=== PATIENT | female | born 1955 | race African-American/Black ===

== ENCOUNTER 2016-03-05 18:13 | Inpatient (IN) | payer MEDICARE, MEDICAID ==
[2016-03-05 19:08] LABS: ABSOLUTE BASOPHILS # (AUTO) 0.1 10^3/uL (0.0-0.2); ABSOLUTE EOSINOPHILS # (AUTO) 0.2 10^3/uL (0.0-0.6); ABSOLUTE LYMPHOCYTES (AUTO) 2.1 10^3/uL (0.5-4.7); ABSOLUTE MONOCYTES (AUTO) 0.9 10^3/uL (0.1-1.4); ABSOLUTE NEUT (AUTO) 5.1 10^3/uL (1.7-8.2); BASOPHILS % (AUTO) 0.7 % (0-2); EOSINOPHILS % (AUTO) 2.4 % (0-6); HEMATOCRIT 40.9 % (36.0-47.0); HEMOGLOBIN 13.2 g/dL (12.0-15.5); HGB HCT DIFFERENCE -1.3; LYMPHOCYTES % (AUTO) 25.1 % (13-45); MEAN CORPUSCULAR HEMOGLOBIN 29.7 pg (27.0-33.4); MEAN CORPUSCULAR HGB CONC 32.3 g/dL (32.0-36.0); MEAN CORPUSCULAR VOLUME 92 fl (80-97); MONOCYTES % (AUTO) 10.3 % (3-13); RED BLOOD COUNT 4.45 10^6/uL (3.72-5.28); RED CELL DISTRIBUTION WIDTH 15.7 % (11.5-14.0); SEGMENTED NEUTROPHILS % (AUTO) 61.5 % (42-78); WHITE BLOOD COUNT 8.4 10^3/uL (4.0-10.5)
[2016-03-05 19:29] LABS: ALANINE AMINOTRANSFERASE 19 U/L (9-52); ALBUMIN 4.3 g/dL (3.5-5.0); ALKALINE PHOSPHATASE 84 U/L (38-126); ANION GAP 12 (5-19); ASPARTATE AMINO TRANSFERASE 24 U/L (14-36); BILIRUBIN,TOTAL 0.6 mg/dL (0.2-1.3); BLOOD UREA NITROGEN 16 mg/dL (7-20); CALCIUM 9.2 mg/dL (8.4-10.2); CARBON DIOXIDE 25 mmol/L (22-30); CHLORIDE 106 mmol/L (98-107); CREATINE KINASE 86 U/L (30-135); CREATININE RESULT 1.37 mg/dL (0.52-1.25); GLUCOSE 107 mg/dL (75-110); POTASSIUM 4.1 mmol/L (3.6-5.0); SODIUM 143.3 mmol/L (137-145); TOTAL PROTEIN 8.2 g/dL (6.3-8.2)
[2016-03-05 19:41] LABS: CREATINE KINASE MB 0.87 ng/mL (<4.55)
[2016-03-05 19:45] LABS: TROPONIN I 0.078 ng/mL
[2016-03-05 20:44] LABS: PROTHROMBIN TIME 13.5 SEC (11.4-15.4)
[2016-03-05 20:45] LABS: PARTIAL THROMBOPLASTIN TIME 32.3 SEC (23.5-35.8)
--- NOTE | 2016-03-05 21:14 | ER Document Report ---
ED General - General Chief Complaint: Chest Pain Stated Complaint: CHEST PAIN TRAVEL OUTSIDE OF THE [place] IN LAST 30 DAYS: No - HPI Patient complains to provider of: left-sided chest pain Notes: Patient with a history of coronary artery disease stents placed in recent stress test that was not according to the patient normal coming in today left side chest pain ongoing for proximal a 5-10 minutes a few hours prior to arrival. Patient states she was short of breath and a time. Patient states she has been compliant with her medications including of blood thinning medications as well and eliquis. Patient denies any recent travel denies any recent antibiotics denies any medication changes. Patient states pain is left- sided no radiation sharp. Upon my arrival patient states pain is not resolved ever down and she will have a sharp twinge lasting for a second. Patient states PCP is Dr. Vogt intellectual property paralegal is Dr. Kirby - Related Data Allergies/Adverse Reactions: No Known Allergies Allergy (Verified 10/03/15 22:34) Home Medications: Current Home Medications Alirocumab [Praluent Pen] 1 each INJ [id number] 03/05/16 [History] Apixaban [Eliquis] 1 tab PO Q12 03/05/16 [History] Hydrochlorothiazide [Hydrochlorothiazide] 1 tab PO DAILY 03/05/16 [History] Losartan Potassium 1 tab PO DAILY 03/05/16 [History] Past Medical History - Social History Smoking Status: Unknown if Ever Smoked Family History: Malignancy - Past Medical History Cardiac Medical History: Reports: Hx Coronary Artery Disease, Hx Heart Attack, Hx Hypercholesterolemia, Hx Hypertension, Hx Peripheral Vascular Disease Denies: Hx Atrial Fibrillation, Hx Congestive Heart Failure, Hx Heart Murmur Pulmonary Medical History: Reports: Hx Asthma, Hx Bronchitis, Hx COPD Denies: Hx Pneumonia, Hx Tuberculosis Neurological Medical History: Denies: Hx Cerebrovascular Accident, Hx Seizures Malignancy Medical History: Reports: Hx Breast Cancer GI Medical History: Reports: Hx Gastroesophageal Reflux Disease Musculoskeltal Medical History: Denies Hx Arthritis, Reports Hx Fibromyalgia Psychiatric Medical History: Reports: Hx Depression Past Surgical History: Reports: Hx Cardiac Catheterization - 2002 Stent, 2004 Stent, Hx Coronary Stent - 2002([place]), 2004([place]), Hx Mastectomy - LEFT, Hx Orthopedic Surgery - left BKA due to peripheral vascular disease/ischemia. Denies: Hx Pacemaker - Immunizations Hx Diphtheria, Pertussis, Tetanus Vaccination: Yes Review of Systems - Review of Systems Constitutional: No symptoms reported EENT: No symptoms reported Cardiovascular: Chest pain Respiratory: No symptoms reported Gastrointestinal: No symptoms reported Genitourinary: No symptoms reported Female Genitourinary: No symptoms reported Musculoskeletal: No symptoms reported Skin: No symptoms reported Hematologic/Lymphatic: No symptoms reported Neurological/Psychological: No symptoms reported -: Yes All other systems reviewed and negative Physical Exam - Vital signs Vitals: Temp Pulse Resp BP Pulse Ox 98.2 F 74 19 139/83 H 100 03/05/16 18:18 03/05/16 18:18 03/05/16 18:18 03/05/16 18:18 03/05/16 18:18 Interpretation: Normal - General General appearance: Appears well, Alert - HEENT Head: Normocephalic, Atraumatic Eyes: Normal Pupils: PERRL - Respiratory Respiratory status: No respiratory distress Chest status: Nontender Breath sounds: Normal Chest palpation: Normal - Cardiovascular Rhythm: Regular Heart sounds: Normal auscultation Murmur: No - Abdominal Inspection: Normal Distension: No distension Bowel sounds: Normal Tenderness: Nontender Organomegaly: No organomegaly - Back Back: Normal, Nontender - Extremities General upper extremity: Normal inspection, Nontender, Normal color, Normal ROM , Normal temperature General lower extremity: Normal inspection, Nontender, Normal color, Normal ROM , Normal temperature, Normal weight bearing, Other - Left BKA. No: Princess's sign - Neurological Neuro grossly intact: Yes Cognition: Normal Orientation: AAOx4 [place] Coma Scale Eye Opening: Spontaneous [place] Coma Scale Verbal: Oriented [place] Coma Scale Motor: Obeys Commands [place] Coma Scale Total: 15 Speech: Normal Motor strength normal: LUE, RUE, LLE, RLE Sensory: Normal - Psychological Associated symptoms: Normal affect, Normal mood - Skin Skin Temperature: Warm Skin Moisture: Dry Skin Color: Normal Course - Re-evaluation Re-evalutation: 03/05/16 23:32 EKG showed no changes chest x-ray lab work negative troponin. Discussed with PCP will admit patient for chest pain rule out. Did not perform any studies to rule out PE as that the patient is on eliquis during patient ER stay no further episodes of chest pain - Vital Signs Vital signs: Temp Pulse Resp BP Pulse Ox 98.2 F 74 19 135/75 H 96 03/05/16 18:18 03/05/16 18:18 03/05/16 19:03 03/05/16 19:03 03/05/16 19:03 - Laboratory Result Diagrams: 03/05/16 18:59 03/05/16 18:59 Laboratory results interpreted by me: 03/05/16 03/05/16 18:59 18:59 RDW 15.7 H Creatinine 1.37 H Est GFR ( Amer) 48 L Est GFR (Non-Af Amer) 39 L Discharge - Discharge Clinical Impression: Chest pain Qualifiers: Chest pain type: unspecified Qualified Code(s): R07.9 - Chest pain, unspecified Disposition: ADMITTED OBSERVATION Admitting Provider: [facility] Unit Admitted: Telemetry
--- NOTE | 2016-03-05 21:38 | EKG REPORT ---
SEVERITY:- ABNORMAL ECG - SINUS RHYTHM RIGHT BUNDLE BRANCH BLOCK NONSPECIFIC ANTEROLATERAL ST-T CHANGES : Confirmed by: Som Jc MD 05-Mar-2016 21:38:24
[2016-03-05] MEDS ORDERED: ATORVASTATIN CALCIUM 80 MG TABLET PO ONE (22:30)
[2016-03-05] MEDS ORDERED: ALBUTEROL SULFATE HFA (90 MCG/PUFF) 8 GM MDI (1 MDI/ER DISP) IH ONE (22:30)
[2016-03-05] MEDS ORDERED: NITROGLYCERIN 0.4 MG/TAB 25 TAB/BOTTLE SL PRN (22:30)
[2016-03-05] MEDS ORDERED: METOPROLOL SUCCINATE 50 MG TAB.SR.24H PO ONE (22:45)
[2016-03-05] MEDS ORDERED: ASPIRIN 81 MG TABLET, CHEWABLE PO ONE (22:45)
[2016-03-05] MEDS ORDERED: APIXABAN 2.5 MG TABLET PO ONE (22:45)
[2016-03-06 01:30] LABS: CREATINE KINASE MB 1.07 ng/mL (<4.55); TROPONIN I 0.105 ng/mL
[2016-03-06] MEDS ORDERED: ALBUTEROL SULFATE HFA (90 MCG/PUFF) 8 GM MDI (1 MDI/ER DISP) IH SCH (02:00)
[2016-03-06] MEDS ORDERED: ALBUTEROL SULFATE HFA (90 MCG/PUFF) 8 GM MDI (1 MDI/ER DISP) IH PRN (03:44)
[2016-03-06] MEDS ORDERED: LANSOPRAZOLE 15 MG TAB.RAP.DR PO SCH (06:00)
[2016-03-06 08:22] LABS: ABSOLUTE BASOPHILS # (AUTO) 0.1 10^3/uL (0.0-0.2); ABSOLUTE EOSINOPHILS # (AUTO) 0.2 10^3/uL (0.0-0.6); ABSOLUTE LYMPHOCYTES (AUTO) 3.1 10^3/uL (0.5-4.7); ABSOLUTE MONOCYTES (AUTO) 1.1 10^3/uL (0.1-1.4); BASOPHILS % (AUTO) 0.5 % (0-2); EOSINOPHILS % (AUTO) 2.3 % (0-6); HEMATOCRIT 38.9 % (36.0-47.0); HEMOGLOBIN 12.6 g/dL (12.0-15.5); HGB HCT DIFFERENCE -1.1; LYMPHOCYTES % (AUTO) 29.3 % (13-45); MEAN CORPUSCULAR HEMOGLOBIN 29.6 pg (27.0-33.4); MEAN CORPUSCULAR HGB CONC 32.3 g/dL (32.0-36.0); MEAN CORPUSCULAR VOLUME 92 fl (80-97); MONOCYTES % (AUTO) 10.1 % (3-13); RED BLOOD COUNT 4.24 10^6/uL (3.72-5.28); RED CELL DISTRIBUTION WIDTH 15.6 % (11.5-14.0); SEGMENTED NEUTROPHILS % (AUTO) 57.8 % (42-78); WHITE BLOOD COUNT 10.5 10^3/uL (4.0-10.5)
[2016-03-06 08:43] LABS: ANION GAP 10 (5-19); BLOOD UREA NITROGEN 14 mg/dL (7-20); CALCIUM 9.2 mg/dL (8.4-10.2); CARBON DIOXIDE 24 mmol/L (22-30); CHLORIDE 107 mmol/L (98-107); CHOLESTEROL 179.38 mg/dL (0-200); CREATININE RESULT 1.25 mg/dL (0.52-1.25); Direct HDL 48 mg/dL (>40); GLUCOSE 91 mg/dL (75-110); TRIGLYCERIDES 183 mg/dL (<150)
[2016-03-06 08:52] LABS: CREATINE KINASE MB 1.22 ng/mL (<4.55); TROPONIN I 0.104 ng/mL
[2016-03-06 08:53] LABS: DIRECT LDL 91 mg/dL (<100)
[2016-03-06 08:59] LABS: VLDL CHOLESTEROL 36.6 mg/dL (10-31)
[2016-03-06] MEDS ORDERED: APIXABAN 2.5 MG TABLET PO SCH ×2 (10:00→22:00)
[2016-03-06] MEDS ORDERED: ASPIRIN 81 MG TABLET, CHEWABLE PO SCH ×2 (10:00→15:15)
[2016-03-06 14:00] LABS: CREATINE KINASE MB 1.16 ng/mL (<4.55); TROPONIN I 0.091 ng/mL
[2016-03-06] MEDS ORDERED: ALIROCUMAB 75 MG SQ SCH (15:15)
[2016-03-06 15:55] VITALS: BP 137/80
[2016-03-06] MEDS ORDERED: METOPROLOL SUCCINATE 50 MG TAB.SR.24H PO SCH (16:00)
[2016-03-06 16:28] LABS: APPEARANCE,URINE CLEAR; BILIRUBIN,URINE NEGATIVE (NEGATIVE); GLUCOSE, URINE 50 mg/dL (NEGATIVE); KETONES,URINE NEGATIVE (NEGATIVE); LEUKOCYTE ESTERASE,URINE NEGATIVE (NEGATIVE); NITRITE,URINE NEGATIVE (NEGATIVE); PROTEIN,URINE NEGATIVE (NEGATIVE); URINE SPECIFIC GRAVITY 1.011
[2016-03-06] MEDS ORDERED: ALIROCUMAB 150 MG SQ SCH (16:30)
[2016-03-06] MEDS ORDERED: ALBUTEROL SULFATE HFA (90 MCG/PUFF) 200 PUFF/8.5 GM MDI IH PRN (16:45)
--- NOTE | 2016-03-06 16:51 | PDOC H&P ---
History of Present Illness Admission Date/PCP: 03/05/16 22:17 TEODORO HOROWITZ, History of Present Illness: KEYONA TAYLOR is a 60 year old female, she has a history of ischemic cardiomyopathy, coronary artery disease with insertion of multiple drug eluting stents. She has a very complicated vascular history, she came to the emergency room with one day history of chest pain and shortness of breath, the chest pain is tightness of the chest.She was evaluated in the emergency room, because of history of coronary artery disease hospital admission was advised. She was admitted,The initial troponin was 0.0788 increased to 0.105 and a been trending down, it is now 0.091 she had a lexiscan Cardiolite stress test using single photon emisison computerized tomography on 02/03/2016. She was found to have scintigraphic evidence of lexiscan induced myocardial ischemia in the anterior wall. Also found was reversible ischemia and that was dilated left ventricle the ejection fraction was 25% at rest and 39 percent after stress. So she probably have a non-ST elevated myocardial infarction ,with a background of abnormal stress test about a month ago and with typical symptoms of angina and abnormal EKG Past Medical History Cardiac Medical History: Reports: Atrial Fibrillation - Paroxysmal atrial fibrillation, Coronary Artery Disease, Myocardial Infarction, Hyperlipidema, Hypertension, Peripheral Vascular Disease Pulmonary Medical History: Reports: Asthma, Bronchitis, Chronic Obstructive Pulmonary Disease (COPD) Neurological Medical History: Reports: Ischemic CVA Malignancy Medical History: Reports: Breast Cancer GI Medical History: Reports: Gastroesophageal Reflux Disease Musculoskeltal Medical History: Reports: Fibromyalgia Psychiatric Medical History: Reports: Depression Hematology: Denies: Anemia Past Surgical History Past Surgical History: Reports: Cardiac Catheterization - 2002 Stent, 2005 Stent , Coronary Stent - 2002([place]), 2004([place]), Mastectomy - LEFT, Orthopedic Surgery - left BKA due to peripheral vascular disease/ischemia Social History Information Source: Patient Smoking Status: Former Smoker Frequency of Alcohol Use: None Hx Recreational Drug Use: No Drugs: None Hx Prescription Drug Abuse: No - Advance Directive Resuscitation Status: Full Code Family History Family History: Malignancy Parental Family History Reviewed: Yes Children Family History Reviewed: Yes Sibling(s) Family History Reviewed.: Yes Medication/Allergy Home Medications: Albuterol Sulfate [Proair HFA] 2 puff IH Q4HP PRN 03/06/16 Alirocumab [Praluent Syringe] 150 mg SQ [id number] 03/06/16 Apixaban [Eliquis 2.5 mg Tablet] 2.5 mg PO Q12 03/06/16 Aspirin [Aspirin 81 mg Chewable Tablet] 81 mg PO DAILY 03/06/16 Atorvastatin Calcium [Lipitor 80 mg Tablet] 80 mg PO QHS 03/06/16 Clopidogrel Bisulfate [Plavix 75 mg Tablet] 75 mg PO DAILY 03/06/16 Hydrochlorothiazide [Hydrodiuril 25 mg Tablet] 25 mg PO DAILY 03/06/16 Losartan Potassium [Cozaar 25 mg Tablet] 25 mg PO DAILY 03/06/16 Metoprolol Succinate [Toprol Xl 25 mg Tab.sr] 75 mg PO DAILY 03/06/16 Allergies/Adverse Reactions: No Known Allergies Allergy (Verified 10/03/15 22:34) Review of Systems Constitutional: ABSENT: chills, fever(s), headache(s), weight gain, weight loss Eyes: ABSENT: visual disturbances Ears: ABSENT: hearing changes Cardiovascular: PRESENT: chest pain Respiratory: ABSENT: cough, hemoptysis Gastrointestinal: ABSENT: abdominal pain, constipation, diarrhea, hematemesis, hematochezia, nausea, vomiting Genitourinary: ABSENT: dysuria, hematuria Musculoskeletal: ABSENT: joint swelling Integumentary: ABSENT: rash, wounds Neurological: ABSENT: abnormal gait, abnormal speech, confusion, dizziness, focal weakness, syncope Psychiatric: ABSENT: anxiety, depression, homidical ideation, suicidal ideation Endocrine: ABSENT: cold intolerance, heat intolerance, menstrual abnormalities, polydipsia, polyuria Hematologic/Lymphatic: ABSENT: easy bleeding, easy bruising, lymphadenopathy Physical Exam Vital Signs: Temp Pulse Resp BP Pulse Ox 97.9 F 72 20 137/80 H 100 03/06/16 15:07 03/06/16 15:07 03/06/16 15:07 03/06/16 15:07 03/06/16 15:07 Intake & Output 03/05/16 03/06/16 03/07/16 06:59 06:59 06:59 Intake Total 55 300 Balance 55 300 Weight 106 kg General appearance: PRESENT: no acute distress, well-developed, well-nourished Head exam: PRESENT: atraumatic, normocephalic Eye exam: PRESENT: conjunctiva pink, EOMI, PERRLA Ear exam: PRESENT: normal external ear exam Mouth exam: PRESENT: moist, tongue midline Neck exam: PRESENT: full ROM Respiratory exam: PRESENT: clear to auscultation freida Cardiovascular exam: PRESENT: RRR, +S1, +S2 Pulses: PRESENT: normal dorsalis pedis pul, +2 pedal pulses bilateral Vascular exam: PRESENT: normal capillary refill GI/Abdominal exam: PRESENT: normal bowel sounds, soft Rectal exam: PRESENT: deferred Neurological exam: PRESENT: alert, awake, oriented to person, oriented to place , oriented to time, oriented to situation, CN II-XII grossly intact Psychiatric exam: PRESENT: appropriate affect, normal mood Skin exam: PRESENT: dry, intact, warm Results Laboratory Results: 03/06/16 07:52 03/06/16 07:52 03/06/16 03/06/16 03/06/16 07:52 07:52 16:05 WBC 10.5 RBC 4.24 Hgb 12.6 Hct 38.9 MCV 92 MCH 29.6 MCHC 32.3 RDW 15.6 H Plt Count 194 Seg Neutrophils % 57.8 Lymphocytes % 29.3 Monocytes % 10.1 Eosinophils % 2.3 Basophils % 0.5 Absolute Neutrophils 6.0 Absolute Lymphocytes 3.1 Absolute Monocytes 1.1 Absolute Eosinophils 0.2 Absolute Basophils 0.1 Sodium 141.0 Potassium 4.0 Chloride 107 Carbon Dioxide 24 Anion Gap 10 BUN 14 Creatinine 1.25 Est GFR ( Amer) 53 L Est GFR (Non-Af Amer) 44 L Glucose 91 Calcium 9.2 Triglycerides 183 H Cholesterol 179.38 LDL Cholesterol Direct 91 VLDL Cholesterol 36.6 H HDL Cholesterol 48 Urine Color YELLOW Urine Appearance CLEAR Urine pH 6.0 Ur Specific [place] 1.011 Urine Protein NEGATIVE Urine Glucose (UA) 50 H Urine Ketones NEGATIVE Urine Blood NEGATIVE Urine Nitrite NEGATIVE Ur Leukocyte Esterase NEGATIVE Urine WBC (Auto) 1 Urine RBC (Auto) 0 03/06/16 03/06/16 03/06/16 00:51 07:52 13:14 CK-MB (CK-2) 1.07 1.22 1.16 Troponin I 0.105 0.104 0.091 Impressions: Chest X-Ray 03/05/16 18:18 IMPRESSION: NO ACUTE RADIOGRAPHIC FINDING IN THE CHEST. Assessment & Plan - Diagnosis (1) Non-ST elevated myocardial infarction Is this a current diagnosis for this admission?: YesPlan: She most likely had a non-ST elevated myocardial infarction, she had chest pain suspicious for angina with shortness of breath and also elevated troponin in the setting of abnormal Cardiolite stress test about a month ago. She will continue her medication, including beta michelle, statin, aspirin, angiotensin converting enzyme inhibitor and Praulent , she may need cardiac catheterization , she saw Dr. Womack of [facility] cardiology in the past . I will consult with him tomorrow if she can be transfer to [facility] (2) Chronic obstructive pulmonary disease Qualifiers: COPD type: unspecified COPD Qualified Code(s): J44.9 - Chronic obstructive pulmonary disease, unspecified Is this a current diagnosis for this admission?: Yes (3) Coronary artery disease Qualifiers: Coronary Disease-Associated Artery/Lesion type: [place] artery [place] vs. transplanted heart: [place] heart Associated angina: with unstable angina Qualified Code(s): I25.110 - Atherosclerotic heart disease of [place] coronary artery with unstable angina pectoris Is this a current diagnosis for this admission?: Yes (4) HTN (hypertension) Qualifiers: Hypertension type: essential hypertension Qualified Code(s): I10 - Essential (primary) hypertension Is this a current diagnosis for this admission?: Yes (5) PAD (peripheral artery disease) Is this a current diagnosis for this admission?: Yes (6) Paroxysmal atrial fibrillation Is this a current diagnosis for this admission?: Yes
[2016-03-06] MEDS ORDERED: HYDROCHLOROTHIAZIDE 25 MG TABLET PO ONE (17:00)
[2016-03-06] MEDS ORDERED: LOSARTAN POTASSIUM 25 MG TABLET PO ONE (17:00)
[2016-03-06] MEDS ORDERED: CLOPIDOGREL BISULFATE 75 MG TABLET PO ONE (17:00)
[2016-03-06] MEDS ORDERED: METOPROLOL SUCCINATE 25 MG TAB.SR.24H PO ONE (17:00)
--- NOTE | 2016-03-06 17:24 | PDOC TRANSFER SUMMARY ---
General Admission Date/PCP: 03/05/16 22:17 TEODORO HOROWITZ, Resuscitation Status: Full Code - Transfer Diagnosis (1) Non-ST elevated myocardial infarction Current Visit: Yes (2) Chronic obstructive pulmonary disease Current Visit: Yes (3) Coronary artery disease Current Visit: Yes (4) HTN (hypertension) Current Visit: Yes (5) PAD (peripheral artery disease) Current Visit: Yes (6) Paroxysmal atrial fibrillation Current Visit: Yes - Transfer Medications Home Medications: Albuterol Sulfate [Proair HFA] 2 puff IH Q4HP PRN 03/06/16 Alirocumab [Praluent Syringe] 150 mg SQ [id number] 03/06/16 Apixaban [Eliquis 2.5 mg Tablet] 2.5 mg PO Q12 03/06/16 Aspirin [Aspirin 81 mg Chewable Tablet] 81 mg PO DAILY 03/06/16 Atorvastatin Calcium [Lipitor 80 mg Tablet] 80 mg PO QHS 03/06/16 Clopidogrel Bisulfate [Plavix 75 mg Tablet] 75 mg PO DAILY 03/06/16 Hydrochlorothiazide [Hydrodiuril 25 mg Tablet] 25 mg PO DAILY 03/06/16 Losartan Potassium [Cozaar 25 mg Tablet] 25 mg PO DAILY 03/06/16 Metoprolol Succinate [Toprol Xl 25 mg Tab.sr] 75 mg PO DAILY 03/06/16 Transfer Medications: Current Medications Albuterol (Ventolin Hfa 8 Gm Mdi (1 Mdi/Er Disp)) 2 puff IH Q4HP PRN PRN Reason: SHORTNESS OF BREATH Stop: 04/05/16 03:43 Albuterol (Proair Hfa Inhalation Aerosol 8.5 Gm Mdi) 2 puff IH Q4HP PRN PRN Reason: SHORTNESS OF BREATH Stop: 04/05/16 16:44 Apixaban (Eliquis 2.5 Mg Tablet) 2.5 mg PO Q12 MARY Stop: 04/05/16 09:59 Last Admin: 03/06/16 12:30 Dose: 2.5 mg Aspirin (Aspirin 81 Mg Chewable Tablet) 81 mg PO DAILY MARY Stop: 04/05/16 09:59 Last Admin: 03/06/16 12:31 Dose: 81 mg Atorvastatin Calcium (Lipitor 80 Mg Tablet) 80 mg PO QHS MARY Stop: 04/05/16 21:59 Clopidogrel Bisulfate (Plavix 75 Mg Tablet) 75 mg PO DAILY [facility] Stop: 04/06/16 09:59 Hydrochlorothiazide (Hydrodiuril 25 Mg Tablet) 25 mg PO DAILY MARY Stop: 04/06/16 09:59 Lansoprazole (Prevacid 15 Mg Odt Tablet) 15 mg PO Q6AM MARY Stop: 04/05/16 05:59 Last Admin: 03/06/16 05:46 Dose: 15 mg Losartan Potassium (Cozaar 25 Mg Tablet) 25 mg PO DAILY MARY Stop: 04/06/16 09:59 Metoprolol Succinate (Toprol Xl 25 Mg Tab.Sr) 75 mg PO DAILY [facility] Stop: 04/06/16 09:59 Nitroglycerin (Nitrostat 0.4 Mg (1/150 Gr) Tabs 25/Bottle) 1 tab SL Q5MP PRN PRN Reason: CHEST PAIN Stop: 04/04/16 22:29 Patient Own Medication (Alirocumab [Praluent Pen]) 75 mg SQ [id number] MARY Stop: 04/05/16 15:14 Patient Own Medication (Alirocumab [Praluent Syringe]) 150 mg SQ [id number] [facility] Stop: 04/05/16 16:29 Sodium Chloride (Saline Flush 2.5 Ml Monoject Prefil Syrin) 2.5 ml IV Q8 [facility] Stop: 04/05/16 05:59 Last Admin: 03/06/16 14:49 Dose: 2.5 ml - Allergies Allergies/Adverse Reactions: No Known Allergies Allergy (Verified 10/03/15 22:34) Hospital Course Hospital Course: Patient was admitted yesterday because of non-ST elevated myocardial infarction infarction. For details check history & physical. On admission on the troponin was 0.078. It peaked at 0.105, she had abnormal Lexiscan S stress test on 02/03/2016, cardiac catheterization was recommended and she was schedule to see the certified industrial hygienist in the next week, she now presents with typical angina with elevated troponin that suggest non-ST RI. I spoke to the certified industrial hygienist and the plan is to transfer for cardiac catheterization. Physical Exam Vital Signs: Temp Pulse Resp BP Pulse Ox 97.9 F 72 20 137/80 H 100 03/06/16 15:07 03/06/16 15:07 03/06/16 15:07 03/06/16 15:07 03/06/16 15:07 Intake & Output 03/05/16 03/06/16 03/07/16 06:59 06:59 06:59 Intake Total 55 300 Balance 55 300 Weight 106 kg General appearance: PRESENT: no acute distress, well-developed, well-nourished Head exam: PRESENT: atraumatic, normocephalic Eye exam: PRESENT: conjunctiva pink, EOMI, PERRLA Ear exam: PRESENT: normal external ear exam Mouth exam: PRESENT: moist, tongue midline Respiratory exam: PRESENT: clear to auscultation freida Cardiovascular exam: PRESENT: RRR, +S1, +S2 Pulses: PRESENT: normal dorsalis pedis pul Vascular exam: PRESENT: normal capillary refill GI/Abdominal exam: PRESENT: normal bowel sounds, soft Rectal exam: PRESENT: deferred Extremities exam: PRESENT: full ROM Neurological exam: PRESENT: alert, awake, oriented to person, oriented to place , oriented to time, oriented to situation, CN II-XII grossly intact Psychiatric exam: PRESENT: appropriate affect, normal mood Skin exam: PRESENT: dry, intact, warm Results Laboratory Results: 03/06/16 07:52 03/06/16 07:52 03/06/16 03/06/16 03/06/16 07:52 07:52 16:05 WBC 10.5 RBC 4.24 Hgb 12.6 Hct 38.9 MCV 92 MCH 29.6 MCHC 32.3 RDW 15.6 H Plt Count 194 Seg Neutrophils % 57.8 Lymphocytes % 29.3 Monocytes % 10.1 Eosinophils % 2.3 Basophils % 0.5 Absolute Neutrophils 6.0 Absolute Lymphocytes 3.1 Absolute Monocytes 1.1 Absolute Eosinophils 0.2 Absolute Basophils 0.1 Sodium 141.0 Potassium 4.0 Chloride 107 Carbon Dioxide 24 Anion Gap 10 BUN 14 Creatinine 1.25 Est GFR ( Amer) 53 L Est GFR (Non-Af Amer) 44 L Glucose 91 Calcium 9.2 Triglycerides 183 H Cholesterol 179.38 LDL Cholesterol Direct 91 VLDL Cholesterol 36.6 H HDL Cholesterol 48 Urine Color YELLOW Urine Appearance CLEAR Urine pH 6.0 Ur Specific [place] 1.011 Urine Protein NEGATIVE Urine Glucose (UA) 50 H Urine Ketones NEGATIVE Urine Blood NEGATIVE Urine Nitrite NEGATIVE Ur Leukocyte Esterase NEGATIVE Urine WBC (Auto) 1 Urine RBC (Auto) 0 03/06/16 03/06/16 03/06/16 00:51 07:52 13:14 CK-MB (CK-2) 1.07 1.22 1.16 Troponin I 0.105 0.104 0.091 Impressions: Chest X-Ray 03/05/16 18:18 IMPRESSION: NO ACUTE RADIOGRAPHIC FINDING IN THE CHEST.
[2016-03-06] MEDS ORDERED: ATORVASTATIN CALCIUM 80 MG TABLET PO SCH ×2 (22:00)
[2016-03-07] MEDS ORDERED: CLOPIDOGREL BISULFATE 75 MG TABLET PO SCH (10:00)
[2016-03-07] MEDS ORDERED: METOPROLOL SUCCINATE 25 MG TAB.SR.24H PO SCH (10:00)
[2016-03-07] MEDS ORDERED: HYDROCHLOROTHIAZIDE 25 MG TABLET PO SCH (10:00)
[2016-03-07] MEDS ORDERED: LOSARTAN POTASSIUM 25 MG TABLET PO SCH (10:00)
== END 2016-03-06 19:25 | disposition short-term general hospital (02) | DRG 282 ==
LOC: ER 18:13 → EH 22:17 → 3N 03-06 05:15 → OBSVTOIN 03-06 16:52
PROVIDERS: ADMIT Internal Medicine; ATTEND Internal Medicine
DX: I21.4 Non-ST elevation (NSTEMI) myocardial infarction (principal); J44.9 Chronic obstructive pulmonary disease, unspecified; I25.110 Atherosclerotic heart disease of native coronary artery with unstable angina pectoris; I10 Essential (primary) hypertension; I48.0 Paroxysmal atrial fibrillation; I73.9 Peripheral vascular disease, unspecified; I25.5 Ischemic cardiomyopathy; I25.2 Old myocardial infarction; E78.5 Hyperlipidemia, unspecified; J45.909 Unspecified asthma, uncomplicated; K21.9 Gastro-esophageal reflux disease without esophagitis; F32.9 Major depressive disorder, single episode, unspecified; M79.7 Fibromyalgia; E78.00 Pure hypercholesterolemia, unspecified; M19.90 Unspecified osteoarthritis, unspecified site; Z95.5 Presence of coronary angioplasty implant and graft; Z79.82 Long term (current) use of aspirin; Z79.899 Other long term (current) drug therapy; Z85.3 Personal history of malignant neoplasm of breast; Z90.12 Acquired absence of left breast and nipple; Z89.512 Acquired absence of left leg below knee; Z87.891 Personal history of nicotine dependence; Z80.9 Family history of malignant neoplasm, unspecified
CPT/HCPCS: 36415; 71010; 80048; 80053; 80061; 81001; 82550; 82553; 83690; 84484; 85025; 85610; 85730; 93005; 93010; 99285; G0378; J3490

== ENCOUNTER → 2016-04-12 | Outpatient (CLI) | payer MEDICARE, MEDICAID ==
[2016-04-12 14:47] LABS: ANION GAP 14 (5-19); BLOOD UREA NITROGEN 16 mg/dL (7-20); CALCIUM 9.9 mg/dL (8.4-10.2); CARBON DIOXIDE 23 mmol/L (22-30); CHLORIDE 103 mmol/L (98-107); CREATININE RESULT 1.37 mg/dL (0.52-1.25); GLUCOSE 98 mg/dL (75-110); POTASSIUM 4.2 mmol/L (3.6-5.0); SODIUM 139.6 mmol/L (137-145)
== END ==
LOC: OD 13:12
PROVIDERS: ATTEND Internal Medicine Cardiovascular Disease
DX: I21.4 Non-ST elevation (NSTEMI) myocardial infarction (principal); I50.42 Chronic combined systolic (congestive) and diastolic (congestive) heart failure; I73.9 Peripheral vascular disease, unspecified; I10 Essential (primary) hypertension; E78.5 Hyperlipidemia, unspecified; Z98.61 Coronary angioplasty status
CPT/HCPCS: 36415; 71020; 80048; 83880

== ENCOUNTER → 2016-06-09 | Outpatient (CLI) | payer MEDICARE, MEDICAID | LOC: WI 09:38 | PROVIDERS: ATTEND Internal Medicine Gastroenterology | DX: R14.0 Abdominal distension (gaseous) (principal); R10.13 Epigastric pain; R11.0 Nausea | CPT/HCPCS: 76705 ==

== ENCOUNTER 2016-06-22 12:51 | Observation (INO) | payer MEDICARE, MEDICAID ==
[2016-06-22] MEDS ORDERED: FUROSEMIDE 40 MG TABLET PO ONE (13:38)
[2016-06-22] MEDS ORDERED: ASPIRIN 81 MG TABLET, CHEWABLE PO ONE (13:38)
--- NOTE | 2016-06-22 13:40 | ER Document Report ---
ED Medical Screen (RME) - General Chief Complaint: Numbness of Arm Stated Complaint: NUMBNESS/TINGLING IN RIGHT HAND,ARM Time Seen by Provider: 06/22/16 13:36 Mode of Arrival: Ambulatory Information source: Patient Notes: 2 day history of shortness of breath and sternal chest heaviness cough productive of white sputum and occasional nausea worsening orthopnea and paroxysmal nocturnal dyspnea and swelling the lower extremities typical for exacerbations of congestive heart failure that she's had before. She also complains about numbness to the right upper extremity she says it been present since this morning and she says she has also had in the past in association with her congestive heart failure. She denies weakness to any extremity. Physical exam Well-developed well-nourished female alert mild tachypnea with talking Skin warm and dry Chest a few crackles in bases bilateral breath sounds equal Heart regular rate and rhythm Abdomen soft nontender Extremity is warm to plus pulses 2+ pedal edema bilaterally TRAVEL OUTSIDE OF THE [place] IN LAST 30 DAYS: No - Related Data Allergies/Adverse Reactions: No Known Allergies Allergy (Verified 10/03/15 22:34) Past Medical History - Past Medical History Cardiac Medical History: Reports: Hx Atrial Fibrillation - Paroxysmal atrial fibrillation, Hx Coronary Artery Disease, Hx Heart Attack, Hx Hypercholesterolemia, Hx Hypertension, Hx Peripheral Vascular Disease Denies: Hx Congestive Heart Failure, Hx Heart Murmur Pulmonary Medical History: Reports: Hx Asthma, Hx Bronchitis, Hx COPD Denies: Hx Pneumonia, Hx Tuberculosis Neurological Medical History: Denies: Hx Cerebrovascular Accident, Hx Seizures Renal/ Medical History: Denies: Hx Peritoneal Dialysis Malignancy Medical History: Reports: Hx Breast Cancer GI Medical History: Reports: Hx Gastroesophageal Reflux Disease Musculoskeltal Medical History: Denies Hx Arthritis, Reports Hx Fibromyalgia Psychiatric Medical History: Reports: Hx Depression Past Surgical History: Reports: Hx Cardiac Catheterization - 2002 Stent, 2004 Stent, Hx Coronary Stent - 2002([place]), 2004([place]), Hx Mastectomy - LEFT, Hx Orthopedic Surgery - left BKA due to peripheral vascular disease/ischemia. Denies: Hx Pacemaker - Immunizations Hx Diphtheria, Pertussis, Tetanus Vaccination: Yes Physical Exam - Vital signs Vitals: Temp Pulse Resp BP Pulse Ox 97.9 F 80 18 143/78 H 100 06/22/16 12:56 06/22/16 12:56 06/22/16 12:56 06/22/16 12:56 06/22/16 12:56 Course - Vital Signs Vital signs: Temp Pulse Resp BP Pulse Ox 97.9 F 80 18 143/78 H 100 06/22/16 12:56 06/22/16 12:56 06/22/16 12:56 06/22/16 12:56 06/22/16 12:56
[2016-06-22 14:42] LABS: ABSOLUTE EOSINOPHILS # (AUTO) 0.2 10^3/uL (0.0-0.6); ABSOLUTE LYMPHOCYTES (AUTO) 2.3 10^3/uL (0.5-4.7); ABSOLUTE MONOCYTES (AUTO) 0.8 10^3/uL (0.1-1.4); ABSOLUTE NEUT (AUTO) 5.3 10^3/uL (1.7-8.2); BASOPHILS % (AUTO) 0.5 % (0-2); EOSINOPHILS % (AUTO) 2.7 % (0-6); HEMATOCRIT 37.5 % (36.0-47.0); HEMOGLOBIN 12.5 g/dL (12.0-15.5); LYMPHOCYTES % (AUTO) 26.2 % (13-45); MEAN CORPUSCULAR HEMOGLOBIN 30.5 pg (27.0-33.4); MEAN CORPUSCULAR HGB CONC 33.3 g/dL (32.0-36.0); MEAN CORPUSCULAR VOLUME 92 fl (80-97); MONOCYTES % (AUTO) 9.6 % (3-13); RED BLOOD COUNT 4.09 10^6/uL (3.72-5.28); RED CELL DISTRIBUTION WIDTH 16.8 % (11.5-14.0); WHITE BLOOD COUNT 8.7 10^3/uL (4.0-10.5)
[2016-06-22 14:44] LABS: ALANINE AMINOTRANSFERASE 28 U/L (9-52); ALBUMIN 3.8 g/dL (3.5-5.0); ALKALINE PHOSPHATASE 108 U/L (38-126); ANION GAP 9 (5-19); ASPARTATE AMINO TRANSFERASE 19 U/L (14-36); BILIRUBIN,DIRECT 0.3 mg/dL (0.0-0.4); BILIRUBIN,TOTAL 0.5 mg/dL (0.2-1.3); BLOOD UREA NITROGEN 15 mg/dL (7-20); CALCIUM 9.1 mg/dL (8.4-10.2); CARBON DIOXIDE 26 mmol/L (22-30); CHLORIDE 105 mmol/L (98-107); CREATINE KINASE 97 U/L (30-135); CREATININE RESULT 1.27 mg/dL (0.52-1.25); GLUCOSE 96 mg/dL (75-110); POTASSIUM 4.4 mmol/L (3.6-5.0); SODIUM 139.9 mmol/L (137-145); TOTAL PROTEIN 7.3 g/dL (6.3-8.2)
[2016-06-22 14:56] LABS: CREATINE KINASE MB 1.01 ng/mL (<4.55)
[2016-06-22 14:59] LABS: TROPONIN I 0.065 ng/mL
--- NOTE | 2016-06-22 15:17 | ER Document Report ---
ED Respiratory Problem - General Chief Complaint: Numbness of Arm Stated Complaint: NUMBNESS/TINGLING IN RIGHT HAND,ARM Time Seen by Provider: 06/22/16 13:36 Mode of Arrival: Ambulatory Information source: Patient Notes: Patient is a 60-year-old female who states the onset 2 days ago of some congestion, cough, with yellow phlegm. She states some nausea without vomiting or fevers. She denies any calf pain, leg swelling, and denies any and all chest pain. 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 Patient also complains of the onset around 2 days ago of awakening with numbness to bilateral hands. Patient states it resolved without intervention. Patient is concerned today because she states this morning she developed some numbness, this time only to the right arm. She states she also had some right hand wrist and forearm weakness. She states it lasted around 45 minutes and resolved spontaneously. Patient denies any headache, neck pain, weakness or numbness to any other extremity. TRAVEL OUTSIDE OF THE [place] IN LAST 30 DAYS: No - HPI Patient complains to provider of: Other - See above Onset: Other - See above Duration: Better Initiating Event: Other - See above Quality of pain: No pain Severity: Moderate Pain Level: Denies Short of Breath: Mild Cough: Productive Sputum amount: Small Sputum color: Yellow Associated symptoms: Other - See above - Related Data Allergies/Adverse Reactions: No Known Allergies Allergy (Verified 10/03/15 22:34) Past Medical History - General Information source: Patient - Social History Smoking Status: Never Smoker Chew tobacco use (# tins/day): No Frequency of alcohol use: None Drug Abuse: None Family History: Malignancy Patient has suicidal ideation: No Patient has homicidal ideation: No - Past Medical History Cardiac Medical History: Reports: Hx Atrial Fibrillation - Paroxysmal atrial fibrillation, Hx Coronary Artery Disease, Hx Heart Attack, Hx Hypercholesterolemia, Hx Hypertension, Hx Peripheral Vascular Disease Denies: Hx Congestive Heart Failure, Hx Heart Murmur Pulmonary Medical History: Reports: Hx Asthma, Hx Bronchitis, Hx COPD Denies: Hx Pneumonia, Hx Tuberculosis Neurological Medical History: Denies: Hx Cerebrovascular Accident, Hx Seizures Renal/ Medical History: Denies: Hx Peritoneal Dialysis Malignancy Medical History: Reports: Hx Breast Cancer GI Medical History: Reports: Hx Gastroesophageal Reflux Disease Musculoskeltal Medical History: Denies Hx Arthritis, Reports Hx Fibromyalgia Psychiatric Medical History: Reports: Hx Depression Past Surgical History: Reports: Hx Cardiac Catheterization - 2002 Stent, 2005 Stent, Hx Coronary Stent - 2002([place]), 2004(Jessy), Hx Mastectomy - LEFT, Hx Orthopedic Surgery - left BKA due to peripheral vascular disease/ischemia. Denies: Hx Pacemaker - Immunizations Hx Diphtheria, Pertussis, Tetanus Vaccination: Yes Review of Systems - Review of Systems Constitutional: denies: Fever EENT: Nose congestion, Nose discharge. denies: Eye discharge Respiratory: Cough. denies: Hurts to breathe, Hemoptysis Gastrointestinal: denies: Vomiting Genitourinary: denies: Dysuria Musculoskeletal: denies: Leg swelling Skin: Other - no hives. denies: Rash Neurological/Psychological: Other - no slurred speech -: Yes All other systems reviewed and negative Physical Exam - Vital signs Vitals: Temp Pulse Resp BP Pulse Ox 97.9 F 80 18 143/78 H 100 06/22/16 12:56 06/22/16 12:56 06/22/16 12:56 06/22/16 12:56 06/22/16 12:56 Notes: Reviewed vital signs and nursing note as charted by RN. CONSTITUTIONAL: Alert and oriented and responds appropriately to questions. Well -appearing; well-nourished HEAD: Normocephalic; atraumatic EYES: PERRL ENT: Normal nose; positive bilateral rhinorrhea; moist mucous membranes; pharynx without lesions noted NECK: Supple without meningismus; non-tender; no carotid bruits; no cervical lymphadenopathy, no masses CARD: Regular rate and rhythm; no murmurs, no clicks, no rubs, no gallops; symmetric distal pulses RESP: Normal chest excursion without splinting or tachypnea; breath sounds clear and equal bilaterally; scattered rhonchi without wheezing or rales present. ABD/GI: Normal bowel sounds; non-distended; soft, non-tender BACK: The back appears normal and is non-tender to palpation EXT: Normal ROM in all joints; non-tender to palpation; no cyanosis, no effusions, no edema SKIN: Normal color for age and race; warm; dry; good turgor; capillary refill < 2 seconds; no acute lesions noted NEURO: CN II through XII are intact. Patient has 5 out of 5 bilateral upper and lower extremity strength with sensation intact to light touch. PSYCH: The patient's mood and manner are appropriate. Grooming and personal hygiene are appropriate. Course - Re-evaluation Re-evalutation: 06/22/16 15:15 Given the history and physical examination we will order cardiac panel, EKG, x- ray of the chest, and a CT scan of the head. Given that the bilateral hand numbness initially a code 2 days ago, this does not seem like a CVA. However given the episode today, unilateral, with weakness in addition to the numbness, TIA protocol has been started. Patient's NIH is currently 0. I do not believe that the patient is a TPA candidate. EKG shows a heart of 65, normal sinus rhythm, right bundle branch block, no obvious ST elevation or depression. Inverted T waves in leads 1, aVL, V2, V4 and V5. Old EKG from February 2016 shows no obvious appreciable EKG changes. - Vital Signs Vital signs: Temp Pulse Resp BP Pulse Ox 97.9 F 80 18 143/78 H 100 06/22/16 12:56 06/22/16 12:56 06/22/16 12:56 06/22/16 12:56 06/22/16 12:56 - Laboratory Result Diagrams: 06/22/16 14:05 06/22/16 14:05 Laboratory results interpreted by me: 06/22/16 06/22/16 14:05 14:05 RDW 16.8 H Creatinine 1.27 H Est GFR ( Amer) 52 L Est GFR (Non-Af Amer) 43 L Discharge - Discharge Clinical Impression: Weakness of right upper extremity, Cough Condition: Fair Disposition: ADMITTED OBSERVATION Admitting Provider: [facility] Unit Admitted: Telemetry
[2016-06-22] MEDS ORDERED: APIXABAN 5 MG TABLET PO ONE (16:16)
[2016-06-22] MEDS ORDERED: ALBUTEROL SULFATE HFA (90 MCG/PUFF) 8 GM MDI (1 MDI/ER DISP) IH PRN (17:35)
[2016-06-22] MEDS ORDERED: APIXABAN 5 MG TABLET PO SCH ×2 (17:45→18:00)
[2016-06-22] MEDS ORDERED: ALIROCUMAB 150 MG SQ SCH (17:45)
[2016-06-22 18:07] LABS: PROTHROMBIN TIME 13.2 SEC (11.4-15.4)
[2016-06-22 18:08] LABS: PARTIAL THROMBOPLASTIN TIME 31.9 SEC (23.5-35.8)
[2016-06-22] MEDS ORDERED: CLOPIDOGREL BISULFATE 75 MG TABLET PO ONE (18:45)
[2016-06-22] MEDS ORDERED: FUROSEMIDE 20 MG TABLET PO ONE (18:45)
[2016-06-22 20:52] LABS: HEMATOCRIT 38.8 % (36.0-47.0); HGB HCT DIFFERENCE 0.2; MEAN CORPUSCULAR HEMOGLOBIN 30.5 pg (27.0-33.4); MEAN CORPUSCULAR HGB CONC 33.6 g/dL (32.0-36.0); MEAN CORPUSCULAR VOLUME 91 fl (80-97); RED BLOOD COUNT 4.27 10^6/uL (3.72-5.28); RED CELL DISTRIBUTION WIDTH 16.5 % (11.5-14.0); WHITE BLOOD COUNT 9.7 10^3/uL (4.0-10.5)
[2016-06-22] MEDS ORDERED: METOPROLOL SUCCINATE 50 MG TAB.SR.24H PO ONE (21:00)
[2016-06-22] MEDS ORDERED: LOSARTAN POTASSIUM 25 MG TABLET PO ONE (21:00)
[2016-06-22] MEDS ORDERED: ATORVASTATIN CALCIUM 80 MG TABLET PO SCH (22:00)
--- NOTE | 2016-06-22 23:34 | EKG REPORT ---
SEVERITY:- ABNORMAL ECG - SINUS RHYTHM RIGHT BUNDLE BRANCH BLOCK : Confirmed by: Demetrio Valentin 22-Jun-2016 23:33:59
[2016-06-23] MEDS: ACETAMINOPHEN 325 MG TABLET PO PRN ×2 (04:43→16:08)
[2016-06-23] MEDS ORDERED: LOSARTAN POTASSIUM 25 MG TABLET PO SCH (10:00)
[2016-06-23] MEDS ORDERED: ALIROCUMAB 150 MG SQ SCH (10:00)
[2016-06-23] MEDS ORDERED: LANSOPRAZOLE 15 MG TAB.RAP.DR PO SCH (10:00)
[2016-06-23] MEDS ORDERED: CLOPIDOGREL BISULFATE 75 MG TABLET PO SCH (10:00)
[2016-06-23] MEDS ORDERED: FUROSEMIDE 20 MG TABLET PO SCH (10:00)
[2016-06-23] MEDS ORDERED: METOPROLOL SUCCINATE 50 MG TAB.SR.24H PO SCH (10:00)
[2016-06-23] MEDS ORDERED: APIXABAN 2.5 MG TABLET PO ONE (11:00)
[2016-06-23] MEDS ORDERED: ALBUTEROL SULFATE HFA (90 MCG/PUFF) 200 PUFF/8.5 GM MDI IH PRN (13:19)
--- NOTE | 2016-06-23 13:50 | EKG REPORT ---
SEVERITY:- ABNORMAL ECG - SINUS RHYTHM VENTRICULAR PREMATURE COMPLEX RIGHT BUNDLE BRANCH BLOCK LATERAL INFARCT, AGE INDETERMINATE : Confirmed by: Demetrio Valentin 23-Jun-2016 13:50:11
[2016-06-23 18:31] VITALS: BP 125/69
--- NOTE | 2016-06-23 19:29 | PDOC H&P ---
History of Present Illness Admission Date/PCP: 06/22/16 21:25 ENOCH BRUNNER MD History of Present Illness: KEYONA TAYLOR is a 60 year old female, she is well-known to me, she has multiple comorbid conditions including ischemic cardiomyopathy, coronary artery disease with insertion of multiple drug-eluting stents history of CVA, PAD. She came to the emergency room with nonspecific complaints of numbness in both upper extremities and shortness of breath. She was on the way to cardiac rehabilitation when she had shortness of breath. She was seen in the emergency room, she was evaluated and the ED physician wants patient admitted for observation. It should be noted that patient have a long history of nonspecific , vague neuropathic symptoms probably due to sensory abnormality from the CVA. This neuropathy symptoms as been ongoing for many many months to years. Past Medical History Cardiac Medical History: Reports: Atrial Fibrillation - Paroxysmal atrial fibrillation, Coronary Artery Disease, Myocardial Infarction, Hyperlipidema, Hypertension, Peripheral Vascular Disease Pulmonary Medical History: Reports: Asthma, Bronchitis, Chronic Obstructive Pulmonary Disease (COPD) Malignancy Medical History: Reports: Breast Cancer GI Medical History: Reports: Gastroesophageal Reflux Disease Musculoskeltal Medical History: Reports: Fibromyalgia Denies: Arthritis Psychiatric Medical History: Reports: Depression Past Surgical History Past Surgical History: Reports: Cardiac Catheterization - 2002 Stent, 2005 Stent , Coronary Stent - 2003([place]), 2005([place]), Mastectomy - LEFT, Orthopedic Surgery - left BKA due to peripheral vascular disease/ischemia Denies: Pacemaker Social History Smoking Status: Former Smoker Last Time Smoked: 3 years ago Frequency of Alcohol Use: None Hx Recreational Drug Use: No Drugs: None Hx Prescription Drug Abuse: No - Advance Directive Resuscitation Status: Full Code Family History Family History: Reviewed & Not Pertinent, Malignancy Parental Family History Reviewed: Yes Children Family History Reviewed: Yes Sibling(s) Family History Reviewed.: Yes Medication/Allergy Home Medications: Albuterol Sulfate [Ventolin Hfa] 2 puff IH Q4HP PRN 06/22/16 Alirocumab [Praluent Pen] 150 mg SQ [id number] 06/22/16 Atorvastatin Calcium [Lipitor 80 mg Tablet] 80 mg PO QHS 06/22/16 Clopidogrel Bisulfate [Plavix 75 mg Tablet] 75 mg PO DAILY 06/22/16 Furosemide [Lasix] 20 mg PO DAILY 06/22/16 Losartan Potassium [Cozaar 25 mg Tablet] 25 mg PO DAILY 06/22/16 Metoprolol Succinate [Toprol Xl 50 mg Tab.sr] 50 mg PO DAILY 06/22/16 Omeprazole 20 mg PO DAILY 06/22/16 Apixaban [Eliquis 5 mg Tablet] 2.5 mg PO BID #0 06/23/16 Allergies/Adverse Reactions: No Known Allergies Allergy (Verified 10/03/15 22:34) Review of Systems Constitutional: ABSENT: chills, fever(s), headache(s), weight gain, weight loss Eyes: ABSENT: visual disturbances Ears: ABSENT: hearing changes Cardiovascular: ABSENT: as per HPI, chest pain, dyspnea on exertion, edema, orthropnea, palpitations, other Respiratory: PRESENT: dyspnea. ABSENT: cough, hemoptysis Gastrointestinal: ABSENT: abdominal pain, constipation, diarrhea, hematemesis, hematochezia, nausea, vomiting Genitourinary: ABSENT: dysuria, hematuria Musculoskeletal: ABSENT: joint swelling Integumentary: ABSENT: rash, wounds Neurological: PRESENT: numbness Psychiatric: ABSENT: anxiety, depression, homidical ideation, suicidal ideation Endocrine: ABSENT: cold intolerance, heat intolerance, menstrual abnormalities, polydipsia, polyuria Hematologic/Lymphatic: ABSENT: easy bleeding, easy bruising, lymphadenopathy Physical Exam Vital Signs: Temp Pulse Resp BP Pulse Ox 98 F 80 17 125/69 98 06/23/16 18:26 06/23/16 18:26 06/23/16 18:26 06/23/16 18:26 06/23/16 18:26 Intake & Output 06/22/16 06/23/16 06/24/16 06:59 06:59 06:59 Intake Total 120 1192 Balance 120 1192 General appearance: PRESENT: no acute distress, well-developed, well-nourished Head exam: PRESENT: atraumatic, normocephalic Eye exam: PRESENT: conjunctiva pink, EOMI, PERRLA. ABSENT: scleral icterus Ear exam: PRESENT: normal external ear exam Mouth exam: PRESENT: moist, tongue midline Neck exam: PRESENT: full ROM Respiratory exam: PRESENT: clear to auscultation freida Cardiovascular exam: PRESENT: RRR, +S1, +S2 Vascular exam: PRESENT: normal capillary refill GI/Abdominal exam: PRESENT: normal bowel sounds, soft Rectal exam: PRESENT: deferred Neurological exam: PRESENT: alert, awake, oriented to person, oriented to place , oriented to time, oriented to situation, CN II-XII grossly intact Psychiatric exam: PRESENT: appropriate affect, normal mood Skin exam: PRESENT: dry, intact, warm Results Impressions: Chest X-Ray 06/22/16 13:36 IMPRESSION: NO ACUTE RADIOGRAPHIC FINDING IN THE CHEST. Head CT 06/22/16 15:04 IMPRESSION: NORMAL BRAIN CT WITHOUT CONTRAST. Assessment & Plan - Diagnosis (1) Peripheral neuropathy Qualifiers: Peripheral neuropathy type: polyneuropathy, unspecified Qualified Code(s): G62.9 - Polyneuropathy, unspecified Is this a current diagnosis for this admission?: Yes (2) Chronic obstructive pulmonary disease Qualifiers: COPD type: unspecified COPD Qualified Code(s): J44.9 - Chronic obstructive pulmonary disease, unspecified Is this a current diagnosis for this admission?: Yes (3) Coronary artery disease Qualifiers: Coronary Disease-Associated Artery/Lesion type: [place] artery [place] vs. transplanted heart: [place] heart Associated angina: with unstable angina Qualified Code(s): I25.110 - Atherosclerotic heart disease of [place] coronary artery with unstable angina pectoris Is this a current diagnosis for this admission?: Yes (4) PAD (peripheral artery disease) Is this a current diagnosis for this admission?: Yes
--- NOTE | 2016-06-23 19:30 | PDOC DISCHARGE SUMMARY ---
General - Admit/Disc Date/PCP Admission Date/Primary Care Provider: 06/22/16 21:25 ENOCH BRUNNER MD Discharge Date: 06/23/16 - Discharge Diagnosis (1) Peripheral neuropathy Is this a current diagnosis for this admission?: Yes (2) Chronic obstructive pulmonary disease Is this a current diagnosis for this admission?: Yes (3) Coronary artery disease Is this a current diagnosis for this admission?: Yes (4) PAD (peripheral artery disease) Is this a current diagnosis for this admission?: Yes - Additional Information Resuscitation Status: Full Code Discharge Activity: Activity As Tolerated, Balance Activity w/Rest Home Medications: Albuterol Sulfate [Ventolin Hfa] 2 puff IH Q4HP PRN 06/22/16 Alirocumab [Praluent Pen] 150 mg SQ [id number] 06/22/16 Atorvastatin Calcium [Lipitor 80 mg Tablet] 80 mg PO QHS 06/22/16 Clopidogrel Bisulfate [Plavix 75 mg Tablet] 75 mg PO DAILY 06/22/16 Furosemide [Lasix] 20 mg PO DAILY 06/22/16 Losartan Potassium [Cozaar 25 mg Tablet] 25 mg PO DAILY 06/22/16 Metoprolol Succinate [Toprol Xl 50 mg Tab.sr] 50 mg PO DAILY 06/22/16 Omeprazole 20 mg PO DAILY 06/22/16 Apixaban [Eliquis 5 mg Tablet] 2.5 mg PO BID #0 06/23/16 History of Present Illness History of Present Illness: KEYONA TAYLOR is a 60 year old female, she is well-known to me, she has multiple comorbid conditions including ischemic cardiomyopathy, coronary artery disease with insertion of multiple drug-eluting stents history of CVA, PAD. She came to the emergency room with nonspecific complaints of numbness in both upper extremities and shortness of breath. She was on the way to cardiac rehabilitation when she had shortness of breath. She was seen in the emergency room, she was evaluated and the ED physician wants patient admitted for observation. It should be noted that patient have a long history of nonspecific , vague neuropathic symptoms probably due to sensory abnormality from the CVA. This neuropathy symptoms as been ongoing for many many months to years. Hospital Course Hospital Course: He was admitted for observation, she had non-specific neuropathic symptoms. She is presently optimized on medication Physical Exam Vital Signs: Temp Pulse Resp BP Pulse Ox 98 F 80 17 125/69 98 05/11/17 18:26 06/23/16 18:26 06/23/16 18:26 06/23/16 18:26 06/23/16 18:26 Intake & Output 06/22/16 06/23/16 06/24/16 06:59 06:59 06:59 Intake Total 120 1192 Balance 120 1192 General appearance: PRESENT: no acute distress, well-developed, well-nourished Head exam: PRESENT: atraumatic, normocephalic Eye exam: PRESENT: conjunctiva pink, EOMI, PERRLA Ear exam: PRESENT: normal external ear exam Mouth exam: PRESENT: moist, tongue midline Neck exam: PRESENT: full ROM Respiratory exam: PRESENT: clear to auscultation freida Cardiovascular exam: PRESENT: RRR, +S1, +S2 Vascular exam: PRESENT: normal capillary refill GI/Abdominal exam: PRESENT: normal bowel sounds, soft Rectal exam: PRESENT: deferred Neurological exam: PRESENT: alert, awake, oriented to person, oriented to place , oriented to time, oriented to situation, CN II-XII grossly intact Psychiatric exam: PRESENT: appropriate affect, normal mood Skin exam: PRESENT: dry, intact, warm Results Impressions: Chest X-Ray 06/22/16 13:36 IMPRESSION: NO ACUTE RADIOGRAPHIC FINDING IN THE CHEST. Head CT 06/22/16 15:04 IMPRESSION: NORMAL BRAIN CT WITHOUT CONTRAST.
[2016-06-23] MEDS ORDERED: APIXABAN 2.5 MG TABLET PO SCH (22:00)
== END 2016-06-23 19:01 | disposition home or self-care (01) ==
LOC: ER 12:51 → EH 16:08 → UNDOADMOB 16:08 → EH 19:00 → 4S 19:00 → EH 21:25 → 4S 21:25
PROVIDERS: ADMIT Internal Medicine; ATTEND Internal Medicine
DX: G62.9 Polyneuropathy, unspecified (principal); J44.9 Chronic obstructive pulmonary disease, unspecified; I25.110 Atherosclerotic heart disease of native coronary artery with unstable angina pectoris; I73.9 Peripheral vascular disease, unspecified; I25.5 Ischemic cardiomyopathy; I48.0 Paroxysmal atrial fibrillation; I25.2 Old myocardial infarction; K21.9 Gastro-esophageal reflux disease without esophagitis; R09.81 Nasal congestion; R09.89 Other specified symptoms and signs involving the circulatory and respiratory systems; E78.00 Pure hypercholesterolemia, unspecified; I45.10 Unspecified right bundle-branch block; I11.0 Hypertensive heart disease with heart failure; I50.9 Heart failure, unspecified; Z79.02 Long term (current) use of antithrombotics/antiplatelets; Z79.899 Other long term (current) drug therapy; Z95.5 Presence of coronary angioplasty implant and graft; Z86.73 Personal history of transient ischemic attack (TIA), and cerebral infarction without residual deficits; Z85.3 Personal history of malignant neoplasm of breast; Z90.12 Acquired absence of left breast and nipple; Z87.891 Personal history of nicotine dependence; Z80.9 Family history of malignant neoplasm, unspecified; Z89.512 Acquired absence of left leg below knee
CPT/HCPCS: 93005 ×2; 99285; 36415; 82553; 82550; 82565; 85025; 85027; 85610; 85730; 80053; 84484; 83880; 71010; 70450; 93010 ×2; G0378 ×2; A9270 ×10

== ENCOUNTER → 2016-09-06 | Outpatient (CLI) | payer MEDICARE, MEDICAID ==
--- NOTE | 2016-09-06 16:07 | RADIOLOGY REPORT (SQ) ---
EXAM DESCRIPTION: NM GASTRIC EMPTYING STUDY COMPLETED DATE/TIME: 09/06/2016 12:39 pm REASON FOR STUDY: ABDOMINAL DISTENTION R68.81 EARLY SATIETY COMPARISON: None. RADIONUCLIDE AND DOSE: 2 millicuries Tc-99m Sulfur Colloid. The route of agent administration: Oral. TECHNIQUE: Serial images acquired to 90 minutes with each image recorded over a 2-minute time frame. Image intensity values plotted with respect to time with linear regression algorithm. LIMITATIONS: None. FINDINGS: CALCULATED VALUE: 80.5 %. NORMAL VALUE: Greater than 50% emptying at 90 minutes. OTHER: No other significant finding. IMPRESSION: NORMAL GASTRIC EMPTYING. TECHNICAL DOCUMENTATION: JOB ID: [id number] [email or web address]- All Rights Reserved
== END ==
LOC: RAD 08:27
PROVIDERS: ATTEND Internal Medicine Gastroenterology
DX: R14.0 Abdominal distension (gaseous) (principal); R68.81 Early satiety
CPT/HCPCS: 78264; A9541

== ENCOUNTER → 2017-01-02 | Outpatient (CLI) | payer MEDICARE, MEDICAID ==
--- NOTE | 2017-01-02 17:15 | WOMENS IMAGING REPORT ---
EXAM DESCRIPTION: 3D SCREENING MAMMO RIGHT COMPLETED DATE/TIME: 01/02/2017 12:09 pm REASON FOR STUDY: ROUTINE SCREENING; Z12.31 Z12.31 ENCNTR SCREEN MAMMOGRAM FOR MALIGNANT NEOPLASM O F MARCI COMPARISON: Multiple since 2008 TECHNIQUE: Standard craniocaudal and mediolateral oblique views of the right breast recorded using d igital acquisition and breast tomosynthesis. Patient is post left mastectomy in 2010 LIMITATIONS: None. FINDINGS: BREAST: Right Findings present which are benign by mammographic criteria. No suspicious masses, calcifications or a rchitectural distortion. Pertinent benign findings: Benign breast parenchymal calcifications, benign right breast nodule 6 o'c lock position and intramammary lymph nodes upper-outer quadrant unchanged from multiple previous stud ies Read with the assistance of CAD. [facility] - R2 Cenova Version 1.3 .[facility] - R2 Cenova Version 1.3 .[facility] - R2 Cenova Version 2.4 .[facility] [place]2 Cenova Version 2.4 .[facility] - R2 Product Safety Professional Version 9.2 Benign mammographic findings may include one or more of the following: Smooth masses, popcorn/rim/co arse calcifications, asymmetries, post-procedure changes, and lesions with long-standing stability. IMPRESSION: NORMAL MAMMOGRAM. BIRADS 2. BREAST DENSITY: b. There are scattered areas of fibroglandular density. BIRAD: 2 Benign Finding(s) RECOMMENDATION: RECOMMENDATION: ROUTINE SCREENING. Please continue right breast screening mammogram/tomosynthesis in December 2017 COMMENT: The patient has been notified of the results by letter per SA requirements. Additional no tification policies are in place for contacting patient with suspicious or incomplete findings. Quality ID #[id number]: The [employer] [employer] recommends an annual screening mammogram for women aged 40 years or over. This facility utilizes a reminder system to ensure that all patients receive reminder letters, and/or direct phone calls for appointments. This includes reminders for routine scr eening mammograms, diagnostic mammograms, or other Breast Imaging Interventions when appropriate. Th is patient will be placed in the appropriate reminder system. The [place] [employer] (ACR) has developed recommendations for screening MRI of the breast s in certain patient populations, to be used in conjunction with mammography. Breast MRI surveillance may be appropriate for women with more than 20% lifetime risk of developing breast cancer as determi vikki by genetic testing, significant family history of the disease, or history of mantle radiation for Hodgkins Disease. ACR Practice Guidelines 2008. DBT Technology DBT is a type of tomographic mammography. With conventional mammography, overlapping breast tissue ma y make lesions difficult to detect, even with good compression. DBT uses an x-ray tube that rotates a round the breast, taking images at different angles. These images are then combined to create thin sl ices of the breast that the radiologist can view as a 3D reconstruction. The [employer] unit can perform full-field digital mammograms (2D imaging); or DBT (3D imaging); or both, in a combination mode that quickly performs both the mammogram and the tomosynthesis scan while the breast is still compressed. PQRS 6045F: Fluoroscopic imaging is not utilized for breast tomosynthesis. TECHNICAL DOCUMENTATION: FINDING NUMBER: (1) ASSESSMENT: (1) JOB ID: [id number] [email or web address]- All Rights Reserved
== END ==
LOC: WI 11:50
PROVIDERS: ATTEND Internal Medicine
DX: Z12.31 Encounter for screening mammogram for malignant neoplasm of breast (principal)
CPT/HCPCS: 77063; G0202

== ENCOUNTER 2017-05-28 13:09 | Inpatient (IN) | payer MEDICARE, MEDICAID ==
--- NOTE | 2017-05-28 13:33 | RADIOLOGY REPORT (SQ) ---
EXAM DESCRIPTION: CT HEAD WITHOUT COMPLETED DATE/TIME: 05/28/2017 1:19 pm REASON FOR STUDY: stroke s/s COMPARISON: 06/22/2016 TECHNIQUE: Axial images acquired through the brain without intravenous contrast. Images reviewed wi th bone, brain and subdural windows. Images stored on PACS. All CT scanners at this facility use dose modulation, iterative reconstruction, and/or weight based d osing when appropriate to reduce radiation dose to as low as reasonably achievable (ALARA). [facility]: Dose Right [facility]: CareDose [facility]: Dose Right [facility]: Teradose 4D [facility]: Smart Technologies RADIATION DOSE: CT Rad equipment meets quality standard of care and radiation dose reduction techniq ues were employed. CTDIvol: 53.2 mGy. DLP: 964 mGy-cm. mGy. LIMITATIONS: None. FINDINGS: VENTRICLES: Prominent. CEREBRUM: No masses. No hemorrhage. No midline shift. There is a new area of low attenuation with volume loss involving the right frontotemporal lobe compatible with a chronic infarction. Chronic bi lateral basal ganglia lacunar infarcts. Additional areas of low density in the white matter most lik grazyna due to chronic micro-vascular ischemic change. No evidence for acute infarction. CEREBELLUM: No masses. No hemorrhage. No alteration of density. No evidence for acute infarction. EXTRAAXIAL SPACES: Mild age-related involutional change. No fluid collections. No masses. ORBITS AND GLOBE: No intra- or extraconal masses. Normal contour of globe without masses. CALVARIUM: No fracture. PARANASAL SINUSES: No fluid or mucosal thickening. SOFT TISSUES: No mass or hematoma. OTHER: No other significant finding. IMPRESSION: NO DEFINITE CT EVIDENCE OF ACUTE ISCHEMIA, HEMORRHAGE, OR MASS LESION. CHRONIC APPEAR I NFARCTION RIGHT FRONTOTEMPORAL LOBE WHICH IS NOT PRESENT ON PRIOR STUDY. CORRELATE WITH CLINICAL HIS TORY OF INTERVAL STROKE. EVIDENCE OF ACUTE STROKE: NO. COMMENT: Pertinent positive or negative findings of the imaging study reported as a CRITICAL EXAM jessica OROPEZA at13:28 on 05/28/2017. Category of Critical Exam: CODE STROKE TECHNICAL DOCUMENTATION: JOB ID: [id number] Quality ID # [id number]: Final reports with documentation of one or more dose reduction techniques (e.g., Au tomated exposure control, adjustment of the mA and/or kV according to patient size, use of iterative reconstruction technique) 2010 [employer]- All Rights Reserved Reading location - IP/workstation name: [email or web address]
--- NOTE | 2017-05-28 13:34 | RADIOLOGY REPORT (SQ) ---
EXAM DESCRIPTION: CHEST SINGLE VIEW COMPLETED DATE/TIME: 05/28/2017 1:20 pm REASON FOR STUDY: stroke s/s COMPARISON: 06/22/2016 EXAM PARAMETERS: NUMBER OF VIEWS: One view. TECHNIQUE: Single frontal radiographic view of the chest acquired. RADIATION DOSE: NA LIMITATIONS: None. FINDINGS: LUNGS AND PLEURA: No new opacities, masses or pneumothorax. No pleural effusion. MEDIASTINUM AND HILAR STRUCTURES: No masses. Contour normal. HEART AND VASCULAR STRUCTURES: Heart stable in size. Normal vasculature. BONES: No acute findings. HARDWARE: None in the chest. OTHER: No other significant finding. IMPRESSION: NO ACUTE RADIOGRAPHIC FINDING IN THE CHEST. NO SIGNIFICANT CHANGE FROM PRIOR STUDY. TECHNICAL DOCUMENTATION: JOB ID: [id number] [email or web address]- All Rights Reserved Reading location - IP/workstation name: [email or web address]
[2017-05-28 13:53] LABS: ABSOLUTE BASOPHILS # (AUTO) 0.1 10^3/uL (0.0-0.2); ABSOLUTE EOSINOPHILS # (AUTO) 0.3 10^3/uL (0.0-0.6); ABSOLUTE LYMPHOCYTES (AUTO) 2.3 10^3/uL (0.5-4.7); ABSOLUTE MONOCYTES (AUTO) 0.9 10^3/uL (0.1-1.4); ABSOLUTE NEUT (AUTO) 5.1 10^3/uL (1.7-8.2); BASOPHILS % (AUTO) 1.3 % (0-2); HEMATOCRIT 37.7 % (36.0-47.0); HEMOGLOBIN 12.7 g/dL (12.0-15.5); LYMPHOCYTES % (AUTO) 26.5 % (13-45); MEAN CORPUSCULAR HGB CONC 33.8 g/dL (32.0-36.0); MEAN CORPUSCULAR VOLUME 89 fl (80-97); MONOCYTES % (AUTO) 10.1 % (3-13); PLATELET COUNT 181 10^3/uL (150-450); RED BLOOD COUNT 4.25 10^6/uL (3.72-5.28); RED CELL DISTRIBUTION WIDTH 15.7 % (11.5-14.0); SEGMENTED NEUTROPHILS % (AUTO) 59.1 % (42-78); TOTAL CELLS COUNTED % (AUTO) 100 %; WHITE BLOOD COUNT 8.6 10^3/uL (4.0-10.5)
[2017-05-28 14:13] LABS: ALANINE AMINOTRANSFERASE 18 U/L (9-52); ALBUMIN 4.1 g/dL (3.5-5.0); ALKALINE PHOSPHATASE 103 U/L (38-126); ANION GAP 11 (5-19); ASPARTATE AMINO TRANSFERASE 21 U/L (14-36); BILIRUBIN,DIRECT 0.5 mg/dL (0.0-0.4); BILIRUBIN,TOTAL 0.5 mg/dL (0.2-1.3); BLOOD UREA NITROGEN 22 mg/dL (7-20); CALCIUM 10.1 mg/dL (8.4-10.2); CARBON DIOXIDE 24 mmol/L (22-30); CHLORIDE 108 mmol/L (98-107); CREATINE KINASE 77 U/L (30-135); GLUCOSE 159 mg/dL (75-110); POTASSIUM 4.3 mmol/L (3.6-5.0); SODIUM 143.3 mmol/L (137-145); TOTAL PROTEIN 8.7 g/dL (6.3-8.2)
[2017-05-28 14:23] LABS: CREATINE KINASE MB 0.78 ng/mL (<4.55); TROPONIN I 0.025 ng/mL
[2017-05-28 14:27] LABS: INTERNATIONAL RATION (INR) 1.01; PARTIAL THROMBOPLASTIN TIME 33.1 SEC (23.5-35.8); PROTHROMBIN TIME 13.8 SEC (11.4-15.4)
[2017-05-28] MEDS ORDERED: LORAZEPAM INJ 2 MG/1 ML VIAL IV ONE (14:52)
--- NOTE | 2017-05-28 15:21 | ER Document Report ---
ED Neuro Symptoms/Deficit - General Chief Complaint: S/S of Possible Stroke Stated Complaint: POSSIBLE STROKE Time Seen by Provider: 05/28/17 13:14 Mode of Arrival: Ambulatory Information source: Patient Notes: Patient is a 61-year-old female who presents to the ER via EMS today for possible stroke. Patient at 12:15 PM was drinking water when she states that her left arm started to get weak and she reported the water down her face and chest. She states that the left side of her face also felt weak and that she could not keep water in her mouth either. Patient has a prosthetic left leg. Patient has had a stroke in the past that affected the left side but has no residual weakness from that. She has a history of a heart attack, one stent placed and is on Eliquis. Patient is alert and oriented 3. She is now complaining of slurred speech is the only remaining symptom. TRAVEL OUTSIDE OF THE [place] IN LAST 30 DAYS: No - Related Data Allergies/Adverse Reactions: No Known Allergies Allergy (Verified 10/03/15 22:34) Past Medical History - General Information source: Patient - Social History Smoking Status: Unknown if Ever Smoked Family History: Reviewed & Not Pertinent, Malignancy Patient has suicidal ideation: No Patient has homicidal ideation: No - Past Medical History Cardiac Medical History: Reports: Hx Atrial Fibrillation - Paroxysmal atrial fibrillation, Hx Coronary Artery Disease, Hx Heart Attack, Hx Hypercholesterolemia, Hx Hypertension, Hx Peripheral Vascular Disease Denies: Hx Congestive Heart Failure, Hx Heart Murmur Pulmonary Medical History: Reports: Hx Asthma, Hx Bronchitis, Hx COPD Denies: Hx Pneumonia, Hx Tuberculosis Neurological Medical History: Denies: Hx Cerebrovascular Accident, Hx Seizures Renal/ Medical History: Denies: Hx Peritoneal Dialysis Malignancy Medical History: Reports: Hx Breast Cancer GI Medical History: Reports: Hx Gastroesophageal Reflux Disease Musculoskeltal Medical History: Denies Hx Arthritis, Reports Hx Fibromyalgia Psychiatric Medical History: Reports: Hx Depression Past Surgical History: Reports: Hx Cardiac Catheterization - 2002 Stent, 2004 Stent, Hx Coronary Stent - 2002([place]), 2004([place]), Hx Mastectomy - LEFT, Hx Orthopedic Surgery - left BKA due to peripheral vascular disease/ischemia. Denies: Hx Pacemaker - Immunizations Hx Diphtheria, Pertussis, Tetanus Vaccination: Yes Review of Systems - Review of Systems Constitutional: No symptoms reported EENT: No symptoms reported Cardiovascular: No symptoms reported Respiratory: No symptoms reported Gastrointestinal: No symptoms reported Genitourinary: No symptoms reported Female Genitourinary: No symptoms reported Musculoskeletal: No symptoms reported Skin: No symptoms reported Hematologic/Lymphatic: No symptoms reported Neurological/Psychological: See HPI Physical Exam - Vital signs Vitals: Temp Pulse Ox 98.1 F 98 05/28/17 13:10 05/28/17 13:10 - Notes Notes: PHYSICAL EXAMINATION: GENERAL: Obviously anxious, but in no acute distress. HEAD: Atraumatic, normocephalic. EYES: Pupils equal round and reactive to light, extraocular movements intact, sclera anicteric, conjunctiva are normal. NECK: Normal range of motion, supple without lymphadenopathy LUNGS: CTAB and equal. No wheezes rales or rhonchi. HEART: Regular rate and rhythm without murmurs ABDOMEN: Soft, no tenderness. No guarding, no rebound BACK: no vertebral tenderness, normal ROM GI/: no CVA tenderness EXTREMITIES: Normal range of motion, no pitting edema. No cyanosis. NEUROLOGICAL: no facial droop, weakness to the left side of the tongue only, slurred speech but can be understood, normal strength bilaterally in upper extremities, left leg prostethic but good strength right leg, Rhomberg test normal, no drifting to upper extremities, normal visual field testing PSYCH: Normal mood, normal affect. SKIN: Warm, Dry, normal turgor, no rashes or lesions noted Course - Re-evaluation Re-evalutation: 05/28/17 15:20 Symptoms seem to be resolving, patient no longer has any left sided weakness to her arm and the only remaining symptom is slurred speech. CT of the head negative for any acute pathology, lab work unremarkable today. Dr. Vogt agrees to admit at this time for stroke workup. She is not a candidate for TPA as her symptoms seem to be resolving and she is on Eliquis. These are 2 contraindications to TPA. Patient understands this. 05/28/17 15:54 - Vital Signs Vital signs: Temp Pulse Resp BP Pulse Ox 98.2 F 70 16 130/80 H 99 05/28/17 13:42 05/28/17 15:00 05/28/17 15:00 05/28/17 15:00 05/28/17 15:00 - Laboratory Result Diagrams: 05/28/17 13:41 05/28/17 13:41 Laboratory results interpreted by me: 05/28/17 05/28/17 13:41 13:41 RDW 15.7 H Chloride 108 H BUN 22 H Creatinine 1.63 H Est GFR ( Amer) 39 L Est GFR (Non-Af Amer) 32 L Glucose 159 H Direct Bilirubin 0.5 H Total Protein 8.7 H ED NIH Stroke Scale - NIH Stroke Scale *: 1. NIH scale should be completed with appropriate accompanying assessment tools. *: 2. The NIH should reflect what the patient is capable of doing and should not be coached by the clinician. 1a. Level of Consciousness: 0=Alert;keenly responsive -: 1=Drowsy -: 2=Obtunded -: 3=Coma/unresponsive or reflex to noxious stimuli. 1a. Responses: 0 1b. Orientation Questions: a. What month is it? -: b. How old are you? -: 0=Answers both questions correctly. -: 1=Answers one question correctly or patient is intubated or has orotracheal trauma. -: 2=Answers neither question correctly. 1b. Responses: 0 1c. Response to commands: a. Open and close eyes? -: b. [employer] Service Team Member and release hand? -: Credit is given despite weakness. Demonstration of task is permitted. Substitute command if hands cannot be used. -: 0=Performs both tasks correctly -: 1=Performs one task correctly -: 2=Performs neither task correctly 1c. Responses: 0 2. Gaze: Establish eye contact and instruct patient to "Follow my finger" -: 0=Normal -: 1=Partial gaze palsy. Gaze is abnormal in one or both eyes, but where forced deviation or total gaze paresis is not present. -: 2=Forced deviation or total gaze paresis. 2. Responses: 0 3. Visual [place]le: Sees fingers in all four quadrants. -: 0=No visual loss. -: 1=Partial hemianopsia. -: 2=Complete hemianopsia. -: 3=Bilateral hemianopsia (including Cortical blindness) 3. Responses: 0 4. Facial Movement: Instruct patient to: -: a. Show me your teeth -: b. Raise your eyebrows -: c. Close your eyes -: d. Smile -: 0=Normal symmetrical movement -: 1=Minor paralysis (flattened nasolabial fold, asymmetry on smiling). -: 2=Partial paralysis (total or near total paralysis of lower face). -: 3=Complete paralysis of upper and lower face 4. Responses: 0 5. Motor functions (left arm): Alternate sides and extend each arm with palms down (90 degrees if sitting or 45 degrees for supine). -: 0=No drift;limb holds for full 10 seconds. -: 1=Drift; limb holds but drifts down before full 10 seconds, but does not hit bed. -: 2=Some effort against gravity; limb cannot get to or maintain position. -: 3=No effort against gravity; limb falls. -: 4=No movement. -: UN=Amputation, joint fusion, explain in comments. 5. Responses (left arm): 0 5. Motor Functions (right arm): Alternate sides and extend each arm with palms down (90 degrees if sitting or 45 degrees for supine). -: 0=No drift;limb holds for full 10 seconds. -: 1=Drift; limb holds but drifts down before full 10 seconds, but does not hit bed. -: 2=Some effort against gravity; limb cannot get to or maintain position. -: 3=No effort against gravity; limb falls. -: 4=No movement. -: UN=Amputation, joint fusion, explain in comments. 5. Responses (right arm): 0 6. Motor Functions (left leg): With patient lying supine, alternate sides and extend each leg (30 degrees always while supine). -: 0=No drift, leg holds position for full 5 seconds -: 1=Drift; leg falls before full 5 seconds but does not hit bed. -: 2=Some effort against gravity, leg falls to bed but some effort against gravity. -: 3=No effort against gravity, leg falls to bed immediately. -: 4=No movement. -: UN=Amputation, joint fusion; explain in comments. 6. Responses (left leg): UN - amputation lle 6. Motor Functions (right leg): With patient lying supine, alternate sides and extend each leg (30 degrees always while supine). -: 0=No drift, leg holds position for full 5 seconds -: 1=Drift; leg falls before full 5 seconds but does not hit bed. -: 2=Some effort against gravity, leg falls to bed but some effort against gravity. -: 3=No effort against gravity, leg falls to bed immediately. -: 4=No movement. -: UN=Amputation, joint fusion; explain in comments. 6. Responses (right leg): 0 7. Limb Ataxia: With eyes open instruct patient to: -: a. "Touch your finger to your nose". -: b. "Touch your heel to your ma" -: 0=Absent -: 1=Present in one limb. -: 2=Present in two limbs. -: UN=Amputation or joint fusion; explain in comments. 7. Responses: 0 8. Sensory: Test sensation using pinprick or noxious stimuli. Test as many body parts as possible. -: 0=Normal;no sensory loss -: 1=Mile to moderate sensory loss (patient feels pin prick but is less sharp on affected side). -: 2=Severe or total sensory loss. 8. Responses: 0 9. Best Language: Instruct patient to: -: a. "Describe what you see in this picture." -: b. "Name the items in this picture." -: c. "Read these sentences." -: 0=No aphasia, normal -: 1=Mild to moderate aphasia. -: 2=Severe aphasia -: 3=[place], global aphasia, no usable speech or auditory comprehension. 9. Responses: 1 10. Articulation, Dysarthia: Instruct patient to: -: "Read these words" or "Repeat these words" -: 0=Normal -: 1=Mild to moderate; patient may slur some words but can be understood without difficulty. -: 2=Severe; patients speech so slurred as to be unintelligible in the absence of dysphasia. -: UN=Intubated or other physical barrier, explain in comments. 10. Responses: 1 11. Extinction or inattention: 0=No abnormality -: 1= Visual, tactile, auditory, spatial, or personal inattention or extinction to bilateral simulation in one or the sensory modalities. -: 2=Profound isabel-inattention or isabel-inattention to more than one modality; does not recognize own hand. 11. Responses: 0 Total Score: 2 Discharge - Discharge Clinical Impression: Stroke-like symptoms Condition: Stable Disposition: ADMITTED INPATIENT Admitting Provider: [facility] Unit Admitted: Telemetry
--- NOTE | 2017-05-28 15:56 | EKG REPORT ---
SEVERITY:- ABNORMAL ECG - SINUS RHYTHM RIGHT BUNDLE BRANCH BLOCK AND LAFB LATERAL INFARCT, AGE INDETERMINATE : Confirmed by: Som Jc MD 28-May-2017 15:55:40
--- NOTE | 2017-05-28 17:18 | RADIOLOGY REPORT (SQ) ---
EXAM DESCRIPTION: MRI HEAD WITHOUT COMPLETED DATE/TIME: 05/28/2017 4:35 pm REASON FOR STUDY: stroke protocol, slurred speech COMPARISON: 2016, CT 2017 TECHNIQUE: Multiplanar imaging includes non-contrasted T1, T2, FLAIR, and diffusion with ADC map seq uences. Heme avid sequence. Images stored on PACS. LIMITATIONS: None. FINDINGS: ANATOMY: No anomalies. Normal vascular flow voids. Pituitary fossa normal. CSF SPACES: Atrophy induced prominence of ventricles and CSF spaces. CEREBRUM: High signal intensity lesions scattered throughout the white matter on FLAIR imaging with d istribution suggesting micro-vascular ischemic changes. Old right frontal infarct. No evidence of h emorrhage, mass, or extraaxial fluid collection. POSTERIOR FOSSA: No signal alteration. No hemorrhage. No edema, masses or mass effect. Internal adam tory canals, cerebello-pontine angles, mastoids normal. DIFFUSION IMAGING: Focus of restricted diffusion in the left parietal lobe atkins matter centrally. ORBITS: No masses. Globes normal. PARANASAL SINUSES: No fluid levels. Mucosa normal. OTHER: No other significant finding. IMPRESSION: Acute infarction small area peripheral atkins matter left parietal lobe. Old right frontal infarct. Microvascular ischemic change. EVIDENCE OF ACUTE STROKE: YES. LEFT MCA TECHNICAL DOCUMENTATION: JOB ID: [id number] [employer]- All Rights Reserved Reading location - IP/workstation name: [email or web address]
[2017-05-28] MEDS ORDERED: DEXTROSE 40% GEL 15 GM TUBE PO PRN ×2 (18:39)
[2017-05-28] MEDS ORDERED: DEXTROSE 50%-WATER 25 GM/50 ML DISP.SYRIN IV PRN ×2 (18:39)
[2017-05-28] MEDS ORDERED: GLUCAGON,HUMAN RECOMB 1 MG INJ SUBCUT PRN (18:39)
[2017-05-28] MEDS ORDERED: LANSOPRAZOLE 30 MG TAB.RAP.DR PO SCH (18:45)
[2017-05-28] MEDS ORDERED: ALIROCUMAB 150 MG SQ SCH (18:45)
[2017-05-28] MEDS ORDERED: LOSARTAN POTASSIUM 25 MG TABLET PO ONE (19:30)
[2017-05-28] MEDS ORDERED: METOPROLOL SUCCINATE 50 MG TAB.SR.24H PO ONE (19:30)
[2017-05-28] MEDS ORDERED: APIXABAN 5 MG TABLET PO ONE (19:30)
[2017-05-28] MEDS ORDERED: CLOPIDOGREL BISULFATE 75 MG TABLET PO ONE (19:30)
[2017-05-28] MEDS ORDERED: FUROSEMIDE 20 MG TABLET PO ONE (19:30)
[2017-05-28] MEDS ORDERED: LANSOPRAZOLE 30 MG TAB.RAP.DR PO ONE (19:30)
--- NOTE | 2017-05-28 19:40 | RADIOLOGY REPORT (SQ) ---
EXAM DESCRIPTION: MRA HEAD WITHOUT COMPLETED DATE/TIME: 05/28/2017 7:24 pm REASON FOR STUDY: left MCA INFARCT COMPARISON: None. TECHNIQUE: Axial 3-D [id number] acquisition imaging performed through the brain in the area of t he [place]. Images reformatted using 3-D MIPS. LIMITATIONS: None. FINDINGS: SOURCE IMAGES: No unexpected findings on source images. No large masses. 3-D MIP: No aneurysm. No occlusions. No significant stenosis. OTHER: No other significant finding. IMPRESSION: NORMAL MRA OF THE [place]. TECHNICAL DOCUMENTATION: JOB ID: [id number] [employer] All Rights Reserved Reading location - IP/workstation name: [email or web address]
[2017-05-28 20:34] LABS: CREATINE KINASE MB 1.13 ng/mL (<4.55)
[2017-05-28 20:45] LABS: TROPONIN I 0.08 ng/mL
[2017-05-28] MEDS: ATORVASTATIN CALCIUM 80 MG TABLET PO SCH (21:37)
[2017-05-28] MEDS ORDERED: METOPROLOL SUCCINATE 25 MG TAB.SR.24H PO ONE (22:30)
[2017-05-28 22:32] LABS: APPEARANCE,URINE CLEAR; BILIRUBIN,URINE NEGATIVE (NEGATIVE); COLOR,URINE YELLOW; GLUCOSE, URINE 50 mg/dL (NEGATIVE); KETONES,URINE NEGATIVE (NEGATIVE); LEUKOCYTE ESTERASE,URINE NEGATIVE (NEGATIVE); NITRITE,URINE NEGATIVE (NEGATIVE); PROTEIN,URINE NEGATIVE (NEGATIVE); URINE SPECIFIC GRAVITY 1.019
[2017-05-28 22:35] LABS: URINE CREATININE 195.6 mg/dL (15-278); URINE PROTEIN 6.3 mg/dL (<12)
[2017-05-29 02:38] LABS: ABSOLUTE BASOPHILS # (AUTO) 0.1 10^3/uL (0.0-0.2); ABSOLUTE EOSINOPHILS # (AUTO) 0.3 10^3/uL (0.0-0.6); ABSOLUTE LYMPHOCYTES (AUTO) 2.7 10^3/uL (0.5-4.7); ABSOLUTE MONOCYTES (AUTO) 0.9 10^3/uL (0.1-1.4); ABSOLUTE NEUT (AUTO) 6.4 10^3/uL (1.7-8.2); BASOPHILS % (AUTO) 0.8 % (0-2); EOSINOPHILS % (AUTO) 2.5 % (0-6); HEMATOCRIT 35.5 % (36.0-47.0); HEMOGLOBIN 11.8 g/dL (12.0-15.5); LYMPHOCYTES % (AUTO) 26.1 % (13-45); MEAN CORPUSCULAR HEMOGLOBIN 29.5 pg (27.0-33.4); MEAN CORPUSCULAR HGB CONC 33.2 g/dL (32.0-36.0); MEAN CORPUSCULAR VOLUME 89 fl (80-97); MONOCYTES % (AUTO) 8.6 % (3-13); PLATELET COUNT 167 10^3/uL (150-450); RED BLOOD COUNT 3.99 10^6/uL (3.72-5.28); RED CELL DISTRIBUTION WIDTH 15.8 % (11.5-14.0); TOTAL CELLS COUNTED % (AUTO) 100 %; WHITE BLOOD COUNT 10.3 10^3/uL (4.0-10.5)
[2017-05-29 02:46] LABS: ALANINE AMINOTRANSFERASE 21 U/L (9-52); ALBUMIN 3.9 g/dL (3.5-5.0); ALKALINE PHOSPHATASE 103 U/L (38-126); ANION GAP 11 (5-19); ASPARTATE AMINO TRANSFERASE 18 U/L (14-36); BILIRUBIN,DIRECT 0.4 mg/dL (0.0-0.4); BILIRUBIN,TOTAL 0.7 mg/dL (0.2-1.3); BLOOD UREA NITROGEN 22 mg/dL (7-20); CALCIUM 9.5 mg/dL (8.4-10.2); CARBON DIOXIDE 25 mmol/L (22-30); CHLORIDE 107 mmol/L (98-107); CHOLESTEROL 206.73 mg/dL (0-200); GLUCOSE 120 mg/dL (75-110); POTASSIUM 4.1 mmol/L (3.6-5.0); SODIUM 143.1 mmol/L (137-145); TOTAL PROTEIN 7.9 g/dL (6.3-8.2); TRIGLYCERIDES 165 mg/dL (<150)
[2017-05-29 02:57] LABS: CREATINE KINASE MB 1.01 ng/mL (<4.55); DIRECT LDL 118 mg/dL (<100); TROPONIN I 0.078 ng/mL
[2017-05-29] MEDS: FUROSEMIDE 20 MG TABLET PO SCH (09:24)
[2017-05-29] MEDS: LOSARTAN POTASSIUM 25 MG TABLET PO SCH (09:24)
[2017-05-29] MEDS: METOPROLOL SUCCINATE 25 MG TAB.SR.24H PO SCH (09:24)
[2017-05-29] MEDS: APIXABAN 5 MG TABLET PO SCH ×2 (09:25→22:24)
[2017-05-29] MEDS: CLOPIDOGREL BISULFATE 75 MG TABLET PO SCH (09:25)
[2017-05-29] MEDS: LANSOPRAZOLE 30 MG TAB.RAP.DR PO SCH (09:27)
[2017-05-29] MEDS ORDERED: METOPROLOL SUCCINATE 50 MG TAB.SR.24H PO SCH (10:00)
--- NOTE | 2017-05-29 11:50 | RADIOLOGY REPORT (SQ) ---
EXAM DESCRIPTION: CAROTID DOPPLER COMPLETED DATE/TIME: 05/29/2017 11:34 am REASON FOR STUDY: cva COMPARISON: Carotid Doppler 06/25/2015 CT brain 05/28/2017 MRI brain 05/28/2017, MRA exam [place] 05/28/2017 TECHNIQUE: Grayscale ultrasound, Doppler velocity and spectra, and color Doppler images acquired of the extra-cranial carotid and vertebral arteries. Images stored on PACS. LIMITATIONS: None. FINDINGS: RIGHT CAROTID CCA Velocities: Within normal limits. ICA Velocities Peak systolic 0.68 m/s. End diastolic 0.20 m/s. Proximal ICA/CCA peak systolic ratio 0.9. Spectra normal. No significant plaque. LEFT CAROTID CCA Velocities: Within normal limits. ICA Velocities Peak systolic 0.54 m/s. End diastolic 0.12 m/s. Proximal ICA/CCA peak systolic ratio 1.1. Spectra normal. No significant plaque. VERTEBRAL ARTERIES: Antegrade flow. Normal waveforms. SUBCLAVIAN ARTERIES: Not evaluated OTHER: No other significant finding. IMPRESSION: NO HEMODYNAMICALLY SIGNIFICANT STENOSIS. COMMENT: Quality ID #[id number]: Velocity criteria are extrapolated from the diameter data as defined by t he Society of Radiologists in Ultrasound Consensus Conference. Radiology 2003: 229; 340-346. TECHNICAL DOCUMENTATION: JOB ID: [id number] [employer]- All Rights Reserved Reading location - IP/workstation name: [email or web address]
[2017-05-29 12:28] LABS: CREATINE KINASE MB 0.89 ng/mL (<4.55); TROPONIN I 0.048 ng/mL
--- NOTE | 2017-05-29 20:25 | PDOC H&P ---
History of Present Illness Admission Date/PCP: 05/28/17 15:38 TEODORO HOROWITZ MD History of Present Illness: KEYONA TAYLOR is a 61 year old female, She is well-known to me, she came to the emergency room for evaluation of a new onset dysphasia with drooling, She has a history of CVA, coronary artery disease, peripheral vascular disease. CT head without contrast was done in the emergency room showed chronic appearing infarction of the right frontotemporal lobe subsequent MRI of the brain was done it showed acute infarction of the left parietal lobe Past Medical History Cardiac Medical History: Reports: Atrial Fibrillation - Paroxysmal atrial fibrillation, Coronary Artery Disease, Myocardial Infarction, Hyperlipidema, Hypertension, Peripheral Vascular Disease Pulmonary Medical History: Reports: Asthma, Bronchitis, Chronic Obstructive Pulmonary Disease (COPD) Neurological Medical History: Reports: Ischemic CVA Malignancy Medical History: Reports: Breast Cancer GI Medical History: Reports: Gastroesophageal Reflux Disease Musculoskeltal Medical History: Reports: Fibromyalgia Denies: Arthritis Psychiatric Medical History: Reports: Depression Past Surgical History Past Surgical History: Reports: Cardiac Catheterization - 2002 Stent, 2004 Stent , Coronary Stent - 2002([place]), 2004([place]), Mastectomy - LEFT, Orthopedic Surgery - left BKA due to peripheral vascular disease/ischemia Denies: Pacemaker Social History Smoking Status: Former Smoker Last Time Smoked: 02-13-2014 Frequency of Alcohol Use: None Hx Recreational Drug Use: No Drugs: None Hx Prescription Drug Abuse: No - Advance Directive Resuscitation Status: Full Code Family History Family History: Reviewed & Not Pertinent, Malignancy Parental Family History Reviewed: Yes Children Family History Reviewed: Yes Sibling(s) Family History Reviewed.: Yes Medication/Allergy Home Medications: Albuterol Sulfate [Ventolin HFA MDI 18 GM] 2 puff IH Q4HP PRN 05/29/17 Alirocumab [Praluent Pen] 150 mg INJ Q14D 05/29/17 Apixaban [Eliquis] 2.5 mg PO Q12 05/29/17 Atorvastatin Calcium [Lipitor 80 mg Tablet] 80 mg PO DAILY 05/29/17 Dexlansoprazole [Dexilant 60 mg Capsule] 60 mg PO DAILY 05/29/17 Fluticasone Propionate [Flonase Nasal [place] 50 Mcg/[place] 16 gm] 2 spray NASL DAILY 05/29/17 Furosemide [Lasix 20 mg Tablet] 20 mg PO DAILY 05/29/17 Hydrocodone/Acetaminophen [Hydrocodone-Acetamin 5-325 mg] 1 tab PO Q8HP PRN Losartan Potassium [Cozaar 25 mg Tablet] 25 mg PO DAILY 05/29/17 Metoprolol Succinate [Toprol Xl 25 mg Tab.sr] 25 mg PO DAILY 05/29/17 Tiotropium [place] [Spiriva [place]er 5 Cap/Kit (18 Mcg/Cap)] 1 puff IH DAILY 05/29/17 Allergies/Adverse Reactions: No Known Allergies Allergy (Verified 10/03/15 22:34) Review of Systems Constitutional: ABSENT: chills, fever(s), headache(s), weight gain, weight loss Eyes: ABSENT: visual disturbances Ears: ABSENT: hearing changes Cardiovascular: ABSENT: chest pain, dyspnea on exertion, edema, orthropnea, palpitations Respiratory: ABSENT: cough, hemoptysis Gastrointestinal: ABSENT: abdominal pain, constipation, diarrhea, hematemesis, hematochezia, nausea, vomiting Genitourinary: ABSENT: dysuria, hematuria Musculoskeletal: ABSENT: joint swelling Integumentary: ABSENT: rash, wounds Neurological: PRESENT: abnormal speech, lack of coordination, paresthesias Psychiatric: ABSENT: anxiety, depression, homidical ideation, suicidal ideation Endocrine: ABSENT: cold intolerance, heat intolerance, menstrual abnormalities, polydipsia, polyuria Hematologic/Lymphatic: ABSENT: easy bleeding, easy bruising, lymphadenopathy Physical Exam Vital Signs: Temp Pulse Resp BP Pulse Ox 98.2 F 69 18 96/61 L 98 05/29/17 20:08 05/29/17 20:08 05/29/17 20:08 05/29/17 20:08 05/29/17 20:08 Intake & Output 05/28/17 05/29/17 05/30/17 06:59 06:59 06:59 Intake Total 10 165 Output Total 1000 500 Balance -990 -335 Weight 109.6 kg General appearance: PRESENT: no acute distress, well-developed, well-nourished Head exam: PRESENT: atraumatic, normocephalic Eye exam: PRESENT: conjunctiva pink, EOMI, PERRLA. ABSENT: scleral icterus Ear exam: PRESENT: normal external ear exam Mouth exam: PRESENT: moist, tongue midline Neck exam: PRESENT: full ROM Respiratory exam: PRESENT: clear to auscultation [place] Cardiovascular exam: PRESENT: RRR, +S1, +S2 Vascular exam: PRESENT: normal capillary refill GI/Abdominal exam: PRESENT: normal bowel sounds, soft Rectal exam: PRESENT: deferred Extremities exam: PRESENT: left AKA Neurological exam: PRESENT: alert. ABSENT: motor sensory deficit Psychiatric exam: PRESENT: appropriate affect, normal mood Skin exam: PRESENT: dry, intact, warm Results Laboratory Results: 05/29/17 02:20 05/29/17 02:20 05/28/17 05/29/17 05/29/17 21:52 02:20 02:20 WBC 10.3 RBC 3.99 Hgb 11.8 L Hct 35.5 L MCV 89 MCH 29.5 MCHC 33.2 RDW 15.8 H Plt Count 167 Seg Neutrophils % 62.0 Lymphocytes % 26.1 Monocytes % 8.6 Eosinophils % 2.5 Basophils % 0.8 Absolute Neutrophils 6.4 Absolute Lymphocytes 2.7 Absolute Monocytes 0.9 Absolute Eosinophils 0.3 Absolute Basophils 0.1 Sodium 143.1 Potassium 4.1 Chloride 107 Carbon Dioxide 25 Anion Gap 11 BUN 22 H Creatinine 1.70 H Est GFR ( Amer) 37 L Est GFR (Non-Af Amer) 31 L Glucose 120 H Calcium 9.5 Total Bilirubin 0.7 AST 18 ALT 21 Alkaline Phosphatase 103 Total Protein 7.9 Albumin 3.9 Triglycerides 165 H Cholesterol 206.73 H LDL Cholesterol Direct 118 H VLDL Cholesterol 33.0 H HDL Cholesterol 43 Urine Color YELLOW Urine Appearance CLEAR Urine pH 5.0 Ur Specific [place] 1.019 Urine Protein NEGATIVE Urine Glucose (UA) 50 H Urine Ketones NEGATIVE Urine Blood NEGATIVE Urine Nitrite NEGATIVE Ur Leukocyte Esterase NEGATIVE Urine WBC (Auto) 2 Urine RBC (Auto) 0 05/28/17 05/28/17 05/29/17 19:59 19:59 02:20 Creatine Kinase 86 82 CK-MB (CK-2) 1.13 Troponin I 0.080 05/29/17 05/29/17 05/29/17 02:20 11:29 11:29 Creatine Kinase 97 CK-MB (CK-2) 1.01 0.89 Troponin I 0.078 0.048 Impressions: Chest X-Ray 05/28/17 13:10 IMPRESSION: NO ACUTE RADIOGRAPHIC FINDING IN THE CHEST. NO SIGNIFICANT CHANGE FROM PRIOR STUDY. Head CT 05/28/17 13:10 IMPRESSION: NO DEFINITE CT EVIDENCE OF ACUTE ISCHEMIA, HEMORRHAGE, OR MASS LESION. CHRONIC APPEAR INFARCTION RIGHT FRONTOTEMPORAL LOBE WHICH IS NOT PRESENT ON PRIOR STUDY. CORRELATE WITH CLINICAL HISTORY OF INTERVAL STROKE. EVIDENCE OF ACUTE STROKE: NO. Head MRI 05/28/17 14:51 IMPRESSION: Acute infarction small area peripheral atkins matter left parietal lobe. Old right frontal infarct. Microvascular ischemic change. EVIDENCE OF ACUTE STROKE: YES. LEFT MCA Brain MRI with MRA 05/28/17 18:41 IMPRESSION: NORMAL MRA OF THE [place]. Carotid Doppler Study 05/29/17 00:00 IMPRESSION: NO HEMODYNAMICALLY SIGNIFICANT STENOSIS. Assessment & Plan - Diagnosis (1) Cerebral infarction Qualifiers: Cerebral infarction mechanism: embolism Precerebral and cerebral artery: unspecified precerebral artery Qualified Code(s): I63.10 - Cerebral infarction due to embolism of unspecified precerebral artery; I63.19 - Cerebral infarction due to embolism of other precerebral artery Is this a current diagnosis for this admission?: Yes Plan: She is admitted to be manage per stroke protocol (2) Paroxysmal atrial fibrillation Is this a current diagnosis for this admission?: Yes (3) Peripheral neuropathy Qualifiers: Peripheral neuropathy type: polyneuropathy, unspecified Qualified Code(s): G62.9 - Polyneuropathy, unspecified Is this a current diagnosis for this admission?: Yes (4) Chronic obstructive pulmonary disease Qualifiers: COPD type: unspecified COPD Qualified Code(s): J44.9 - Chronic obstructive pulmonary disease, unspecified Is this a current diagnosis for this admission?: Yes (5) PAD (peripheral artery disease) Is this a current diagnosis for this admission?: Yes
--- NOTE | 2017-05-29 20:55 | PDOC PROGRESS REPORT ---
Subjective Progress Note for:: 05/29/17 Subjective:: She was admitted yesterday when she presented with acute stroke. The MRA of the brain, carotid Doppler was normal Reason For Visit: LEFT MCA INFARCT Physical Exam Vital Signs: Temp Pulse Resp BP Pulse Ox 98.2 F 69 18 96/61 L 98 05/29/17 20:08 05/29/17 20:08 05/29/17 20:08 05/29/17 20:08 05/29/17 20:08 Intake & Output 05/28/17 05/29/17 05/30/17 06:59 06:59 06:59 Intake Total 10 165 Output Total 1000 500 Balance -990 -335 Weight 109.6 kg General appearance: PRESENT: no acute distress Head exam: PRESENT: atraumatic Eye exam: PRESENT: conjunctiva pink, EOMI, PERRLA Ear exam: PRESENT: normal external ear exam Mouth exam: PRESENT: moist, tongue midline Neck exam: PRESENT: full ROM Respiratory exam: PRESENT: clear to auscultation freida Cardiovascular exam: PRESENT: RRR, +S1, +S2 Vascular exam: PRESENT: normal capillary refill GI/Abdominal exam: PRESENT: normal bowel sounds, soft Rectal exam: PRESENT: deferred Neurological exam: PRESENT: alert Psychiatric exam: PRESENT: appropriate affect, normal mood Skin exam: PRESENT: dry, intact, warm. ABSENT: cyanosis, rash Results Laboratory Results: 05/29/17 02:20 05/29/17 02:20 05/28/17 05/29/17 05/29/17 21:52 02:20 02:20 WBC 10.3 RBC 3.99 Hgb 11.8 L Hct 35.5 L MCV 89 MCH 29.5 MCHC 33.2 RDW 15.8 H Plt Count 167 Seg Neutrophils % 62.0 Lymphocytes % 26.1 Monocytes % 8.6 Eosinophils % 2.5 Basophils % 0.8 Absolute Neutrophils 6.4 Absolute Lymphocytes 2.7 Absolute Monocytes 0.9 Absolute Eosinophils 0.3 Absolute Basophils 0.1 Sodium 143.1 Potassium 4.1 Chloride 107 Carbon Dioxide 25 Anion Gap 11 BUN 22 H Creatinine 1.70 H Est GFR ( Amer) 37 L Est GFR (Non-Af Amer) 31 L Glucose 120 H Calcium 9.5 Total Bilirubin 0.7 AST 18 ALT 21 Alkaline Phosphatase 103 Total Protein 7.9 Albumin 3.9 Triglycerides 165 H Cholesterol 206.73 H LDL Cholesterol Direct 118 H VLDL Cholesterol 33.0 H HDL Cholesterol 43 Urine Color YELLOW Urine Appearance CLEAR Urine pH 5.0 Ur Specific [place] 1.019 Urine Protein NEGATIVE Urine Glucose (UA) 50 H Urine Ketones NEGATIVE Urine Blood NEGATIVE Urine Nitrite NEGATIVE Ur Leukocyte Esterase NEGATIVE Urine WBC (Auto) 2 Urine RBC (Auto) 0 05/28/17 05/28/17 05/29/17 19:59 19:59 02:20 Creatine Kinase 86 82 CK-MB (CK-2) 1.13 Troponin I 0.080 05/29/17 05/29/17 05/29/17 02:20 11:29 11:29 Creatine Kinase 97 CK-MB (CK-2) 1.01 0.89 Troponin I 0.078 0.048 Impressions: Chest X-Ray 05/28/17 13:10 IMPRESSION: NO ACUTE RADIOGRAPHIC FINDING IN THE CHEST. NO SIGNIFICANT CHANGE FROM PRIOR STUDY. Head CT 05/28/17 13:10 IMPRESSION: NO DEFINITE CT EVIDENCE OF ACUTE ISCHEMIA, HEMORRHAGE, OR MASS LESION. CHRONIC APPEAR INFARCTION RIGHT FRONTOTEMPORAL LOBE WHICH IS NOT PRESENT ON PRIOR STUDY. CORRELATE WITH CLINICAL HISTORY OF INTERVAL STROKE. EVIDENCE OF ACUTE STROKE: NO. Head MRI 05/28/17 14:51 IMPRESSION: Acute infarction small area peripheral atkins matter left parietal lobe. Old right frontal infarct. Microvascular ischemic change. EVIDENCE OF ACUTE STROKE: YES. LEFT MCA Brain MRI with MRA 05/28/17 18:41 IMPRESSION: NORMAL MRA OF THE [place]. Carotid Doppler Study 05/29/17 00:00 IMPRESSION: NO HEMODYNAMICALLY SIGNIFICANT STENOSIS. Assessment & Plan - Diagnosis (1) Cerebral infarction Qualifiers: Cerebral infarction mechanism: embolism Precerebral and cerebral artery: unspecified precerebral artery Qualified Code(s): I63.10 - Cerebral infarction due to embolism of unspecified precerebral artery; I63.19 - Cerebral infarction due to embolism of other precerebral artery Is this a current diagnosis for this admission?: Yes (2) Paroxysmal atrial fibrillation Is this a current diagnosis for this admission?: Yes (3) Peripheral neuropathy Qualifiers: Peripheral neuropathy type: polyneuropathy, unspecified Qualified Code(s): G62.9 - Polyneuropathy, unspecified Is this a current diagnosis for this admission?: Yes (4) Chronic obstructive pulmonary disease Qualifiers: COPD type: unspecified COPD Qualified Code(s): J44.9 - Chronic obstructive pulmonary disease, unspecified Is this a current diagnosis for this admission?: Yes (5) PAD (peripheral artery disease) Is this a current diagnosis for this admission?: Yes - Plan Summary Plan Summary: Continue treatment
[2017-05-29] MEDS: ATORVASTATIN CALCIUM 80 MG TABLET PO SCH (22:24)
[2017-05-30 06:40] LABS: ALANINE AMINOTRANSFERASE 21 U/L (9-52); ALBUMIN 4.2 g/dL (3.5-5.0); ALKALINE PHOSPHATASE 113 U/L (38-126); ANION GAP 12 (5-19); ASPARTATE AMINO TRANSFERASE 26 U/L (14-36); BILIRUBIN,DIRECT 0.3 mg/dL (0.0-0.4); BILIRUBIN,TOTAL 0.7 mg/dL (0.2-1.3); BLOOD UREA NITROGEN 29 mg/dL (7-20); CALCIUM 9.4 mg/dL (8.4-10.2); CARBON DIOXIDE 26 mmol/L (22-30); CHLORIDE 104 mmol/L (98-107); GLUCOSE 148 mg/dL (75-110); POTASSIUM 3.9 mmol/L (3.6-5.0); SODIUM 141.6 mmol/L (137-145); TOTAL PROTEIN 8.2 g/dL (6.3-8.2)
[2017-05-30] MEDS: METOPROLOL SUCCINATE 25 MG TAB.SR.24H PO SCH (09:25)
[2017-05-30] MEDS: LOSARTAN POTASSIUM 25 MG TABLET PO SCH (09:25)
[2017-05-30] MEDS: FUROSEMIDE 20 MG TABLET PO SCH (09:26)
[2017-05-30] MEDS: CLOPIDOGREL BISULFATE 75 MG TABLET PO SCH (09:26)
[2017-05-30] MEDS: LANSOPRAZOLE 30 MG TAB.RAP.DR PO SCH (09:26)
[2017-05-30] MEDS: APIXABAN 5 MG TABLET PO SCH ×2 (09:26→22:00)
--- NOTE | 2017-05-30 09:57 | XCELERA REPORT ---
[address] [address] Transthoracic Echocardiogram Report Name: KEYONA TAYLOR Age: 61 yrs Gender: Female : 1955 Patient Status: Inpatient Patient Location: [address] [place] [address] Study Date: 05/29/2017 09:09 AM Height: 66 in Weight: 260 lb BSA: 2.2 m2 Procedure: A complete two-dimensional transthoracic echocardiogram was performed (2D, M-mode, spectral and color flow Doppler). The study was technically difficult with many images being suboptimal in quality. Reason For Study: cva Ordering Physician: TEODORO HOROWITZ Performed By: Cammie Finney Interpretation Summary Left ventricular systolic function is mildly reduced. The Ejection Fraction estimate is 50-55% There is borderline concentric left ventricular hypertrophy. The left ventricle is grossly normal size. Doppler measurements suggest pseudonormalized left ventricular relaxation, which is associated with grade II/IV or mild to moderate diastolic dysfunction Regional wall motion abnormalities cannot be excluded due to limited visualization. The right ventricular systolic function is normal. The right atrium is normal. The left atrial size is normal. There is a trace amount of mitral regurgitation There is no mitral valve stenosis. No aortic regurgitation is present. There is no aortic valve stenosis There is no tricuspid stenosis. No tricuspid regurgitation. The aortic root is not well visualized. Consider DAVID if clinically indicated. May consider mobile cardiac telemetry monitoring (MCT) for ruling out transient AFIB. MMode/2D Measurements & Calculations RVDd: 2.6 cm LVIDd: 5.4 cm FS: 23.5 % Ao root diam: 3.0 cm IVSd: 0.99 cm LVIDs: 4.2 cm EDV(Teich): 143.6 ml LVPWd: 0.76 cm ESV(Teich): 76.8 ml Ao root area: 6.9 cm2 EF(Teich): 46.5 % Doppler Measurements & Calculations MV E max brandon: MV dec slope: Ao V2 max: LV V1 max P.9 cm/sec 136.1 cm/sec 2.4 mmHg MV A max brandon: 261.0 cm/sec2 Ao max PG: LV V1 max: 84.4 cm/sec MV dec time: 7.4 mmHg 78.1 cm/sec MV E/A: 0.71 0.23 sec PA V2 max: 79.9 cm/sec PA max P.6 mmHg Left Ventricle The left ventricle is grossly normal size. There is borderline concentric left ventricular hypertrophy. Left ventricular systolic function is mildly reduced. The Ejection Fraction estimate is 50-55%. Doppler measurements suggest pseudonormalized left ventricular relaxation, which is associated with grade II/IV or mild to moderate diastolic dysfunction. Regional wall motion abnormalities cannot be excluded due to limited visualization. Right Ventricle The right ventricle is grossly normal size. There is normal right ventricular wall thickness. The right ventricular systolic function is normal. Atria The right atrium is normal. The left atrial size is normal. Mitral Valve The mitral valve is not well visualized. There is no mitral valve stenosis. There is a trace amount of mitral regurgitation. Aortic Valve The aortic valve is not well visualized secondary to technical limitations. There is no aortic valve stenosis. No aortic regurgitation is present. Tricuspid Valve The tricuspid valve is not well visualized secondary to technical limitations. There is no tricuspid stenosis. No tricuspid regurgitation. Pulmonic Valve The pulmonic valve is not well visualized. Great Vessels The aortic root is not well visualized. The inferior vena cava was not well visualized. Effusions There is no pericardial effusion. Incidental Findings Consider DAVID if clinically indicated. May consider mobile cardiac telemetry monitoring (MCT) for ruling out transient AFIB. : TEODORO HOROWITZ > Demetrio Valentin
[2017-05-30 12:34] LABS: ABSOLUTE EOSINOPHILS # (AUTO) 0.2 10^3/uL (0.0-0.6); ABSOLUTE LYMPHOCYTES (AUTO) 2.2 10^3/uL (0.5-4.7); ABSOLUTE MONOCYTES (AUTO) 0.9 10^3/uL (0.1-1.4); ABSOLUTE NEUT (AUTO) 6.1 10^3/uL (1.7-8.2); BASOPHILS % (AUTO) 0.5 % (0-2); EOSINOPHILS % (AUTO) 2.6 % (0-6); HEMATOCRIT 37.8 % (36.0-47.0); HEMOGLOBIN 12.4 g/dL (12.0-15.5); LYMPHOCYTES % (AUTO) 23.3 % (13-45); MEAN CORPUSCULAR HEMOGLOBIN 29.2 pg (27.0-33.4); MEAN CORPUSCULAR HGB CONC 32.8 g/dL (32.0-36.0); MEAN CORPUSCULAR VOLUME 89 fl (80-97); MONOCYTES % (AUTO) 9.8 % (3-13); PLATELET COUNT 208 10^3/uL (150-450); RED BLOOD COUNT 4.24 10^6/uL (3.72-5.28); RED CELL DISTRIBUTION WIDTH 15.8 % (11.5-14.0); SEGMENTED NEUTROPHILS % (AUTO) 63.8 % (42-78); TOTAL CELLS COUNTED % (AUTO) 100 %; WHITE BLOOD COUNT 9.6 10^3/uL (4.0-10.5)
[2017-05-30 17:37] LABS: ALBUMIN UR 32.8 % (.); ALPHA-1-GLOBULIN URINE 4.2 % (.); ALPHA-2-GLOBULIN URINE 11.6 % (.); GAMMA GLOBULIN URINE 28.2 % (.); M-SPIKE % UR Not Observed % (Not Observed); PROTEIN TOTAL URINE 8.5 mg/dL (Not Estab.)
[2017-05-30] MEDS: ATORVASTATIN CALCIUM 80 MG TABLET PO SCH (22:01)
--- NOTE | 2017-05-30 22:34 | PDOC PROGRESS REPORT ---
Subjective Progress Note for:: 05/30/17 Subjective:: She was seen by the bedside she has weakness of the right leg and also pain of the right foot, she would need rehabilitation Reason For Visit: LEFT MCA INFARCT Physical Exam Vital Signs: Temp Pulse Resp BP Pulse Ox 98.0 F 77 12 101/64 97 05/30/17 19:26 05/30/17 19:26 05/30/17 19:26 05/30/17 19:26 05/30/17 19:26 Intake & Output 05/29/17 05/30/17 05/31/17 06:59 06:59 06:59 Intake Total 10 775 1460 Output Total 1000 1300 400 Balance -990 -525 1060 Weight 109.6 kg 110.9 kg General appearance: PRESENT: no acute distress Eye exam: PRESENT: PERRLA Respiratory exam: PRESENT: clear to auscultation freida Cardiovascular exam: PRESENT: +S1, +S2 Neurological exam: PRESENT: alert Results Laboratory Results: 05/30/17 11:53 05/30/17 05:57 05/30/17 05/30/17 05/30/17 05:57 05:57 11:53 WBC Cancelled 9.6 RBC Cancelled 4.24 Hgb Cancelled 12.4 Hct Cancelled 37.8 MCV Cancelled 89 MCH Cancelled 29.2 MCHC Cancelled 32.8 RDW Cancelled 15.8 H Plt Count Cancelled 208 Seg Neutrophils % Cancelled 63.8 Lymphocytes % Cancelled 23.3 Monocytes % Cancelled 9.8 Eosinophils % Cancelled 2.6 Basophils % Cancelled 0.5 Absolute Neutrophils Cancelled 6.1 Absolute Lymphocytes Cancelled 2.2 Absolute Monocytes Cancelled 0.9 Absolute Eosinophils Cancelled 0.2 Absolute Basophils Cancelled 0.0 Sodium 141.6 Potassium 3.9 Chloride 104 Carbon Dioxide 26 Anion Gap 12 BUN 29 H Creatinine 1.73 H Est GFR ( Amer) 36 L Est GFR (Non-Af Amer) 30 L Glucose 148 H Calcium 9.4 Total Bilirubin 0.7 AST 26 ALT 21 Alkaline Phosphatase 113 Total Protein 8.2 Albumin 4.2 05/28/17 05/28/17 05/29/17 19:59 19:59 02:20 Creatine Kinase 86 82 CK-MB (CK-2) 1.13 Troponin I 0.080 05/29/17 05/29/17 05/29/17 02:20 11:29 11:29 Creatine Kinase 97 CK-MB (CK-2) 1.01 0.89 Troponin I 0.078 0.048 Impressions: Chest X-Ray 05/28/17 13:10 IMPRESSION: NO ACUTE RADIOGRAPHIC FINDING IN THE CHEST. NO SIGNIFICANT CHANGE FROM PRIOR STUDY. Head CT 05/28/17 13:10 IMPRESSION: NO DEFINITE CT EVIDENCE OF ACUTE ISCHEMIA, HEMORRHAGE, OR MASS LESION. CHRONIC APPEAR INFARCTION RIGHT FRONTOTEMPORAL LOBE WHICH IS NOT PRESENT ON PRIOR STUDY. CORRELATE WITH CLINICAL HISTORY OF INTERVAL STROKE. EVIDENCE OF ACUTE STROKE: NO. Head MRI 05/28/17 14:51 IMPRESSION: Acute infarction small area peripheral atkins matter left parietal lobe. Old right frontal infarct. Microvascular ischemic change. EVIDENCE OF ACUTE STROKE: YES. LEFT MCA Brain MRI with MRA 05/28/17 18:41 IMPRESSION: NORMAL MRA OF THE [place] OF [place]. Carotid Doppler Study 05/29/17 00:00 IMPRESSION: NO HEMODYNAMICALLY SIGNIFICANT STENOSIS. Assessment & Plan - Diagnosis (1) Cerebral infarction Qualifiers: Cerebral infarction mechanism: embolism Precerebral and cerebral artery: unspecified precerebral artery Qualified Code(s): I63.10 - Cerebral infarction due to embolism of unspecified precerebral artery; I63.19 - Cerebral infarction due to embolism of other precerebral artery Is this a current diagnosis for this admission?: Yes (2) Paroxysmal atrial fibrillation Is this a current diagnosis for this admission?: Yes (3) Peripheral neuropathy Qualifiers: Peripheral neuropathy type: polyneuropathy, unspecified Qualified Code(s): G62.9 - Polyneuropathy, unspecified Is this a current diagnosis for this admission?: Yes (4) Chronic obstructive pulmonary disease Qualifiers: COPD type: unspecified COPD Qualified Code(s): J44.9 - Chronic obstructive pulmonary disease, unspecified Is this a current diagnosis for this admission?: Yes (5) PAD (peripheral artery disease) Is this a current diagnosis for this admission?: Yes
[2017-05-31 06:47] LABS: ABSOLUTE EOSINOPHILS # (AUTO) 0.2 10^3/uL (0.0-0.6); ABSOLUTE LYMPHOCYTES (AUTO) 2.6 10^3/uL (0.5-4.7); ABSOLUTE NEUT (AUTO) 5.8 10^3/uL (1.7-8.2); BASOPHILS % (AUTO) 0.4 % (0-2); EOSINOPHILS % (AUTO) 2.2 % (0-6); HEMATOCRIT 34.8 % (36.0-47.0); HEMOGLOBIN 11.4 g/dL (12.0-15.5); MEAN CORPUSCULAR HEMOGLOBIN 29.1 pg (27.0-33.4); MEAN CORPUSCULAR HGB CONC 32.9 g/dL (32.0-36.0); MEAN CORPUSCULAR VOLUME 89 fl (80-97); MONOCYTES % (AUTO) 10.5 % (3-13); PLATELET COUNT 165 10^3/uL (150-450); RED BLOOD COUNT 3.93 10^6/uL (3.72-5.28); RED CELL DISTRIBUTION WIDTH 15.4 % (11.5-14.0); SEGMENTED NEUTROPHILS % (AUTO) 59.9 % (42-78); TOTAL CELLS COUNTED % (AUTO) 100 %; WHITE BLOOD COUNT 9.7 10^3/uL (4.0-10.5)
[2017-05-31 07:10] LABS: ALANINE AMINOTRANSFERASE 23 U/L (9-52); ALBUMIN 3.7 g/dL (3.5-5.0); ALKALINE PHOSPHATASE 98 U/L (38-126); ANION GAP 11 (5-19); ASPARTATE AMINO TRANSFERASE 14 U/L (14-36); BILIRUBIN,DIRECT 0.3 mg/dL (0.0-0.4); BILIRUBIN,TOTAL 0.5 mg/dL (0.2-1.3); BLOOD UREA NITROGEN 28 mg/dL (7-20); CALCIUM 8.9 mg/dL (8.4-10.2); CARBON DIOXIDE 25 mmol/L (22-30); CHLORIDE 106 mmol/L (98-107); GLUCOSE 139 mg/dL (75-110); SODIUM 141.9 mmol/L (137-145); TOTAL PROTEIN 7.1 g/dL (6.3-8.2)
[2017-05-31] MEDS: FUROSEMIDE 20 MG TABLET PO SCH (09:06)
[2017-05-31] MEDS: APIXABAN 5 MG TABLET PO SCH ×2 (09:06→21:50)
[2017-05-31] MEDS: METOPROLOL SUCCINATE 25 MG TAB.SR.24H PO SCH (09:06)
[2017-05-31] MEDS: LOSARTAN POTASSIUM 25 MG TABLET PO SCH (09:06)
[2017-05-31] MEDS: LANSOPRAZOLE 30 MG TAB.RAP.DR PO SCH (09:06)
[2017-05-31] MEDS: CLOPIDOGREL BISULFATE 75 MG TABLET PO SCH (09:06)
[2017-05-31 15:38] LABS: A/G RATIO. 0.9 (0.7-1.7); ALBUMIN 3 3.3 g/dL (2.9-4.4); ALPHA-1-GLOBULIN 0.2 g/dL (0.0-0.4); BETA GLOBULIN 1.4 g/dL (0.7-1.3); GAMMA GLOBULINS 1.8 g/dL (0.4-1.8); IMMUNOGLOBULIN A 403 mg/dL (87-352); IMMUNOGLOBULIN G 2123 mg/dL (700-1600); IMMUNOGLOBULIN M 103 mg/dL (26-217); MONOCLONAL-SPIKE Not Observed g/dL (Not Observed); PROTEIN TOTAL SERUM 7.4 g/dL (6.0-8.5)
[2017-05-31] MEDS ORDERED: MAG HYDROX/AL HYDROX/SIMETH SUSP 30 ML UDCUP PO PRN (15:53)
--- NOTE | 2017-05-31 17:56 | PDOC PROGRESS REPORT ---
Subjective Progress Note for:: 05/31/17 Subjective:: She wants to go home with physical therapy other rather than go to inpatient rehabilitation Reason For Visit: LEFT MCA INFARCT Physical Exam Vital Signs: Temp Pulse Resp BP Pulse Ox 97.8 F 72 22 H 102/62 97 05/31/17 16:06 05/31/17 16:06 05/31/17 16:06 05/31/17 16:06 05/31/17 16:06 Intake & Output 05/30/17 05/31/17 06/01/17 06:59 06:59 06:59 Intake Total 775 1960 10 Output Total 1300 400 Balance -525 1560 10 Weight 110.9 kg 110.8 kg General appearance: PRESENT: no acute distress Eye exam: PRESENT: PERRLA Respiratory exam: PRESENT: clear to auscultation freida Cardiovascular exam: PRESENT: +S1, +S2 Neurological exam: PRESENT: alert Results Laboratory Results: 05/31/17 06:20 05/31/17 06:20 05/31/17 05/31/17 06:20 06:20 WBC 9.7 RBC 3.93 Hgb 11.4 L Hct 34.8 L MCV 89 MCH 29.1 MCHC 32.9 RDW 15.4 H Plt Count 165 Seg Neutrophils % 59.9 Lymphocytes % 27.0 Monocytes % 10.5 Eosinophils % 2.2 Basophils % 0.4 Absolute Neutrophils 5.8 Absolute Lymphocytes 2.6 Absolute Monocytes 1.0 Absolute Eosinophils 0.2 Absolute Basophils 0.0 Sodium 141.9 Potassium 4.0 Chloride 106 Carbon Dioxide 25 Anion Gap 11 BUN 28 H Creatinine 1.63 H Est GFR ( Amer) 39 L Est GFR (Non-Af Amer) 32 L Glucose 139 H Calcium 8.9 Total Bilirubin 0.5 AST 14 ALT 23 Alkaline Phosphatase 98 Total Protein 7.1 Albumin 3.7 05/28/17 05/28/17 05/29/17 19:59 19:59 02:20 Creatine Kinase 86 82 CK-MB (CK-2) 1.13 Troponin I 0.080 05/29/17 05/29/17 05/29/17 02:20 11:29 11:29 Creatine Kinase 97 CK-MB (CK-2) 1.01 0.89 Troponin I 0.078 0.048 Impressions: Chest X-Ray 05/28/17 13:10 IMPRESSION: NO ACUTE RADIOGRAPHIC FINDING IN THE CHEST. NO SIGNIFICANT CHANGE FROM PRIOR STUDY. Head CT 05/28/17 13:10 IMPRESSION: NO DEFINITE CT EVIDENCE OF ACUTE ISCHEMIA, HEMORRHAGE, OR MASS LESION. CHRONIC APPEAR INFARCTION RIGHT FRONTOTEMPORAL LOBE WHICH IS NOT PRESENT ON PRIOR STUDY. CORRELATE WITH CLINICAL HISTORY OF INTERVAL STROKE. EVIDENCE OF ACUTE STROKE: NO. Head MRI 05/28/17 14:51 IMPRESSION: Acute infarction small area peripheral atkins matter left parietal lobe. Old right frontal infarct. Microvascular ischemic change. EVIDENCE OF ACUTE STROKE: YES. LEFT MCA Brain MRI with MRA 05/28/17 18:41 IMPRESSION: NORMAL MRA OF THE [place] OF [place]. Carotid Doppler Study 05/29/17 00:00 IMPRESSION: NO HEMODYNAMICALLY SIGNIFICANT STENOSIS. Assessment & Plan - Diagnosis (1) Cerebral infarction Qualifiers: Cerebral infarction mechanism: embolism Precerebral and cerebral artery: unspecified precerebral artery Qualified Code(s): I63.10 - Cerebral infarction due to embolism of unspecified precerebral artery; I63.19 - Cerebral infarction due to embolism of other precerebral artery Is this a current diagnosis for this admission?: Yes (2) Paroxysmal atrial fibrillation Is this a current diagnosis for this admission?: Yes (3) Peripheral neuropathy Qualifiers: Peripheral neuropathy type: polyneuropathy, unspecified Qualified Code(s): G62.9 - Polyneuropathy, unspecified Is this a current diagnosis for this admission?: Yes (4) Chronic obstructive pulmonary disease Qualifiers: COPD type: unspecified COPD Qualified Code(s): J44.9 - Chronic obstructive pulmonary disease, unspecified Is this a current diagnosis for this admission?: Yes (5) PAD (peripheral artery disease) Is this a current diagnosis for this admission?: Yes
--- NOTE | 2017-05-31 18:04 | PDOC DISCHARGE SUMMARY ---
General - Admit/Disc Date/PCP Admission Date/Primary Care Provider: 05/28/17 15:38 TEODORO HOROWITZ MD Discharge Date: 06/01/17 - Discharge Diagnosis (1) Cerebral infarction Is this a current diagnosis for this admission?: Yes (2) Paroxysmal atrial fibrillation Is this a current diagnosis for this admission?: Yes (3) Peripheral neuropathy Is this a current diagnosis for this admission?: Yes (4) Chronic obstructive pulmonary disease Is this a current diagnosis for this admission?: Yes (5) PAD (peripheral artery disease) Is this a current diagnosis for this admission?: Yes - Additional Information Resuscitation Status: Full Code Prescriptions: Atorvastatin Calcium [Lipitor 80 mg Tablet] 80 mg PO QHS #90 tablet Home Medications: Albuterol Sulfate [Ventolin HFA MDI 18 GM] 2 puff IH Q4HP PRN 05/29/17 Alirocumab [Praluent Pen] 150 mg INJ Q14D 05/29/17 Apixaban [Eliquis] 2.5 mg PO Q12 05/29/17 Atorvastatin Calcium [Lipitor 80 mg Tablet] 80 mg PO DAILY 05/29/17 Dexlansoprazole [Dexilant 60 mg Capsule] 60 mg PO DAILY 05/29/17 Fluticasone Propionate [Flonase Nasal [place] 50 Mcg/[place] 16 gm] 2 spray NASL DAILY 05/29/17 Furosemide [Lasix 20 mg Tablet] 20 mg PO DAILY 05/29/17 Hydrocodone/Acetaminophen [Hydrocodone-Acetamin 5-325 mg] 1 tab PO Q8HP PRN Losartan Potassium [Cozaar 25 mg Tablet] 25 mg PO DAILY 05/29/17 Metoprolol Succinate [Toprol Xl 25 mg Tab.sr] 25 mg PO DAILY 05/29/17 Tiotropium [place] [Spiriva Hand[place]er 5 Cap/Kit (18 Mcg/Cap)] 1 puff IH DAILY 05/29/17 Atorvastatin Calcium [Lipitor 80 mg Tablet] 80 mg PO QHS #90 tablet 05/31/17 History of Present Illness History of Present Illness: KEYONA TAYLOR is a 61 year old female, She is well-known to me, she came to the emergency room for evaluation of a new onset dysphasia with drooling, She has a history of CVA, coronary artery disease, peripheral vascular disease. CT head without contrast was done in the emergency room showed chronic appearing infarction of the right frontotemporal lobe subsequent MRI of the brain was done it showed acute infarction of the left parietal lobe Hospital Course Hospital Course: She had cerebral infarction she was managed with antiplatelet and also anticoagulant, MRA of the brain was done it was normal, carotid Doppler of the neck was done it was normal she was managed conservatively. Most of her deficits is in her speech, the is slurrhed she has mild weakness of the right side of her body she does not wish to pursue inpatient rehabilitation she preferred to be discharged home with physical therapy. 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, she was supposed to be on statin but apparently she has not been taking it she was again advised of the need to take statin in addition to antiplatelet and anticoagulant, she has a history of stroke in the past she is a vasculopath very prone to cardiovascular events Physical Exam Vital Signs: Temp Pulse Resp BP Pulse Ox 97.8 F 72 22 H 102/62 97 05/31/17 16:06 05/31/17 16:06 05/31/17 16:06 05/31/17 16:06 05/31/17 16:06 Intake & Output 05/30/17 05/31/17 06/01/17 06:59 06:59 06:59 Intake Total 775 1960 10 Output Total 1300 400 Balance -525 1560 10 Weight 110.9 kg 110.8 kg General appearance: PRESENT: no acute distress, well-developed, well-nourished Head exam: PRESENT: atraumatic, normocephalic Eye exam: PRESENT: conjunctiva pink, EOMI, PERRLA Ear exam: PRESENT: normal external ear exam Mouth exam: PRESENT: moist, tongue midline Neck exam: PRESENT: full ROM Respiratory exam: PRESENT: clear to auscultation freida Cardiovascular exam: PRESENT: RRR Pulses: PRESENT: normal dorsalis pedis pul, +2 pedal pulses bilateral Vascular exam: PRESENT: normal capillary refill GI/Abdominal exam: PRESENT: normal bowel sounds, soft Rectal exam: PRESENT: deferred Neurological exam: PRESENT: alert, CN II-XII grossly intact Psychiatric exam: PRESENT: appropriate affect, normal mood Skin exam: PRESENT: dry, intact, warm Results Laboratory Results: 05/31/17 06:20 05/31/17 06:20 05/31/17 05/31/17 06:20 06:20 WBC 9.7 RBC 3.93 Hgb 11.4 L Hct 34.8 L MCV 89 MCH 29.1 MCHC 32.9 RDW 15.4 H Plt Count 165 Seg Neutrophils % 59.9 Lymphocytes % 27.0 Monocytes % 10.5 Eosinophils % 2.2 Basophils % 0.4 Absolute Neutrophils 5.8 Absolute Lymphocytes 2.6 Absolute Monocytes 1.0 Absolute Eosinophils 0.2 Absolute Basophils 0.0 Sodium 141.9 Potassium 4.0 Chloride 106 Carbon Dioxide 25 Anion Gap 11 BUN 28 H Creatinine 1.63 H Est GFR ( Amer) 39 L Est GFR (Non-Af Amer) 32 L Glucose 139 H Calcium 8.9 Total Bilirubin 0.5 AST 14 ALT 23 Alkaline Phosphatase 98 Total Protein 7.1 Albumin 3.7 05/28/17 05/28/17 05/29/17 19:59 19:59 02:20 Creatine Kinase 86 82 CK-MB (CK-2) 1.13 Troponin I 0.080 05/29/17 05/29/17 05/29/17 02:20 11:29 11:29 Creatine Kinase 97 CK-MB (CK-2) 1.01 0.89 Troponin I 0.078 0.048 Impressions: Chest X-Ray 05/28/17 13:10 IMPRESSION: NO ACUTE RADIOGRAPHIC FINDING IN THE CHEST. NO SIGNIFICANT CHANGE FROM PRIOR STUDY. Head CT 05/28/17 13:10 IMPRESSION: NO DEFINITE CT EVIDENCE OF ACUTE ISCHEMIA, HEMORRHAGE, OR MASS LESION. CHRONIC APPEAR INFARCTION RIGHT FRONTOTEMPORAL LOBE WHICH IS NOT PRESENT ON PRIOR STUDY. CORRELATE WITH CLINICAL HISTORY OF INTERVAL STROKE. EVIDENCE OF ACUTE STROKE: NO. Head MRI 05/28/17 14:51 IMPRESSION: Acute infarction small area peripheral atkins matter left parietal lobe. Old right frontal infarct. Microvascular ischemic change. EVIDENCE OF ACUTE STROKE: YES. LEFT MCA Brain MRI with MRA 05/28/17 18:41 IMPRESSION: NORMAL MRA OF THE [place] OF [place]. Carotid Doppler Study 05/29/17 00:00 IMPRESSION: NO HEMODYNAMICALLY SIGNIFICANT STENOSIS. Qualifiers - * PATEINT BEING DISCHARGED WITH ANY OF THE FOLLOWING DIAGNOSIS?: Stroke VTE patient discharged on overlapping Therapy?: Yes Stroke Pt being discharged on Anti-thrombolytic therapy?: Yes Stroke Pt being discharged on Anti-coagulation therapy?: Yes Stroke Pt being discharged on Statins?: Yes
[2017-05-31] MEDS: ATORVASTATIN CALCIUM 80 MG TABLET PO SCH (21:49)
[2017-06-01 09:11] VITALS: BP 120/74
== END 2017-06-01 09:46 | disposition home health service (06) | DRG 66 ==
LOC: ER 13:09 → EH 15:38 → 3S 19:20
PROVIDERS: ADMIT Internal Medicine; ATTEND Internal Medicine
DX: I63.10 Cerebral infarction due to embolism of unspecified precerebral artery (principal); I48.0 Paroxysmal atrial fibrillation; I25.10 Atherosclerotic heart disease of native coronary artery without angina pectoris; E78.5 Hyperlipidemia, unspecified; I10 Essential (primary) hypertension; I73.9 Peripheral vascular disease, unspecified; J45.909 Unspecified asthma, uncomplicated; J44.9 Chronic obstructive pulmonary disease, unspecified; I25.2 Old myocardial infarction; Z79.01 Long term (current) use of anticoagulants; Z86.73 Personal history of transient ischemic attack (TIA), and cerebral infarction without residual deficits; Z95.5 Presence of coronary angioplasty implant and graft; Z89.512 Acquired absence of left leg below knee; Z79.51 Long term (current) use of inhaled steroids; Z79.899 Other long term (current) drug therapy
CPT/HCPCS: 36415; 70450; 70544; 70551; 71045; 80053; 80061; 81001; 82550; 82553; 82570; 83036; 84156; 84166; 84484; 85025; 85610; 85730; 86320; 93005; 93010; 93306; 93880; 96374; 99285; G8978-GP; G8979-GP; G8987-GO; G8988-GO; G8996-GN; G8997-GN; J2060; J3490

== ENCOUNTER 2017-11-25 02:31 | Emergency (ER) | payer MEDICARE, MEDICAID ==
[2017-11-25] MEDS ORDERED: ASPIRIN 81 MG TABLET, CHEWABLE PO ONE (02:35)
[2017-11-25 03:02] LABS: ABSOLUTE BASOPHILS # (AUTO) 0.1 10^3/uL (0.0-0.2); ABSOLUTE EOSINOPHILS # (AUTO) 0.3 10^3/uL (0.0-0.6); ABSOLUTE LYMPHOCYTES (AUTO) 2.4 10^3/uL (0.5-4.7); ABSOLUTE MONOCYTES (AUTO) 0.9 10^3/uL (0.1-1.4); ABSOLUTE NEUT (AUTO) 5.1 10^3/uL (1.7-8.2); BASOPHILS % (AUTO) 0.6 % (0-2); EOSINOPHILS % (AUTO) 3.3 % (0-6); HEMATOCRIT 35.3 % (36.0-47.0); HEMOGLOBIN 11.8 g/dL (12.0-15.5); LYMPHOCYTES % (AUTO) 27.3 % (13-45); MEAN CORPUSCULAR HEMOGLOBIN 29.4 pg (27.0-33.4); MEAN CORPUSCULAR HGB CONC 33.6 g/dL (32.0-36.0); MEAN CORPUSCULAR VOLUME 88 fl (80-97); MONOCYTES % (AUTO) 10.7 % (3-13); PLATELET COUNT 185 10^3/uL (150-450); RED BLOOD COUNT 4.03 10^6/uL (3.72-5.28); RED CELL DISTRIBUTION WIDTH 16.4 % (11.5-14.0); SEGMENTED NEUTROPHILS % (AUTO) 58.1 % (42-78); TOTAL CELLS COUNTED % (AUTO) 100 %; WHITE BLOOD COUNT 8.7 10^3/uL (4.0-10.5)
--- NOTE | 2017-11-25 03:07 | RADIOLOGY REPORT (SQ) ---
EXAM DESCRIPTION: XR CHEST 1 VIEW COMPLETED DATE/TME: 11/25/2017 02:36 CLINICAL HISTORY: chest pain COMPARISON: None. FINDINGS: Single frontal view of the chest. Tortuosity of thoracic aorta. Low lung volumes. Blunting of the left costophrenic angle. Postoperative change in the left chest wall. No lobar consolidation or pneumothorax. No acute osseous abnormality. Upper abdominal soft tissues are unremarkable. IMPRESSION: 1. Blunting of the left costophrenic angle may represent pleural scarring or small pleural effusion. 2. No airspace consolidation.
[2017-11-25 03:20] LABS: ALANINE AMINOTRANSFERASE 26 U/L (9-52); ALBUMIN 3.9 g/dL (3.5-5.0); ALKALINE PHOSPHATASE 110 U/L (38-126); ANION GAP 10 (5-19); ASPARTATE AMINO TRANSFERASE 18 U/L (14-36); BILIRUBIN,DIRECT 0.3 mg/dL (0.0-0.4); BILIRUBIN,TOTAL 0.5 mg/dL (0.2-1.3); BLOOD UREA NITROGEN 17 mg/dL (7-20); CALCIUM 9.5 mg/dL (8.4-10.2); CARBON DIOXIDE 27 mmol/L (22-30); CHLORIDE 106 mmol/L (98-107); CREATINE KINASE 76 U/L (30-135); GLUCOSE 153 mg/dL (75-110); POTASSIUM 4.1 mmol/L (3.6-5.0); SODIUM 142.6 mmol/L (137-145); TOTAL PROTEIN 8.1 g/dL (6.3-8.2)
[2017-11-25 03:32] LABS: CREATINE KINASE MB 1.01 ng/mL (<4.55); TROPONIN I 0.015 ng/mL
[2017-11-25] MEDS ORDERED: MORPHINE SULFATE 10 MG/ML INJ IV ONE (04:04)
--- NOTE | 2017-11-25 04:05 | ER Document Report ---
ED Cardiac - General Chief Complaint: Chest Pain > 30 Stated Complaint: CHEST PAIN Time Seen by Provider: 11/25/17 02:38 Mode of Arrival: Ambulatory Notes: Patient is a 62-year-old female who presents with chief complaint of left-sided chest pain that started two days ago. Patient reports that the pain feels like a sharp stabbing pain in the left side of the chest anteriorly and posteriorly. Patient reports the pain is worse with movement and improved with staying still. Patient reports associated nausea and shortness of breath, denies any diaphoresis or vomiting. Patient reports past medical history of SD x1 with 3 stents placed, hypertension and CHF. TRAVEL OUTSIDE OF THE [place] IN LAST 30 DAYS: No - Related Data Allergies/Adverse Reactions: No Known Allergies Allergy (Verified 10/03/15 22:34) Past Medical History - General Information source: Patient - Social History Smoking Status: Never Smoker Frequency of alcohol use: None Drug Abuse: None Family History: Reviewed & Not Pertinent, Malignancy Patient has suicidal ideation: No Patient has homicidal ideation: No - Past Medical History Cardiac Medical History: Reports: Hx Atrial Fibrillation - Paroxysmal atrial fibrillation, Hx Coronary Artery Disease, Hx Heart Attack, Hx Hypercholesterolemia, Hx Hypertension, Hx Peripheral Vascular Disease Denies: Hx Congestive Heart Failure, Hx Heart Murmur Pulmonary Medical History: Reports: Hx Asthma, Hx Bronchitis, Hx COPD Denies: Hx Pneumonia, Hx Tuberculosis Neurological Medical History: Denies: Hx Cerebrovascular Accident, Hx Seizures Renal/ Medical History: Denies: Hx Peritoneal Dialysis Malignancy Medical History: Reports: Hx Breast Cancer GI Medical History: Reports: Hx Gastroesophageal Reflux Disease Musculoskeletal Medical History: Denies Hx Arthritis, Reports Hx Fibromyalgia Psychiatric Medical History: Reports: Hx Depression Past Surgical History: Reports: Hx Cardiac Catheterization - 2002 Stent, 2005 Stent, Hx Coronary Stent - 2002([place]), 2004([place]), Hx Mastectomy - LEFT, Hx Orthopedic Surgery - left BKA due to peripheral vascular disease/ischemia. Denies: Hx Pacemaker - Immunizations Hx Diphtheria, Pertussis, Tetanus Vaccination: Yes Review of Systems - Review of Systems Cardiovascular: Chest pain Respiratory: Short of breath Gastrointestinal: Nausea Musculoskeletal: See HPI -: Yes All other systems reviewed and negative Physical Exam - Vital signs Vitals: Pulse Ox 100 11/25/17 02:36 - Notes Notes: PHYSICAL EXAMINATION: GENERAL: Well-appearing, well-nourished and in no acute distress. HEAD: Atraumatic, normocephalic. EYES: Pupils equal round and reactive to light, extraocular movements intact, conjunctiva are normal. ENT: Nares patent, oropharynx clear without exudates. Moist mucous membranes. NECK: Normal range of motion, supple without lymphadenopathy LUNGS: Breath sounds clear to auscultation bilaterally and equal. No wheezes rales or rhonchi. HEART: Regular rate and rhythm without murmurs ABDOMEN: Soft, nontender, nondistended abdomen. No guarding, no rebound. No masses appreciated. Female : deferred Musculoskeletal: Normal range of motion, no pitting or edema. No cyanosis. Tenderness to palpation to left chest wall under left breast around to left posterior chest. No rash noted. Left BKA. NEUROLOGICAL: Cranial nerves grossly intact. Normal speech, normal gait. Normal sensory, motor exams PSYCH: Normal mood, normal affect. SKIN: Warm, Dry, normal turgor, no rashes or lesions noted. Course - Re-evaluation Re-evalutation: Patient appears well, nontoxic, no acute distress noted. Vital signs are stable patient is normotensive, afebrile and without tachycardia or hypoxia. EKG is unchanged from previous. Rate of 77, right bundle branch noted with no ischemic changes. CBC is unremarkable, CMP is normal other than mildly elevated creatinine of 1.51 however this is actually improved for the patient from her baseline. Troponin was negative. Patient was given a dose of morphine which did relieve her pain. X-ray shows a possible left-sided pleural effusion which may explain the patient 's pain at this location. Second troponin is negative. Patient reports return of her pain after morphine has worn off although she states she does feel improved since arrival. Patient's vital signs have been stable. Consulted with Dr. Ramos who recommends patient can be discharged home with an incentive spirometer. - Vital Signs Vital signs: Temp Pulse Resp BP Pulse Ox 98.1 F 19 129/94 H 95 11/25/17 07:29 11/25/17 07:29 11/25/17 07:29 11/25/17 07:28 - Laboratory Result Diagrams: 11/25/17 02:54 11/25/17 02:54 Laboratory results interpreted by me: 11/25/17 11/25/17 02:54 02:54 Hgb 11.8 L Hct 35.3 L RDW 16.4 H Creatinine 1.51 H Est GFR ( Amer) 42 L Est GFR (Non-Af Amer) 35 L Glucose 153 H Discharge - Discharge Clinical Impression: Pleural effusion Chest pain Qualifiers: Chest pain type: unspecified Qualified Code(s): R07.9 - Chest pain, unspecified Condition: Stable Disposition: HOME, SELF-CARE Additional Instructions: Pleural Effusion You have a pleural effusion. A pleural effusion is fluid in the space between your lung and chest wall. This can be caused by pleurisy (inflammation of the lung lining), pneumonia, heart disease, pulmonary embolism (blood clots in the lung), or chest injury. It may also occur with any condition that results in severe fluid retention, such as kidney or liver failure. Occasionally the effusion is due to tumor or other serious conditions. A pleural effusion may not cause any symptoms at all. But often, there is sharp pain with breathing. A large effusion can make you short of breath. If we know what caused a pleural effusion, there's usually no need for further testing. In these cases, we treat the underlying illness. In mysterious cases, a sample of the fluid can show what caused the effusion. This sample is obtained by putting a needle between the ribs. If the effusion is large enough to cause shortness of breath, we can remove it through the needle. Follow-up is important. Be sure to see the doctor for further care. Call or return if you become very short of breath, have increasing pain, or develop a new fever. Chest Pain of Unclear Cause The exact cause of your chest pain isn't clear. Fortunately, there is no evidence of a dangerous medical condition. Further testing may be required to find the source of the pain. Most often, we find that this pain is coming from the chest wall -- the muscles or rib joints in the chest. But chest pain can come from the lung and lung lining, the esophagus, the heart valves or heart lining, and even the stomach or gallbladder. Rest. Eat lightly until the pain is gone. We may prescribe medicine for pain and inflammation. You should call the physician immediately if the pain radiates to the shoulder, jaw or arms; if you start to run a fever or develop a cough; or if you develop shortness of breath, or other new or alarming symptoms. Use the incentive spirometer 10 times per hour while awake. Take the pain medication that you have at home. May you may also take some ibuprofen 400 mg every 4-6 hours. Follow up with Dr. Horowitz this week, call Monday for an appointment and let him know that you were seen in the ER over the weekend. Forms: Parent Work Note Referrals: TEODORO HOROWITZ MD [Primary Care Provider] - Follow up as needed
[2017-11-25] MEDS ORDERED: METHOCARBAMOL 500 MG TABLET PO ONE (06:47)
[2017-11-25] MEDS ORDERED: HYDROCODONE/ACETAMINOPHEN 5-325 MG TABLET PO ONE (06:47)
[2017-11-25 07:40] VITALS: BP 129/94
--- NOTE | 2017-11-25 09:33 | EKG REPORT ---
SEVERITY:- ABNORMAL ECG - SINUS RHYTHM MULTIPLE VENTRICULAR PREMATURE COMPLEXES RIGHT BUNDLE BRANCH BLOCK : Confirmed by: Mari Miles MD 25-Nov-2017 09:32:53
== END 2017-11-25 07:55 | disposition home or self-care (01) ==
LOC: ER 02:31
DX: J90 Pleural effusion, not elsewhere classified (principal); R07.9 Chest pain, unspecified; R11.0 Nausea; R06.02 Shortness of breath; E78.00 Pure hypercholesterolemia, unspecified; I10 Essential (primary) hypertension; J44.9 Chronic obstructive pulmonary disease, unspecified; I25.2 Old myocardial infarction; Z85.3 Personal history of malignant neoplasm of breast; Z89.512 Acquired absence of left leg below knee
CPT/HCPCS: 93005; 99285; 96374; 36415; 82553; 82550; 85025; 80053; 84484; 71045; 93010; A9270 ×2; J2270

== ENCOUNTER → 2018-03-12 | Outpatient (CLI) | payer MEDICARE, MEDICAID ==
--- NOTE | 2018-03-12 14:07 | RADIOLOGY REPORT (SQ) ---
EXAM DESCRIPTION: CT CHEST WITHOUT COMPLETED DATE/TIME: 03/12/2018 1:12 pm REASON FOR STUDY: CHEST PAIN R07.9 CHEST PAIN, UNSPECIFIED COMPARISON: 08/23/2014 TECHNIQUE: CT scan performed of the chest without intravenous contrast. Images reviewed with lung, soft tissue and bone windows. Reconstructed coronal and sagittal MPR images reviewed. All images st ored on PACS. All CT scanners at this facility use dose modulation, iterative reconstruction, and/or weight based d osing when appropriate to reduce radiation dose to as low as reasonably achievable (ALARA). [facility]: Dose Right [facility]: CareDose [facility]: Dose Right [facility]: Teradose 4D [facility]: [employer] RADIATION DOSE: CT Rad equipment meets quality standard of care and radiation dose reduction techniq ues were employed. CTDIvol: 18.8 mGy. DLP: 748 mGy-cm. mGy. LIMITATIONS: No technical limitations. FINDINGS: LUNGS AND PLEURA: Paraseptal emphysema upper lobes. Chronic subsegmental bronchiectasis i n the middle lobe. Less than 5 mm calcified granuloma right upper lobe. 9 mm calcified granuloma le ft upper lobe. HILAR AND MEDIASTINAL STRUCTURES: No identified masses or abnormal nodes. No obvious aneurysm. HEART AND VASCULAR STRUCTURES: No aneurysm. No pericardial effusion. UPPER ABDOMEN: Hiatal hernia. Limited exam. THYROID AND OTHER SOFT TISSUES: Left mastectomy and axillary node dissection. BONES: Nothing acute. HARDWARE: None in the chest. OTHER: No other significant findings. IMPRESSION: Old granulomatous disease. No acute findings. TECHNICAL DOCUMENTATION: JOB ID: [id number] Quality ID # [id number]: Final reports with documentation of one or more dose reduction techniques (e.g., Au tomated exposure control, adjustment of the mA and/or kV according to patient size, use of iterative reconstruction technique) 2010 [employer]- All Rights Reserved Reading location - IP/workstation name: [email or web address]
== END ==
LOC: RAD 12:24
PROVIDERS: ATTEND Internal Medicine
DX: R07.9 Chest pain, unspecified (principal); J43.9 Emphysema, unspecified; J84.10 Pulmonary fibrosis, unspecified; K44.9 Diaphragmatic hernia without obstruction or gangrene; J47.9 Bronchiectasis, uncomplicated
CPT/HCPCS: 71250

== ENCOUNTER 2018-06-22 14:50 | Emergency (ER) | payer MEDICARE, MEDICAID ==
[2018-06-22] MEDS ORDERED: IPRATROPIUM/ALBUTEROL 0.5-2.5 MG/3 ML AMPUL NEB ONE (15:44)
--- NOTE | 2018-06-22 15:45 | ER Document Report ---
ED Medical Screen (RME) - General Chief Complaint: Breathing Difficulty Stated Complaint: SHORTNESS OF BREATH Time Seen by Provider: 06/22/18 15:42 Primary Care Provider: TEODORO HOROWITZ MD [Primary Care Provider] - Follow up as needed Mode of Arrival: Wheelchair Information source: Patient Notes: Patient complains of cold symptoms for the past 3 weeks. Cough has been productive and had blood in her sputum today. Patient reports subjective fever and nausea. Patient does have a history of COPD asthma CAD hypertension and PE. I have greeted and performed a rapid initial assessment of this patient. A comprehensive ED assessment and evaluation of the patient, analysis of test results and completion of the medical decision making process will be conducted by additional ED providers. TRAVEL OUTSIDE OF THE [place] IN LAST 30 DAYS: No - Related Data Allergies/Adverse Reactions: No Known Allergies Allergy (Verified 06/22/18 14:53) Past Medical History - Past Medical History Cardiac Medical History: Reports: Hx Atrial Fibrillation - Paroxysmal atrial fibrillation, Hx Coronary Artery Disease, Hx Heart Attack, Hx Hypercholesterolemia, Hx Hypertension, Hx Peripheral Vascular Disease Denies: Hx Congestive Heart Failure, Hx Heart Murmur Pulmonary Medical History: Reports: Hx Asthma, Hx Bronchitis, Hx COPD Denies: Hx Pneumonia, Hx Tuberculosis Neurological Medical History: Denies: Hx Cerebrovascular Accident, Hx Seizures Renal/ Medical History: Denies: Hx Peritoneal Dialysis Malignancy Medical History: Reports: Hx Breast Cancer GI Medical History: Reports: Hx Gastroesophageal Reflux Disease Musculoskeltal Medical History: Denies Hx Arthritis, Reports Hx Fibromyalgia Psychiatric Medical History: Reports: Hx Depression Past Surgical History: Reports: Hx Cardiac Catheterization - 2002 Stent, 2004 Stent, Hx Coronary Stent - 2002([place]), 2004([place]), Hx Mastectomy - LEFT, Hx Orthopedic Surgery - left BKA due to peripheral vascular disease/ischemia. Denies: Hx Pacemaker - Immunizations Hx Diphtheria, Pertussis, Tetanus Vaccination: Yes History of Influenza Vaccine for 11/2016 - 04/2017 Season: No Physical Exam - Vital signs Vitals: Temp Pulse Resp BP Pulse Ox 98.2 F 75 16 146/75 H 96 06/22/18 15:02 06/22/18 15:02 06/22/18 15:02 06/22/18 15:02 06/22/18 15:02 - Respiratory Breath sounds: Nonproductive cough, Rhonchi Course - Vital Signs Vital signs: Temp Pulse Resp BP Pulse Ox 98.2 F 75 16 146/75 H 96 06/22/18 15:02 06/22/18 15:02 06/22/18 15:02 06/22/18 15:02 06/22/18 15:02 Doctor's Discharge - Discharge Referrals: TEODORO HOROWITZ MD [Primary Care Provider] - Follow up as needed
--- NOTE | 2018-06-22 16:30 | RADIOLOGY REPORT (SQ) ---
EXAM DESCRIPTION: CHEST 2 VIEWS COMPLETED DATE/TIME: 06/22/2018 4:18 pm REASON FOR STUDY: cough COMPARISON: CT chest 03/12/2018 Chest films 11/25/2017, 06/22/2016 EXAM PARAMETERS: NUMBER OF VIEWS: two views TECHNIQUE: Digital Frontal and Lateral radiographic views of the chest acquired. RADIATION DOSE: NA LIMITATIONS: none FINDINGS: LUNGS AND PLEURA: No opacities, masses or pneumothorax. No pleural effusion. MEDIASTINUM AND HILAR STRUCTURES: No masses or contour abnormalities. HEART AND VASCULAR STRUCTURES: Mild cardiomegaly BONES: No acute findings. HARDWARE: Left axillary clips post mastectomy OTHER: No other significant finding. IMPRESSION: NO ACUTE RADIOGRAPHIC FINDING IN THE CHEST. TECHNICAL DOCUMENTATION: JOB ID: [id number] [employer]- All Rights Reserved Reading location - IP/workstation name: [email or web address]
[2018-06-22 17:15] LABS: ABSOLUTE BASOPHILS # (AUTO) 0.1 10^3/uL (0.0-0.2); ABSOLUTE EOSINOPHILS # (AUTO) 0.2 10^3/uL (0.0-0.6); ABSOLUTE LYMPHOCYTES (AUTO) 2.4 10^3/uL (0.5-4.7); ABSOLUTE MONOCYTES (AUTO) 0.9 10^3/uL (0.1-1.4); ABSOLUTE NEUT (AUTO) 5.7 10^3/uL (1.7-8.2); BASOPHILS % (AUTO) 0.6 % (0-2); EOSINOPHILS % (AUTO) 2.1 % (0-6); HEMOGLOBIN 11.9 g/dL (12.0-15.5); LYMPHOCYTES % (AUTO) 26.3 % (13-45); MEAN CORPUSCULAR HEMOGLOBIN 28.7 pg (27.0-33.4); MEAN CORPUSCULAR HGB CONC 33.1 g/dL (32.0-36.0); MEAN CORPUSCULAR VOLUME 87 fl (80-97); MONOCYTES % (AUTO) 9.4 % (3-13); PLATELET COUNT 173 10^3/uL (150-450); RED BLOOD COUNT 4.15 10^6/uL (3.72-5.28); RED CELL DISTRIBUTION WIDTH 16.2 % (11.5-14.0); SEGMENTED NEUTROPHILS % (AUTO) 61.6 % (42-78); TOTAL CELLS COUNTED % (AUTO) 100 %; WHITE BLOOD COUNT 9.2 10^3/uL (4.0-10.5)
[2018-06-22 17:27] LABS: INTERNATIONAL RATION (INR) 1.06; PROTHROMBIN TIME 14.3 SEC (11.4-15.4)
[2018-06-22 17:28] LABS: PARTIAL THROMBOPLASTIN TIME 34.3 SEC (23.5-35.8)
[2018-06-22 17:36] LABS: ALANINE AMINOTRANSFERASE 20 U/L (9-52); ALBUMIN 3.8 g/dL (3.5-5.0); ALKALINE PHOSPHATASE 106 U/L (38-126); ANION GAP 7 (5-19); ASPARTATE AMINO TRANSFERASE 16 U/L (14-36); BILIRUBIN,DIRECT 0.3 mg/dL (0.0-0.4); BILIRUBIN,TOTAL 0.5 mg/dL (0.2-1.3); BLOOD UREA NITROGEN 14 mg/dL (7-20); CALCIUM 9.3 mg/dL (8.4-10.2); CARBON DIOXIDE 27 mmol/L (22-30); CHLORIDE 106 mmol/L (98-107); GLUCOSE 106 mg/dL (75-110); POTASSIUM 4.5 mmol/L (3.6-5.0); SODIUM 139.7 mmol/L (137-145); TOTAL PROTEIN 7.7 g/dL (6.3-8.2)
[2018-06-22] MEDS ORDERED: ALBUTEROL SULFATE HFA (90 MCG/PUFF) 200 PUFF/8.5 GM MDI IH ONE (18:59)
--- NOTE | 2018-06-22 18:59 | ER Document Report ---
ED General - General Chief Complaint: Breathing Difficulty Stated Complaint: SHORTNESS OF BREATH Time Seen by Provider: 06/22/18 15:42 Primary Care Provider: TEODORO HOROWITZ MD [Primary Care Provider] - Follow up as needed Mode of Arrival: Wheelchair Notes: Patient is a 62-year-old female with a past medical history of prior CVA, history of pulmonary embolus on Eliquis who presents with concerns of 3 weeks of cough. The patient states that she is mildly short of breath although this has resolved after receiving a duo nebulizer here in the emergency department. States her symptoms are gradually, worsened since onset. She regards him as being persistent and pervasive. Nothing seems to improve or worsen her symptoms other than receiving a nebulizer here in the emergency room which did help her shortness of breath. She states her main concern is the cough as opposed to shortness of breath and denies any chest pain. She notes that yesterday when coughing she had small flecks of blood in her sputum although has not had any blood in her sputum today. She denies any history of the same. No pleuritic pain. No fever. Has not seen her primary care physician regarding today's concerns. TRAVEL OUTSIDE OF THE [place] IN LAST 30 DAYS: No - Related Data Allergies/Adverse Reactions: No Known Allergies Allergy (Verified 06/22/18 14:53) Past Medical History - General Information source: Patient - Social History Smoking Status: Current Every Day Smoker Chew tobacco use (# tins/day): No Frequency of alcohol use: None Drug Abuse: None Lives with: Family Family History: Reviewed & Not Pertinent, Malignancy Patient has suicidal ideation: No Patient has homicidal ideation: No - Past Medical History Cardiac Medical History: Reports: Hx Atrial Fibrillation - Paroxysmal atrial fibrillation, Hx Congestive Heart Failure, Hx Coronary Artery Disease, Hx Heart Attack, Hx Hypercholesterolemia, Hx Hypertension, Hx Peripheral Vascular Disease Denies: Hx Heart Murmur Pulmonary Medical History: Reports: Hx Asthma, Hx Bronchitis, Hx COPD Denies: Hx Pneumonia, Hx Tuberculosis Neurological Medical History: Denies: Hx Cerebrovascular Accident, Hx Seizures Renal/ Medical History: Denies: Hx Peritoneal Dialysis Malignancy Medical History: Reports: Hx Breast Cancer GI Medical History: Reports: Hx Gastroesophageal Reflux Disease Musculoskeletal Medical History: Denies Hx Arthritis, Reports Hx Fibromyalgia Psychiatric Medical History: Reports: Hx Depression Past Surgical History: Reports: Hx Cardiac Catheterization - 2002 Stent, 2005 Stent, Hx Coronary Stent - 2002([place]), 2005([place]), Hx Mastectomy - LEFT, Hx Orthopedic Surgery - left BKA due to peripheral vascular disease/ischemia. Denies: Hx Pacemaker - Immunizations Hx Diphtheria, Pertussis, Tetanus Vaccination: Yes Review of Systems - Review of Systems Notes: Constitutional: Negative for fever. HENT: Negative for sore throat. Eyes: Negative for visual changes. Cardiovascular: Negative for chest pain. Respiratory: Positive for cough, shortness of breath Gastrointestinal: Negative for abdominal pain, vomiting or diarrhea. Genitourinary: Negative for dysuria. Musculoskeletal: Negative for back pain. Skin: Negative for rash. Neurological: Negative for headaches, weakness or numbness. 10 point ROS negative except as marked above and in HPI. Physical Exam - Vital signs Vitals: Temp Pulse Resp BP Pulse Ox 98.2 F 75 16 146/75 H 96 06/22/18 15:02 06/22/18 15:02 06/22/18 15:02 06/22/18 15:02 06/22/18 15:02 Interpretation: Hypertensive Notes: PHYSICAL EXAMINATION: GENERAL: Well-appearing, well-nourished and in no acute distress. HEAD: Atraumatic, normocephalic. EYES: Pupils equal round and reactive to light, extraocular movements intact, sclera anicteric, conjunctiva are normal. ENT: nares patent, oropharynx clear without exudates. Moist mucous membranes. NECK: Normal range of motion, supple without lymphadenopathy LUNGS: Breath sounds clear to auscultation bilaterally and equal. No wheezes rales or rhonchi. HEART: Regular rate and rhythm without murmurs ABDOMEN: Soft, nontender, normoactive bowel sounds. No guarding, no rebound. No masses appreciated. EXTREMITIES: Normal range of motion, no pitting or edema. No cyanosis. NEUROLOGICAL: No focal neurological deficits. Moves all extremities spontaneously and on command. PSYCH: Normal mood, normal affect. SKIN: Warm, Dry, normal turgor, no rashes or lesions noted. Course - Re-evaluation Re-evalutation: 06/22/18 18:55 Patient presents with a clinical history and exam most consistent with an acute viral bronchitis. This is also supported by the small volume of hemoptysis yesterday which has resolved today. Patient does not appear to have had any significant large volume vomitus by history and her hemoglobin is unchanged from 11/25/2017 at which time it was 11.8 and is 11.9 today. Patient is overall well in appearance without tachypnea, hypoxemia, tachycardia, or difficulty with ambulation. Breath sounds are clear bilaterally. No fever. Patient does have additional signs of upper respiratory infection including nasal congestion, sore throat, and sinus pressure. Chest x-ray without any evidence of mass or infiltrate. Labs otherwise unremarkable. I do not clinically suspect recurrent pulmonary embolus as patient is having coughing and has been having coughing for over 3 weeks. Moreover she denies any chest pain or pleuritic discomfort. At this time will discharge with return precautions and follow-up recommendations. Verbal discharge instructions given a the bedside and opportunity for questions given. Medication warnings reviewed. Patient is in agreement with this plan and has verbalized understanding of return precautions and the need for primary care follow-up in the next 24-72 hours. - Vital Signs Vital signs: Temp Pulse Resp BP Pulse Ox 98.2 F 75 16 146/75 H 96 06/22/18 15:02 06/22/18 15:02 06/22/18 15:02 06/22/18 15:02 06/22/18 15:02 - Laboratory Result Diagrams: 06/22/18 17:00 06/22/18 17:00 Laboratory results interpreted by me: 06/22/18 06/22/18 17:00 17:00 Hgb 11.9 L RDW 16.2 H Creatinine 1.39 H Est GFR ( Amer) 46 L Est GFR (Non-Af Amer) 38 L - Diagnostic Test Radiology reviewed: Image reviewed, Reports reviewed Radiology results interpreted by me: 06/22/18 18:56 Chest x-ray: No acute infiltrate or pneumothorax - EKG Interpretation by Me Additional EKG results interpreted by ga: 06/22/18 18:56 Sinus rhythm, right bundle branch block, unchanged from previous. No ST elevations or depressions. QTC is 475. Discharge - Discharge Clinical Impression: Persistent cough, Bronchitis, Hemoptysis, unspecified Condition: Stable Disposition: HOME, SELF-CARE Additional Instructions: You were seen for symptoms most consistent with bronchitis. This can take up to 12 weeks to fully resolve. This is generally due to a viral infection. Please follow-up with your primary doctor in the next 2-3 days. Return if you develop worsening cough, vomiting, fever >100.4, pass out, begin coughing increased amounts of blood, or have any other symptoms that are concerning to you. Please use the medications prescribed today as directed. Prescriptions: Benzonatate [Tessalon Perles 100 mg Capsule] 100 mg PO Q8HP PRN #40 capsule PRN Reason: Referrals: TEODORO HOROWITZ MD [Primary Care Provider] - Follow up tomorrow
[2018-06-22 19:08] VITALS: BP 169/90
--- NOTE | 2018-06-22 22:34 | EKG REPORT ---
SEVERITY:- ABNORMAL ECG - SINUS RHYTHM RBBB AND LAFB LATERAL INFARCT, AGE INDETERMINATE : Confirmed by: Mari Miles MD 22-Jun-2018 22:33:05
== END 2018-06-22 19:13 | disposition home or self-care (01) ==
LOC: ER 14:50
DX: J40 Bronchitis, not specified as acute or chronic (principal); R04.2 Hemoptysis; R06.02 Shortness of breath; F17.200 Nicotine dependence, unspecified, uncomplicated; I48.91 Unspecified atrial fibrillation; Z79.02 Long term (current) use of antithrombotics/antiplatelets
CPT/HCPCS: 93005; 94640; 99285; 36415; 85025; 85610; 85730; 80053; 84484; 71046; 93010; J3490; A9270; J7620

== ENCOUNTER 2018-06-25 21:45 | Inpatient (IN) | payer MEDICARE, MEDICAID ==
--- NOTE | 2018-06-25 22:28 | ER Document Report ---
ED Medical Screen (RME) - General Chief Complaint: Fall Injury Stated Complaint: FALL Time Seen by Provider: 06/25/18 22:25 Primary Care Provider: TEODORO HOROWITZ MD [Primary Care Provider] - Follow up as needed Notes: 62-year-old female, chief complaint of fall, weakness, head injury. Comes by EMS, she did hit her head with a swelling over her left eyebrow area, she is on Eliquis. She denies any focal weakness. She denies alcohol. TRAVEL OUTSIDE OF THE [place] IN LAST 30 DAYS: No - Related Data Allergies/Adverse Reactions: No Known Allergies Allergy (Verified 06/22/18 14:53) Past Medical History - Past Medical History Cardiac Medical History: Reports: Hx Atrial Fibrillation - Paroxysmal atrial fibrillation, Hx Congestive Heart Failure, Hx Coronary Artery Disease, Hx Heart Attack, Hx Hypercholesterolemia, Hx Hypertension, Hx Peripheral Vascular Disease Denies: Hx Heart Murmur Pulmonary Medical History: Reports: Hx Asthma, Hx Bronchitis, Hx COPD Denies: Hx Pneumonia, Hx Tuberculosis Neurological Medical History: Denies: Hx Cerebrovascular Accident, Hx Seizures Renal/ Medical History: Denies: Hx Peritoneal Dialysis Malignancy Medical History: Reports: Hx Breast Cancer GI Medical History: Reports: Hx Gastroesophageal Reflux Disease Musculoskeltal Medical History: Denies Hx Arthritis, Reports Hx Fibromyalgia Psychiatric Medical History: Reports: Hx Depression Past Surgical History: Reports: Hx Cardiac Catheterization - 2002 Stent, 2004 Stent, Hx Coronary Stent - 2002([place]), 2004([place]), Hx Mastectomy - LEFT, Hx Orthopedic Surgery - left BKA due to peripheral vascular disease/ischemia. Denies: Hx Pacemaker - Immunizations Hx Diphtheria, Pertussis, Tetanus Vaccination: Yes History of Influenza Vaccine for 11/2016 - 04/2017 Season: No Physical Exam - Vital signs Vitals: Temp Pulse Resp BP Pulse Ox 99.2 F 88 24 H 155/60 H 100 06/25/18 21:55 06/25/18 21:55 06/25/18 21:55 06/25/18 21:55 06/25/18 21:55 - General General appearance: Appears well, Alert In distress: None - Neurological Cognition: Normal Orientation: AAOx4 [place] Coma Scale Eye Opening: Spontaneous [place] Coma Scale Verbal: Oriented [place] Coma Scale Motor: Obeys Commands [place] Coma Scale Total: 15 Speech: Normal Cranial nerves: Normal Course - Re-evaluation Re-evalutation: Soft tissue swelling noted over the left eyebrow area, patient is alert and oriented, complains of global weakness, vitals unremarkable in triage. Work-up pending. Triage level 2 because of multiple falls, head injury, Eliquis use. I have greeted and performed a rapid initial assessment of this patient. A comprehensive ED assessment and evaluation of the patient, analysis of test results and completion of the medical decision making process will be conducted by additional ED providers. - Vital Signs Vital signs: Temp Pulse Resp BP Pulse Ox 99.2 F 88 24 H 155/60 H 100 06/25/18 21:55 06/25/18 21:55 06/25/18 21:55 06/25/18 21:55 06/25/18 21:55 Doctor's Discharge - Discharge Referrals: TEODORO HOROWITZ MD [Primary Care Provider] - Follow up as needed
[2018-06-25 22:56] LABS: ABSOLUTE BASOPHILS # (AUTO) 0.1 10^3/uL (0.0-0.2); ABSOLUTE EOSINOPHILS # (AUTO) 0.1 10^3/uL (0.0-0.6); ABSOLUTE LYMPHOCYTES (AUTO) 1.6 10^3/uL (0.5-4.7); ABSOLUTE MONOCYTES (AUTO) 0.7 10^3/uL (0.1-1.4); ABSOLUTE NEUT (AUTO) 6.2 10^3/uL (1.7-8.2); BASOPHILS % (AUTO) 0.6 % (0-2); EOSINOPHILS % (AUTO) 0.6 % (0-6); LYMPHOCYTES % (AUTO) 18.5 % (13-45); MEAN CORPUSCULAR HEMOGLOBIN 28.9 pg (27.0-33.4); MEAN CORPUSCULAR HGB CONC 33.4 g/dL (32.0-36.0); MEAN CORPUSCULAR VOLUME 87 fl (80-97); MONOCYTES % (AUTO) 8.5 % (3-13); PLATELET COUNT 186 10^3/uL (150-450); RED BLOOD COUNT 4.51 10^6/uL (3.72-5.28); SEGMENTED NEUTROPHILS % (AUTO) 71.8 % (42-78); TOTAL CELLS COUNTED % (AUTO) 100 %; WHITE BLOOD COUNT 8.7 10^3/uL (4.0-10.5)
--- NOTE | 2018-06-25 23:10 | RADIOLOGY REPORT (SQ) ---
EXAM DESCRIPTION: CT HEAD WITHOUT IV CONTRAST COMPLETED DATE/TME: 06/25/2018 22:25 CLINICAL HISTORY: 62 years, Female, fall, head injury, on blood thinner COMPARISON: 05/28/2017 CT brain TECHNIQUE: 196 Images stored on PACS. All CT scanners at this facility use dose modulation, iterative reconstruction, and/or weight based dosing when appropriate to reduce radiation dose to as low as reasonably achievable (ALARA). [facility]: Dose Right [facility]: CareDose [facility]: Dose Right [facility]: Teradose 4D [facility]: [employer] LIMITATIONS: None. FINDINGS: The globes are intact. The paranasal sinuses and mastoid air cells are unremarkable. No displaced or depressed skull fracture. No intra or extra-axial hemorrhage. CT is limited for evaluation of acute infarct. No CT evidence for large or territorial acute infarct. Old infarct in the right frontal region. Mild diffuse atrophy. Hypodensities in the periventricular and subcortical white matter, consistent with sequelae of small vessel ischemic change. No mass or midline shift. Remote lacunar infarcts of the bilateral thalami. IMPRESSION: Atrophy with small vessel ischemic change. Remote lacunar infarcts of the bilateral thalami. Old right frontal infarct. TECHNICAL DOCUMENTATION: Quality ID # 436: Final reports with documentation of one or more dose reduction techniques (e.g., Automated exposure control, adjustment of the mA and/or kV according to patient size, use of iterative reconstruction technique) copyright 2011 [employer]- All Rights Reserved
--- NOTE | 2018-06-25 23:16 | RADIOLOGY REPORT (SQ) ---
EXAM DESCRIPTION: XR CHEST 1 VIEW COMPLETED DATE/TME: 06/25/2018 22:26 CLINICAL HISTORY: 62 years, Female, chest pain COMPARISON: 06/22/2018 chest NUMBER OF VIEWS: 1 TECHNIQUE: Portable chest LIMITATIONS: None. FINDINGS: Heart size is stable. Stable postsurgical change. Scarring in the right lung base. Lungs are otherwise clear. No pneumothorax IMPRESSION: No acute cardiopulmonary process copyright 2010 [employer]- All Rights Reserved
[2018-06-25 23:22] LABS: ALANINE AMINOTRANSFERASE 15 U/L (9-52); ALBUMIN 4.1 g/dL (3.5-5.0); ALKALINE PHOSPHATASE 110 U/L (38-126); ANION GAP 12 (5-19); ASPARTATE AMINO TRANSFERASE 19 U/L (14-36); BILIRUBIN,DIRECT 0.3 mg/dL (0.0-0.4); BILIRUBIN,TOTAL 0.4 mg/dL (0.2-1.3); BLOOD UREA NITROGEN 18 mg/dL (7-20); CALCIUM 9.8 mg/dL (8.4-10.2); CARBON DIOXIDE 25 mmol/L (22-30); CHLORIDE 103 mmol/L (98-107); GLUCOSE 141 mg/dL (75-110); POTASSIUM 4.2 mmol/L (3.6-5.0); SODIUM 139.7 mmol/L (137-145); TOTAL PROTEIN 8.4 g/dL (6.3-8.2)
--- NOTE | 2018-06-25 23:42 | ER Document Report ---
ED General - General Chief Complaint: Fall Injury Stated Complaint: FALL Time Seen by Provider: 06/25/18 22:25 Primary Care Provider: TEODORO HOROWITZ MD [Primary Care Provider] - Follow up as needed Notes: Patient is a 62-year-old female with a past medical history of CVA, chronic antic regulation, hypertension, presents by EMS due to increasingly frequent falls as well as head trauma. Apparently patient has had 5 separate falls since approximately noon today all of which resulted from her falling out of her wheelchair or a bed onto the ground. Patient states that she feels that she has no balance, feels very dizzy like she is going to fall at all times at which is a new symptom for her. Family also notes that she has a new left-sided facial droop and appears much more weak on her left side which is abnormal for her. Per the patient's report symptoms started abruptly, have been unchanged since onset. Nothing seems to improve or worsen her symptoms. She states that this feels similar to when she is had a stroke in the past. Has not seen her primary physician regarding today's concerns. She does complain of a throbbing, constant, aching discomfort of her left forehead where she hit the ground. Nothing improves or worsens that pain. Continues to have a cough which has been ongoing for the past several weeks but not new or different today and actually somewhat improved by her report. TRAVEL OUTSIDE OF THE [place] IN LAST 30 DAYS: No - HPI Onset: This afternoon Onset/Duration: Sudden Quality of pain: No pain Severity: Severe Pain Level: Denies Associated symptoms: Nausea, Weakness Exacerbated by: Denies Relieved by: Denies Similar symptoms previously: Yes Recently seen / treated by doctor: No - Related Data Allergies/Adverse Reactions: No Known Allergies Allergy (Verified 06/22/18 14:53) Past Medical History - General Information source: Patient, Relative - Social History Smoking Status: Never Smoker Frequency of alcohol use: None Drug Abuse: None Lives with: Family Family History: Reviewed & Not Pertinent, Malignancy - Past Medical History Cardiac Medical History: Reports: Hx Atrial Fibrillation - Paroxysmal atrial fibrillation, Hx Congestive Heart Failure, Hx Coronary Artery Disease, Hx Heart Attack, Hx Hypercholesterolemia, Hx Hypertension, Hx Peripheral Vascular Disease Denies: Hx Heart Murmur Pulmonary Medical History: Reports: Hx Asthma, Hx Bronchitis, Hx COPD Denies: Hx Pneumonia, Hx Tuberculosis Neurological Medical History: Denies: Hx Cerebrovascular Accident, Hx Seizures Renal/ Medical History: Denies: Hx Peritoneal Dialysis Malignancy Medical History: Reports: Hx Breast Cancer GI Medical History: Reports: Hx Gastroesophageal Reflux Disease Musculoskeletal Medical History: Denies Hx Arthritis, Reports Hx Fibromyalgia Psychiatric Medical History: Reports: Hx Depression Past Surgical History: Reports: Hx Cardiac Catheterization - 2002 Stent, 2004 Stent, Hx Coronary Stent - 2002([place]), 2004([place]), Hx Mastectomy - LEFT, Hx Orthopedic Surgery - left BKA due to peripheral vascular disease/ischemia. Denies: Hx Pacemaker - Immunizations Hx Diphtheria, Pertussis, Tetanus Vaccination: Yes Review of Systems - Review of Systems Notes: Constitutional: Negative for fever. HENT: Negative for sore throat. Eyes: Negative for visual changes. Cardiovascular: Negative for chest pain. Respiratory: Positive for cough Gastrointestinal: Negative for abdominal pain, vomiting or diarrhea. Genitourinary: Negative for dysuria. Musculoskeletal: Negative for back pain. Skin: Negative for rash. Neurological: Negative for headaches, positive for left-sided facial droop and left-sided weakness 10 point ROS negative except as marked above and in HPI. Physical Exam - Vital signs Vitals: Temp Pulse Resp BP Pulse Ox 99.2 F 88 24 H 155/60 H 100 06/25/18 21:55 06/25/18 21:55 06/25/18 21:55 06/25/18 21:55 06/25/18 21:55 Interpretation: Hypertensive, Tachypneic Notes: PHYSICAL EXAMINATION: GENERAL: Appears somewhat unwell but in no acute distress HEAD: Traumatic ecchymosis over the left forehead just above the level of the e yebrow. Otherwise atraumatic, normocephalic. EYES: Pupils equal round and reactive to light, extraocular movements intact, sclera anicteric, conjunctiva are normal. ENT: nares patent, no oral pharyngeal trauma. No hemotympanum, no Cruz's sign, no raccoon eyes. NECK: No midline cervical spine tenderness. Patient able to move their head to 45 bilaterally without any discomfort. LUNGS: Breath sounds clear to auscultation bilaterally and equal. No wheezes rales or rhonchi. HEART: Regular rate and rhythm without murmurs. CHEST WALL: No ecchymosis over the chest wall. ABDOMEN: Soft, nontender, normoactive bowel sounds. No guarding, no rebound. No abdominal bruising EXTREMITIES: Normal range of motion, no pitting or edema. No long bone deformities. BACK: No midline spinal tenderness, step-offs, or deformities. NEUROLOGICAL: There is a left-sided facial droop. Patient is 4 out of 5 biceps and triceps on the left, 5 out of 5 on the right. She has a left BKA. 5 out of 5 both distally and proximally the right lower extremity. Extraocular motions intact. Pupils equal and reactive. Gait deferred. PSYCH: Normal mood, normal affect. SKIN: Warm, Dry, normal turgor, no rashes or lesions noted. Course - Re-evaluation Re-evalutation: 06/25/18 23:45 Patient presents with signs and symptoms worrisome for an acute stroke triggering multiple falls from a seated or lying position. She does have a new left-sided facial droop and increased left-sided weakness. She is however well outside the TPA window and is also not a TPA candidate secondary to her use of a novel oral anticoagulant. The patient's laboratories demonstrate a mild prerenal azotemia, indeterminant elevation of troponin at 0.144 although patient denies any chest pain and EKG is without ischemic changes. CT of the head does not demonstrate any acute intracranial bleed or skull fracture. Chest x-ray is clear. Symptoms overall are very worrisome for new onset of a right sided infarct causing left-sided symptoms and frequent falls. Her indeterminate troponin is likely demand mediated as she denies any chest pain, I do not bel ieve that this would warrant transfer at this time. I have discussed this case with Dr. Horowitz who has accepted patient for hospitalization and continued work-up. - Vital Signs Vital signs: Temp Pulse Resp BP Pulse Ox 99.2 F 88 24 H 155/60 H 100 06/25/18 21:55 06/25/18 21:55 06/25/18 21:55 06/25/18 21:55 06/25/18 21:55 - Laboratory Result Diagrams: 06/25/18 22:40 06/25/18 22:40 Laboratory results interpreted by me: 06/25/18 06/25/18 22:40 22:40 RDW 16.0 H Creatinine 1.53 H Est GFR ( Amer) 42 L Est GFR (Non-Af Amer) 34 L Glucose 141 H Total Protein 8.4 H - Diagnostic Test Radiology reviewed: Image reviewed, Reports reviewed Radiology results interpreted by me: 06/25/18 23:45 CT head: No acute intracranial bleed or mass Chest x-ray: No acute infiltrate - EKG Interpretation by Me Additional EKG results interpreted by me: 06/25/18 23:47 Sinus rhythm, rate 77, right bundle branch block unchanged from previous. Discharge - Discharge Clinical Impression: Acute embolic stroke, Left-sided weakness, Elevated troponin, Prerenal azotemia Condition: Fair Disposition: ADMITTED INPATIENT Admitting Provider: Sin Unit Admitted: IMCU Referrals: TEODORO HOROWITZ MD [Primary Care Provider] - Follow up as needed
[2018-06-26] MEDS: ACETAMINOPHEN 325 MG TABLET PO PRN ×2 (05:25→20:43)
--- NOTE | 2018-06-26 07:25 | EKG REPORT ---
SEVERITY:- ABNORMAL ECG - SINUS RHYTHM RBBB AND LAFB : Confirmed by: Som Jc MD 26-Jun-2018 07:23:57
[2018-06-26] MEDS: ONDANSETRON HCL 8 MG TABLET PO PRN (10:08)
--- NOTE | 2018-06-26 13:14 | RADIOLOGY REPORT (SQ) ---
EXAM DESCRIPTION: MRI HEAD WITHOUT COMPLETED DATE/TIME: 06/26/2018 12:56 pm REASON FOR STUDY: CVA COMPARISON: CT brain, 06/25/2018 TECHNIQUE: Multiplanar imaging includes non-contrasted T1, T2, FLAIR, and diffusion with ADC map seq uences. Images stored on PACS. LIMITATIONS: None. FINDINGS: ANATOMY: No anomalies. Normal vascular flow voids. Pituitary fossa normal. CSF SPACES: Normal in size and contour. No hemorrhage. CEREBRUM: Sulci and gyri normal in size and contour. There is right frontal encephalomalacia as well as old lacunar infarctions of the bilateral thalami. Scattered periventricular and deep white matte r T2/FLAIR hyperintensity. No evidence of hemorrhage, mass, or extraaxial fluid collection. POSTERIOR FOSSA: No signal alteration. No hemorrhage. No edema, masses or mass effect. Internal adam tory canals, cerebello-pontine angles, mastoids normal. DIFFUSION IMAGING: There is acute diffusion restricting infarction in the right VALE territory (series 4, image 23). ORBITS: No masses. Globes normal. PARANASAL SINUSES: No fluid levels. Mucosa normal. OTHER: No other significant finding. IMPRESSION: 1. Acute diffusion restricting infarction in the right VALE territory. 2. Encephalomalacia of the right frontal lobe, nonacute lacunar infarctions of the bilateral thalami , and small vessel white matter disease. EVIDENCE OF ACUTE STROKE: YES. RIGHT VALE TECHNICAL DOCUMENTATION: JOB ID: [id number] [employer]- All Rights Reserved Reading location - IP/workstation name: [email or web address]
[2018-06-26] MEDS ORDERED: ALIROCUMAB 150 MG INJ SCH (15:00)
[2018-06-26 15:17] LABS: CHOLESTEROL 240.39 mg/dL (0-200); TRIGLYCERIDES 155 mg/dL (<150)
[2018-06-26 15:28] LABS: DIRECT LDL 159 mg/dL (<100)
[2018-06-26 15:31] LABS: PROTHROMBIN TIME 14.7 SEC (11.4-15.4)
[2018-06-26 15:32] LABS: PARTIAL THROMBOPLASTIN TIME 30.5 SEC (23.5-35.8)
--- NOTE | 2018-06-26 16:47 | RADIOLOGY REPORT (SQ) ---
EXAM DESCRIPTION: CAROTID DOPPLER COMPLETED DATE/TIME: 06/26/2018 4:37 pm REASON FOR STUDY: CVA COMPARISON: None. TECHNIQUE: Grayscale ultrasound, Doppler velocity and spectra, and color Doppler images acquired of the extra-cranial carotid and vertebral arteries. Images stored on PACS. LIMITATIONS: None. FINDINGS: RIGHT CAROTID CCA Velocities: Within normal limits. ICA Velocities Peak systolic 0.44 m/s. End diastolic 0.13 m/s. Proximal ICA/CCA peak systolic ratio 1.6. Spectra normal. No significant plaque. LEFT CAROTID CCA Velocities: Within normal limits. ICA Velocities Peak systolic 0.53 m/s. End diastolic 0.09 m/s. Proximal ICA/CCA peak systolic ratio 1.0. Spectra normal. No significant plaque. VERTEBRAL ARTERIES: Antegrade flow. Normal waveforms. SUBCLAVIAN ARTERIES: Not imaged. OTHER: No other significant finding. IMPRESSION: NO HEMODYNAMICALLY SIGNIFICANT STENOSIS. COMMENT: Quality ID #[id number]: Velocity criteria are extrapolated from the diameter data as defined by t he Society of Radiologists in Ultrasound Consensus Conference. Radiology 2003: 229; 340-346. TECHNICAL DOCUMENTATION: JOB ID: [id number] [employer]- All Rights Reserved Reading location - IP/workstation name: [email or web address]
[2018-06-26] MEDS: METOLAZONE 2.5 MG TABLET PO SCH (17:18)
[2018-06-26] MEDS: HYDROXYCHLOROQUINE SULFATE 200 MG TABLET PO SCH (17:18)
[2018-06-26] MEDS: METOPROLOL SUCCINATE 25 MG TAB.SR.24H PO SCH (17:18)
[2018-06-26] MEDS: APIXABAN 2.5 MG TABLET PO SCH ×2 (17:18→21:06)
[2018-06-26] MEDS: ASPIRIN 81 MG TABLET, ENT COATED PO SCH (17:18)
[2018-06-26] MEDS: LOSARTAN POTASSIUM 25 MG TABLET PO SCH (17:19)
[2018-06-26] MEDS: PANTOPRAZOLE SODIUM 40 MG TABLET.DR PO SCH (17:19)
[2018-06-26] MEDS: TIOTROPIUM BROMIDE DPI 5 CAP/KIT (18 MCG/CAP) IH SCH (17:19)
[2018-06-26] MEDS: FUROSEMIDE 40 MG TABLET PO SCH (17:19)
--- NOTE | 2018-06-26 19:32 | XCELERA REPORT ---
[address] [address] Transthoracic Echocardiogram Report Name: KEYONA TAYLOR Age: 62 yrs Gender: Female : 1955 Patient Status: Inpatient Patient Location: [address] [place] [address] Study Date: 06/26/2018 03:47 PM Height: 66 in Weight: 257 lb BSA: 2.2 m2 Procedure: A two-dimensional transthoracic echocardiogram with color flow and Doppler was performed. Study Quality: Poor. The study was technically difficult with many images being suboptimal in quality. Images were not obtained from all of the standard acoustic windows due to the limited scope of the study. Reason For Study: CVA History: CVA. Ordering Physician: TEODORO HOROWITZ Performed By: Marielos Mendoza Interpretation Summary There is no obvious cardiac source of embolus noted on this transthoracic echocardiogram. Follow-up with a DAVID is suggested if cardiac source is still suspected. The left ventricle is grossly normal size. There is normal left ventricular wall thickness. No True apical 2 chamber views obtained.Hence cannot comment on the apical anterior , the basal anterior, the basal inferior and apical inferior beatty.There is hypokinesis of the apical septum and apical lateral beatty.The mid anterior , the mid inferior and the rest of the LV beatty contract normally. LVEF is is low normal at 55% in the limited views. Doppler measurements suggest impaired left ventricular relaxation, which is associated with grade I/IV or mild diastolic dysfunction No gross thrombus seen,but not an optimal study for this or ASD,VSD,or PFO presence. The right atrium is normal. Right atrium not well visualized secondary to technical limitations The left atrial size is normal. There is no evidence of mitral valve prolapse. There is no vegetation seen on the mitral valve. There is no mitral valve stenosis. There is a trace amount of mitral regurgitation There is no aortic valve stenosis No aortic regurgitation is present. The tricuspid valve is not well visualized secondary to technical limitations Cannot assess TR or pulmonary hypertension. The pulmonic valve is not well visualized. There is no pericardial effusion. There is no obvious cardiac source of embolus noted on this transthoracic echocardiogram. Follow-up with a DAVID is suggested if cardiac source is still suspected MMode/2D Measurements & Calculations RVDd: 2.6 cm LVIDd: 6.3 cm FS: 22.0 % Ao root diam: 3.4 cm IVSd: 1.2 cm LVIDs: 4.9 cm EDV(Teich): 198.3 ml Ao root area: 9.2 cm2 LVPWd: 1.0 cm ESV(Teich): 111.7 ml EF(Teich): 43.7 % Doppler Measurements & Calculations MV E max brandon: MV dec slope: Ao V2 max: LV V1 max P.6 cm/sec 326.5 cm/sec2 151.5 cm/sec 3.1 mmHg MV A max brandon: MV dec time: 0.20 sec Ao max PG: LV V1 max: 89.4 cm/sec 9.2 mmHg 87.4 cm/sec MV E/A: 0.73 PA V2 max: 104.6 cm/sec PA max P.4 mmHg Left Ventricle The left ventricle is grossly normal size. There is normal left ventricular wall thickness. No True apical 2 chamber views obtained.Hence cannot comment on the apical anterior , the basal anterior, the basal inferior and apical inferior beatty.There is hypokinesis of the apical septum and apical lateral beatty.The mid anterior , the mid inferior and the rest of the LV beatty contract normally. LVEF is is low normal at 55% in the limited views. Doppler measurements suggest impaired left ventricular relaxation, which is associated with grade I/IV or mild diastolic dysfunction. No gross thrombus seen,but not an optimal study for this or ASD,VSD,or PFO presence. Right Ventricle The right ventricle is not well visualized secondary to technical limitations. Atria The right atrium is normal. Right atrium not well visualized secondary to technical limitations. The left atrial size is normal. Mitral Valve There is mild mitral annular calcification. There is no evidence of mitral valve prolapse. There is no vegetation seen on the mitral valve. There is no mitral valve stenosis. There is a trace amount of mitral regurgitation. Aortic Valve There is no aortic valve stenosis. No aortic regurgitation is present. Tricuspid Valve The tricuspid valve is not well visualized secondary to technical limitations. Cannot assess TR or pulmonary hypertension. Pulmonic Valve The pulmonic valve is not well visualized. Great Vessels The aortic root is normal size. Effusions There is no pericardial effusion. : TEODORO HOROWITZ > Mari Miles
--- NOTE | 2018-06-26 19:48 | PDOC H&P ---
History of Present Illness Admission Date/PCP: 06/26/18 00:54 TEODORO HOROWITZ MD History of Present Illness: KEYONA TAYLOR is a 62 year old female, She came to the emergency room last night for evaluation of fall, weakness and numbness. She has multiple comorbid conditions including coronary artery disease, with multiple stents placement, peripheral vascular disease status post amputation of left leg, history of multiple cerebral infarction. The history was that patient had 5 separate falls since approximately 12 noon before she presented to the emergency room, all the fall resulted from falling out of her wheelchair or from the bed onto the ground, she said she feels like she has no balance she feels very dizzy as he was going to fall at all times which is a new symptom for her She is also noted by the family that she has a left-sided facial droop and she appears much more weak on the left side which also is new for her she also stated that the symptoms she is experiencing was similar to the symptoms she had previously when she had a stroke. In the emergency room CVA was suspected initial CT head that was done did not demonstrate any acute cerebral infarction subsequent MRI was done this morning that demonstrated acute diffusion restriction infarction in the right VALE territory. She is not a candidate for TPA because she is out of the 3-hour window for TPA administration Past Medical History Cardiac Medical History: Reports: Atrial Fibrillation - Paroxysmal atrial fibrillation, Congestive Heart Failure, Coronary Artery Disease, Myocardial Infarction, Hyperlipidema, Hypertension, Peripheral Vascular Disease Pulmonary Medical History: Reports: Asthma, Bronchitis, Chronic Obstructive Pulmonary Disease (COPD) Neurological Medical History: Reports: Ischemic CVA Malignancy Medical History: Reports: Breast Cancer GI Medical History: Reports: Gastroesophageal Reflux Disease Musculoskeltal Medical History: Reports: Arthritis, Fibromyalgia, Other - Systemic lupus erythematosus Psychiatric Medical History: Reports: Depression Past Surgical History Past Surgical History: Reports: Cardiac Catheterization - 2002 Stent, 2005 Stent, Coronary Stent - 2002([place]), 2004([facility]), Mastectomy - LEFT, Orthopedic Surgery - left BKA due to peripheral vascular disease/ischemia Social History Lives with: Family Smoking Status: Former Smoker Frequency of Alcohol Use: None Hx Recreational Drug Use: No Drugs: None Hx Prescription Drug Abuse: No - Advance Directive Resuscitation Status: Full Code Family History Family History: Reviewed & Not Pertinent, Malignancy Parental Family History Reviewed: Yes Children Family History Reviewed: Yes Sibling(s) Family History Reviewed.: Yes Medication/Allergy Home Medications: Alirocumab [Praluent Pen] 150 mg INJ Q14D 05/29/17 Apixaban [Eliquis] 2.5 mg PO Q12 05/29/17 Losartan Potassium [Cozaar 25 mg Tablet] 25 mg PO DAILY 05/29/17 Metoprolol Succinate [Toprol Xl 25 mg Tab.sr] 25 mg PO DAILY 05/29/17 Tiotropium [place] [Spiriva Handihaler 5 Cap/Kit (18 Mcg/Cap)] 1 puff IH DAILY 05/29/17 Atorvastatin Calcium [Lipitor 80 mg Tablet] 80 mg PO QHS #90 tablet 05/31/17 Aspirin [Ecotrin 81 mg EC Tablet] 81 mg PO DAILY 06/26/18 Doxepin HCl [Silenor] 6 mg PO QHS 06/26/18 Ergocalciferol (Vitamin D2) [Vitamin D2] 50 mcg PO TH 06/26/18 Furosemide [Lasix 40 mg Tablet] 40 mg PO QAM 06/26/18 Hydrocodone/Acetaminophen [[place] 7.5-325 mg Tablet] 1 tab PO Q8HP PRN 06/26/18 Hydroxychloroquine Sulfate [Plaquenil 200 mg Tablet] 200 mg PO BID 06/26/18 Metolazone [Zaroxolyn 2.5 Mg Tablet] 2.5 mg PO BID 06/26/18 Montelukast Sodium [Singulair 10 mg Tablet] 10 mg PO QHS 06/26/18 Pantoprazole Sodium [Protonix [address] Tablet] 40 mg PO QAM 06/26/18 Topiramate [Topamax] 50 mg PO BID 06/26/18 Allergies/Adverse Reactions: No Known Allergies Allergy (Verified 06/22/18 14:53) Review of Systems Constitutional: ABSENT: chills, fever(s), headache(s), weight gain, weight loss Eyes: ABSENT: visual disturbances Ears: ABSENT: hearing changes Cardiovascular: ABSENT: chest pain, dyspnea on exertion, edema, orthropnea, palpitations Respiratory: ABSENT: cough, hemoptysis Gastrointestinal: ABSENT: abdominal pain, constipation, diarrhea, hematemesis, hematochezia, nausea, vomiting Genitourinary: ABSENT: dysuria, hematuria Musculoskeletal: ABSENT: joint swelling Integumentary: ABSENT: rash, wounds Neurological: PRESENT: focal weakness, frequent falls, numbness, paresthesias, weakness Psychiatric: ABSENT: anxiety, depression, homidical ideation, suicidal ideation Endocrine: ABSENT: cold intolerance, heat intolerance, menstrual abnormalities, polydipsia, polyuria Hematologic/Lymphatic: ABSENT: easy bleeding, easy bruising, lymphadenopathy Physical Exam Vital Signs: Temp Pulse Resp BP Pulse Ox 98.6 F 79 20 153/81 H 100 06/26/18 16:45 06/26/18 16:45 06/26/18 16:45 06/26/18 16:45 06/26/18 16:45 Intake & Output 06/25/18 06/26/18 06/27/18 06:59 06:59 06:59 Intake Total 150 Balance 150 Weight 116.7 kg General appearance: PRESENT: no acute distress Head exam: PRESENT: atraumatic, normocephalic Eye exam: PRESENT: PERRLA Ear exam: PRESENT: normal external ear exam Mouth exam: PRESENT: moist, tongue midline Neck exam: PRESENT: full ROM Respiratory exam: PRESENT: clear to auscultation [place]ida Cardiovascular exam: PRESENT: RRR, +S1, +S2 GI/Abdominal exam: PRESENT: normal bowel sounds, soft Rectal exam: PRESENT: deferred Extremities exam: PRESENT: left AKA Neurological exam: PRESENT: alert, motor sensory deficit - weakness of the left upper extremity, other - loss of nasolabial fold on the left Psychiatric exam: PRESENT: appropriate affect, normal mood Skin exam: PRESENT: dry, intact, warm Results Laboratory Results: 06/25/18 22:40 06/25/18 22:40 06/25/18 06/25/18 06/26/18 22:40 22:40 14:45 WBC 8.7 RBC 4.51 Hgb 13.0 Hct 39.0 MCV 87 MCH 28.9 MCHC 33.4 RDW 16.0 H Plt Count 186 Seg Neutrophils % 71.8 Lymphocytes % 18.5 Monocytes % 8.5 Eosinophils % 0.6 Basophils % 0.6 Absolute Neutrophils 6.2 Absolute Lymphocytes 1.6 Absolute Monocytes 0.7 Absolute Eosinophils 0.1 Absolute Basophils 0.1 Sodium 139.7 Potassium 4.2 Chloride 103 Carbon Dioxide 25 Anion Gap 12 BUN 18 Creatinine 1.53 H Est GFR ( Amer) 42 L Est GFR (Non-Af Amer) 34 L Glucose 141 H Calcium 9.8 Total Bilirubin 0.4 AST 19 ALT 15 Alkaline Phosphatase 110 Total Protein 8.4 H Albumin 4.1 Triglycerides 155 H Cholesterol 240.39 H LDL Cholesterol Direct 159 H VLDL Cholesterol 31.0 HDL Cholesterol 45 06/25/18 06/26/18 22:40 15:10 Troponin I 0.144 0.659 Impressions: Head CT 06/25/18 22:25 IMPRESSION: Atrophy with small vessel ischemic change. Remote lacunar infarcts of the bilateral thalami. Old right frontal infarct. TECHNICAL DOCUMENTATION: Quality ID # 436: Final reports with documentation of one or more dose reduction techniques (e.g., Automated exposure control, adjustment of the mA and/or kV according to patient size, use of iterative reconstruction technique) copyright 2010 [employer]- All Rights Reserved Chest X-Ray 06/25/18 22:26 IMPRESSION: No acute cardiopulmonary process copyright 2010 [employer]- All Rights Reserved Head MRI 06/26/18 00:00 IMPRESSION: 1. Acute diffusion restricting infarction in the right VALE territory. 2. Encephalomalacia of the right frontal lobe, nonacute lacunar infarctions of the bilateral thalami, and small vessel white matter disease. EVIDENCE OF ACUTE STROKE: YES. RIGHT VALE Carotid Doppler Study 06/26/18 14:50 IMPRESSION: NO HEMODYNAMICALLY SIGNIFICANT STENOSIS. Assessment & Plan - Diagnosis (1) Acute right arterial ischemic stroke, VALE (anterior cerebral artery) Is this a current diagnosis for this admission?: Yes Plan: Systemic lupus erythematosus ,, Patient is a vasculopath, she has multiple cardiovascular events ,including CVA ,Myocardial infarction ,status amputation due to PAD She is on statin therapy, Praluent Despite all these she still sustain a new cerebral infarction (2) Coronary artery disease Qualifiers: Coronary Disease-Associated Artery/Lesion type: unspecified vessel or lesion type [place] vs. transplanted heart: [place] heart Associated angina: without angina Qualified Code(s): I25.10 - Atherosclerotic heart disease of [place] coronary artery without angina pectoris Is this a current diagnosis for this admission?: Yes (3) Peripheral vascular disease Is this a current diagnosis for this admission?: Yes
[2018-06-26] MEDS: MONTELUKAST SODIUM 10 MG TABLET PO SCH (21:06)
[2018-06-26] MEDS: ATORVASTATIN CALCIUM 80 MG TABLET PO SCH (21:06)
[2018-06-26] MEDS: TOPIRAMATE 25 MG TABLET PO SCH (21:07)
[2018-06-26] MEDS ORDERED: LABETALOL HCL INJ 20 MG/4 ML DISP.SYRIN IV PRN (21:12)
[2018-06-26] MEDS ORDERED: METOPROLOL TARTRATE PF/INJ 5 MG/5 ML SDV IV PRN (21:19)
[2018-06-26 21:51] LABS: ABSOLUTE LYMPHOCYTES (AUTO) 2.3 10^3/uL (0.5-4.7); ABSOLUTE MONOCYTES (AUTO) 0.8 10^3/uL (0.1-1.4); ABSOLUTE NEUT (AUTO) 5.9 10^3/uL (1.7-8.2); BASOPHILS % (AUTO) 0.5 % (0-2); EOSINOPHILS % (AUTO) 0.5 % (0-6); HEMATOCRIT 36.9 % (36.0-47.0); HEMOGLOBIN 12.1 g/dL (12.0-15.5); LYMPHOCYTES % (AUTO) 25.3 % (13-45); MEAN CORPUSCULAR HEMOGLOBIN 28.6 pg (27.0-33.4); MEAN CORPUSCULAR HGB CONC 32.8 g/dL (32.0-36.0); MEAN CORPUSCULAR VOLUME 87 fl (80-97); MONOCYTES % (AUTO) 8.3 % (3-13); PLATELET COUNT 184 10^3/uL (150-450); RED BLOOD COUNT 4.24 10^6/uL (3.72-5.28); RED CELL DISTRIBUTION WIDTH 15.9 % (11.5-14.0); SEGMENTED NEUTROPHILS % (AUTO) 65.4 % (42-78); TOTAL CELLS COUNTED % (AUTO) 100 %; WHITE BLOOD COUNT 9.1 10^3/uL (4.0-10.5)
[2018-06-26] MEDS ORDERED: (PENDING PHARMACY ID) (Doxepin Hcl [Silenor] 6 MG) PO SCH (22:00)
[2018-06-26 22:09] LABS: ALANINE AMINOTRANSFERASE 22 U/L (9-52); ALBUMIN 3.8 g/dL (3.5-5.0); ALKALINE PHOSPHATASE 106 U/L (38-126); ANION GAP 11 (5-19); ASPARTATE AMINO TRANSFERASE 27 U/L (14-36); BILIRUBIN,DIRECT 0.3 mg/dL (0.0-0.4); BILIRUBIN,TOTAL 0.5 mg/dL (0.2-1.3); BLOOD UREA NITROGEN 17 mg/dL (7-20); CALCIUM 9.8 mg/dL (8.4-10.2); CARBON DIOXIDE 26 mmol/L (22-30); CHLORIDE 102 mmol/L (98-107); GLUCOSE 122 mg/dL (75-110); POTASSIUM 4.2 mmol/L (3.6-5.0); SODIUM 139.2 mmol/L (137-145)
[2018-06-26] MEDS: HYDROCODONE/ACETAMINOPHEN 7.5-325 MG TABLET PO PRN (23:28)
[2018-06-27 03:05] LABS: ABSOLUTE EOSINOPHILS # (AUTO) 0.1 10^3/uL (0.0-0.6); ABSOLUTE LYMPHOCYTES (AUTO) 2.6 10^3/uL (0.5-4.7); ABSOLUTE MONOCYTES (AUTO) 0.9 10^3/uL (0.1-1.4); ABSOLUTE NEUT (AUTO) 5.9 10^3/uL (1.7-8.2); BASOPHILS % (AUTO) 0.5 % (0-2); EOSINOPHILS % (AUTO) 0.7 % (0-6); HEMATOCRIT 35.8 % (36.0-47.0); HEMOGLOBIN 11.8 g/dL (12.0-15.5); MEAN CORPUSCULAR HEMOGLOBIN 28.5 pg (27.0-33.4); MEAN CORPUSCULAR HGB CONC 32.9 g/dL (32.0-36.0); MEAN CORPUSCULAR VOLUME 87 fl (80-97); MONOCYTES % (AUTO) 9.7 % (3-13); PLATELET COUNT 168 10^3/uL (150-450); RED BLOOD COUNT 4.13 10^6/uL (3.72-5.28); RED CELL DISTRIBUTION WIDTH 15.8 % (11.5-14.0); SEGMENTED NEUTROPHILS % (AUTO) 62.1 % (42-78); TOTAL CELLS COUNTED % (AUTO) 100 %; WHITE BLOOD COUNT 9.4 10^3/uL (4.0-10.5)
[2018-06-27] MEDS: ONDANSETRON HCL 8 MG TABLET PO PRN ×2 (03:10→22:33)
[2018-06-27 03:30] LABS: ALANINE AMINOTRANSFERASE 17 U/L (9-52); ALBUMIN 3.7 g/dL (3.5-5.0); ALKALINE PHOSPHATASE 103 U/L (38-126); ANION GAP 9 (5-19); ASPARTATE AMINO TRANSFERASE 24 U/L (14-36); BILIRUBIN,DIRECT 0.3 mg/dL (0.0-0.4); BILIRUBIN,TOTAL 0.6 mg/dL (0.2-1.3); BLOOD UREA NITROGEN 16 mg/dL (7-20); CALCIUM 9.6 mg/dL (8.4-10.2); CARBON DIOXIDE 27 mmol/L (22-30); CHLORIDE 104 mmol/L (98-107); GLUCOSE 135 mg/dL (75-110); POTASSIUM 4.1 mmol/L (3.6-5.0); TOTAL PROTEIN 7.6 g/dL (6.3-8.2)
[2018-06-27] MEDS: TIOTROPIUM BROMIDE DPI 5 CAP/KIT (18 MCG/CAP) IH SCH (10:29)
[2018-06-27] MEDS: PANTOPRAZOLE SODIUM 40 MG TABLET.DR PO SCH (10:29)
[2018-06-27] MEDS: HYDROXYCHLOROQUINE SULFATE 200 MG TABLET PO SCH ×2 (10:29→18:08)
[2018-06-27] MEDS: APIXABAN 2.5 MG TABLET PO SCH ×2 (10:29→21:32)
[2018-06-27] MEDS: ASPIRIN 81 MG TABLET, ENT COATED PO SCH (10:29)
[2018-06-27] MEDS: TOPIRAMATE 25 MG TABLET PO SCH ×2 (10:29→21:32)
[2018-06-27] MEDS: HYDROCODONE/ACETAMINOPHEN 7.5-325 MG TABLET PO PRN (15:48)
--- NOTE | 2018-06-27 16:17 | PDOC PROGRESS REPORT ---
Subjective Progress Note for:: 06/27/18 Subjective:: Patient was seen by the bedside she has sustained acute ischemic VALE territory stroke, the speech is slurred, history of recurrent stroke Reason For Visit: ACUTE CVA Physical Exam Vital Signs: Temp Pulse Resp BP Pulse Ox 98.7 F 77 19 132/92 H 94 06/27/18 15:48 06/27/18 15:48 06/27/18 15:48 06/27/18 15:48 06/27/18 15:48 Intake & Output 06/26/18 06/27/18 06/28/18 06:59 06:59 06:59 Intake Total 150 370 Balance 150 370 Weight 116.7 kg 121.1 kg General appearance: PRESENT: no acute distress Eye exam: PRESENT: PERRLA Respiratory exam: PRESENT: clear to auscultation freida Cardiovascular exam: PRESENT: +S1, +S2 GI/Abdominal exam: PRESENT: soft Neurological exam: PRESENT: alert Results Laboratory Results: 06/27/18 02:30 06/27/18 02:30 06/26/18 06/26/18 06/27/18 21:29 21:29 02:30 WBC 9.1 9.4 RBC 4.24 4.13 Hgb 12.1 11.8 L Hct 36.9 35.8 L MCV 87 87 MCH 28.6 28.5 MCHC 32.8 32.9 RDW 15.9 H 15.8 H Plt Count 184 168 Seg Neutrophils % 65.4 62.1 Lymphocytes % 25.3 27.0 Monocytes % 8.3 9.7 Eosinophils % 0.5 0.7 Basophils % 0.5 0.5 Absolute Neutrophils 5.9 5.9 Absolute Lymphocytes 2.3 2.6 Absolute Monocytes 0.8 0.9 Absolute Eosinophils 0.0 0.1 Absolute Basophils 0.0 0.0 Sodium 139.2 Potassium 4.2 Chloride 102 Carbon Dioxide 26 Anion Gap 11 BUN 17 Creatinine 1.44 H Est GFR ( Amer) 45 L Est GFR (Non-Af Amer) 37 L Glucose 122 H Calcium 9.8 Total Bilirubin 0.5 AST 27 ALT 22 Alkaline Phosphatase 106 Total Protein 8.0 Albumin 3.8 06/27/18 02:30 WBC RBC Hgb Hct MCV MCH MCHC RDW Plt Count Seg Neutrophils % Lymphocytes % Monocytes % Eosinophils % Basophils % Absolute Neutrophils Absolute Lymphocytes Absolute Monocytes Absolute Eosinophils Absolute Basophils Sodium 140.0 Potassium 4.1 Chloride 104 Carbon Dioxide 27 Anion Gap 9 BUN 16 Creatinine 1.48 H Est GFR ( Amer) 43 L Est GFR (Non-Af Amer) 36 L Glucose 135 H Calcium 9.6 Total Bilirubin 0.6 AST 24 ALT 17 Alkaline Phosphatase 103 Total Protein 7.6 Albumin 3.7 06/25/18 06/26/18 06/26/18 22:40 15:10 21:08 Troponin I 0.144 0.659 0.577 06/27/18 02:30 Troponin I 0.531 Impressions: Head CT 06/25/18 22:25 IMPRESSION: Atrophy with small vessel ischemic change. Remote lacunar infarcts of the bilateral thalami. Old right frontal infarct. TECHNICAL DOCUMENTATION: Quality ID # 436: Final reports with documentation of one or more dose reduction techniques (e.g., Automated exposure control, adjustment of the mA and/or kV according to patient size, use of iterative reconstruction technique) copyright 2010 [employer]- All Rights Reserved Chest X-Ray 06/25/18 22:26 IMPRESSION: No acute cardiopulmonary process copyright 2010 [employer]- All Rights Reserved Head MRI 06/26/18 00:00 IMPRESSION: 1. Acute diffusion restricting infarction in the right VALE territory. 2. Encephalomalacia of the right frontal lobe, nonacute lacunar infarctions of the bilateral thalami, and small vessel white matter disease. EVIDENCE OF ACUTE STROKE: YES. RIGHT VALE Carotid Doppler Study 06/26/18 14:50 IMPRESSION: NO HEMODYNAMICALLY SIGNIFICANT STENOSIS. Assessment & Plan - Diagnosis (1) Acute right arterial ischemic stroke, VALE (anterior cerebral artery) Is this a current diagnosis for this admission?: Yes Plan: She has ischemic stroke, she will need physical therapy (2) Coronary artery disease Qualifiers: Coronary Disease-Associated Artery/Lesion type: unspecified vessel or lesion type [place] vs. transplanted heart: [place] heart Associated angina: without angina Qualified Code(s): I25.10 - Atherosclerotic heart disease of [place] coronary artery without angina pectoris Is this a current diagnosis for this admission?: Yes (3) Peripheral vascular disease Is this a current diagnosis for this admission?: Yes
[2018-06-27] MEDS: MONTELUKAST SODIUM 10 MG TABLET PO SCH (21:32)
[2018-06-27] MEDS: ATORVASTATIN CALCIUM 80 MG TABLET PO SCH (21:32)
[2018-06-27] MEDS: ACETAMINOPHEN 325 MG TABLET PO PRN (22:34)
[2018-06-28 04:41] LABS: ABSOLUTE BASOPHILS # (AUTO) 0.1 10^3/uL (0.0-0.2); ABSOLUTE EOSINOPHILS # (AUTO) 0.1 10^3/uL (0.0-0.6); ABSOLUTE LYMPHOCYTES (AUTO) 2.4 10^3/uL (0.5-4.7); ABSOLUTE MONOCYTES (AUTO) 0.8 10^3/uL (0.1-1.4); ABSOLUTE NEUT (AUTO) 5.5 10^3/uL (1.7-8.2); BASOPHILS % (AUTO) 0.7 % (0-2); EOSINOPHILS % (AUTO) 1.2 % (0-6); HEMATOCRIT 38.7 % (36.0-47.0); HEMOGLOBIN 12.9 g/dL (12.0-15.5); LYMPHOCYTES % (AUTO) 27.3 % (13-45); MEAN CORPUSCULAR HEMOGLOBIN 28.5 pg (27.0-33.4); MEAN CORPUSCULAR HGB CONC 33.2 g/dL (32.0-36.0); MEAN CORPUSCULAR VOLUME 86 fl (80-97); MONOCYTES % (AUTO) 9.2 % (3-13); PLATELET COUNT 181 10^3/uL (150-450); RED BLOOD COUNT 4.51 10^6/uL (3.72-5.28); RED CELL DISTRIBUTION WIDTH 16.2 % (11.5-14.0); SEGMENTED NEUTROPHILS % (AUTO) 61.6 % (42-78); TOTAL CELLS COUNTED % (AUTO) 100 %; WHITE BLOOD COUNT 8.9 10^3/uL (4.0-10.5)
[2018-06-28 04:48] LABS: ALANINE AMINOTRANSFERASE 24 U/L (9-52); ALKALINE PHOSPHATASE 110 U/L (38-126); ANION GAP 13 (5-19); ASPARTATE AMINO TRANSFERASE 24 U/L (14-36); BILIRUBIN,DIRECT 0.4 mg/dL (0.0-0.4); BILIRUBIN,TOTAL 0.7 mg/dL (0.2-1.3); BLOOD UREA NITROGEN 20 mg/dL (7-20); CARBON DIOXIDE 27 mmol/L (22-30); CHLORIDE 99 mmol/L (98-107); GLUCOSE 141 mg/dL (75-110); POTASSIUM 3.7 mmol/L (3.6-5.0); SODIUM 138.7 mmol/L (137-145); TOTAL PROTEIN 8.1 g/dL (6.3-8.2)
[2018-06-28] MEDS: PANTOPRAZOLE SODIUM 40 MG TABLET.DR PO SCH (08:57)
[2018-06-28] MEDS: APIXABAN 2.5 MG TABLET PO SCH ×2 (09:01→21:42)
[2018-06-28] MEDS: TOPIRAMATE 25 MG TABLET PO SCH ×2 (09:01→21:42)
[2018-06-28] MEDS: ASPIRIN 81 MG TABLET, ENT COATED PO SCH (09:01)
[2018-06-28] MEDS: TIOTROPIUM BROMIDE DPI 5 CAP/KIT (18 MCG/CAP) IH SCH (09:02)
[2018-06-28] MEDS: HYDROXYCHLOROQUINE SULFATE 200 MG TABLET PO SCH ×2 (09:02→18:55)
[2018-06-28] MEDS ORDERED: CHOLECALCIFEROL (D3) 1,000 UNIT TABLET PO SCH (10:00)
[2018-06-28] MEDS ORDERED: ERGOCALCIFEROL (VITAMIN D2) 50000 UNIT (1.25 MG) CAPSULE PO SCH (10:00)
[2018-06-28] MEDS ORDERED: ACETAMINOPHEN 325 MG TABLET PO PRN (10:45)
[2018-06-28] MEDS: HYDROCODONE/ACETAMINOPHEN 7.5-325 MG TABLET PO PRN (11:22)
--- NOTE | 2018-06-28 13:53 | RADIOLOGY REPORT (SQ) ---
EXAM DESCRIPTION: HIP RIGHT AP/LATERAL COMPLETED DATE/TIME: 06/28/2018 1:41 pm REASON FOR STUDY: right hip pain COMPARISON: None. NUMBER OF VIEWS: Two views. TECHNIQUE: AP pelvis and additional frog-leg view of the right hip. LIMITATIONS: None. FINDINGS: MINERALIZATION: Normal. RIGHT HIP: No fracture or dislocation. No worrisome bone lesions. LEFT HIP: No fracture or dislocation. No worrisome bone lesions. PUBIS AND ISCHIUM: No fracture. PELVIS: No fracture. SACRUM: No fracture or dislocation. No worrisome bone lesions. LOWER LUMBAR SPINE: Lower lumbar degenerative changes. SOFT TISSUES: No findings. OTHER: No other significant finding. IMPRESSION: Lower lumbar degenerative changes. Normal right hip. TECHNICAL DOCUMENTATION: JOB ID: [id number] [employer]- All Rights Reserved Reading location - IP/workstation name: [email or web address]
[2018-06-28] MEDS: MAGNESIUM HYDROXIDE SUSP 30 ML UDCUP PO PRN (13:54)
[2018-06-28] MEDS ORDERED: (PENDING PHARMACY ID) (Ergocalciferol (Vitamin D2) [Vitamin D2] 50 MCG) PO SCH (14:47)
--- NOTE | 2018-06-28 20:38 | PDOC PROGRESS REPORT ---
Subjective Progress Note for:: 06/28/18 Subjective:: Patient was seen by the bedside, she complained of pain of the hip , The speech is less slurred today Reason For Visit: ACUTE CVA Physical Exam Vital Signs: Temp Pulse Resp BP Pulse Ox 97.9 F 78 16 123/71 92 06/28/18 15:19 06/28/18 16:00 06/28/18 16:00 06/28/18 16:00 06/28/18 16:00 Intake & Output 06/27/18 06/28/18 06/29/18 06:59 06:59 06:59 Intake Total 150 370 160 Output Total 200 350 Balance 150 170 -190 Weight 121.1 kg 117.3 kg General appearance: PRESENT: no acute distress Head exam: PRESENT: atraumatic, normocephalic Eye exam: PRESENT: PERRLA Mouth exam: PRESENT: moist Neck exam: PRESENT: full ROM Respiratory exam: PRESENT: clear to auscultation freida Cardiovascular exam: PRESENT: RRR, +S1 Vascular exam: PRESENT: normal capillary refill GI/Abdominal exam: PRESENT: normal bowel sounds, soft Rectal exam: PRESENT: deferred Neurological exam: PRESENT: alert, CN II-XII grossly intact Psychiatric exam: PRESENT: appropriate affect, normal mood Skin exam: PRESENT: dry, intact, warm Results Laboratory Results: 06/28/18 04:14 06/28/18 04:14 06/28/18 06/28/18 04:14 04:14 WBC 8.9 RBC 4.51 Hgb 12.9 Hct 38.7 MCV 86 MCH 28.5 MCHC 33.2 RDW 16.2 H Plt Count 181 Seg Neutrophils % 61.6 Lymphocytes % 27.3 Monocytes % 9.2 Eosinophils % 1.2 Basophils % 0.7 Absolute Neutrophils 5.5 Absolute Lymphocytes 2.4 Absolute Monocytes 0.8 Absolute Eosinophils 0.1 Absolute Basophils 0.1 Sodium 138.7 Potassium 3.7 Chloride 99 Carbon Dioxide 27 Anion Gap 13 BUN 20 Creatinine 1.96 H Est GFR ( Amer) 31 L Est GFR (Non-Af Amer) 26 L Glucose 141 H Calcium 10.0 Total Bilirubin 0.7 AST 24 ALT 24 Alkaline Phosphatase 110 Total Protein 8.1 Albumin 4.0 06/25/18 06/26/18 06/26/18 22:40 15:10 21:08 Troponin I 0.144 0.659 0.577 06/27/18 02:30 Troponin I 0.531 Impressions: Head CT 06/25/18 22:25 IMPRESSION: Atrophy with small vessel ischemic change. Remote lacunar infarcts of the bilateral thalami. Old right frontal infarct. TECHNICAL DOCUMENTATION: Quality ID # 436: Final reports with documentation of one or more dose reduction techniques (e.g., Automated exposure control, adjustment of the mA and/or kV according to patient size, use of iterative reconstruction technique) copyright 2010 [employer]- All Rights Reserved Chest X-Ray 06/25/18 22:26 IMPRESSION: No acute cardiopulmonary process copyright 2010 [employer]- All Rights Reserved Head MRI 06/26/18 00:00 IMPRESSION: 1. Acute diffusion restricting infarction in the right VALE territory. 2. Encephalomalacia of the right frontal lobe, nonacute lacunar infarctions of the bilateral thalami, and small vessel white matter disease. EVIDENCE OF ACUTE STROKE: YES. RIGHT VALE Carotid Doppler Study 06/26/18 14:50 IMPRESSION: NO HEMODYNAMICALLY SIGNIFICANT STENOSIS. Hip/Pelvis X-Ray 06/28/18 00:00 IMPRESSION: Lower lumbar degenerative changes. Normal right hip. Assessment & Plan - Diagnosis (1) Acute right arterial ischemic stroke, VALE (anterior cerebral artery) Is this a current diagnosis for this admission?: Yes Plan: She has ischemic stroke, she will need physical therapy (2) Coronary artery disease Qualifiers: Coronary Disease-Associated Artery/Lesion type: unspecified vessel or lesion type [place] vs. transplanted heart: [place] heart Associated angina: without angina Qualified Code(s): I25.10 - Atherosclerotic heart disease of [place] coronary artery without angina pectoris Is this a current diagnosis for this admission?: Yes Plan: Continue treatment (3) Peripheral vascular disease Is this a current diagnosis for this admission?: Yes
[2018-06-28] MEDS: MONTELUKAST SODIUM 10 MG TABLET PO SCH (21:42)
[2018-06-28] MEDS: ATORVASTATIN CALCIUM 80 MG TABLET PO SCH (21:42)
[2018-06-29 06:38] LABS: ABSOLUTE BASOPHILS # (AUTO) 0.1 10^3/uL (0.0-0.2); ABSOLUTE EOSINOPHILS # (AUTO) 0.2 10^3/uL (0.0-0.6); ABSOLUTE LYMPHOCYTES (AUTO) 2.5 10^3/uL (0.5-4.7); ABSOLUTE MONOCYTES (AUTO) 0.9 10^3/uL (0.1-1.4); ABSOLUTE NEUT (AUTO) 7.2 10^3/uL (1.7-8.2); BASOPHILS % (AUTO) 0.6 % (0-2); EOSINOPHILS % (AUTO) 1.9 % (0-6); HEMATOCRIT 37.2 % (36.0-47.0); HEMOGLOBIN 12.5 g/dL (12.0-15.5); MEAN CORPUSCULAR HEMOGLOBIN 28.8 pg (27.0-33.4); MEAN CORPUSCULAR HGB CONC 33.5 g/dL (32.0-36.0); MEAN CORPUSCULAR VOLUME 86 fl (80-97); MONOCYTES % (AUTO) 8.5 % (3-13); PLATELET COUNT 188 10^3/uL (150-450); RED BLOOD COUNT 4.33 10^6/uL (3.72-5.28); RED CELL DISTRIBUTION WIDTH 16.2 % (11.5-14.0); TOTAL CELLS COUNTED % (AUTO) 100 %; WHITE BLOOD COUNT 10.9 10^3/uL (4.0-10.5)
[2018-06-29 07:05] LABS: ALANINE AMINOTRANSFERASE 24 U/L (9-52); ALBUMIN 3.7 g/dL (3.5-5.0); ALKALINE PHOSPHATASE 93 U/L (38-126); ANION GAP 13 (5-19); ASPARTATE AMINO TRANSFERASE 23 U/L (14-36); BILIRUBIN,DIRECT 0.3 mg/dL (0.0-0.4); BILIRUBIN,TOTAL 0.5 mg/dL (0.2-1.3); BLOOD UREA NITROGEN 31 mg/dL (7-20); CALCIUM 9.3 mg/dL (8.4-10.2); CARBON DIOXIDE 23 mmol/L (22-30); CHLORIDE 102 mmol/L (98-107); GLUCOSE 124 mg/dL (75-110); POTASSIUM 4.1 mmol/L (3.6-5.0); SODIUM 137.8 mmol/L (137-145); TOTAL PROTEIN 7.7 g/dL (6.3-8.2)
[2018-06-29] MEDS: PANTOPRAZOLE SODIUM 40 MG TABLET.DR PO SCH (08:16)
[2018-06-29] MEDS: MAGNESIUM HYDROXIDE SUSP 30 ML UDCUP PO PRN (08:19)
[2018-06-29] MEDS: ASPIRIN 81 MG TABLET, ENT COATED PO SCH (10:28)
[2018-06-29] MEDS: HYDROCODONE/ACETAMINOPHEN 7.5-325 MG TABLET PO PRN ×2 (10:28→23:18)
[2018-06-29] MEDS: APIXABAN 2.5 MG TABLET PO SCH ×2 (10:28→22:01)
[2018-06-29] MEDS: TIOTROPIUM BROMIDE DPI 5 CAP/KIT (18 MCG/CAP) IH SCH (10:29)
[2018-06-29] MEDS: TOPIRAMATE 25 MG TABLET PO SCH ×2 (10:29→22:01)
[2018-06-29] MEDS: HYDROXYCHLOROQUINE SULFATE 200 MG TABLET PO SCH ×2 (10:29→17:59)
--- NOTE | 2018-06-29 21:39 | PDOC PROGRESS REPORT ---
Subjective Progress Note for:: 06/29/18 Subjective:: Patient was seen by the bedside she complained of constipation, there is also worsening azotemia most likely prerenal Reason For Visit: ACUTE CVA Physical Exam Vital Signs: Temp Pulse Resp BP Pulse Ox 98.4 F 80 20 124/65 92 06/29/18 18:57 06/29/18 19:00 06/29/18 18:57 06/29/18 18:57 06/29/18 18:57 Intake & Output 06/28/18 06/29/18 06/30/18 06:59 06:59 06:59 Intake Total 370 340 250 Output Total 200 550 Balance 170 -210 250 Weight 117.3 kg 115.9 kg General appearance: PRESENT: no acute distress Eye exam: PRESENT: PERRLA Respiratory exam: PRESENT: clear to auscultation [place] Cardiovascular exam: PRESENT: +S1, +S2 GI/Abdominal exam: PRESENT: soft Neurological exam: PRESENT: alert Results Laboratory Results: 06/29/18 05:17 06/29/18 05:17 06/29/18 06/29/18 05:17 05:17 WBC 10.9 H RBC 4.33 Hgb 12.5 Hct 37.2 MCV 86 MCH 28.8 MCHC 33.5 RDW 16.2 H Plt Count 188 Seg Neutrophils % 66.0 Lymphocytes % 23.0 Monocytes % 8.5 Eosinophils % 1.9 Basophils % 0.6 Absolute Neutrophils 7.2 Absolute Lymphocytes 2.5 Absolute Monocytes 0.9 Absolute Eosinophils 0.2 Absolute Basophils 0.1 Sodium 137.8 Potassium 4.1 Chloride 102 Carbon Dioxide 23 Anion Gap 13 BUN 31 H Creatinine 2.25 H Est GFR ( Amer) 27 L Est GFR (Non-Af Amer) 22 L Glucose 124 H Calcium 9.3 Total Bilirubin 0.5 AST 23 ALT 24 Alkaline Phosphatase 93 Total Protein 7.7 Albumin 3.7 06/25/18 06/26/18 06/26/18 22:40 15:10 21:08 Troponin I 0.144 0.659 0.577 06/27/18 02:30 Troponin I 0.531 Impressions: Head CT 06/25/18 22:25 IMPRESSION: Atrophy with small vessel ischemic change. Remote lacunar infarcts of the bilateral thalami. Old right frontal infarct. TECHNICAL DOCUMENTATION: Quality ID # 436: Final reports with documentation of one or more dose reduction techniques (e.g., Automated exposure control, adjustment of the mA and/or kV according to patient size, use of iterative reconstruction technique) copyright 2010 [email or web address]- All Rights Reserved Chest X-Ray 06/25/18 22:26 IMPRESSION: No acute cardiopulmonary process copyright 2010 [email or web address]- All Rights Reserved Head MRI 06/26/18 00:00 IMPRESSION: 1. Acute diffusion restricting infarction in the right VALE territory. 2. Encephalomalacia of the right frontal lobe, nonacute lacunar infarctions of the bilateral thalami, and small vessel white matter disease. EVIDENCE OF ACUTE STROKE: YES. RIGHT VALE Carotid Doppler Study 06/26/18 14:50 IMPRESSION: NO HEMODYNAMICALLY SIGNIFICANT STENOSIS. Hip/Pelvis X-Ray 06/28/18 00:00 IMPRESSION: Lower lumbar degenerative changes. Normal right hip. Assessment & Plan - Diagnosis (1) Acute right arterial ischemic stroke, VALE (anterior cerebral artery) Is this a current diagnosis for this admission?: Yes (2) Coronary artery disease Qualifiers: Coronary Disease-Associated Artery/Lesion type: unspecified vessel or lesion type [place] vs. transplanted heart: [place] heart Associated angina: without angina Qualified Code(s): I25.10 - Atherosclerotic heart disease of [place] coronary artery without angina pectoris Is this a current diagnosis for this admission?: Yes (3) Peripheral vascular disease Is this a current diagnosis for this admission?: Yes (4) Acute kidney injury Is this a current diagnosis for this admission?: Yes Plan: Start normal saline at 50 cc/HR (5) Constipation Qualifiers: Constipation type: unspecified constipation type Qualified Code(s): K59.00 - Constipation, unspecified Is this a current diagnosis for this admission?: Yes Plan: Give Fleet Enema
[2018-06-29] MEDS: ATORVASTATIN CALCIUM 80 MG TABLET PO SCH (22:01)
[2018-06-29] MEDS: MONTELUKAST SODIUM 10 MG TABLET PO SCH (22:01)
[2018-06-29] MEDS: NORMAL SALINE 1000 ML 1,000 ML IV PRN (22:45)
[2018-06-30] MEDS: PANTOPRAZOLE SODIUM 40 MG TABLET.DR PO SCH (08:19)
[2018-06-30] MEDS: TIOTROPIUM BROMIDE DPI 5 CAP/KIT (18 MCG/CAP) IH SCH (09:47)
[2018-06-30] MEDS: ASPIRIN 81 MG TABLET, ENT COATED PO SCH (09:48)
[2018-06-30] MEDS: APIXABAN 2.5 MG TABLET PO SCH ×2 (09:48→21:12)
[2018-06-30] MEDS: TOPIRAMATE 25 MG TABLET PO SCH ×2 (09:48→21:11)
[2018-06-30] MEDS: HYDROXYCHLOROQUINE SULFATE 200 MG TABLET PO SCH ×2 (09:48→17:00)
--- NOTE | 2018-06-30 13:17 | PDOC PROGRESS REPORT ---
Subjective Progress Note for:: 06/30/18 Subjective:: Patient was seen by the bedside, she has multiple complaints including urinary incontinence, loss of appetite, she has a new CVA, there is azotemia this is felt to be prerenal, she is on IV fluid, Chem-7 is pending from today's lab work. She had constipation yesterday she was given enema with good results. She also stated that she does not like the food served by the kitchen Reason For Visit: ACUTE CVA Physical Exam Vital Signs: Temp Pulse Resp BP Pulse Ox 97.9 F 76 16 131/84 H 94 06/30/18 07:51 06/30/18 08:00 06/30/18 08:00 06/30/18 08:00 06/30/18 08:00 Intake & Output 06/29/18 06/30/18 07/01/18 06:59 06:59 06:59 Intake Total 340 450 Output Total 550 Balance -210 450 Weight 115.9 kg 116.9 kg General appearance: PRESENT: no acute distress Eye exam: PRESENT: PERRLA Respiratory exam: PRESENT: clear to auscultation [place] Cardiovascular exam: PRESENT: +S1, +S2 GI/Abdominal exam: PRESENT: soft Extremities exam: PRESENT: left AKA Neurological exam: PRESENT: alert Results Laboratory Results: 06/29/18 05:17 06/25/18 06/26/18 06/26/18 22:40 15:10 21:08 Troponin I 0.144 0.659 0.577 06/27/18 02:30 Troponin I 0.531 Impressions: Head CT 06/25/18 22:25 IMPRESSION: Atrophy with small vessel ischemic change. Remote lacunar infarcts of the bilateral thalami. Old right frontal infarct. TECHNICAL DOCUMENTATION: Quality ID # 436: Final reports with documentation of one or more dose reduction techniques (e.g., Automated exposure control, adjustment of the mA and/or kV according to patient size, use of iterative reconstruction technique) copyright 2011 [employer]- All Rights Reserved Chest X-Ray 06/25/18 22:26 IMPRESSION: No acute cardiopulmonary process copyright 2010 [employer]- All Rights Reserved Head MRI 06/26/18 00:00 IMPRESSION: 1. Acute diffusion restricting infarction in the right VALE territory. 2. Encephalomalacia of the right frontal lobe, nonacute lacunar infarctions of the bilateral thalami, and small vessel white matter disease. EVIDENCE OF ACUTE STROKE: YES. RIGHT VALE Carotid Doppler Study 06/26/18 14:50 IMPRESSION: NO HEMODYNAMICALLY SIGNIFICANT STENOSIS. Hip/Pelvis X-Ray 06/28/18 00:00 IMPRESSION: Lower lumbar degenerative changes. Normal right hip. Assessment & Plan - Diagnosis (1) Acute right arterial ischemic stroke, VALE (anterior cerebral artery) Is this a current diagnosis for this admission?: Yes Plan: Continue management per stroke protocol (2) Coronary artery disease Qualifiers: Coronary Disease-Associated Artery/Lesion type: unspecified vessel or lesion type [place] vs. transplanted heart: [place] heart Associated angina: without angina Qualified Code(s): I25.10 - Atherosclerotic heart disease of [place] coronary artery without angina pectoris Is this a current diagnosis for this admission?: Yes (3) Peripheral vascular disease Is this a current diagnosis for this admission?: Yes (4) Acute kidney injury Is this a current diagnosis for this admission?: Yes Plan: Continue IV fluid therapy (5) Constipation Qualifiers: Constipation type: unspecified constipation type Qualified Code(s): K59.00 - Constipation, unspecified Is this a current diagnosis for this admission?: Yes
[2018-06-30 13:33] LABS: ANION GAP 13 (5-19); BLOOD UREA NITROGEN 36 mg/dL (7-20); CALCIUM 9.5 mg/dL (8.4-10.2); CARBON DIOXIDE 21 mmol/L (22-30); CHLORIDE 102 mmol/L (98-107); GLUCOSE 136 mg/dL (75-110); POTASSIUM 4.4 mmol/L (3.6-5.0); SODIUM 136.2 mmol/L (137-145)
[2018-06-30] MEDS: ALBUTEROL SULFATE HFA (90 MCG/PUFF) 200 PUFF/8.5 GM MDI IH PRN ×2 (17:00→21:12)
[2018-06-30] MEDS: NORMAL SALINE 1000 ML 1,000 ML IV PRN (18:58)
[2018-06-30] MEDS: ATORVASTATIN CALCIUM 80 MG TABLET PO SCH (21:12)
[2018-06-30] MEDS: MONTELUKAST SODIUM 10 MG TABLET PO SCH (21:12)
[2018-06-30] MEDS: BISACODYL 10 MG SUPP.RECT PR PRN (21:19)
[2018-07-01] MEDS: FUROSEMIDE 40 MG TABLET PO SCH (08:21)
[2018-07-01] MEDS: PANTOPRAZOLE SODIUM 40 MG TABLET.DR PO SCH (08:22)
[2018-07-01] MEDS: METOPROLOL SUCCINATE 25 MG TAB.SR.24H PO SCH (09:50)
[2018-07-01] MEDS: ASPIRIN 81 MG TABLET, ENT COATED PO SCH (09:50)
[2018-07-01] MEDS: APIXABAN 2.5 MG TABLET PO SCH ×2 (09:50→22:35)
[2018-07-01] MEDS: METOLAZONE 2.5 MG TABLET PO SCH ×2 (09:50→18:26)
[2018-07-01] MEDS: TOPIRAMATE 25 MG TABLET PO SCH ×2 (09:51→22:34)
[2018-07-01] MEDS: HYDROXYCHLOROQUINE SULFATE 200 MG TABLET PO SCH ×2 (09:51→18:26)
[2018-07-01] MEDS: TIOTROPIUM BROMIDE DPI 5 CAP/KIT (18 MCG/CAP) IH SCH (09:51)
[2018-07-01] MEDS: NORMAL SALINE 1000 ML 1,000 ML IV PRN (13:23)
[2018-07-01 14:32] LABS: ABSOLUTE BASOPHILS # (AUTO) 0.1 10^3/uL (0.0-0.2); ABSOLUTE EOSINOPHILS # (AUTO) 0.2 10^3/uL (0.0-0.6); ABSOLUTE LYMPHOCYTES (AUTO) 1.4 10^3/uL (0.5-4.7); ABSOLUTE MONOCYTES (AUTO) 1.2 10^3/uL (0.1-1.4); ABSOLUTE NEUT (AUTO) 7.1 10^3/uL (1.7-8.2); BASOPHILS % (AUTO) 0.9 % (0-2); EOSINOPHILS % (AUTO) 1.7 % (0-6); HEMATOCRIT 39.1 % (36.0-47.0); HEMOGLOBIN 12.9 g/dL (12.0-15.5); LYMPHOCYTES % (AUTO) 13.8 % (13-45); MEAN CORPUSCULAR HEMOGLOBIN 28.6 pg (27.0-33.4); MEAN CORPUSCULAR HGB CONC 33.1 g/dL (32.0-36.0); MEAN CORPUSCULAR VOLUME 86 fl (80-97); MONOCYTES % (AUTO) 11.7 % (3-13); PLATELET COUNT 208 10^3/uL (150-450); RED BLOOD COUNT 4.53 10^6/uL (3.72-5.28); RED CELL DISTRIBUTION WIDTH 16.2 % (11.5-14.0); SEGMENTED NEUTROPHILS % (AUTO) 71.9 % (42-78); TOTAL CELLS COUNTED % (AUTO) 100 %; WHITE BLOOD COUNT 9.9 10^3/uL (4.0-10.5)
[2018-07-01 14:35] LABS: ALANINE AMINOTRANSFERASE 19 U/L (9-52); ALBUMIN 4.2 g/dL (3.5-5.0); ALKALINE PHOSPHATASE 112 U/L (38-126); ANION GAP 13 (5-19); ASPARTATE AMINO TRANSFERASE 26 U/L (14-36); BILIRUBIN,DIRECT 0.4 mg/dL (0.0-0.4); BILIRUBIN,TOTAL 0.8 mg/dL (0.2-1.3); BLOOD UREA NITROGEN 30 mg/dL (7-20); CALCIUM 9.4 mg/dL (8.4-10.2); CARBON DIOXIDE 22 mmol/L (22-30); CHLORIDE 104 mmol/L (98-107); GLUCOSE 119 mg/dL (75-110); POTASSIUM 4.3 mmol/L (3.6-5.0); TOTAL PROTEIN 8.8 g/dL (6.3-8.2)
--- NOTE | 2018-07-01 18:26 | PDOC PROGRESS REPORT ---
Subjective Progress Note for:: 07/01/18 Subjective:: Patient was seen by the bedside she has prerenal azotemia, the serum creatinine continues to improve, hopefully [facility] will [facility]hab Reason For Visit: ACUTE CVA Physical Exam Vital Signs: Temp Pulse Resp BP Pulse Ox 98.4 F 82 16 118/70 96 07/01/18 16:26 07/01/18 16:26 07/01/18 16:26 07/01/18 16:26 07/01/18 16:26 Intake & Output 06/30/18 07/01/18 07/02/18 06:59 06:59 06:59 Intake Total 450 2770 1448 Output Total 1150 Balance 450 1620 1448 Weight 116.9 kg 118.5 kg General appearance: PRESENT: no acute distress Head exam: PRESENT: atraumatic, normocephalic Eye exam: PRESENT: PERRLA. ABSENT: scleral icterus Mouth exam: PRESENT: moist, tongue midline Neck exam: PRESENT: full ROM Respiratory exam: PRESENT: clear to auscultation freida Cardiovascular exam: PRESENT: RRR, +S1, +S2 Vascular exam: PRESENT: normal capillary refill GI/Abdominal exam: PRESENT: normal bowel sounds, soft Rectal exam: PRESENT: deferred Extremities exam: PRESENT: left AKA Neurological exam: PRESENT: alert Skin exam: PRESENT: dry, intact, warm. ABSENT: cyanosis, rash Results Laboratory Results: 07/01/18 12:27 07/01/18 12:27 07/01/18 07/01/18 12:27 12:27 WBC 9.9 RBC 4.53 Hgb 12.9 Hct 39.1 MCV 86 MCH 28.6 MCHC 33.1 RDW 16.2 H Plt Count 208 Seg Neutrophils % 71.9 Lymphocytes % 13.8 Monocytes % 11.7 Eosinophils % 1.7 Basophils % 0.9 Absolute Neutrophils 7.1 Absolute Lymphocytes 1.4 Absolute Monocytes 1.2 Absolute Eosinophils 0.2 Absolute Basophils 0.1 Sodium 139.0 Potassium 4.3 Chloride 104 Carbon Dioxide 22 Anion Gap 13 BUN 30 H Creatinine 1.86 H Est GFR ( Amer) 33 L Est GFR (Non-Af Amer) 27 L Glucose 119 H Calcium 9.4 Total Bilirubin 0.8 AST 26 ALT 19 Alkaline Phosphatase 112 Total Protein 8.8 H Albumin 4.2 06/25/18 06/26/18 06/26/18 22:40 15:10 21:08 Troponin I 0.144 0.659 0.577 06/27/18 02:30 Troponin I 0.531 Impressions: Head CT 06/25/18 22:25 IMPRESSION: Atrophy with small vessel ischemic change. Remote lacunar infarcts of the bilateral thalami. Old right frontal infarct. TECHNICAL DOCUMENTATION: Quality ID # 436: Final reports with documentation of one or more dose reduction techniques (e.g., Automated exposure control, adjustment of the mA and/or kV according to patient size, use of iterative reconstruction technique) copyright 2010 [employer]- All Rights Reserved Chest X-Ray 06/25/18 22:26 IMPRESSION: No acute cardiopulmonary process copyright 2010 [employer]- All Rights Reserved Head MRI 06/26/18 00:00 IMPRESSION: 1. Acute diffusion restricting infarction in the right VALE territory. 2. Encephalomalacia of the right frontal lobe, nonacute lacunar infarctions of the bilateral thalami, and small vessel white matter disease. EVIDENCE OF ACUTE STROKE: YES. RIGHT VALE Carotid Doppler Study 06/26/18 14:50 IMPRESSION: NO HEMODYNAMICALLY SIGNIFICANT STENOSIS. Hip/Pelvis X-Ray 06/28/18 00:00 IMPRESSION: Lower lumbar degenerative changes. Normal right hip. Assessment & Plan - Diagnosis (1) Acute right arterial ischemic stroke, VALE (anterior cerebral artery) Is this a current diagnosis for this admission?: Yes Plan: Continue management per stroke protocol (2) Coronary artery disease Qualifiers: Coronary Disease-Associated Artery/Lesion type: unspecified vessel or lesion type [place] vs. transplanted heart: [place] heart Associated angina: without angina Qualified Code(s): I25.10 - Atherosclerotic heart disease of [place] coronary artery without angina pectoris Is this a current diagnosis for this admission?: Yes (3) Peripheral vascular disease Is this a current diagnosis for this admission?: Yes (4) Acute kidney injury Is this a current diagnosis for this admission?: Yes Plan: Continue IV fluid hydration, acute kidney injury continues to improve (5) Constipation Qualifiers: Constipation type: unspecified constipation type Qualified Code(s): K59.00 - Constipation, unspecified Is this a current diagnosis for this admission?: Yes
[2018-07-01] MEDS: MONTELUKAST SODIUM 10 MG TABLET PO SCH (22:35)
[2018-07-01] MEDS: ATORVASTATIN CALCIUM 80 MG TABLET PO SCH (22:35)
[2018-07-01] MEDS: ALBUTEROL SULFATE HFA (90 MCG/PUFF) 200 PUFF/8.5 GM MDI IH PRN (22:45)
[2018-07-02] MEDS: HYDROCODONE/ACETAMINOPHEN 7.5-325 MG TABLET PO PRN (02:03)
[2018-07-02] MEDS: FUROSEMIDE 40 MG TABLET PO SCH (09:09)
[2018-07-02] MEDS: PANTOPRAZOLE SODIUM 40 MG TABLET.DR PO SCH (09:09)
[2018-07-02] MEDS: METOLAZONE 2.5 MG TABLET PO SCH ×2 (09:10→17:02)
[2018-07-02] MEDS: LOSARTAN POTASSIUM 25 MG TABLET PO SCH (09:10)
[2018-07-02] MEDS: TOPIRAMATE 25 MG TABLET PO SCH ×2 (09:10→22:44)
[2018-07-02] MEDS: HYDROXYCHLOROQUINE SULFATE 200 MG TABLET PO SCH ×2 (09:10→17:03)
[2018-07-02] MEDS: METOPROLOL SUCCINATE 25 MG TAB.SR.24H PO SCH (09:11)
[2018-07-02] MEDS: TIOTROPIUM BROMIDE DPI 5 CAP/KIT (18 MCG/CAP) IH SCH (09:11)
[2018-07-02] MEDS: APIXABAN 2.5 MG TABLET PO SCH ×2 (09:11→22:44)
[2018-07-02] MEDS: ASPIRIN 81 MG TABLET, ENT COATED PO SCH (09:11)
[2018-07-02] MEDS: NORMAL SALINE 1000 ML 1,000 ML IV PRN (09:12)
[2018-07-02 11:22] LABS: APPEARANCE,URINE SLIGHTLY-CLOUDY; BILIRUBIN,URINE NEGATIVE (NEGATIVE); COLOR,URINE YELLOW; GLUCOSE, URINE NEGATIVE (NEGATIVE); KETONES,URINE NEGATIVE (NEGATIVE); LEUKOCYTE ESTERASE,URINE LARGE (NEGATIVE); NITRITE,URINE POSITIVE (NEGATIVE); PROTEIN,URINE NEGATIVE (NEGATIVE); URINE SPECIFIC GRAVITY 1.009; UROBILINOGEN,URINE NEGATIVE mg/dL (<2.0)
[2018-07-02 13:41] LABS: ABSOLUTE BASOPHILS # (AUTO) 0.1 10^3/uL (0.0-0.2); ABSOLUTE EOSINOPHILS # (AUTO) 0.3 10^3/uL (0.0-0.6); ABSOLUTE LYMPHOCYTES (AUTO) 1.8 10^3/uL (0.5-4.7); ABSOLUTE MONOCYTES (AUTO) 1.5 10^3/uL (0.1-1.4); ABSOLUTE NEUT (AUTO) 5.6 10^3/uL (1.7-8.2); BASOPHILS % (AUTO) 0.7 % (0-2); EOSINOPHILS % (AUTO) 3.1 % (0-6); HEMATOCRIT 39.3 % (36.0-47.0); HEMOGLOBIN 12.9 g/dL (12.0-15.5); LYMPHOCYTES % (AUTO) 19.6 % (13-45); MEAN CORPUSCULAR HEMOGLOBIN 28.7 pg (27.0-33.4); MEAN CORPUSCULAR HGB CONC 32.7 g/dL (32.0-36.0); MEAN CORPUSCULAR VOLUME 88 fl (80-97); MONOCYTES % (AUTO) 15.7 % (3-13); PLATELET COUNT 229 10^3/uL (150-450); RED BLOOD COUNT 4.48 10^6/uL (3.72-5.28); RED CELL DISTRIBUTION WIDTH 16.3 % (11.5-14.0); SEGMENTED NEUTROPHILS % (AUTO) 60.9 % (42-78); TOTAL CELLS COUNTED % (AUTO) 100 %; WHITE BLOOD COUNT 9.3 10^3/uL (4.0-10.5)
[2018-07-02 14:03] LABS: ALANINE AMINOTRANSFERASE 20 U/L (9-52); ALBUMIN 4.3 g/dL (3.5-5.0); ALKALINE PHOSPHATASE 110 U/L (38-126); ANION GAP 16 (5-19); ASPARTATE AMINO TRANSFERASE 22 U/L (14-36); BILIRUBIN,DIRECT 0.4 mg/dL (0.0-0.4); BILIRUBIN,TOTAL 0.8 mg/dL (0.2-1.3); BLOOD UREA NITROGEN 33 mg/dL (7-20); CALCIUM 9.4 mg/dL (8.4-10.2); CARBON DIOXIDE 19 mmol/L (22-30); CHLORIDE 102 mmol/L (98-107); GLUCOSE 133 mg/dL (75-110); POTASSIUM 4.1 mmol/L (3.6-5.0); SODIUM 137.3 mmol/L (137-145); TOTAL PROTEIN 8.7 g/dL (6.3-8.2)
[2018-07-02] MEDS: ONDANSETRON HCL 8 MG TABLET PO PRN (16:20)
--- NOTE | 2018-07-02 19:56 | PDOC TRANSFER SUMMARY ---
General - Admit/Disc Date/PCP Admission Date/Primary Care Provider: 06/26/18 00:54 TEODORO HOROWITZ MD Discharge Date: 07/03/18 - Discharge Diagnosis (1) Acute right arterial ischemic stroke, VALE (anterior cerebral artery) Is this a current diagnosis for this admission?: Yes (2) Coronary artery disease Is this a current diagnosis for this admission?: Yes (3) Peripheral vascular disease Is this a current diagnosis for this admission?: Yes (4) Acute kidney injury Is this a current diagnosis for this admission?: Yes (5) Constipation Is this a current diagnosis for this admission?: Yes - Additional Information Resuscitation Status: Full Code Discharge Diet: Diabetic Home Medications: Alirocumab [Praluent Pen] 150 mg INJ Q14D 05/29/17 Apixaban [Eliquis] 2.5 mg PO Q12 05/29/17 Losartan Potassium [Cozaar 25 mg Tablet] 25 mg PO DAILY 05/29/17 Metoprolol Succinate [Toprol Xl 25 mg Tab.sr] 25 mg PO DAILY 05/29/17 Tiotropium [place] [Spiriva Handihaler 5 Cap/Kit (18 Mcg/Cap)] 1 puff IH DAILY 05/29/17 Atorvastatin Calcium [Lipitor 80 mg Tablet] 80 mg PO QHS #90 tablet 05/31/17 Aspirin [Ecotrin 81 mg EC Tablet] 81 mg PO DAILY 06/26/18 Doxepin HCl [Silenor] 6 mg PO QHS 06/26/18 Ergocalciferol (Vitamin D2) [Vitamin D2] 50 mcg PO TH 06/26/18 Furosemide [Lasix 40 mg Tablet] 40 mg PO QAM 06/26/18 Hydrocodone/Acetaminophen [Arbon 7.5-325 mg Tablet] 1 tab PO Q8HP PRN 06/26/18 Hydroxychloroquine Sulfate [Plaquenil 200 mg Tablet] 200 mg PO BID 06/26/18 Montelukast Sodium [Singulair 10 mg Tablet] 10 mg PO QHS 06/26/18 Pantoprazole Sodium [Protonix [address] Tablet] 40 mg PO QAM 06/26/18 Topiramate [Topamax] 50 mg PO BID 06/26/18 Acetaminophen [Tylenol 325 mg Tablet] 650 mg PO Q6HP PRN tablet 07/02/18 Albuterol Sulfate [Proair HFA Inhalation Aerosol 8.5 gm MDI] 2 puff IH Q4HP PRN [email or web address] 07/02/18 History of Present Illness Admission Date/PCP: 06/26/18 00:54 TEODORO HOROWITZ MD History of Present Illness: KEYONA TAYLOR is a 62 year old female, She came to the emergency room last night for evaluation of fall, weakness and numbness. She has multiple comorbid conditions including coronary artery disease, with multiple stents placement, peripheral vascular disease status post amputation of left leg, history of multiple cerebral infarction. The history was that patient had 5 separate falls since approximately 12 noon before she presented to the emergency room, all the fall resulted from falling out of her wheelchair or from the bed onto the ground, she said she feels like she has no balance she feels very dizzy as he was going to fall at all times which is a new symptom for her She is also noted by the family that she has a left-sided facial droop and she appears much more weak on the left side which also is new for her she also stated that the symptoms she is experiencing was similar to the symptoms she had previously when she had a stroke. In the emergency room CVA was suspected initial CT head that was done did not demonstrate any acute cerebral infarction subsequent MRI was done this morning that demonstrated acute diffusion restriction infarction in the right VALE territory. She is not a candidate for TPA because she is out of the 3-hour window for TPA administration Hospital Course Hospital Course: Patient was admitted for the management of acute VALE stroke she was treated according to the stroke protocol,Hospital course was complicated with azotemia, acute kidney injury.This was treated with IV fluid, There was improvement in the azotemia.She was also seen by physical therapy.She was treated with antiplatelet medications Physical Exam Vital Signs: Temp Pulse Resp BP Pulse Ox 97.7 F 37 L 20 116/67 97 07/02/18 16:00 07/02/18 16:00 07/02/18 16:00 07/02/18 16:00 07/02/18 16:00 Intake & Output 07/01/18 07/02/18 07/03/18 06:59 06:59 06:59 Intake Total 2770 1448 1231 Output Total 1150 120 Balance 1620 1448 1111 Weight 118.5 kg 113.3 kg General appearance: PRESENT: no acute distress Head exam: PRESENT: atraumatic, normocephalic Eye exam: PRESENT: PERRLA Respiratory exam: PRESENT: clear to auscultation freida Cardiovascular exam: PRESENT: +S1, +S2 GI/Abdominal exam: PRESENT: soft Musculoskeletal exam: PRESENT: other - There is left below-knee amputation Neurological exam: PRESENT: alert, other - There is dysphasia Results Laboratory Results: 07/02/18 13:11 07/02/18 13:11 07/02/18 07/02/18 07/02/18 10:59 13:11 13:11 WBC 9.3 RBC 4.48 Hgb 12.9 Hct 39.3 MCV 88 MCH 28.7 MCHC 32.7 RDW 16.3 H Plt Count 229 Seg Neutrophils % 60.9 Lymphocytes % 19.6 Monocytes % 15.7 H Eosinophils % 3.1 Basophils % 0.7 Absolute Neutrophils 5.6 Absolute Lymphocytes 1.8 Absolute Monocytes 1.5 H Absolute Eosinophils 0.3 Absolute Basophils 0.1 Sodium 137.3 Potassium 4.1 Chloride 102 Carbon Dioxide 19 L Anion Gap 16 BUN 33 H Creatinine 1.85 H Est GFR ( Amer) 33 L Est GFR (Non-Af Amer) 28 L Glucose 133 H Calcium 9.4 Total Bilirubin 0.8 AST 22 ALT 20 Alkaline Phosphatase 110 Total Protein 8.7 H Albumin 4.3 Urine Color YELLOW Urine Appearance SLIGHTLY-CLOUDY Urine pH 7.0 Ur Specific [place] 1.009 Urine Protein NEGATIVE Urine Glucose (UA) NEGATIVE Urine Ketones NEGATIVE Urine Blood NEGATIVE Urine Nitrite POSITIVE H Ur Leukocyte Esterase LARGE H Urine WBC (Auto) 123 Urine RBC (Auto) 2 06/25/18 06/26/18 06/26/18 22:40 15:10 21:08 Troponin I 0.144 0.659 0.577 06/27/18 02:30 Troponin I 0.531 Impressions: Head CT 06/25/18 22:25 IMPRESSION: Atrophy with small vessel ischemic change. Remote lacunar infarcts of the bilateral thalami. Old right frontal infarct. TECHNICAL DOCUMENTATION: Quality ID # 436: Final reports with documentation of one or more dose reduction techniques (e.g., Automated exposure control, adjustment of the mA and/or kV according to patient size, use of iterative reconstruction technique) copyright 2011 [employer]- All Rights Reserved Chest X-Ray 06/25/18 22:26 IMPRESSION: No acute cardiopulmonary process copyright 2010 [employer]- All Rights Reserved Head MRI 06/26/18 00:00 IMPRESSION: 1. Acute diffusion restricting infarction in the right VALE territory. 2. Encephalomalacia of the right frontal lobe, nonacute lacunar infarctions of the bilateral thalami, and small vessel white matter disease. EVIDENCE OF ACUTE STROKE: YES. RIGHT VALE Carotid Doppler Study 06/26/18 14:50 IMPRESSION: NO HEMODYNAMICALLY SIGNIFICANT STENOSIS. Hip/Pelvis X-Ray 06/28/18 00:00 IMPRESSION: Lower lumbar degenerative changes. Normal right hip. Qualifiers - * PATIENT BEING DISCHARGED WITH ANY OF THE FOLLOWING DIAGNOSIS: Stroke Stroke Pt being discharged on Anti-thrombolytic therapy?: Yes Stroke Pt being discharged on Anti-coagulation therapy?: Yes Stroke Pt being discharged on Statins?: Yes Acute Heart Failure Is this a Heart Failure Patient?: No
--- NOTE | 2018-07-02 20:01 | PDOC PROGRESS REPORT ---
Subjective Progress Note for:: 07/02/18 Subjective:: Patient was treated with normal saline for the correlation of azotemia, she was seen by the bedside, she wILL BE transferred to long-term in a.m. Reason For Visit: ACUTE CVA Physical Exam Vital Signs: Temp Pulse Resp BP Pulse Ox 97.7 F 37 L 20 116/67 97 07/02/18 16:00 07/02/18 16:00 07/02/18 16:00 07/02/18 16:00 07/02/18 16:00 Intake & Output 07/01/18 07/02/18 07/03/18 06:59 06:59 06:59 Intake Total 2770 1448 1231 Output Total 1150 120 Balance 1620 1448 1111 Weight 118.5 kg 113.3 kg General appearance: PRESENT: no acute distress Eye exam: PRESENT: PERRLA Respiratory exam: PRESENT: clear to auscultation freida Cardiovascular exam: PRESENT: +S1, +S2 GI/Abdominal exam: PRESENT: soft Neurological exam: PRESENT: alert Results Laboratory Results: 07/02/18 13:11 07/02/18 13:11 07/02/18 07/02/18 07/02/18 10:59 13:11 13:11 WBC 9.3 RBC 4.48 Hgb 12.9 Hct 39.3 MCV 88 MCH 28.7 MCHC 32.7 RDW 16.3 H Plt Count 229 Seg Neutrophils % 60.9 Lymphocytes % 19.6 Monocytes % 15.7 H Eosinophils % 3.1 Basophils % 0.7 Absolute Neutrophils 5.6 Absolute Lymphocytes 1.8 Absolute Monocytes 1.5 H Absolute Eosinophils 0.3 Absolute Basophils 0.1 Sodium 137.3 Potassium 4.1 Chloride 102 Carbon Dioxide 19 L Anion Gap 16 BUN 33 H Creatinine 1.85 H Est GFR ( Amer) 33 L Est GFR (Non-Af Amer) 28 L Glucose 133 H Calcium 9.4 Total Bilirubin 0.8 AST 22 ALT 20 Alkaline Phosphatase 110 Total Protein 8.7 H Albumin 4.3 Urine Color YELLOW Urine Appearance SLIGHTLY-CLOUDY Urine pH 7.0 Ur Specific [place] 1.009 Urine Protein NEGATIVE Urine Glucose (UA) NEGATIVE Urine Ketones NEGATIVE Urine Blood NEGATIVE Urine Nitrite POSITIVE H Ur Leukocyte Esterase LARGE H Urine WBC (Auto) 123 Urine RBC (Auto) 2 06/25/18 06/26/18 06/26/18 22:40 15:10 21:08 Troponin I 0.144 0.659 0.577 06/27/18 02:30 Troponin I 0.531 Impressions: Head CT 06/25/18 22:25 IMPRESSION: Atrophy with small vessel ischemic change. Remote lacunar infarcts of the bilateral thalami. Old right frontal infarct. TECHNICAL DOCUMENTATION: Quality ID # 436: Final reports with documentation of one or more dose reduction techniques (e.g., Automated exposure control, adjustment of the mA and/or kV according to patient size, use of iterative reconstruction technique) copyright 2010 [employer]- All Rights Reserved Chest X-Ray 06/25/18 22:26 IMPRESSION: No acute cardiopulmonary process copyright 2010 [employer]- All Rights Reserved Head MRI 06/26/18 00:00 IMPRESSION: 1. Acute diffusion restricting infarction in the right VALE territory. 2. Encephalomalacia of the right frontal lobe, nonacute lacunar infarctions of the bilateral thalami, and small vessel white matter disease. EVIDENCE OF ACUTE STROKE: YES. RIGHT VALE Carotid Doppler Study 06/26/18 14:50 IMPRESSION: NO HEMODYNAMICALLY SIGNIFICANT STENOSIS. Hip/Pelvis X-Ray 06/28/18 00:00 IMPRESSION: Lower lumbar degenerative changes. Normal right hip. Assessment & Plan - Diagnosis (1) Acute right arterial ischemic stroke, VALE (anterior cerebral artery) Is this a current diagnosis for this admission?: Yes Plan: Continue management per stroke protocol (2) Coronary artery disease Qualifiers: Coronary Disease-Associated Artery/Lesion type: unspecified vessel or lesion type [place] vs. transplanted heart: [place] heart Associated angina: without angina Qualified Code(s): I25.10 - Atherosclerotic heart disease of [place] coronary artery without angina pectoris Is this a current diagnosis for this admission?: Yes (3) Peripheral vascular disease Is this a current diagnosis for this admission?: Yes (4) Acute kidney injury Is this a current diagnosis for this admission?: Yes (5) Constipation Qualifiers: Constipation type: unspecified constipation type Qualified Code(s): K59.00 - Constipation, unspecified Is this a current diagnosis for this admission?: Yes
[2018-07-02] MEDS: ATORVASTATIN CALCIUM 80 MG TABLET PO SCH (22:44)
[2018-07-02] MEDS: MONTELUKAST SODIUM 10 MG TABLET PO SCH (22:44)
[2018-07-02] MEDS: BISACODYL 10 MG SUPP.RECT PR PRN (22:44)
[2018-07-03] MEDS: NORMAL SALINE 1000 ML 1,000 ML IV PRN (04:36)
[2018-07-03] MEDS: HYDROCODONE/ACETAMINOPHEN 7.5-325 MG TABLET PO PRN (07:00)
[2018-07-03] MEDS: ONDANSETRON HCL 8 MG TABLET PO PRN (07:50)
[2018-07-03] MEDS: LOSARTAN POTASSIUM 25 MG TABLET PO SCH (09:07)
[2018-07-03] MEDS: METOLAZONE 2.5 MG TABLET PO SCH (09:08)
[2018-07-03] MEDS: METOPROLOL SUCCINATE 25 MG TAB.SR.24H PO SCH (09:08)
[2018-07-03] MEDS: HYDROXYCHLOROQUINE SULFATE 200 MG TABLET PO SCH (09:08)
[2018-07-03] MEDS: APIXABAN 2.5 MG TABLET PO SCH (09:08)
[2018-07-03] MEDS: TIOTROPIUM BROMIDE DPI 5 CAP/KIT (18 MCG/CAP) IH SCH (09:08)
[2018-07-03] MEDS: PANTOPRAZOLE SODIUM 40 MG TABLET.DR PO SCH (09:08)
[2018-07-03] MEDS: ASPIRIN 81 MG TABLET, ENT COATED PO SCH (09:08)
[2018-07-03] MEDS: TOPIRAMATE 25 MG TABLET PO SCH (09:08)
[2018-07-03] MEDS: FUROSEMIDE 40 MG TABLET PO SCH (09:09)
[2018-07-03 17:13] VITALS: BP 121/72
== END 2018-07-03 17:49 | DRG 65 ==
LOC: ER 21:45 → EH 06-26 00:54 → 3N 06-26 03:40
PROVIDERS: ADMIT Internal Medicine; ATTEND Internal Medicine
DX: I63.521 Cerebral infarction due to unspecified occlusion or stenosis of right anterior cerebral artery (principal); N17.9 Acute kidney failure, unspecified; I25.10 Atherosclerotic heart disease of native coronary artery without angina pectoris; Z95.5 Presence of coronary angioplasty implant and graft; I73.9 Peripheral vascular disease, unspecified; I48.0 Paroxysmal atrial fibrillation; I25.2 Old myocardial infarction; E78.5 Hyperlipidemia, unspecified; I11.0 Hypertensive heart disease with heart failure; I50.9 Heart failure, unspecified; R29.810 Facial weakness; R53.1 Weakness; R47.81 Slurred speech; K59.00 Constipation, unspecified; K21.9 Gastro-esophageal reflux disease without esophagitis; M19.90 Unspecified osteoarthritis, unspecified site; M32.9 Systemic lupus erythematosus, unspecified; F32.9 Major depressive disorder, single episode, unspecified; Z85.3 Personal history of malignant neoplasm of breast; Z89.512 Acquired absence of left leg below knee; Z87.891 Personal history of nicotine dependence; Z79.82 Long term (current) use of aspirin; Z79.02 Long term (current) use of antithrombotics/antiplatelets; Z91.81 History of falling
CPT/HCPCS: 36415; 70450; 70551; 71045; 80048; 80053; 80061; 81001; 82962; 83735; 84484; 85025; 85610; 85730; 93005; 93010; 93306; 93880; 99285; J3490; J7030; S0119

== ENCOUNTER → 2018-07-04 | Outpatient (CLI) | payer MEDICARE, MEDICAID ==
[2018-07-04 18:59] LABS: ALANINE AMINOTRANSFERASE 28 U/L (9-52); ALBUMIN 3.8 g/dL (3.5-5.0); ALKALINE PHOSPHATASE 111 U/L (38-126); ANION GAP 13 (5-19); ASPARTATE AMINO TRANSFERASE 23 U/L (14-36); BILIRUBIN,DIRECT 0.3 mg/dL (0.0-0.4); BILIRUBIN,TOTAL 0.6 mg/dL (0.2-1.3); BLOOD UREA NITROGEN 43 mg/dL (7-20); CALCIUM 9.4 mg/dL (8.4-10.2); CARBON DIOXIDE 23 mmol/L (22-30); CHLORIDE 101 mmol/L (98-107); GLUCOSE 143 mg/dL (75-110); POTASSIUM 4.5 mmol/L (3.6-5.0); SODIUM 136.9 mmol/L (137-145); TOTAL PROTEIN 8.2 g/dL (6.3-8.2)
== END ==
LOC: PNR 17:16
PROVIDERS: ATTEND Internal Medicine
DX: N17.9 Acute kidney failure, unspecified (principal); I25.10 Atherosclerotic heart disease of native coronary artery without angina pectoris; I48.91 Unspecified atrial fibrillation; E78.5 Hyperlipidemia, unspecified
CPT/HCPCS: 80053

== ENCOUNTER 2018-10-24 18:52 | Inpatient (IN) | payer MEDICARE, MEDICAID ==
[2018-10-24] MEDS ORDERED: ASPIRIN 81 MG TABLET, CHEWABLE PO ONE (19:29)
--- NOTE | 2018-10-24 19:33 | ER Document Report ---
ED Medical Screen (RME) - General Chief Complaint: Shortness Of Breath Stated Complaint: SHORT OF BREATH, FEET SWELLING Time Seen by Provider: 10/24/18 19:26 Primary Care Provider: TEODORO HOROWITZ MD [Primary Care Provider] - Follow up as needed Mode of Arrival: Wheelchair Information source: Patient Notes: This 63-year-old female presents emergency department with complaints of not feeling well for week. She has history of stroke CHF and Lupus. Patient reports she is had chest pain on and off throughout her chest with shortness of breath for the past week. Reports diarrhea once. Patient went to urgent care and they sent her over here. I have greeted and performed a rapid initial assessment of this patient. A comprehensive ED assessment and evaluation of the patient, analysis of test results and completion of the medical decision making process will be conducted by additional ED providers. Dictation of this chart was performed using voice recognition software; therefore, there may be some unintended grammatical errors. TRAVEL OUTSIDE OF THE [place] IN LAST 30 DAYS: No - Related Data Allergies/Adverse Reactions: No Known Allergies Allergy (Verified 06/22/18 14:53) Past Medical History - Past Medical History Cardiac Medical History: Reports: Hx Atrial Fibrillation - Paroxysmal atrial fibrillation, Hx Congestive Heart Failure, Hx Coronary Artery Disease, Hx Heart Attack, Hx Hypercholesterolemia, Hx Hypertension, Hx Peripheral Vascular Disease Denies: Hx Heart Murmur Pulmonary Medical History: Reports: Hx Asthma, Hx Bronchitis, Hx COPD Denies: Hx Pneumonia, Hx Tuberculosis Neurological Medical History: Denies: Hx Cerebrovascular Accident, Hx Seizures Renal/ Medical History: Denies: Hx Peritoneal Dialysis Malignancy Medical History: Reports: Hx Breast Cancer GI Medical History: Reports: Hx Gastroesophageal Reflux Disease Musculoskeltal Medical History: Reports Hx Arthritis, Reports Hx Fibromyalgia Psychiatric Medical History: Reports: Hx Depression Past Surgical History: Reports: Hx Cardiac Catheterization - 2002 Stent, 2004 Stent, Hx Coronary Stent - 2002([facility]), 2004([facility]), Hx Mastectomy - LEFT, Hx Orthopedic Surgery - left BKA due to peripheral vascular disease/ischemia. Denies: Hx Pacemaker - Immunizations Hx Diphtheria, Pertussis, Tetanus Vaccination: Yes History of Influenza Vaccine for 11/2016 - 04/2017 Season: No Physical Exam - Vital signs Vitals: Temp Pulse Resp BP Pulse Ox 97.7 F 76 18 113/75 98 10/24/18 19:12 10/24/18 19:12 10/24/18 19:12 10/24/18 19:12 10/24/18 19:12 Course - Vital Signs Vital signs: Temp Pulse Resp BP Pulse Ox 97.7 F 76 18 113/75 98 10/24/18 19:12 10/24/18 19:12 10/24/18 19:12 10/24/18 19:12 10/24/18 19:12 Doctor's Discharge - Discharge Referrals: TEODORO HOROWITZ MD [Primary Care Provider] - Follow up as needed
[2018-10-24 20:19] LABS: ABSOLUTE BASOPHILS # (AUTO) 0.1 10^3/uL (0.0-0.2); ABSOLUTE EOSINOPHILS # (AUTO) 0.1 10^3/uL (0.0-0.6); ABSOLUTE LYMPHOCYTES (AUTO) 1.8 10^3/uL (0.5-4.7); ABSOLUTE NEUT (AUTO) 6.8 10^3/uL (1.7-8.2); BASOPHILS % (AUTO) 0.7 % (0-2); EOSINOPHILS % (AUTO) 0.8 % (0-6); HEMATOCRIT 30.9 % (36.0-47.0); HEMOGLOBIN 10.2 g/dL (12.0-15.5); LYMPHOCYTES % (AUTO) 18.5 % (13-45); MEAN CORPUSCULAR HEMOGLOBIN 29.1 pg (27.0-33.4); MEAN CORPUSCULAR HGB CONC 33.1 g/dL (32.0-36.0); MEAN CORPUSCULAR VOLUME 88 fl (80-97); MONOCYTES % (AUTO) 9.8 % (3-13); PLATELET COUNT 213 10^3/uL (150-450); RED BLOOD COUNT 3.51 10^6/uL (3.72-5.28); RED CELL DISTRIBUTION WIDTH 16.3 % (11.5-14.0); SEGMENTED NEUTROPHILS % (AUTO) 70.2 % (42-78); TOTAL CELLS COUNTED % (AUTO) 100 %; WHITE BLOOD COUNT 9.7 10^3/uL (4.0-10.5)
[2018-10-24 20:32] LABS: ALBUMIN 3.7 g/dL (3.5-5.0); ALKALINE PHOSPHATASE 80 U/L (38-126); ANION GAP 9 (5-19); ASPARTATE AMINO TRANSFERASE 21 U/L (14-36); BILIRUBIN,DIRECT 0.3 mg/dL (0.0-0.4); BILIRUBIN,TOTAL 0.8 mg/dL (0.2-1.3); BLOOD UREA NITROGEN 25 mg/dL (7-20); CALCIUM 9.3 mg/dL (8.4-10.2); CARBON DIOXIDE 24 mmol/L (22-30); CHLORIDE 107 mmol/L (98-107); CREATINE KINASE 88 U/L (30-135); GLUCOSE 106 mg/dL (75-110); TOTAL PROTEIN 7.1 g/dL (6.3-8.2)
--- NOTE | 2018-10-24 20:51 | RADIOLOGY REPORT (SQ) ---
EXAM DESCRIPTION: AP view of the chest. CLINICAL HISTORY: 63 years Female, sob COMPARISON: 06/22/2018. FINDINGS: Mild cardiac megaly. No suspicious mediastinal widening. Surgical clips in the left axilla and chest wall. Very minimal opacity in the left lateral costophrenic angle more conspicuous compared to previous study. Rule out tiny left pleural effusion. Lungs are otherwise clear. IMPRESSION: Question tiny left pleural effusion. Otherwise no acute findings.
[2018-10-24 20:58] LABS: TROPONIN I 0.657 ng/mL
[2018-10-24] MEDS ORDERED: FUROSEMIDE INJ/PF 40 MG/4 ML SDV IV ONE (21:54)
--- NOTE | 2018-10-24 23:00 | ER Document Report ---
ED General - General Chief Complaint: Shortness Of Breath Stated Complaint: SHORT OF BREATH, FEET SWELLING Time Seen by Provider: 10/24/18 19:26 Primary Care Provider: TEODORO HOROWITZ MD [Primary Care Provider] - Follow up as needed Mode of Arrival: Wheelchair TRAVEL OUTSIDE OF THE [place] IN LAST 30 DAYS: No - HPI Notes: Patient is a 63-year-old female who presents emergency department for evaluation. She states to me that she believes she had a cold for about the last week. She states she was just feeling poorly. She has been coughing, although has been nonproductive. She states she then noted swelling in her leg. She states about 4 days ago she had a sharp left-sided chest pain, not brought about by exertion. She states it lasted a few minutes. She states she has not had any pain since then. She is been taking her medications as prescribed. No known fevers. She does complain of orthopnea and PND. - Related Data Allergies/Adverse Reactions: No Known Allergies Allergy (Verified 06/22/18 14:53) Past Medical History - General Information source: Patient - Social History Smoking Status: Former Smoker Frequency of alcohol use: None Drug Abuse: None Family History: Reviewed & Not Pertinent, Malignancy Patient has suicidal ideation: No Patient has homicidal ideation: No - Past Medical History Cardiac Medical History: Reports: Hx Atrial Fibrillation - Paroxysmal atrial fibrillation, Hx Congestive Heart Failure, Hx Coronary Artery Disease, Hx Heart Attack, Hx Hypercholesterolemia, Hx Hypertension, Hx Peripheral Vascular Disease Denies: Hx Heart Murmur Pulmonary Medical History: Reports: Hx Asthma, Hx Bronchitis, Hx COPD Denies: Hx Pneumonia, Hx Tuberculosis Neurological Medical History: Denies: Hx Cerebrovascular Accident, Hx Seizures Renal/ Medical History: Denies: Hx Peritoneal Dialysis Malignancy Medical History: Reports: Hx Breast Cancer GI Medical History: Reports: Hx Gastroesophageal Reflux Disease Musculoskeletal Medical History: Reports Hx Arthritis, Reports Hx Fibromyalgia Psychiatric Medical History: Reports: Hx Depression Past Surgical History: Reports: Hx Cardiac Catheterization - 2002 Stent, 2004 Stent, Hx Coronary Stent - 2002([place]), 2004([facility]), Hx Mastectomy - LEFT, Hx Orthopedic Surgery - left BKA due to peripheral vascular disease/ischemia. Denies: Hx Pacemaker - Immunizations Hx Diphtheria, Pertussis, Tetanus Vaccination: Yes Review of Systems - Review of Systems Constitutional: No symptoms reported EENT: No symptoms reported Cardiovascular: See HPI Respiratory: See HPI Gastrointestinal: No symptoms reported Genitourinary: No symptoms reported Musculoskeletal: See HPI Skin: No symptoms reported Neurological/Psychological: No symptoms reported Physical Exam - Vital signs Vitals: Temp Pulse Resp BP Pulse Ox 97.7 F 76 18 113/75 98 10/24/18 19:12 10/24/18 19:12 10/24/18 19:12 10/24/18 19:12 10/24/18 19:12 - Notes Notes: Vital signs reviewed, please refer to chart. Head is normocephalic, atraumatic. Pupils equal round, reactive to light. Neck is supple without meningismus. Heart is regular rate and rhythm. Lungs are clear to auscultation bilaterally. Abdomen is soft, nontender, normoactive bowel sounds throughout. Right lower extremity shows 3+ pitting edema to the knee. Left lower extremity reveals BKA without significant edema. No posterior calf tenderness. Skin is warm and dry. Peripheral pulses are equal. Patient awake and alert, oriented x3. Mild expressive aphasia. Moves all 4 extremities spontaneously, no gross facial asymmetry. Course - Re-evaluation Re-evalutation: 10/24/18 22:59 Patient presents emergency department for evaluation. She had chest pain a few days ago. She denies any chest pain at this time. She was given aspirin. Laboratory investigations revealed abnormal renal function, but this is not far off of her baseline. Her proBNP is just under 10,000. Chest x-ray shows a possible left pleural effusion. Her troponin is elevated at 0.6. Again patient has had absolutely no chest pain. We will repeat troponin, she remained stable at this time. She is given IV Lasix. 10/24/18 23:26 Patient remains stable, oxygenating well. Awaiting repeat troponin. 10/25/18 00:48 Repeat troponin is back and is trending downward. My suspicion is that she may have had a small CO 4 days ago with her episode of chest pain. At any rate she is in congestive heart failure. She is responding to IV Lasix, awaiting phone call from Dr. Horowitz. 10/25/18 00:53 Dr. Horowitz agrees to admit the patient. - Vital Signs Vital signs: Temp Pulse Resp BP Pulse Ox 97.7 F 76 18 113/75 98 10/24/18 19:12 10/24/18 19:12 10/24/18 19:12 10/24/18 19:12 10/24/18 19:12 - Laboratory Result Diagrams: 10/24/18 20:05 10/24/18 20:05 Laboratory results interpreted by me: 10/24/18 10/24/18 10/24/18 20:05 20:05 20:05 RBC 3.51 L Hgb 10.2 L Hct 30.9 L RDW 16.3 H BUN 25 H Creatinine 1.79 H Est GFR ( Amer) 35 L Est GFR (MDRD) Non-Af 29 L NT-Pro-B Natriuret Pep 9950 H - Diagnostic Test Radiology reviewed: Reports reviewed Radiology results interpreted by me: 10/24/18 23:00 Chest X-Ray 10/24/18 19:29 otherwise clear. IMPRESSION: Question tiny left pleural effusion. Otherwise no acute findings. - EKG Interpretation by Me Additional EKG results interpreted by me: 10/24/18 23:00 Sinus rhythm with a rate of 73 bpm. Left axis deviation, right bundle branch block, left anterior fascicular block. No significant change compared to prior study. Discharge - Discharge Clinical Impression: Non-ST elevated myocardial infarction Congestive heart failure Qualifiers: Heart failure chronicity: unspecified Condition: Stable Disposition: ADMITTED INPATIENT Admitting Provider: [facility] Admitted: [facility] Referrals: TEODORO HOROWITZ MD [Primary Care Provider] - Follow up as needed
[2018-10-25 02:14] LABS: PHOSPHORUS 3.9 mg/dL (2.5-4.5)
[2018-10-25 02:30] LABS: FREE T4 (FREE THYROXINE) 1.08 ng/dL (0.78-2.19)
[2018-10-25 02:44] LABS: THYROID STIMULATING HORMONE 1.61 uIU/mL (0.47-4.68)
[2018-10-25 03:30] LABS: APPEARANCE,URINE SLIGHTLY-CLOUDY; BILIRUBIN,URINE NEGATIVE (NEGATIVE); COLOR,URINE YELLOW; GLUCOSE, URINE NEGATIVE (NEGATIVE); KETONES,URINE NEGATIVE (NEGATIVE); LEUKOCYTE ESTERASE,URINE SMALL (NEGATIVE); NITRITE,URINE NEGATIVE (NEGATIVE); PROTEIN,URINE NEGATIVE (NEGATIVE); URINE SPECIFIC GRAVITY 1.014
[2018-10-25 03:35] LABS: URINE AMPHETAMINES SCREEN NEGATIVE; URINE BARBITURATES SCREEN NEGATIVE; URINE BENZODIAZEPINES SCREEN NEGATIVE; URINE COCAINE SCREEN NEGATIVE; URINE MARIJUANA (THC) SCREEN NEGATIVE; URINE METHADONE SCREEN NEGATIVE; URINE PHENCYCLIDINE SCREEN NEGATIVE
[2018-10-25 07:11] LABS: INTERNATIONAL RATION (INR) 1.26; PROTHROMBIN TIME 15.9 SEC (11.4-15.4)
[2018-10-25 07:12] LABS: PARTIAL THROMBOPLASTIN TIME 35.5 SEC (23.5-35.8)
[2018-10-25 07:19] LABS: CREATINE KINASE MB 1.25 ng/mL (<4.55); TROPONIN I 0.552 ng/mL
--- NOTE | 2018-10-25 09:33 | EKG REPORT ---
SEVERITY:- ABNORMAL ECG - SINUS RHYTHM IVCD, CONSIDER ATYPICAL RBBB ANTERIOR INFARCT, AGE INDETERMINATE : Confirmed by: Mari Miles MD 25-Oct-2018 09:32:22
[2018-10-25] MEDS: FUROSEMIDE INJ/PF 20 MG/2 ML SDV IV SCH (11:31)
[2018-10-25 13:08] LABS: CREATINE KINASE MB 1.16 ng/mL (<4.55)
[2018-10-25 13:37] LABS: TROPONIN I 0.448 ng/mL
[2018-10-25] MEDS ORDERED: ALBUTEROL SULFATE HFA (90 MCG/PUFF) 200 PUFF/8.5 GM MDI IH PRN (18:20)
[2018-10-25] MEDS ORDERED: (PENDING PHARMACY ID) (Topiramate [Topiramate] 50 MG) PO SCH (18:30)
[2018-10-25 19:15] LABS: CREATINE KINASE MB 1.25 ng/mL (<4.55); TROPONIN I 0.432 ng/mL
[2018-10-25] MEDS: METOPROLOL SUCCINATE 25 MG TAB.SR.24H PO SCH (19:20)
[2018-10-25] MEDS: PANTOPRAZOLE SODIUM 40 MG TABLET.DR PO SCH (19:20)
[2018-10-25] MEDS: LOSARTAN POTASSIUM 25 MG TABLET PO SCH (19:20)
[2018-10-25] MEDS: TIOTROPIUM BROMIDE DPI 5 CAP/KIT (18 MCG/CAP) IH SCH (20:45)
[2018-10-25] MEDS ORDERED: TOPIRAMATE 100 MG TABLET PO SCH (22:00)
[2018-10-25] MEDS ORDERED: (PENDING PHARMACY ID) (Doxepin Hcl [Silenor] 6 MG) PO SCH (22:00)
[2018-10-25] MEDS: ATORVASTATIN CALCIUM 80 MG TABLET PO SCH (22:13)
[2018-10-25] MEDS: APIXABAN 2.5 MG TABLET PO SCH (22:13)
[2018-10-25] MEDS: HYDROXYCHLOROQUINE SULFATE 200 MG TABLET PO SCH (22:13)
[2018-10-25] MEDS: TOPIRAMATE 25 MG TABLET PO SCH (22:13)
[2018-10-25] MEDS: MONTELUKAST SODIUM 10 MG TABLET PO SCH (22:13)
--- NOTE | 2018-10-25 22:45 | PDOC H&P ---
History of Present Illness Admission Date/PCP: 10/25/18 02:06 TEODORO HOROWITZ MD History of Present Illness: KEYONA TAYLOR is a 63 year old female, She came to the emergency room earlier this morning for evaluation of shortness of breath according to the ER record she is treated that she had a cold for about a week, she was coughing, it was nonproductive, she noticed left-sided chest pain, patient is well-known to me she has a history of ischemic cardiomyopathy, [place] in the past status post CABG with multiple stent placements of the coronary vessels, she is a vasculopath history of CVA PAD status post amputation of the lower extremities, history of COPD Past Medical History Cardiac Medical History: Reports: Atrial Fibrillation - Paroxysmal atrial fibrillation, Congestive Heart Failure, Coronary Artery Disease, Myocardial Infarction, Hyperlipidema, Hypertension, Peripheral Vascular Disease Pulmonary Medical History: Reports: Asthma, Bronchitis, Chronic Obstructive Pulmonary Disease (COPD) Malignancy Medical History: Reports: Breast Cancer GI Medical History: Reports: Gastroesophageal Reflux Disease Musculoskeltal Medical History: Reports: Arthritis, Fibromyalgia Psychiatric Medical History: Reports: Depression Past Surgical History Past Surgical History: Reports: Cardiac Catheterization - 2002 Stent, 2005 Stent, Coronary Stent - 2003([facility]), 2005([facility]), Mastectomy - LEFT, Orthopedic Surgery - left BKA due to peripheral vascular disease/ischemia Social History Smoking Status: Former Smoker Frequency of Alcohol Use: None Hx Recreational Drug Use: No Drugs: None Hx Prescription Drug Abuse: No Family History Family History: Reviewed & Not Pertinent, Malignancy Parental Family History Reviewed: Yes Children Family History Reviewed: Yes Sibling(s) Family History Reviewed.: Yes Medication/Allergy Home Medications: Albuterol Sulfate [Proair Hfa Inhalation Aerosol 8.5 gm Mdi] 2 puff IH Q4HP PRN 10/25/18 Apixaban [Eliquis 2.5 mg Tablet] 2.5 mg PO Q12 10/25/18 Atorvastatin Calcium [Lipitor 80 mg Tablet] 80 mg PO QHS 10/25/18 Doxepin HCl [Silenor] 6 mg PO QHS 10/25/18 Furosemide [Lasix 40 mg Tablet] 40 mg PO BID 10/25/18 Hydroxychloroquine Sulfate [Plaquenil 200 mg Tablet] 200 mg PO BID 10/25/18 Losartan Potassium [Cozaar 25 mg Tablet] 25 mg PO DAILY 10/25/18 Metolazone [Zaroxolyn 2.5 Mg Tablet] 2.5 mg PO BID 10/25/18 Metoprolol Succinate [Toprol Xl 25 mg Tab.sr] 25 mg PO DAILY 10/25/18 Montelukast Sodium [Singulair 10 mg Tablet] 10 mg PO QHS 10/25/18 Pantoprazole Sodium [Protonix [address] Tablet] 40 mg PO DAILY 10/25/[address] T[address] [place] [Spiriva Handihaler 5 Cap/Kit (18 Mcg/Cap)] 1 cap IH DAILY 10/25/18 Topiramate 50 mg PO BID 10/25/18 Allergies/Adverse Reactions: No Known Allergies Allergy (Verified 06/22/18 14:53) Review of Systems Constitutional: ABSENT: chills, fever(s), headache(s), weight gain, weight loss Eyes: ABSENT: visual disturbances Ears: ABSENT: hearing changes Cardiovascular: PRESENT: chest pain, dyspnea on exertion, edema, palpitations Respiratory: PRESENT: cough, dyspnea. ABSENT: hemoptysis Gastrointestinal: ABSENT: abdominal pain, constipation, diarrhea, hematemesis, hematochezia, nausea, vomiting Genitourinary: ABSENT: dysuria, hematuria Musculoskeletal: ABSENT: joint swelling Integumentary: ABSENT: rash, wounds Neurological: ABSENT: abnormal gait, abnormal speech, confusion, dizziness, focal weakness, syncope Psychiatric: ABSENT: anxiety, depression, homidical ideation, suicidal ideation Endocrine: ABSENT: cold intolerance, heat intolerance, menstrual abnormalities, polydipsia, polyuria Hematologic/Lymphatic: ABSENT: easy bleeding, easy bruising, lymphadenopathy Physical Exam Vital Signs: Temp Pulse Resp BP Pulse Ox 97.5 F 66 20 107/74 100 10/25/18 20:43 10/25/18 20:43 10/25/18 20:43 10/25/18 20:43 10/25/18 20:43 Intake & Output 10/24/18 10/25/18 10/26/18 06:59 06:59 06:59 Weight 112.1 kg General appearance: PRESENT: no acute distress, well-developed, well-nourished Head exam: PRESENT: atraumatic, normocephalic Eye exam: PRESENT: conjunctiva pink, EOMI, PERRLA Ear exam: PRESENT: normal external ear exam Mouth exam: PRESENT: moist, tongue midline Neck exam: PRESENT: full ROM Respiratory exam: PRESENT: rhonchi Cardiovascular exam: PRESENT: RRR, +S1, +S2 Pulses: PRESENT: normal dorsalis pedis pul, +2 pedal pulses bilateral Vascular exam: PRESENT: normal capillary refill GI/Abdominal exam: PRESENT: normal bowel sounds, soft Rectal exam: PRESENT: deferred Extremities exam: PRESENT: left BKA Neurological exam: PRESENT: alert, awake, oriented to person, oriented to place, oriented to time, oriented to situation, CN II-XII grossly intact Psychiatric exam: PRESENT: appropriate affect, normal mood Skin exam: PRESENT: dry, intact, warm. ABSENT: cyanosis, rash Results Laboratory Results: 10/24/18 20:05 10/24/18 20:05 10/24/18 10/24/18 10/25/18 20:05 20:05 02:47 Phosphorus 3.9 Magnesium 2.0 Ammonia Amylase 38 Lipase 71.8 TSH 1.61 Free T4 1.08 Urine Color YELLOW Urine Appearance SLIGHTLY-CLOUDY Urine pH 5.0 Ur Specific [place] 1.014 Urine Protein NEGATIVE Urine Glucose (UA) NEGATIVE Urine Ketones NEGATIVE Urine Blood NEGATIVE Urine Nitrite NEGATIVE Ur Leukocyte Esterase SMALL H Urine WBC (Auto) 16 Urine RBC (Auto) 1 10/25/18 06:30 Phosphorus Magnesium Ammonia < 8.7 L Amylase Lipase TSH Free T4 Urine Color Urine Appearance Urine pH Ur Specific [place] Urine Protein Urine Glucose (UA) Urine Ketones Urine Blood Urine Nitrite Ur Leukocyte Esterase Urine WBC (Auto) Urine RBC (Auto) 10/24/18 10/24/18 10/24/18 20:05 20:05 23:53 Creatine Kinase 88 CK-MB (CK-2) Troponin I 0.657 0.617 NT-Pro-B Natriuret Pep 9950 H 10/25/18 10/25/18 10/25/18 06:30 06:30 12:20 Creatine Kinase 84 81 CK-MB (CK-2) 1.25 Troponin I 0.552 NT-Pro-B Natriuret Pep 10/25/18 10/25/18 10/25/18 12:20 17:51 17:51 Creatine Kinase 79 CK-MB (CK-2) 1.16 1.25 Troponin I 0.448 0.432 NT-Pro-B Natriuret Pep Impressions: Chest X-Ray 10/24/18 19:29 otherwise clear. IMPRESSION: Question tiny left pleural effusion. Otherwise no acute findings. Assessment & Plan - Diagnosis (1) Non-ST elevated myocardial infarction Is this a current diagnosis for this admission?: Yes Plan: Consult cardiology, significant cardiac history (2) Acute systolic heart failure Is this a current diagnosis for this admission?: Yes Plan: Continue CHF therapy (3) CKD (chronic kidney disease), stage III Is this a current diagnosis for this admission?: Yes
[2018-10-26 07:30] LABS: HEMATOCRIT 31.8 % (36.0-47.0); HEMOGLOBIN 10.5 g/dL (12.0-15.5); MEAN CORPUSCULAR HGB CONC 32.9 g/dL (32.0-36.0); MEAN CORPUSCULAR VOLUME 88 fl (80-97); PLATELET COUNT 178 10^3/uL (150-450); RED BLOOD COUNT 3.61 10^6/uL (3.72-5.28); RED CELL DISTRIBUTION WIDTH 16.4 % (11.5-14.0); WHITE BLOOD COUNT 9.2 10^3/uL (4.0-10.5)
[2018-10-26 07:40] LABS: ALBUMIN 3.8 g/dL (3.5-5.0); ALKALINE PHOSPHATASE 85 U/L (38-126); ANION GAP 12 (5-19); ASPARTATE AMINO TRANSFERASE 21 U/L (14-36); BILIRUBIN,DIRECT 0.5 mg/dL (0.0-0.4); BILIRUBIN,TOTAL 1.3 mg/dL (0.2-1.3); BLOOD UREA NITROGEN 26 mg/dL (7-20); CALCIUM 9.1 mg/dL (8.4-10.2); CARBON DIOXIDE 24 mmol/L (22-30); CHLORIDE 105 mmol/L (98-107); CHOLESTEROL 210.96 mg/dL (0-200); GLUCOSE 89 mg/dL (75-110); POTASSIUM 3.9 mmol/L (3.6-5.0); TOTAL PROTEIN 7.4 g/dL (6.3-8.2); TRIGLYCERIDES 126 mg/dL (<150)
[2018-10-26 07:53] LABS: DIRECT LDL 141 mg/dL (<100)
[2018-10-26 08:11] LABS: ABSOLUTE LYMPHOCYTES# (MANUAL) 2.2 10^3/uL (0.5-4.7); ABSOLUTE MONOCYTES # (MANUAL) 0.6 10^3/uL (0.1-1.4); BASOPHILS % (MANUAL) 0 % (0-2); EOSINOPHILS % (MANUAL) 1 % (0-6); LYMPHOCYTES % (MANUAL) 24 % (13-45); MONOCYTES % (MANUAL) 7 % (3-13); SEGMENTED NEUTROPHILS % (MAN) 68 % (42-78); TOTAL CELLS COUNTED 100
[2018-10-26 08:12] LABS: ANISOCYTOSIS 1+; PLATELET COMMENT ADEQUATE; POLYCHROMASIA 1+; TOXIC VACUOLATION PRESENT
[2018-10-26] MEDS: PANTOPRAZOLE SODIUM 40 MG TABLET.DR PO SCH (09:31)
[2018-10-26] MEDS: FUROSEMIDE INJ/PF 20 MG/2 ML SDV IV SCH (09:31)
[2018-10-26] MEDS: HYDROXYCHLOROQUINE SULFATE 200 MG TABLET PO SCH ×2 (09:31→22:52)
[2018-10-26] MEDS: METOPROLOL SUCCINATE 25 MG TAB.SR.24H PO SCH (09:31)
[2018-10-26] MEDS: LOSARTAN POTASSIUM 25 MG TABLET PO SCH (09:31)
[2018-10-26] MEDS: TIOTROPIUM BROMIDE DPI 5 CAP/KIT (18 MCG/CAP) IH SCH (09:32)
[2018-10-26] MEDS: TOPIRAMATE 25 MG TABLET PO SCH ×2 (09:34→22:52)
[2018-10-26] MEDS: APIXABAN 2.5 MG TABLET PO SCH ×2 (09:41→22:52)
--- NOTE | 2018-10-26 11:43 | RADIOLOGY REPORT (SQ) ---
EXAM DESCRIPTION: U/S RETROPERITON (RENAL/AORTA) COMPLETED DATE/TIME: 10/26/2018 11:09 am REASON FOR STUDY: ckd COMPARISON: None. TECHNIQUE: Dynamic and static grayscale images acquired of the kidneys and bladder and recorded on P ACS. Additional selected color Doppler and spectral images recorded. LIMITATIONS: None. FINDINGS: RIGHT KIDNEY: The right kidney measures 9.8 cm in length. The echogenicity of the renal p arenchyma is increased. There is no hydronephrosis, calcification or solid mass. LEFT KIDNEY: The right kidney measures 9.3 cm in length. The echogenicity of the renal parenchyma i s increased. There is no hydronephrosis or calcification. There is an hypoechoic structure in the l ower pole that measures 1.4 x 1.8 x 1.9 cm. BLADDER: There is a Skel[place] catheter within the decompressed urinary bladder. OTHER FINDINGS: Gallbladder sludge. IMPRESSION: 1. Increased echogenicity of the renal parenchyma could represent chronic medical renal disease. There is no hydronephrosis. 2. 1.4 x 1.8 x 1.9 cm hypoechoic structure in the lower pole of the left kidney demonstrates no inte rnal flow on Doppler and could represent a cyst. 3. Gallbladder sludge. TECHNICAL DOCUMENTATION: JOB ID: [id number] [employer]- All Rights Reserved Reading location - IP/workstation name: [email or web address]
--- NOTE | 2018-10-26 22:27 | PDOC PROGRESS REPORT ---
Subjective Progress Note for:: 10/26/18 Subjective:: Patient seen by the bedside, cardiology consultation was requested, she was seen by Dr. Miles, cardiology Reason For Visit: CHF,ISCHEMIC CARDIOMYOPATHY Physical Exam Vital Signs: Temp Pulse Resp BP Pulse Ox 97.3 F 64 16 110/69 100 10/26/18 14:50 10/26/18 19:00 10/26/18 14:50 10/26/18 14:50 10/26/18 14:50 Intake & Output 10/25/18 10/26/18 10/27/18 06:59 06:59 06:59 Intake Total 880 Output Total 1750 0 Balance -1750 -1170 Weight 112.1 kg 111.9 kg General appearance: PRESENT: no acute distress Eye exam: PRESENT: PERRLA Respiratory exam: PRESENT: rhonchi Cardiovascular exam: PRESENT: +S1, +S2 GI/Abdominal exam: PRESENT: soft Results Laboratory Results: 10/26/18 06:49 10/26/18 06:49 10/26/18 10/26/18 06:49 06:49 WBC 9.2 RBC 3.61 L Hgb 10.5 L Hct 31.8 L MCV 88 MCH 29.0 MCHC 32.9 RDW 16.4 H Plt Count 178 Seg Neutrophils % Not Reportable Sodium 141.2 Potassium 3.9 Chloride 105 Carbon Dioxide 24 Anion Gap 12 BUN 26 H Creatinine 1.86 H Est GFR ( Amer) 33 L Glucose 89 Calcium 9.1 Total Bilirubin 1.3 AST 21 Alkaline Phosphatase 85 Total Protein 7.4 Albumin 3.8 Triglycerides 126 Cholesterol 210.96 H LDL Cholesterol Direct 141 H VLDL Cholesterol 25.0 HDL Cholesterol 30 L 10/24/18 10/24/18 10/24/18 20:05 20:05 23:53 Creatine Kinase 88 CK-MB (CK-2) Troponin I 0.657 0.617 NT-Pro-B Natriuret Pep 9950 H 10/25/18 10/25/18 10/25/18 06:30 06:30 12:20 Creatine Kinase 84 81 CK-MB (CK-2) 1.25 Troponin I 0.552 NT-Pro-B Natriuret Pep 10/25/18 10/25/18 10/25/18 12:20 17:51 17:51 Creatine Kinase 79 CK-MB (CK-2) 1.16 1.25 Troponin I 0.448 0.432 NT-Pro-B Natriuret Pep Impressions: Chest X-Ray 10/24/18 19:29 otherwise clear. IMPRESSION: Question tiny left pleural effusion. Otherwise no acute findings. Renal Ultrasound 10/26/18 00:00 IMPRESSION: 1. Increased echogenicity of the renal parenchyma could represent chronic medical renal disease. There is no hydronephrosis. 2. 1.4 x 1.8 x 1.9 cm hypoechoic structure in the lower pole of the left kidney demonstrates no internal flow on Doppler and could represent a cyst. 3. Gallbladder sludge. Assessment & Plan - Diagnosis (1) Non-ST elevated myocardial infarction Is this a current diagnosis for this admission?: Yes (2) Acute systolic heart failure Is this a current diagnosis for this admission?: Yes (3) CKD (chronic kidney disease), stage III Is this a current diagnosis for this admission?: Yes (4) Coronary artery disease Qualifiers: Coronary Disease-Associated Artery/Lesion type: unspecified vessel or lesion type [place] vs. transplanted heart: [place] heart Associated angina: without angina Qualified Code(s): I25.10 - Atherosclerotic heart disease of [place] coronary artery without angina pectoris Is this a current diagnosis for this admission?: Yes (5) Peripheral vascular disease Is this a current diagnosis for this admission?: Yes (6) Chronic obstructive pulmonary disease Qualifiers: COPD type: unspecified COPD Qualified Code(s): J44.9 - Chronic obstructive pulmonary disease, unspecified Is this a current diagnosis for this admission?: Yes - Plan Summary Plan Summary: Continue treatment
[2018-10-26] MEDS: ATORVASTATIN CALCIUM 80 MG TABLET PO SCH (22:52)
[2018-10-26] MEDS: MONTELUKAST SODIUM 10 MG TABLET PO SCH (22:52)
--- NOTE | 2018-10-26 22:57 | PDOC CONSULTATION ---
Consultation-Blank Consultation: CARDIOLOGY consultation by Dr. Mari Miles on 11/12/2018. Patient seen at 2 pM. 60 minutes spent on this patient with more than 50% of time spent in direct patient care. REASON FOR CONSULTATION: Patient with a chest pain, history of coronary artery disease, and elevated troponin I. Suspected non-ST elevation NE. CONSULT REQUESTING PHYSICIAN: Dr. Vogt. HISTORY PRESENT ILLNESS: Patient is a 63-year-old Afro-[place] female with known history of coronary artery disease,, history of NE, history of chronic kidney disease stage III, history of hypertension, and history of diabetes mellitus, and history of peripheral vascular disease admitted with history of increasing shortness of breath with PND and orthopnea. She states that she has been having some cough and wheezing with sputum productive of whitish sputum. She does have some orthopnea and PND. And some mild leg swelling. Her renal functions have deteriorated. The patient also claims to have left-sided chest pain which she states chest was tender to touch. Hence clearly noncardiac. The patient is EKG does not show any acute changes, showing only an old anterior NE, with sinus rhythm, and atypical right bundle branch block pattern, and left intravascular block. Past Medical History Cardiac Medical History: Reports: Atrial Fibrillation - Paroxysmal atrial fibrillation, Congestive Heart Failure, Coronary Artery Disease, Myocardial Infarction, Hyperlipidema, Hypertension, Peripheral Vascular Disease Pulmonary Medical History: Reports: Asthma, Bronchitis, Chronic Obstructive Pulmonary Disease (COPD) Malignancy Medical History: Reports: Breast Cancer GI Medical History: Reports: Gastroesophageal Reflux Disease Musculoskeltal Medical History: Reports: Arthritis, Fibromyalgia Psychiatric Medical History: Reports: Depression MACHINE I CUTTER: The patient about a month and a half ago had a CVA with left-sided weakness.. RENAL: She has a history of chronic kidney disease. Past Surgical History Past Surgical History: Reports: Cardiac Catheterization - 2002 Stent, 2005 Stent, Coronary Stent - 2002([place]), 2004([facility]), Mastectomy - LEFT, Orthopedic Surgery - left BKA due to peripheral vascular disease/ischemia Social History Smoking Status: Former Smoker Frequency of Alcohol Use: None Hx Recreational Drug Use: No Drugs: None Hx Prescription Drug Abuse: No Family History Family History: Reviewed & Not Pertinent, Malignancy Parental Family History Reviewed: Yes Children Family History Reviewed: Yes Sibling(s) Family History Reviewed.: Yes Medication/Allergy Home Medications: Albuterol Sulfate [Proair Hfa Inhalation Aerosol 8.5 gm Mdi] 2 puff IH Q4HP PRN 10/25/18 Apixaban [Eliquis 2.5 mg Tablet] 2.5 mg PO Q12 10/25/18 Atorvastatin Calcium [Lipitor 80 mg Tablet] 80 mg PO QHS 10/25/18 Doxepin HCl [Silenor] 6 mg PO QHS 10/25/18 Furosemide [Lasix 40 mg Tablet] 40 mg PO BID 10/25/18 Hydroxychloroquine Sulfate [Plaquenil 200 mg Tablet] 200 mg PO BID 10/25/18 Losartan Potassium [Cozaar 25 mg Tablet] 25 mg PO DAILY 10/25/18 Metolazone [Zaroxolyn 2.5 Mg Tablet] 2.5 mg PO BID 10/25/18 Metoprolol Succinate [Toprol Xl 25 mg Tab.sr] 25 mg PO DAILY 10/25/18 Montelukast Sodium [Singulair 10 mg Tablet] 10 mg PO QHS 10/25/18 Pantoprazole Sodium [Protonix [address] Tablet] 40 mg PO DAILY 10/25/18 Tiotropium [place] [Spiriva Handihaler 5 Cap/Kit (18 Mcg/Cap)] 1 cap IH DAILY 10/25/18 Topiramate 50 mg PO BID 10/25/18 Allergies/Adverse Reactions: No Known Allergies Allergy (Verified 06/22/18 14:53) Review of Systems Constitutional: ABSENT: chills, fever(s), headache(s), weight gain, weight loss Eyes: ABSENT: visual disturbances Ears: ABSENT: hearing changes Cardiovascular: PRESENT: chest pain, dyspnea on exertion, edema, palpitations Respiratory: PRESENT: cough, dyspnea. ABSENT: hemoptysis Gastrointestinal: ABSENT: abdominal pain, constipation, diarrhea, hematemesis, hematochezia, nausea, vomiting Genitourinary: ABSENT: dysuria, hematuria Musculoskeletal: ABSENT: joint swelling Integumentary: ABSENT: rash, wounds Neurological: ABSENT: abnormal gait, abnormal speech, confusion, dizziness, focal weakness, syncope Psychiatric: ABSENT: anxiety, depression, homidical ideation, suicidal ideation Endocrine: ABSENT: cold intolerance, heat intolerance, menstrual abnormalities, polydipsia, polyuria Hematologic/Lymphatic: ABSENT: easy bleeding, easy bruising, lymphadenopathy PHYSICAL EXAMINATION: The patient is moderate to morbidly obese. At present in no acute distress. Her speech is slurred. Selected Entries 10/26/18 14:50 Temperature 97.3 F Temperature Oral Source Pulse Rate 67 Respiratory 16 Rate Blood Pressure 110/69 Blood Pressure 82 Mean BP Location Right Arm BP Position Supine O2 Sat by Pulse 100 Oximetry Oxygen Flow 2.00 Rate Oxygen Delivery Nasal Cannula Method 10/26/18 06:49 BUN 26 H Creatinine 1.86 H Est GFR ( Amer) 33 L Head: Is atraumatic normocephalic. EYES: Pupils equal round regular reactive to light and accommodation. Extraocular movements are normal there is no conjunctival pallor there is no specific scleral icterus. EARS: Tympanic membranes are intact. External auditory canals are clear. NOSE: There is no deviated nasal septum. There is no inflammation of these mucous membrane. MOUTH:. There is no bleeding from the gums. Mucous membranes of the mouth are moist. THROAT: There is no redness of the oropharynx. There is no exudates. SKIN: There is no skin lesions or skin rashes. There is no petechia or ecchymosis. NECK: Is supple. There is no JVD. Carotids equal there is faint bilateral carotid bruits present. There is no lymphadenopathy. There is no goiter. There is no accessory muscle respiration use. Trachea central. LUNGS: There is diminished air entry and prolonged expiration. Scattered rhonchi. There is no rhonchi or rales. There is an area of absent breath sounds in the left base. This is consistent with pleural effusion. On percussion there is hyperresonance except in the area of dullness mentioned about.. There is some chest wall tenderness on pressing on the left front of the chest. HEART: S1-S2 is heard. There is no S3 gallop. There is no S4 gallop. There is systolic murmur of MR and TR present. There is no rub. ABDOMEN: Soft. There is no hepatospleno megaly. Bowel sounds are well heard. There is no tender areas masses. EXTREMITIES: Femorals are diminished. There is faint bilateral femoral bruits. 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 There is trace pedal edema. There is no sinus or clubbing. There is no DVT or cellulitis. MACHINE I CUTTER: There is the patient has dysarthria, and there is mild left residual hemiparesis paralysis. PSYCHIATRIC: The patient judgment and insight are intact her affect is normal. Patient's echocardiogram: Showed akinetic apex with moderately reduced LV ejection fraction. Overall ejection fraction is 35%. Please see report. The patient is EKG shows sinus rhythm. Left anterior fascicular block. Atypical right bundle branch block pattern of IVCD. Old anterior NE. Current Medications Albuterol (Proair Hfa Inhalation Aerosol 8.5 Gm Mdi) 2 puff IH Q4HP PRN PRN Reason: SHORTNESS OF BREATH Stop: 11/24/18 18:19 Apixaban (Eliquis 2.5 Mg Tablet) 2.5 mg PO Q12 MARY Stop: 11/24/18 21:59 Last Admin: 10/26/18 09:41 Dose: 2.5 mg Documented by: Atorvastatin Calcium (Lipitor 80 Mg Tablet) 80 mg PO QHS MARY Stop: 11/24/18 21:59 Last Admin: 10/25/18 22:13 Dose: 80 mg Documented by: Furosemide (Lasix Inj/Pf 20 Mg/2 Ml Sdv) 40 mg IV DAILY MARY Stop: 11/24/18 09:59 Last Admin: 10/26/18 09:31 Dose: 40 mg Documented by: Hydroxychloroquine Sulfate (Plaquenil 200 Mg Tablet) 200 mg PO Q12 MARY Stop: 11/24/18 21:59 Last Admin: 10/26/18 09:31 Dose: 200 mg Documented by: Losartan Potassium (Cozaar 25 Mg Tablet) 25 mg PO DAILY MARY Stop: 11/24/18 18:29 Last Admin: 10/26/18 09:31 Dose: 25 mg Documented by: Metoprolol Succinate (Toprol Xl 25 Mg Tab.Sr) 25 mg PO DAILY MARY Stop: 11/24/18 18:29 Last Admin: 10/26/18 09:31 Dose: 25 mg Documented by: Montelukast Sodium (Singulair 10 Mg Tablet) 10 mg PO QHS MARY Stop: 11/24/18 21:59 Last Admin: 10/25/18 22:13 Dose: 10 mg Documented by: Pantoprazole Sodium (Protonix [address] Tablet) 40 mg PO DAILY MARY Stop: 11/24/18 18:29 Last Admin: 10/26/18 09:31 Dose: 40 mg Documented by: Patient Own Medication (Doxepin Hcl [Silenor]) 6 mg PO .QHS MARY Stop: 11/24/18 21:59 Tiotropium [place] (Spiriva Handihaler 5 Cap/Kit (18 Mcg/Cap)) 1 cap IH DAILY MARY Stop: 11/24/18 19:59 Last Admin: 10/26/18 09:32 Dose: 1 cap Documented by: Topiramate (Topamax 25 Mg Tablet) 50 mg PO Q12 MARY Stop: 11/24/18 21:59 Last Admin: 10/26/18 09:34 Dose: 50 mg Documented by: Discontinued Medications Aspirin (Aspirin 81 Mg Chewable Tablet) 324 mg PO NOW ONE Stop: 10/24/18 19:30 Last Admin: 10/24/18 20:00 Dose: 324 mg Documented by: Furosemide (Lasix Inj/Pf 40 Mg/4 Ml Sdv) 40 mg IV NOW ONE Stop: 10/24/18 21:55 Last Admin: 10/24/18 23:41 Dose: 40 mg Documented by: Topiramate (Topamax 100 Mg Tablet) 50 mg PO Q12 MARY Stop: 11/24/18 21:59 Chest X-Ray 10/24/18 19:29 otherwise clear. IMPRESSION: Question tiny left pleural effusion. Otherwise no acute findings. Renal Ultrasound 10/26/18 00:00 IMPRESSION: 1. Increased echogenicity of the renal parenchyma could represent chronic medical renal disease. There is no hydronephrosis. 2. 1.4 x 1.8 x 1.9 cm hypoechoic structure in the lower pole of the left kidney demonstrates no internal flow on Doppler and could represent a cyst. 3. Gallbladder sludge. Labs- Entire Visit 10/24/18 10/24/18 10/24/18 20:05 20:05 20:05 WBC 9.7 RBC 3.51 L Hgb 10.2 L Hct 30.9 L MCV 88 MCH 29.1 MCHC 33.1 RDW 16.3 H Plt Count 213 Lymph % (Auto) 18.5 [place] % (Auto) 9.8 Eos % (Auto) 0.8 Baso % (Auto) 0.7 Absolute Neuts (auto) 6.8 Absolute Lymphs (auto) 1.8 Absolute Monos (auto) 1.0 Absolute Eos (auto) 0.1 Absolute Basos (auto) 0.1 Total Counted Seg Neutrophils % 70.2 Seg Neuts % (Manual) Lymphocytes % (Manual) Monocytes % (Manual) Eosinophils % (Manual) Basophils % (Manual) Abs Neuts (Manual) Abs Lymphs (Manual) Abs Monocytes (Manual) Absolute Eos (Manual) Abs Basophils (Manual) Toxic Vacuolation Platelet Comment Polychromasia Basophilic Stippling Anisocytosis PT INR APTT Sodium 139.9 Potassium 4.0 Chloride 107 Carbon Dioxide 24 Anion Gap 9 BUN 25 H Creatinine 1.79 H Est GFR ( Amer) 35 L Est GFR (MDRD) Non-Af 29 L Glucose 106 Hemoglobin A1c % Calcium 9.3 Phosphorus Magnesium Total Bilirubin 0.8 Direct Bilirubin 0.3 Neonat Total Bilirubin Not Reportable Neonat Direct Bilirubin Not Reportable Neonat Indirect Bili Not Reportable AST 21 ALT 24 Alkaline Phosphatase 80 Ammonia Creatine Kinase 88 CK-MB (CK-2) Troponin I 0.657 NT-Pro-B Natriuret Pep 9950 H Total Protein 7.1 Albumin 3.7 Triglycerides Cholesterol LDL Cholesterol Direct VLDL Cholesterol HDL Cholesterol Amylase Lipase TSH Free T4 Urine Color Urine Appearance Urine pH Ur Specific [place] Urine Protein Urine Glucose (UA) Urine Ketones Urine Blood Urine Nitrite Urine Bilirubin Urine Urobilinogen Ur Leukocyte Esterase Urine WBC (Auto) Urine RBC (Auto) Urine Bacteria (Auto) Squamous Epi Cells Auto Urine Ascorbic Acid Urine Opiates Screen Urine Methadone Screen Ur Barbiturates Screen Ur Phencyclidine Scrn Ur Amphetamines Screen U Benzodiazepines Scrn Urine Cocaine Screen U Marijuana (THC) Screen 10/24/18 10/24/18 10/24/18 20:05 20:05 23:53 WBC RBC Hgb Hct MCV MCH MCHC RDW Plt Count Lymph % (Auto) [place] % (Auto) Eos % (Auto) Baso % (Auto) Absolute Neuts (auto) Absolute Lymphs (auto) Absolute Monos (auto) Absolute Eos (auto) Absolute Basos (auto) Total Counted Seg Neutrophils % Seg Neuts % (Manual) Lymphocytes % (Manual) Monocytes % (Manual) Eosinophils % (Manual) Basophils % (Manual) Abs Neuts (Manual) Abs Lymphs (Manual) Abs Monocytes (Manual) Absolute Eos (Manual) Abs Basophils (Manual) Toxic Vacuolation Platelet Comment Polychromasia Basophilic Stippling Anisocytosis PT INR APTT Sodium Potassium Chloride Carbon Dioxide Anion Gap BUN Creatinine Est GFR ( Amer) Est GFR (MDRD) Non-Af Glucose Hemoglobin A1c % Calcium Phosphorus 3.9 Magnesium 2.0 Total Bilirubin Direct Bilirubin Neonat Total Bilirubin Neonat Direct Bilirubin Neonat Indirect Bili AST ALT Alkaline Phosphatase Ammonia Creatine Kinase CK-MB (CK-2) Troponin I 0.617 NT-Pro-B Natriuret Pep Total Protein Albumin Triglycerides Cholesterol LDL Cholesterol Direct VLDL Cholesterol HDL Cholesterol Amylase 38 Lipase 71.8 TSH 1.61 Free T4 1.08 Urine Color Urine Appearance Urine pH Ur Specific [place] Urine Protein Urine Glucose (UA) Urine Ketones Urine Blood Urine Nitrite Urine Bilirubin Urine Urobilinogen Ur Leukocyte Esterase Urine WBC (Auto) Urine RBC (Auto) Urine Bacteria (Auto) Squamous Epi Cells Auto Urine Ascorbic Acid Urine Opiates Screen Urine Methadone Screen Ur Barbiturates Screen Ur Phencyclidine Scrn Ur Amphetamines Screen U Benzodiazepines Scrn Urine Cocaine Screen U Marijuana (THC) Screen 10/25/18 10/25/18 10/25/18 02:47 02:47 06:30 WBC RBC Hgb Hct MCV MCH MCHC RDW Plt Count Lymph % (Auto) [place] % (Auto) Eos % (Auto) Baso % (Auto) Absolute Neuts (auto) Absolute Lymphs (auto) Absolute Monos (auto) Absolute Eos (auto) Absolute Basos (auto) Total Counted Seg Neutrophils % Seg Neuts % (Manual) Lymphocytes % (Manual) Monocytes % (Manual) Eosinophils % (Manual) Basophils % (Manual) Abs Neuts (Manual) Abs Lymphs (Manual) Abs Monocytes (Manual) Absolute Eos (Manual) Abs Basophils (Manual) Toxic Vacuolation Platelet Comment Polychromasia Basophilic Stippling Anisocytosis PT 15.9 H INR 1.26 APTT 35.5 Sodium Potassium Chloride Carbon Dioxide Anion Gap BUN Creatinine Est GFR ( Amer) Est GFR (MDRD) Non-Af Glucose Hemoglobin A1c % Calcium Phosphorus Magnesium Total Bilirubin Direct Bilirubin Neonat Total Bilirubin Neonat Direct Bilirubin Neonat Indirect Bili AST ALT Alkaline Phosphatase Ammonia Creatine Kinase CK-MB (CK-2) Troponin I NT-Pro-B Natriuret Pep Total Protein Albumin Triglycerides Cholesterol LDL Cholesterol Direct VLDL Cholesterol HDL Cholesterol Amylase Lipase TSH Free T4 Urine Color YELLOW Urine Appearance SLIGHTLY-CLOUDY Urine pH 5.0 Ur Specific [place] 1.014 Urine Protein NEGATIVE Urine Glucose (UA) NEGATIVE Urine Ketones NEGATIVE Urine Blood NEGATIVE Urine Nitrite NEGATIVE Urine Bilirubin NEGATIVE Urine Urobilinogen 2.0 H Ur Leukocyte Esterase SMALL H Urine WBC (Auto) 16 Urine RBC (Auto) 1 Urine Bacteria (Auto) TRACE Squamous Epi Cells Auto 2 Urine Ascorbic Acid NEGATIVE Urine Opiates Screen NEGATIVE Urine Methadone Screen NEGATIVE Ur Barbiturates Screen NEGATIVE Ur Phencyclidine Scrn NEGATIVE Ur Amphetamines Screen NEGATIVE U Benzodiazepines Scrn NEGATIVE Urine Cocaine Screen NEGATIVE U Marijuana (THC) Screen NEGATIVE 10/25/18 10/25/18 10/25/18 06:30 06:30 06:30 WBC RBC Hgb Hct MCV MCH MCHC RDW Plt Count Lymph % (Auto) [place] % (Auto) Eos % (Auto) Baso % (Auto) Absolute Neuts (auto) Absolute Lymphs (auto) Absolute Monos (auto) Absolute Eos (auto) Absolute Basos (auto) Total Counted Seg Neutrophils % Seg Neuts % (Manual) Lymphocytes % (Manual) Monocytes % (Manual) Eosinophils % (Manual) Basophils % (Manual) Abs Neuts (Manual) Abs Lymphs (Manual) Abs Monocytes (Manual) Absolute Eos (Manual) Abs Basophils (Manual) Toxic Vacuolation Platelet Comment Polychromasia Basophilic Stippling Anisocytosis PT INR APTT Sodium Potassium Chloride Carbon Dioxide Anion Gap BUN Creatinine Est GFR ( Amer) Est GFR (MDRD) Non-Af Glucose Hemoglobin A1c % Calcium Phosphorus Magnesium Total Bilirubin Direct Bilirubin Neonat Total Bilirubin Neonat Direct Bilirubin Neonat Indirect Bili AST ALT Alkaline Phosphatase Ammonia < 8.7 L Creatine Kinase 84 CK-MB (CK-2) 1.25 Troponin I 0.552 NT-Pro-B Natriuret Pep Total Protein Albumin Triglycerides Cholesterol LDL Cholesterol Direct VLDL Cholesterol HDL Cholesterol Amylase Lipase TSH Free T4 Urine Color Urine Appearance Urine pH Ur Specific [place] Urine Protein Urine Glucose (UA) Urine Ketones Urine Blood Urine Nitrite Urine Bilirubin Urine Urobilinogen Ur Leukocyte Esterase Urine WBC (Auto) Urine RBC (Auto) Urine Bacteria (Auto) Squamous Epi Cells Auto Urine Ascorbic Acid Urine Opiates Screen Urine Methadone Screen Ur Barbiturates Screen Ur Phencyclidine Scrn Ur Amphetamines Screen U Benzodiazepines Scrn Urine Cocaine Screen U Marijuana (THC) Screen 10/25/18 10/25/18 10/25/18 12:20 12:20 17:51 WBC RBC Hgb Hct MCV MCH MCHC RDW Plt Count Lymph % (Auto) [place] % (Auto) Eos % (Auto) Baso % (Auto) Absolute Neuts (auto) Absolute Lymphs (auto) Absolute Monos (auto) Absolute Eos (auto) Absolute Basos (auto) Total Counted Seg Neutrophils % Seg Neuts % (Manual) Lymphocytes % (Manual) Monocytes % (Manual) Eosinophils % (Manual) Basophils % (Manual) Abs Neuts (Manual) Abs Lymphs (Manual) Abs Monocytes (Manual) Absolute Eos (Manual) Abs Basophils (Manual) Toxic Vacuolation Platelet Comment Polychromasia Basophilic Stippling Anisocytosis PT INR APTT Sodium Potassium Chloride Carbon Dioxide Anion Gap BUN Creatinine Est GFR ( Amer) Est GFR (MDRD) Non-Af Glucose Hemoglobin A1c % Calcium Phosphorus Magnesium Total Bilirubin Direct Bilirubin Neonat Total Bilirubin Neonat Direct Bilirubin Neonat Indirect Bili AST ALT Alkaline Phosphatase Ammonia Creatine Kinase 81 79 CK-MB (CK-2) 1.16 Troponin I 0.448 NT-Pro-B Natriuret Pep Total Protein Albumin Triglycerides Cholesterol LDL Cholesterol Direct VLDL Cholesterol HDL Cholesterol Amylase Lipase TSH Free T4 Urine Color Urine Appearance Urine pH Ur Specific [place] Urine Protein Urine Glucose (UA) Urine Ketones Urine Blood Urine Nitrite Urine Bilirubin Urine Urobilinogen Ur Leukocyte Esterase Urine WBC (Auto) Urine RBC (Auto) Urine Bacteria (Auto) Squamous Epi Cells Auto Urine Ascorbic Acid Urine Opiates Screen Urine Methadone Screen Ur Barbiturates Screen Ur Phencyclidine Scrn Ur Amphetamines Screen U Benzodiazepines Scrn Urine Cocaine Screen U Marijuana (THC) Screen 10/25/18 10/26/18 10/26/18 17:51 06:49 06:49 WBC 9.2 RBC 3.61 L Hgb 10.5 L Hct 31.8 L MCV 88 MCH 29.0 MCHC 32.9 RDW 16.4 H Plt Count 178 Lymph % (Auto) Not Reportable [place] % (Auto) Not Reportable Eos % (Auto) Not Reportable Baso % (Auto) Not Reportable Absolute Neuts (auto) Not Reportable Absolute Lymphs (auto) Not Reportable Absolute Monos (auto) Not Reportable Absolute Eos (auto) Not Reportable Absolute Basos (auto) Not Reportable Total Counted 100 Seg Neutrophils % Not Reportable Seg Neuts % (Manual) 68 Lymphocytes % (Manual) 24 Monocytes % (Manual) 7 Eosinophils % (Manual) 1 Basophils % (Manual) 0 Abs Neuts (Manual) 6.3 Abs Lymphs (Manual) 2.2 Abs Monocytes (Manual) 0.6 Absolute Eos (Manual) 0.1 Abs Basophils (Manual) 0.0 Toxic Vacuolation PRESENT Platelet Comment ADEQUATE Polychromasia 1+ Basophilic Stippling PRESENT Anisocytosis 1+ PT INR APTT Sodium 141.2 Potassium 3.9 Chloride 105 Carbon Dioxide 24 Anion Gap 12 BUN 26 H Creatinine 1.86 H Est GFR ( Amer) 33 L Est GFR (MDRD) Non-Af 27 L Glucose 89 Hemoglobin A1c % Calcium 9.1 Phosphorus Magnesium Total Bilirubin 1.3 Direct Bilirubin 0.5 H Neonat Total Bilirubin Not Reportable Neonat Direct Bilirubin Not Reportable Neonat Indirect Bili Not Reportable AST 21 ALT 22 Alkaline Phosphatase 85 Ammonia Creatine Kinase CK-MB (CK-2) 1.25 Troponin I 0.432 NT-Pro-B Natriuret Pep Total Protein 7.4 Albumin 3.8 Triglycerides 126 Cholesterol 210.96 H LDL Cholesterol Direct 141 H VLDL Cholesterol 25.0 HDL Cholesterol 30 L Amylase Lipase TSH Free T4 Urine Color Urine Appearance Urine pH Ur Specific [place] Urine Protein Urine Glucose (UA) Urine Ketones Urine Blood Urine Nitrite Urine Bilirubin Urine Urobilinogen Ur Leukocyte Esterase Urine WBC (Auto) Urine RBC (Auto) Urine Bacteria (Auto) Squamous Epi Cells Auto Urine Ascorbic Acid Urine Opiates Screen Urine Methadone Screen Ur Barbiturates Screen Ur Phencyclidine Scrn Ur Amphetamines Screen U Benzodiazepines Scrn Urine Cocaine Screen U Marijuana (THC) Screen 10/26/18 06:49 WBC RBC Hgb Hct MCV MCH MCHC RDW Plt Count Lymph % (Auto) [place] % (Auto) Eos % (Auto) Baso % (Auto) Absolute Neuts (auto) Absolute Lymphs (auto) Absolute Monos (auto) Absolute Eos (auto) Absolute Basos (auto) Total Counted Seg Neutrophils % Seg Neuts % (Manual) Lymphocytes % (Manual) Monocytes % (Manual) Eosinophils % (Manual) Basophils % (Manual) Abs Neuts (Manual) Abs Lymphs (Manual) Abs Monocytes (Manual) Absolute Eos (Manual) Abs Basophils (Manual) Toxic Vacuolation Platelet Comment Polychromasia Basophilic Stippling Anisocytosis PT INR APTT Sodium Potassium Chloride Carbon Dioxide Anion Gap BUN Creatinine Est GFR ( Amer) Est GFR (MDRD) Non-Af Glucose Hemoglobin A1c % 6.1 H Calcium Phosphorus Magnesium Total Bilirubin Direct Bilirubin Neonat Total Bilirubin Neonat Direct Bilirubin Neonat Indirect Bili AST ALT Alkaline Phosphatase Ammonia Creatine Kinase CK-MB (CK-2) Troponin I NT-Pro-B Natriuret Pep Total Protein Albumin Triglycerides Cholesterol LDL Cholesterol Direct VLDL Cholesterol HDL Cholesterol Amylase Lipase TSH Free T4 Urine Color Urine Appearance Urine pH Ur Specific [place] Urine Protein Urine Glucose (UA) Urine Ketones Urine Blood Urine Nitrite Urine Bilirubin Urine Urobilinogen Ur Leukocyte Esterase Urine WBC (Auto) Urine RBC (Auto) Urine Bacteria (Auto) Squamous Epi Cells Auto Urine Ascorbic Acid Urine Opiates Screen Urine Methadone Screen Ur Barbiturates Screen Ur Phencyclidine Scrn Ur Amphetamines Screen U Benzodiazepines Scrn Urine Cocaine Screen U Marijuana (THC) Screen IMPRESSION/RECOMMENDATION: 1. Noncardiac chest pain, with no acute EKG changes, and with elevated troponin I in the setting of acute on chronic renal failure. Hence this is consistent with supply demand mismatch type II myocardial infarction and not non-ST elevation NE. Hence we will treat the cause and would not treat this patient as a non-ST elevation NE. 2. Most likely patient has volume overload heart failure. 3. Acute on chronic renal failure. The patient's GFR is worsened to 33 from a baseline of 42. 4. Coronary artery disease: History of old myocardial infarction. No clear-cut anginal symptoms. No evidence of acute coronary syndrome. Continue aspirin anti-CAD medication. 5. Myopathy: Combined ischemic and dilated. Note the patient had an echocardiogram on the which showed moderately reduced LV ejection fraction of 35% with multiple wall motion of normality. 6.Hypertension: Blood pressure well controlled 7. History of CVA with residual left hemiparesis. 8. History of asthma/COPD. Most likely patient has an episode of acute exacerbation of COPD which is getting better. Continue anti-COPD treatment. Consider antibiotics if clinically indicated. Medications reviewed. Medications and management plan discussed with attending physician. Medical decision making is high complexity. 60 minutes spent on this patient more than 50% of time spent in direct patient care.
[2018-10-27 04:54] LABS: ALBUMIN 3.6 g/dL (3.5-5.0); ALKALINE PHOSPHATASE 86 U/L (38-126); ANION GAP 8 (5-19); ASPARTATE AMINO TRANSFERASE 18 U/L (14-36); BILIRUBIN,DIRECT 0.3 mg/dL (0.0-0.4); BILIRUBIN,TOTAL 1.2 mg/dL (0.2-1.3); BLOOD UREA NITROGEN 25 mg/dL (7-20); CALCIUM 9.2 mg/dL (8.4-10.2); CARBON DIOXIDE 27 mmol/L (22-30); CHLORIDE 103 mmol/L (98-107); GLUCOSE 100 mg/dL (75-110); POTASSIUM 3.5 mmol/L (3.6-5.0); TOTAL PROTEIN 7.2 g/dL (6.3-8.2)
[2018-10-27 05:18] LABS: ABSOLUTE BASOPHILS # (AUTO) 0.1 10^3/uL (0.0-0.2); ABSOLUTE EOSINOPHILS # (AUTO) 0.2 10^3/uL (0.0-0.6); ABSOLUTE NEUT (AUTO) 5.5 10^3/uL (1.7-8.2); BASOPHILS % (AUTO) 0.8 % (0-2); EOSINOPHILS % (AUTO) 2.4 % (0-6); HEMATOCRIT 31.9 % (36.0-47.0); HEMOGLOBIN 10.5 g/dL (12.0-15.5); LYMPHOCYTES % (AUTO) 22.7 % (13-45); MEAN CORPUSCULAR HGB CONC 32.9 g/dL (32.0-36.0); MEAN CORPUSCULAR VOLUME 88 fl (80-97); MONOCYTES % (AUTO) 11.3 % (3-13); PLATELET COUNT 187 10^3/uL (150-450); RED BLOOD COUNT 3.62 10^6/uL (3.72-5.28); SEGMENTED NEUTROPHILS % (AUTO) 62.8 % (42-78); TOTAL CELLS COUNTED % (AUTO) 100 %; WHITE BLOOD COUNT 8.8 10^3/uL (4.0-10.5)
[2018-10-27] MEDS: PANTOPRAZOLE SODIUM 40 MG TABLET.DR PO SCH (09:16)
[2018-10-27] MEDS: METOPROLOL SUCCINATE 25 MG TAB.SR.24H PO SCH (09:16)
[2018-10-27] MEDS: HYDROXYCHLOROQUINE SULFATE 200 MG TABLET PO SCH ×2 (09:16→21:05)
[2018-10-27] MEDS: LOSARTAN POTASSIUM 25 MG TABLET PO SCH (09:16)
[2018-10-27] MEDS: FUROSEMIDE INJ/PF 20 MG/2 ML SDV IV SCH (09:16)
[2018-10-27] MEDS: APIXABAN 2.5 MG TABLET PO SCH ×2 (09:16→21:08)
[2018-10-27] MEDS: TIOTROPIUM BROMIDE DPI 5 CAP/KIT (18 MCG/CAP) IH SCH (09:17)
[2018-10-27] MEDS: TOPIRAMATE 25 MG TABLET PO SCH ×2 (09:17→21:04)
--- NOTE | 2018-10-27 16:39 | PDOC PROGRESS REPORT ---
Subjective Progress Note for:: 10/27/18 Subjective:: Patient seen by the bedside, she has IV access problem, presently on IV furosemide, transition to p.o. Reason For Visit: CHF,ISCHEMIC CARDIOMYOPATHY Physical Exam Vital Signs: Temp Pulse Resp BP Pulse Ox 98.0 F 67 18 95/65 L 100 10/27/18 11:17 10/27/18 14:00 10/27/18 11:17 10/27/18 11:17 10/27/18 11:17 Intake & Output 10/26/18 10/27/18 10/28/18 06:59 06:59 06:59 Intake Total 880 0 Output Total 1750 2425 500 Balance -1750 -1545 -500 Weight 111.9 kg 111.4 kg General appearance: PRESENT: no acute distress Eye exam: PRESENT: PERRLA Respiratory exam: PRESENT: clear to auscultation freida Cardiovascular exam: PRESENT: +S1, +S2 Neurological exam: PRESENT: alert Results Laboratory Results: 10/27/18 04:11 10/27/18 04:11 10/27/18 10/27/18 04:11 04:11 WBC 8.8 RBC 3.62 L Hgb 10.5 L Hct 31.9 L MCV 88 MCH 29.0 MCHC 32.9 RDW 16.0 H Plt Count 187 Seg Neutrophils % 62.8 Sodium 138.0 Potassium 3.5 L Chloride 103 Carbon Dioxide 27 Anion Gap 8 BUN 25 H Creatinine 2.09 H Est GFR ( Amer) 29 L Glucose 100 Calcium 9.2 Total Bilirubin 1.2 AST 18 Alkaline Phosphatase 86 Total Protein 7.2 Albumin 3.6 10/24/18 10/24/18 10/24/18 20:05 20:05 23:53 Creatine Kinase 88 CK-MB (CK-2) Troponin I 0.657 0.617 NT-Pro-B Natriuret Pep 9950 H 10/25/18 10/25/18 10/25/18 06:30 06:30 12:20 Creatine Kinase 84 81 CK-MB (CK-2) 1.25 Troponin I 0.552 NT-Pro-B Natriuret Pep 10/25/18 10/25/18 10/25/18 12:20 17:51 17:51 Creatine Kinase 79 CK-MB (CK-2) 1.16 1.25 Troponin I 0.448 0.432 NT-Pro-B Natriuret Pep Impressions: Chest X-Ray 10/24/18 19:29 otherwise clear. IMPRESSION: Question tiny left pleural effusion. Otherwise no acute findings. Renal Ultrasound 10/26/18 00:00 IMPRESSION: 1. Increased echogenicity of the renal parenchyma could represent chronic medical renal disease. There is no hydronephrosis. 2. 1.4 x 1.8 x 1.9 cm hypoechoic structure in the lower pole of the left kidney demonstrates no internal flow on Doppler and could represent a cyst. 3. Gallbladder sludge. Assessment & Plan - Diagnosis (1) Non-ST elevated myocardial infarction Is this a current diagnosis for this admission?: Yes (2) Acute systolic heart failure Is this a current diagnosis for this admission?: Yes (3) CKD (chronic kidney disease), stage III Is this a current diagnosis for this admission?: Yes (4) Coronary artery disease Qualifiers: Coronary Disease-Associated Artery/Lesion type: unspecified vessel or lesion type [place] vs. transplanted heart: [place] heart Associated angina: without angina Qualified Code(s): I25.10 - Atherosclerotic heart disease of [place] coronary artery without angina pectoris Is this a current diagnosis for this admission?: Yes (5) Peripheral vascular disease Is this a current diagnosis for this admission?: Yes (6) Chronic obstructive pulmonary disease Qualifiers: COPD type: unspecified COPD Qualified Code(s): J44.9 - Chronic obstructive pulmonary disease, unspecified Is this a current diagnosis for this admission?: Yes - Plan Summary Plan Summary: Discontinue IV furosemide, start p.o. furosemide
[2018-10-27] MEDS: MONTELUKAST SODIUM 10 MG TABLET PO SCH (21:04)
[2018-10-27] MEDS: ATORVASTATIN CALCIUM 80 MG TABLET PO SCH (21:04)
[2018-10-28 05:05] LABS: ABSOLUTE BASOPHILS # (AUTO) 0.1 10^3/uL (0.0-0.2); ABSOLUTE EOSINOPHILS # (AUTO) 0.2 10^3/uL (0.0-0.6); ABSOLUTE NEUT (AUTO) 5.3 10^3/uL (1.7-8.2); BASOPHILS % (AUTO) 0.9 % (0-2); EOSINOPHILS % (AUTO) 2.5 % (0-6); HEMATOCRIT 31.1 % (36.0-47.0); HEMOGLOBIN 10.4 g/dL (12.0-15.5); LYMPHOCYTES % (AUTO) 23.5 % (13-45); MEAN CORPUSCULAR HEMOGLOBIN 29.4 pg (27.0-33.4); MEAN CORPUSCULAR HGB CONC 33.5 g/dL (32.0-36.0); MEAN CORPUSCULAR VOLUME 88 fl (80-97); MONOCYTES % (AUTO) 11.4 % (3-13); PLATELET COUNT 174 10^3/uL (150-450); RED BLOOD COUNT 3.54 10^6/uL (3.72-5.28); RED CELL DISTRIBUTION WIDTH 16.6 % (11.5-14.0); SEGMENTED NEUTROPHILS % (AUTO) 61.7 % (42-78); TOTAL CELLS COUNTED % (AUTO) 100 %; WHITE BLOOD COUNT 8.7 10^3/uL (4.0-10.5)
[2018-10-28 05:27] LABS: ALBUMIN 3.4 g/dL (3.5-5.0); ALKALINE PHOSPHATASE 82 U/L (38-126); ANION GAP 7 (5-19); ASPARTATE AMINO TRANSFERASE 13 U/L (14-36); BILIRUBIN,DIRECT 0.3 mg/dL (0.0-0.4); BILIRUBIN,TOTAL 0.7 mg/dL (0.2-1.3); BLOOD UREA NITROGEN 23 mg/dL (7-20); CALCIUM 9.1 mg/dL (8.4-10.2); CARBON DIOXIDE 25 mmol/L (22-30); CHLORIDE 106 mmol/L (98-107); GLUCOSE 115 mg/dL (75-110); POTASSIUM 3.9 mmol/L (3.6-5.0); TOTAL PROTEIN 6.6 g/dL (6.3-8.2)
[2018-10-28] MEDS: APIXABAN 2.5 MG TABLET PO SCH ×2 (09:22→21:15)
[2018-10-28] MEDS: HYDROXYCHLOROQUINE SULFATE 200 MG TABLET PO SCH ×2 (09:22→21:15)
[2018-10-28] MEDS: METOPROLOL SUCCINATE 25 MG TAB.SR.24H PO SCH (09:22)
[2018-10-28] MEDS: TIOTROPIUM BROMIDE DPI 5 CAP/KIT (18 MCG/CAP) IH SCH (09:22)
[2018-10-28] MEDS: FUROSEMIDE 40 MG TABLET PO SCH (09:22)
[2018-10-28] MEDS: LOSARTAN POTASSIUM 25 MG TABLET PO SCH (09:22)
[2018-10-28] MEDS: PANTOPRAZOLE SODIUM 40 MG TABLET.DR PO SCH (09:22)
[2018-10-28] MEDS: TOPIRAMATE 25 MG TABLET PO SCH ×2 (09:22→21:15)
--- NOTE | 2018-10-28 17:05 | PDOC PROGRESS REPORT ---
Subjective Progress Note for:: 10/28/18 Subjective:: Patient seen by the bedside she has worsening azotemia, most likely from diuretic furosemide Reason For Visit: CHF,ISCHEMIC CARDIOMYOPATHY Physical Exam Vital Signs: Temp Pulse Resp BP Pulse Ox 98.3 F 65 14 102/75 100 10/28/18 13:00 10/28/18 14:00 10/28/18 13:00 10/28/18 13:00 10/28/18 12:20 Intake & Output 10/27/18 10/28/18 10/29/18 06:59 06:59 06:59 Intake Total 880 480 Output Total 2425 1125 Balance -1545 -645 Weight 111.4 kg 111.9 kg General appearance: PRESENT: no acute distress Eye exam: PRESENT: PERRLA Respiratory exam: PRESENT: clear to auscultation freida Cardiovascular exam: PRESENT: +S1, +S2 GI/Abdominal exam: PRESENT: soft Neurological exam: PRESENT: alert. ABSENT: motor sensory deficit Results Laboratory Results: 10/28/18 04:52 10/28/18 04:52 10/28/18 10/28/18 04:52 04:52 WBC 8.7 RBC 3.54 L Hgb 10.4 L Hct 31.1 L MCV 88 MCH 29.4 MCHC 33.5 RDW 16.6 H Plt Count 174 Seg Neutrophils % 61.7 Sodium 137.9 Potassium 3.9 Chloride 106 Carbon Dioxide 25 Anion Gap 7 BUN 23 H Creatinine 2.00 H Est GFR ( Amer) 30 L Glucose 115 H Calcium 9.1 Total Bilirubin 0.7 AST 13 L Alkaline Phosphatase 82 Total Protein 6.6 Albumin 3.4 L 10/25/18 02:47 Clean Catch Midstream Urine Culture - Final Escherichia Coli 10/24/18 10/24/18 10/24/18 20:05 20:05 23:53 Creatine Kinase 88 CK-MB (CK-2) Troponin I 0.657 0.617 NT-Pro-B Natriuret Pep 9950 H 10/25/18 10/25/18 10/25/18 06:30 06:30 12:20 Creatine Kinase 84 81 CK-MB (CK-2) 1.25 Troponin I 0.552 NT-Pro-B Natriuret Pep 10/25/18 10/25/18 10/25/18 12:20 17:51 17:51 Creatine Kinase 79 CK-MB (CK-2) 1.16 1.25 Troponin I 0.448 0.432 NT-Pro-B Natriuret Pep Impressions: Chest X-Ray 10/24/18 19:29 otherwise clear. IMPRESSION: Question tiny left pleural effusion. Otherwise no acute findings. Renal Ultrasound 10/26/18 00:00 IMPRESSION: 1. Increased echogenicity of the renal parenchyma could represent chronic medical renal disease. There is no hydronephrosis. 2. 1.4 x 1.8 x 1.9 cm hypoechoic structure in the lower pole of the left kidney demonstrates no internal flow on Doppler and could represent a cyst. 3. Gallbladder sludge. Assessment & Plan - Diagnosis (1) Non-ST elevated myocardial infarction Is this a current diagnosis for this admission?: Yes (2) Acute systolic heart failure Is this a current diagnosis for this admission?: Yes (3) CKD (chronic kidney disease), stage III Is this a current diagnosis for this admission?: Yes (4) Coronary artery disease Qualifiers: Coronary Disease-Associated Artery/Lesion type: unspecified vessel or lesion type [place] vs. transplanted heart: [place] heart Associated angina: without angina Qualified Code(s): I25.10 - Atherosclerotic heart disease of [place] coronary artery without angina pectoris Is this a current diagnosis for this admission?: Yes (5) Peripheral vascular disease Is this a current diagnosis for this admission?: Yes (6) Chronic obstructive pulmonary disease Qualifiers: COPD type: unspecified COPD Qualified Code(s): J44.9 - Chronic obstructive pulmonary disease, unspecified Is this a current diagnosis for this admission?: Yes (7) E. coli UTI Is this a current diagnosis for this admission?: Yes Plan: Start Cipro
--- NOTE | 2018-10-28 19:00 | XCELERA REPORT ---
[address] [address] Transthoracic Echocardiogram Report Name: KEYONA TAYLOR Age: 63 yrs Gender: Female : 1955 Patient Status: Inpatient Patient Location: [address] [place] [address] Study Date: 10/25/2018 11:17 AM Height: 66 in Weight: 247 lb BSA: 2.2 m2 Procedure: A two-dimensional transthoracic echocardiogram with color flow and Doppler was performed. Study Quality: Fair. Reason For Study: chf History: CHF. Ordering Physician: TEODORO HOROWITZ Performed By: Amber Langston Interpretation Summary The left ventricle is moderately dilated. There is normal left ventricular wall thickness. LV EF is 35% Left ventricular systolic function is moderately reduced. Doppler measurements suggest impaired left ventricular relaxation, which is associated with grade I/IV or mild diastolic dysfunction The LV apex is akinetic.Resr of the LV beatty are moderately hypokinetic.: By tissue dopplers. There is no thrombus. No ASD ,VSD ,or PFO seen. The right ventricle is grossly normal size. The right ventricle is not well visualized secondary to technical limitations The left atrial size is normal. The right atrium is normal. There is no evidence of mitral valve prolapse. There is no vegetation seen on the mitral valve. There is no mitral valve stenosis. There is a mild to moderate amount of mitral regurgitation There is no aortic valvular vegetation. There is aortic sclerosis without aortic stenosis. There is no LVOT obstruction. There is a mild amount of aortic regurgitation There is no tricuspid stenosis. There is a mild to moderate amount of tricuspid regurgitation There is servere pulmonary hypertension by echo RVSP is at least 75 mm of Hg , with RA mean of atleasr 20. There is no pulmonic valvular stenosis. There is a moderate amount of pulmonic regurgitation The inferior vena cava appeared dilated and did not change with respiration (RAP > 20 mmHg) There is no pericardial effusion. MMode/2D Measurements & Calculations RVDd: 4.2 cm LVIDd: 6.9 cm FS: 17.9 % EPSS: 1.9 cm IVSd: 0.90 cm LVIDs: 5.7 cm EDV(Teich): 246.4 ml LVPWd: 0.84 cm ESV(Teich): 157.1 ml EF(Teich): 36.2 % Ao root diam: 2.9 cm Ao root area: 6.6 cm2 LA dimension: 4.0 cm Doppler Measurements & Calculations MV E max brandon: MV P1/2t max brandon: Ao V2 max: AI max brandon: 87.9 cm/sec 87.9 cm/sec 131.7 cm/sec 308.9 cm/sec MV A max brandon: MV P1/2t: 54.9 msec Ao max PG: AI max P.8 cm/sec MVA(P1/2t): 4.0 cm2 6.9 mmHg 38.2 mmHg MV E/A: 1.6 MV dec slope: AI dec slope: 195.4 cm/sec2 469.1 cm/sec2 AI P1/2t: MV dec time: 463.0 msec 0.18 sec LV V1 max PG: PA V2 max: PI end-d brandon: TR max brandon: 3.3 mmHg 69.1 cm/sec 148.0 cm/sec 369.5 cm/sec LV V1 max: PA max P.9 mmHg TR max P.3 cm/sec 54.6 mmHg AV P1/2t-pr_phl: MV P1/2t-pr_phl: 463.0 msec 54.9 msec Left Ventricle The left ventricle is moderately dilated. There is normal left ventricular wall thickness. LV EF is 35%. Left ventricular systolic function is moderately reduced. The LV apex is akinetic.Resr of the LV beatty are moderately hypokinetic.: By tissue dopplers. Doppler measurements suggest impaired left ventricular relaxation, which is associated with grade I/IV or mild diastolic dysfunction. There is no thrombus. No ASD ,VSD ,or PFO seen. Right Ventricle The right ventricle is grossly normal size. The right ventricle is not well visualized secondary to technical limitations. Atria The right atrium is normal. The left atrial size is normal. Mitral Valve There is no evidence of mitral valve prolapse. There is no vegetation seen on the mitral valve. There is no mitral valve stenosis. There is a mild to moderate amount of mitral regurgitation. Aortic Valve There is no aortic valvular vegetation. There is no aortic valve stenosis. There is aortic sclerosis without aortic stenosis. There is no LVOT obstruction. There is a mild amount of aortic regurgitation. Tricuspid Valve There is no tricuspid stenosis. There is a mild to moderate amount of tricuspid regurgitation. There is servere pulmonary hypertension by echo. RVSP is at least 75 mm of Hg , with RA mean of atleasr 20. Pulmonic Valve There is no pulmonic valvular stenosis. There is a moderate amount of pulmonic regurgitation. Great Vessels The aortic root is normal size. The inferior vena cava appeared dilated and did not change with respiration (RAP > 20 mmHg). Effusions There is no pericardial effusion. : TEODORO HOROWITZ Lakshmi
[2018-10-28] MEDS ORDERED: CIPROFLOXACIN HCL 500 MG TABLET PO ONE (19:45)
[2018-10-28] MEDS ORDERED: CIPROFLOXACIN HCL 500 MG TABLET ONE (20:12)
[2018-10-28] MEDS: ATORVASTATIN CALCIUM 80 MG TABLET PO SCH (21:15)
[2018-10-28] MEDS: MONTELUKAST SODIUM 10 MG TABLET PO SCH (21:15)
[2018-10-29] MEDS: CIPROFLOXACIN HCL 500 MG TABLET PO SCH ×2 (05:17→17:16)
[2018-10-29] MEDS: LOSARTAN POTASSIUM 25 MG TABLET PO SCH (09:42)
[2018-10-29] MEDS: METOPROLOL SUCCINATE 25 MG TAB.SR.24H PO SCH (09:43)
[2018-10-29] MEDS: FUROSEMIDE 40 MG TABLET PO SCH (09:43)
[2018-10-29] MEDS: APIXABAN 2.5 MG TABLET PO SCH ×2 (09:48→22:26)
[2018-10-29] MEDS: PANTOPRAZOLE SODIUM 40 MG TABLET.DR PO SCH (09:48)
[2018-10-29] MEDS: TOPIRAMATE 25 MG TABLET PO SCH ×2 (09:48→22:26)
[2018-10-29] MEDS: TIOTROPIUM BROMIDE DPI 5 CAP/KIT (18 MCG/CAP) IH SCH (09:48)
[2018-10-29] MEDS: HYDROXYCHLOROQUINE SULFATE 200 MG TABLET PO SCH ×2 (09:48→22:26)
--- NOTE | 2018-10-29 20:12 | PDOC PROGRESS REPORT ---
Subjective Progress Note for:: 10/29/18 Subjective:: Patient seen by the bedside, Dr. Miles cardiology said patient needs a LifeVest before discharge Reason For Visit: CHF,ISCHEMIC CARDIOMYOPATHY Physical Exam Vital Signs: Temp Pulse Resp BP Pulse Ox 98.1 F 76 16 99/62 L 96 10/29/18 16:42 10/29/18 19:00 10/29/18 16:42 10/29/18 16:42 10/29/18 16:42 Intake & Output 10/28/18 10/29/18 10/30/18 06:59 06:59 06:59 Intake Total 480 798 Output Total 1125 2150 600 Balance -645 -2150 198 Weight 111.9 kg 107.5 kg General appearance: PRESENT: no acute distress Eye exam: PRESENT: PERRLA Respiratory exam: PRESENT: clear to auscultation freida Cardiovascular exam: PRESENT: +S1, +S2 GI/Abdominal exam: PRESENT: soft Neurological exam: PRESENT: alert Results Laboratory Results: 10/28/18 04:52 10/28/18 04:52 10/25/18 07:57 Blood Blood Culture - Final Staphylococcus Capitis 10/24/18 10/24/18 10/24/18 20:05 20:05 23:53 Creatine Kinase 88 CK-MB (CK-2) Troponin I 0.657 0.617 NT-Pro-B Natriuret Pep 9950 H 10/25/18 10/25/18 10/25/18 06:30 06:30 12:20 Creatine Kinase 84 81 CK-MB (CK-2) 1.25 Troponin I 0.552 NT-Pro-B Natriuret Pep 10/25/18 10/25/18 10/25/18 12:20 17:51 17:51 Creatine Kinase 79 CK-MB (CK-2) 1.16 1.25 Troponin I 0.448 0.432 NT-Pro-B Natriuret Pep Impressions: Chest X-Ray 10/24/18 19:29 otherwise clear. IMPRESSION: Question tiny left pleural effusion. Otherwise no acute findings. Renal Ultrasound 10/26/18 00:00 IMPRESSION: 1. Increased echogenicity of the renal parenchyma could represent chronic medical renal disease. There is no hydronephrosis. 2. 1.4 x 1.8 x 1.9 cm hypoechoic structure in the lower pole of the left kidney demonstrates no internal flow on Doppler and could represent a cyst. 3. Gallbladder sludge. Assessment & Plan - Diagnosis (1) Non-ST elevated myocardial infarction Is this a current diagnosis for this admission?: Yes (2) Acute systolic heart failure Is this a current diagnosis for this admission?: Yes (3) CKD (chronic kidney disease), stage III Is this a current diagnosis for this admission?: Yes (4) Coronary artery disease Qualifiers: Coronary Disease-Associated Artery/Lesion type: unspecified vessel or lesion type [place] vs. transplanted heart: [place] heart Associated angina: without angina Qualified Code(s): I25.10 - Atherosclerotic heart disease of [place] coronary artery without angina pectoris Is this a current diagnosis for this admission?: Yes (5) Peripheral vascular disease Is this a current diagnosis for this admission?: Yes (6) Chronic obstructive pulmonary disease Qualifiers: COPD type: unspecified COPD Qualified Code(s): J44.9 - Chronic obstructive pulmonary disease, unspecified Is this a current diagnosis for this admission?: Yes (7) E. coli UTI Is this a current diagnosis for this admission?: Yes
[2018-10-29] MEDS: MONTELUKAST SODIUM 10 MG TABLET PO SCH (22:26)
[2018-10-29] MEDS: ATORVASTATIN CALCIUM 80 MG TABLET PO SCH (22:26)
--- NOTE | 2018-10-29 22:38 | Progress Note ---
Provider Note Provider Note: CARDIOLOGY PROGRESS NOTE by Dr. Mari Miles on 10/29/2018. SUBJECTIVE: The patient has no further chest pain. She has no shortness of breath. There is no PND orthopnea. The patient now states that she is in the past few months has been having episodes of palpitations, and few rare short syncopal episodes. The patient's LV ejection fraction is 35%. Hence the patient most likely will need a LifeVest until an ICD is placed there is no recurrence of CVA symptoms. PHYSICAL EXAMINATION: The patient is moderate to severely obese. In no acute distress. Selected Entries 10/29/18 16:42 Temperature 98.1 F Temperature Oral Source Pulse Rate 67 Respiratory 16 Rate Blood Pressure 99/62 L Blood Pressure 74 Mean BP Location Right Wrist BP Position Supine O2 Sat by Pulse 96 Oximetry Oxygen Delivery Room Air Method Head: Is atraumatic normocephalic. EYES: Pupils equal round regular reactive to light and accommodation. Extraocular movements are normal there is no conjunctival pallor there is no specific scleral icterus. EARS: Tympanic membranes are intact. External auditory canals are clear. NOSE: There is no deviated nasal septum. There is no inflammation of these mucous membrane. MOUTH:. There is no bleeding from the gums. Mucous membranes of the mouth are moist. THROAT: There is no redness of the oropharynx. There is no exudates. SKIN: There is no skin lesions or skin rashes. There is no petechia or ecchymosis. NECK: Is supple. There is no JVD. Carotids equal there is faint bilateral carotid bruits present. There is no lymphadenopathy. There is no goiter. There is no accessory muscle respiration use. Trachea central. LUNGS: There is diminished air entry and prolonged expiration. Scattered rhonchi. There is no rhonchi or rales. There is an area of absent breath sounds in the left base. This is consistent with pleural effusion. On percussion there is hyperresonance except in the area of dullness mentioned about.. There is some chest wall tenderness on pressing on the left front of the chest. HEART: S1-S2 is heard. There is no S3 gallop. There is no S4 gallop. There is systolic murmur of MR and TR present. There is no rub. ABDOMEN: Soft. There is no hepatospleno megaly. Bowel sounds are well heard. There is no tender areas masses. EXTREMITIES: Femorals are diminished. There is faint bilateral femoral bruits. 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 There is trace pedal edema. There is no sinus or clubbing. There is no DVT or cellulitis. 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 PSYCHIATRIC: The patient judgment and insight are intact her affect is normal. IMPRESSION/RECOMMENDATION: 1. Noncardiac chest pain, with no acute EKG changes, and with elevated troponin I in the setting of acute on chronic renal failure. Hence this is consistent with supply demand mismatch type II myocardial infarction and not non-ST elevation [place]. Hence we will treat the cause and would not treat this patient as a non-ST elevation [place]. 2. Most likely patient has volume overload heart failure. 3. Acute on chronic renal failure. The patient's GFR is worsened to 33 from a baseline of 42. 4. Coronary artery disease: History of old myocardial infarction. No clear-cut anginal symptoms. No evidence of acute coronary syndrome. Continue aspirin anti-CAD medication. 5. Cardiomyopathy: Combined ischemic and dilated. Note the patient had an echocardiogram on the which showed moderately reduced LV ejection fraction of 35% with multiple wall motion of normality. The patient's symptoms of palpitations and short syncopal episodes. Would recommend that the patient have a LifeVest until an ICD is placed. This has been discussed with the patient in detail. We will order an ICD. 6.Hypertension: Blood pressure well controlled 7. History of CVA with residual left hemiparesis. 8. History of asthma/COPD. Most likely patient has an episode of acute exacerbation of COPD which is getting better. Continue anti-COPD treatment. Consider antibiotics if clinically indicated. Medications reviewed. Medications and management plan discussed with attending physician. Medical decision making is high complexity. 60 minutes spent on this patient more than 50% of time spent in direct patient care. Discussed with Dr. Vogt. LifeVest form filled, and signed, and this will be faxed to [facility].
[2018-10-30] MEDS: CIPROFLOXACIN HCL 500 MG TABLET PO SCH ×2 (05:54→17:26)
[2018-10-30] MEDS: LOSARTAN POTASSIUM 25 MG TABLET PO SCH (09:45)
[2018-10-30] MEDS: FUROSEMIDE 40 MG TABLET PO SCH (09:46)
[2018-10-30] MEDS: METOPROLOL SUCCINATE 25 MG TAB.SR.24H PO SCH (09:46)
[2018-10-30] MEDS: TIOTROPIUM BROMIDE DPI 5 CAP/KIT (18 MCG/CAP) IH SCH (09:55)
[2018-10-30] MEDS: APIXABAN 2.5 MG TABLET PO SCH ×2 (09:55→21:16)
[2018-10-30] MEDS: HYDROXYCHLOROQUINE SULFATE 200 MG TABLET PO SCH ×2 (09:55→21:13)
[2018-10-30] MEDS: PANTOPRAZOLE SODIUM 40 MG TABLET.DR PO SCH (09:56)
[2018-10-30] MEDS: TOPIRAMATE 25 MG TABLET PO SCH ×2 (09:56→21:13)
--- NOTE | 2018-10-30 20:38 | Progress Note ---
Provider Note Provider Note: [facility] cardiology PROGRESS NOTE by Dr. Mari Miles on 10/30/2018. Subjective: The patient denies any chest pain or discomfort. Is no shortness of breath. There is no PND orthopnea. There is no arrhythmia seen on the monitor. There is no complaints of dizziness near syncope or syncope. The patient still to get a LifeVest. She is waiting on that. I have discussed the rationale for the AICD. There is no recurrence of TIA CVA symptoms. PHYSICAL EXAMINATION: The patient moderate to severely obese. Selected Entries 10/30/18 10/30/18 10/30/18 07:45 07:57 09:08 Temperature 97.7 F Temperature Oral Source Pulse Rate 69 Respiratory 16 Rate Blood Pressure 107/64 Blood Pressure 78 Mean BP Location Right Wrist BP Position Supine O2 Sat by Pulse 97 Oximetry Oxygen Delivery Room Air Method ( includes room air) Fraction of 21 Inspired Oxygen (FIO2) Oxygen Delivery Room Air Method Head: Is atraumatic normocephalic. EYES: Pupils equal round regular reactive to light and accommodation. Extraocular movements are normal there is no conjunctival pallor there is no specific scleral icterus. EARS: Tympanic membranes are intact. External auditory canals are clear. NOSE: There is no deviated nasal septum. There is no inflammation of these mucous membrane. MOUTH:. There is no bleeding from the gums. Mucous membranes of the mouth are moist. THROAT: There is no redness of the oropharynx. There is no exudates. SKIN: There is no skin lesions or skin rashes. There is no petechia or ecchymosis. NECK: Is supple. There is no JVD. Carotids equal there is faint bilateral carotid bruits present. There is no lymphadenopathy. There is no goiter. There is no accessory muscle respiration use. Trachea central. LUNGS: There is diminished air entry and prolonged expiration. Scattered rhonchi. There is no rhonchi or rales. There is an area of absent breath sounds in the left base. This is consistent with pleural effusion. On percussion there is hyperresonance except in the area of dullness mentioned about.. There is some chest wall tenderness on pressing on the left front of the chest. HEART: S1-S2 is heard. There is no S3 gallop. There is no S4 gallop. There is systolic murmur of MR and TR present. There is no rub. ABDOMEN: Soft. There is no hepatospleno megaly. Bowel sounds are well heard. There is no tender areas masses. EXTREMITIES: Femorals are diminished. There is faint bilateral femoral bruits. 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 There is trace pedal edema. There is no sinus or clubbing. There is no DVT or cellulitis. 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 PSYCHIATRIC: The patient judgment and insight are intact her affect is normal. IMPRESSION/RECOMMENDATION: 1. Noncardiac chest pain, with no acute EKG changes, and with elevated troponin I in the setting of acute on chronic renal failure. Hence this is consistent with supply demand mismatch type II myocardial infarction and not non-ST elevation [place]. Hence we will treat the cause and would not treat this patient as a non-ST elevation [place]. 2. Most likely patient has volume overload heart failure. 3. Acute on chronic renal failure. The patient's GFR is worsened to 33 from a baseline of 42. 4. Coronary artery disease: History of old myocardial infarction. No clear-cut anginal symptoms. No evidence of acute coronary syndrome. Continue aspirin anti-CAD medication. 5. Cardiomyopathy: Combined ischemic and dilated. Note the patient had an echocardiogram on the which showed moderately reduced LV ejection fraction of 35% with multiple wall motion of normality. The patient's symptoms of palpitations and short syncopal episodes. Would recommend that the patient have a LifeVest until an ICD is placed. This has been discussed with the patient in detail. LifeVest awaited. 6.Hypertension: Blood pressure well controlled 7. History of CVA with residual left hemiparesis. 8. History of asthma/COPD. Most likely patient has an episode of acute exacerbation of COPD which is getting better. Continue anti-COPD treatment. Consider antibiotics if clinically indicated. Medications reviewed. Medications and management plan discussed with attending physician. Medical decision making is high complexity. 60 minutes spent on this patient more than 50% of time spent in direct patient care.
[2018-10-30] MEDS: MONTELUKAST SODIUM 10 MG TABLET PO SCH (21:13)
[2018-10-30] MEDS: ATORVASTATIN CALCIUM 80 MG TABLET PO SCH (21:13)
--- NOTE | 2018-10-30 21:37 | PDOC PROGRESS REPORT ---
Subjective Progress Note for:: 10/30/18 Subjective:: She said she does not feel well, She is waiting on LifeVest after which she be discharged home Reason For Visit: CHF,ISCHEMIC CARDIOMYOPATHY Physical Exam Vital Signs: Temp Pulse Resp BP Pulse Ox 98.2 F 69 16 132/89 H 97 10/30/18 16:27 10/30/18 19:00 10/30/18 16:27 10/30/18 16:27 10/30/18 16:27 Intake & Output 10/29/18 10/30/18 10/31/18 06:59 06:59 06:59 Intake Total 798 1156 Output Total 2150 1775 400 Balance -2150 -977 756 Weight 107.5 kg 105.6 kg General appearance: PRESENT: no acute distress Eye exam: PRESENT: PERRLA Respiratory exam: PRESENT: clear to auscultation freida Cardiovascular exam: PRESENT: +S1, +S2 Results Laboratory Results: 10/28/18 04:52 10/28/18 04:52 10/25/18 06:30 Blood Blood Culture - Final NO GROWTH IN 5 DAYS 10/24/18 10/24/18 10/24/18 20:05 20:05 23:53 Creatine Kinase 88 CK-MB (CK-2) Troponin I 0.657 0.617 NT-Pro-B Natriuret Pep 9950 H 10/25/18 10/25/18 10/25/18 06:30 06:30 12:20 Creatine Kinase 84 81 CK-MB (CK-2) 1.25 Troponin I 0.552 NT-Pro-B Natriuret Pep 10/25/18 10/25/18 10/25/18 12:20 17:51 17:51 Creatine Kinase 79 CK-MB (CK-2) 1.16 1.25 Troponin I 0.448 0.432 NT-Pro-B Natriuret Pep Impressions: Chest X-Ray 10/24/18 19:29 otherwise clear. IMPRESSION: Question tiny left pleural effusion. Otherwise no acute findings. Renal Ultrasound 10/26/18 00:00 IMPRESSION: 1. Increased echogenicity of the renal parenchyma could represent chronic medical renal disease. There is no hydronephrosis. 2. 1.4 x 1.8 x 1.9 cm hypoechoic structure in the lower pole of the left kidney demonstrates no internal flow on Doppler and could represent a cyst. 3. Gallbladder sludge. Assessment & Plan - Diagnosis (1) Non-ST elevated myocardial infarction Is this a current diagnosis for this admission?: Yes (2) Acute systolic heart failure Is this a current diagnosis for this admission?: Yes (3) CKD (chronic kidney disease), stage III Is this a current diagnosis for this admission?: Yes (4) Coronary artery disease Qualifiers: Coronary Disease-Associated Artery/Lesion type: unspecified vessel or lesion type [place] vs. transplanted heart: [place] heart Associated angina: without angina Qualified Code(s): I25.10 - Atherosclerotic heart disease of [place] coronary artery without angina pectoris Is this a current diagnosis for this admission?: Yes (5) Peripheral vascular disease Is this a current diagnosis for this admission?: Yes (6) Chronic obstructive pulmonary disease Qualifiers: COPD type: unspecified COPD Qualified Code(s): J44.9 - Chronic obstructive pulmonary disease, unspecified Is this a current diagnosis for this admission?: Yes (7) E. coli UTI Is this a current diagnosis for this admission?: Yes
[2018-10-31] MEDS: CIPROFLOXACIN HCL 500 MG TABLET PO SCH (05:18)
[2018-10-31] MEDS: HYDROXYCHLOROQUINE SULFATE 200 MG TABLET PO SCH (09:42)
[2018-10-31] MEDS: TIOTROPIUM BROMIDE DPI 5 CAP/KIT (18 MCG/CAP) IH SCH (09:42)
[2018-10-31] MEDS: APIXABAN 2.5 MG TABLET PO SCH (09:42)
[2018-10-31] MEDS: TOPIRAMATE 25 MG TABLET PO SCH (09:42)
[2018-10-31] MEDS: FUROSEMIDE 40 MG TABLET PO SCH (09:42)
[2018-10-31] MEDS: METOPROLOL SUCCINATE 25 MG TAB.SR.24H PO SCH (09:43)
[2018-10-31] MEDS: LOSARTAN POTASSIUM 25 MG TABLET PO SCH (09:43)
[2018-10-31] MEDS: PANTOPRAZOLE SODIUM 40 MG TABLET.DR PO SCH (09:43)
[2018-10-31 15:46] VITALS: BP 102/75
--- NOTE | 2018-10-31 19:00 | PDOC DISCHARGE SUMMARY ---
General - Admit/Disc Date/PCP Admission Date/Primary Care Provider: 10/25/18 02:06 TEODORO HOROWITZ MD Discharge Date: 10/31/18 - Discharge Diagnosis (1) Non-ST elevated myocardial infarction Is this a current diagnosis for this admission?: Yes (2) Acute systolic heart failure Is this a current diagnosis for this admission?: Yes (3) CKD (chronic kidney disease), stage III Is this a current diagnosis for this admission?: Yes (4) Coronary artery disease Is this a current diagnosis for this admission?: Yes (5) Peripheral vascular disease Is this a current diagnosis for this admission?: Yes (6) Chronic obstructive pulmonary disease Is this a current diagnosis for this admission?: Yes (7) E. coli UTI Is this a current diagnosis for this admission?: Yes - Additional Information Discharge Diet: Cardiac Discharge Activity: Activity As Tolerated, Balance Activity w/Rest, Weigh Daily Home Medications: RX: Albuterol Sulfate [Proair HFA Inhalation Aerosol 8.5 gm MDI] 2 puff IH Q4HP PRN 10/25/18 RX: Apixaban [Eliquis 2.5 mg Tablet] 2.5 mg PO Q12 10/25/18 RX: Atorvastatin Calcium [Lipitor 80 mg Tablet] 80 mg PO QHS 10/25/18 RX: Doxepin HCl [Silenor] 6 mg PO QHS 10/25/18 RX: Furosemide [Lasix 40 mg Tablet] 40 mg PO BID 10/25/18 RX: Hydroxychloroquine Sulfate [Plaquenil 200 mg Tablet] 200 mg PO BID 10/25/18 RX: Losartan Potassium [Cozaar 25 mg Tablet] 25 mg PO DAILY 10/25/18 RX: Metoprolol Succinate [Toprol Xl 25 mg Tab.sr] 25 mg PO DAILY 10/25/18 RX: Montelukast Sodium [Singulair 10 mg Tablet] 10 mg PO QHS 10/25/18 RX: Pantoprazole Sodium [Protonix [address] Tablet] 40 mg PO DAILY 10/25/18 RX: Tiotropium Ray [Spiriva Handihaler 5 Cap/Kit (18 Mcg/Cap)] 1 cap IH DAILY 10/25/18 RX: Topiramate 50 mg PO BID 10/25/18 History of Present Illness History of Present Illness: KEYONA TAYLOR is a 63 year old female, She came to the emergency room earlier this morning for evaluation of shortness of breath according to the ER record she is treated that she had a cold for about a week, she was coughing, it was nonproductive, she noticed left-sided chest pain, patient is well-known to me she has a history of ischemic cardiomyopathy, MO in the past status post CABG with multiple stent placements of the coronary vessels, she is a vasculopath history of CVA 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 coli UTI, chronic kidney disease stage III. She was seen by the catalyst operator Dr. Miles, 2D echo was done, the ejection fraction of left ventricle was 35%, a LifeVest was recommended on this admission. Ultimately she will require a permanent defibrillator. She was treated medically for the non- ST elevated myocardial infarction. She has a history of underlying CAD with multiple stenting of the coronary vessels, history of multiple strokes with residual dysphasia, memory lapses. Patient's overall prognosis is guarded Physical Exam Vital Signs: Temp Pulse Resp BP Pulse Ox 97.7 F 69 17 102/75 100 10/31/18 15:42 10/31/18 15:42 10/31/18 15:42 10/31/18 15:42 10/31/18 15:42 Intake & Output 10/30/18 10/31/18 11/01/18 06:59 06:59 06:59 Intake Total 798 1156 Output Total 1775 1200 Balance -977 -44 Weight 105.6 kg 107.8 kg General appearance: PRESENT: no acute distress Head exam: PRESENT: atraumatic, normocephalic Eye exam: PRESENT: conjunctiva pink, EOMI, PERRLA Neck exam: PRESENT: full ROM Respiratory exam: PRESENT: clear to auscultation freida Cardiovascular exam: PRESENT: RRR, +S1, +S2 Pulses: PRESENT: normal dorsalis pedis pul, +2 pedal pulses bilateral Vascular exam: PRESENT: normal capillary refill GI/Abdominal exam: PRESENT: normal bowel sounds, soft Rectal exam: PRESENT: deferred Neurological exam: PRESENT: alert, CN II-XII grossly intact Psychiatric exam: PRESENT: appropriate affect, normal mood Skin exam: PRESENT: dry, intact, warm Results Laboratory Results: 10/28/18 04:52 10/28/18 04:52 10/24/18 10/24/18 10/24/18 20:05 20:05 23:53 Creatine Kinase 88 CK-MB (CK-2) Troponin I 0.657 0.617 NT-Pro-B Natriuret Pep 9950 H 10/25/18 10/25/18 10/25/18 06:30 06:30 12:20 Creatine Kinase 84 81 CK-MB (CK-2) 1.25 Troponin I 0.552 NT-Pro-B Natriuret Pep 10/25/18 10/25/18 10/25/18 12:20 17:51 17:51 Creatine Kinase 79 CK-MB (CK-2) 1.16 1.25 Troponin I 0.448 0.432 NT-Pro-B Natriuret Pep Impressions: Chest X-Ray 10/24/18 19:29 otherwise clear. IMPRESSION: Question tiny left pleural effusion. Otherwise no acute findings. Renal Ultrasound 10/26/18 00:00 IMPRESSION: 1. Increased echogenicity of the renal parenchyma could represent chronic medical renal disease. There is no hydronephrosis. 2. 1.4 x 1.8 x 1.9 cm hypoechoic structure in the lower pole of the left kidney demonstrates no internal flow on Doppler and could represent a cyst. 3. Gallbladder sludge. Qualifiers - * PATIENT BEING DISCHARGED WITH ANY OF THE FOLLOWING DIAGNOSIS: MO VTE patient discharged on overlapping Therapy?: Yes Stroke Pt being discharged on Anti-thrombolytic therapy?: Yes Stroke Pt being discharged on Anti-coagulation therapy?: No Reason(s) for not prescribing Anti-coagulation therapy:: Not indicated Stroke Pt being discharged on Statins?: No Reason(s) for not prescribing Statins therapy:: Not indicated MO Pt being discharged on Aspirin therapy?: Yes MO Pt being discharged on Statins?: Yes MO Pt discharged ACEI/ARBS?: Yes Acute Heart Failure - Is this a Heart Failure Patient?: Yes Documentation of LVEF assessment?: Yes LVEF < 40%?: Yes-if yes answer questions a through e a) Discharged on ACEI?: Yes b) Discharges on ARB?: Yes c) Discharged on ARNI?: Yes d) Discharged on evidence-based Beta michelle(carvedilol, sustained release metoprolol succinate, or bisoprolol)?: Yes e) For LVEF <35%, discharged on Aldosterone antagonist?: No-document contraincations Follow-up Appointment scheduled within 7 days?: Yes
== END 2018-10-31 18:36 | disposition home health service (06) | DRG 280 ==
LOC: ER 18:52 → EH 10-25 02:06 → 3S 10-25 13:17
PROVIDERS: ADMIT Internal Medicine; ATTEND Internal Medicine
DX: I21.4 Non-ST elevation (NSTEMI) myocardial infarction (principal); I50.21 Acute systolic (congestive) heart failure; I13.0 Hypertensive heart and chronic kidney disease with heart failure and stage 1 through stage 4 chronic kidney disease, or unspecified chronic kidney disease; N39.0 Urinary tract infection, site not specified; I69.354 Hemiplegia and hemiparesis following cerebral infarction affecting left non-dominant side; N17.9 Acute kidney failure, unspecified; I42.9 Cardiomyopathy, unspecified; I48.0 Paroxysmal atrial fibrillation; I25.10 Atherosclerotic heart disease of native coronary artery without angina pectoris; E78.5 Hyperlipidemia, unspecified; M79.7 Fibromyalgia; J44.9 Chronic obstructive pulmonary disease, unspecified; N18.3 Chronic kidney disease, stage 3 (moderate); I73.9 Peripheral vascular disease, unspecified; B96.20 Unspecified Escherichia coli [E. coli] as the cause of diseases classified elsewhere; K21.9 Gastro-esophageal reflux disease without esophagitis; F32.9 Major depressive disorder, single episode, unspecified; Z95.5 Presence of coronary angioplasty implant and graft; I25.2 Old myocardial infarction; Z89.512 Acquired absence of left leg below knee; Z87.891 Personal history of nicotine dependence; Z79.51 Long term (current) use of inhaled steroids; Z79.899 Other long term (current) drug therapy; Z85.3 Personal history of malignant neoplasm of breast; Z90.12 Acquired absence of left breast and nipple; Z79.02 Long term (current) use of antithrombotics/antiplatelets
CPT/HCPCS: 36415; 71046; 76770; 80048; 80053; 80061; 80076; 80307; 81001; 82140; 82150; 82550; 82553; 83036; 83690; 83735; 83880; 84100; 84439; 84443; 84484; 85025; 85610; 85730; 87040; 87077; 87086; 87088; 87186; 93005; 93010; 93306; 96374; 99291; J1940; J3490

== ENCOUNTER 2018-11-19 12:36 | Inpatient (IN) | payer MEDICARE, MEDICAID ==
--- NOTE | 2018-11-19 14:04 | ER Document Report ---
ED Medical Screen (RME) - General Chief Complaint: Feet Swelling Stated Complaint: FOOT SWELLING Time Seen by Provider: 11/19/18 13:57 Primary Care Provider: TEODORO HOROWITZ MD [Primary Care Provider] - Follow up as needed Notes: Patient presents complaining of right lower extremity pain and swelling for the past 3 days. Patient also reports chest pain and shortness of breath over the same time period. Patient does have a history of CAD, hypertension CHF COPD lupus and wears a LifeVest. Patient also takes Eliquis as well as aspirin daily for history of blood clots. I have greeted and performed a rapid initial assessment of this patient. A comprehensive ED assessment and evaluation of the patient, analysis of test results and completion of the medical decision making process will be conducted by additional ED providers. TRAVEL OUTSIDE OF THE [place] IN LAST 30 DAYS: No - Related Data Allergies/Adverse Reactions: No Known Allergies Allergy (Verified 06/22/18 14:53) Past Medical History - Social History Frequency of alcohol use: None Drug Abuse: None - Past Medical History Cardiac Medical History: Reports: Hx Atrial Fibrillation - Paroxysmal atrial fibrillation, Hx Congestive Heart Failure, Hx Coronary Artery Disease, Hx Heart Attack, Hx Hypercholesterolemia, Hx Hypertension, Hx Peripheral Vascular Disease Denies: Hx Heart Murmur Pulmonary Medical History: Reports: Hx Asthma, Hx Bronchitis, Hx COPD Denies: Hx Pneumonia, Hx Tuberculosis Neurological Medical History: Denies: Hx Cerebrovascular Accident, Hx Seizures Renal/ Medical History: Denies: Hx Peritoneal Dialysis Malignancy Medical History: Reports: Hx Breast Cancer GI Medical History: Reports: Hx Gastroesophageal Reflux Disease Musculoskeltal Medical History: Reports Hx Arthritis, Reports Hx Fibromyalgia Psychiatric Medical History: Reports: Hx Depression Past Surgical History: Reports: Hx Cardiac Catheterization - 2002 Stent, 2004 Stent, Hx Coronary Stent - 2002([facility]), 2004([facility]), Hx Mastectomy - LEFT, Hx Orthopedic Surgery - left BKA due to peripheral vascular disease/ischemia. Denies: Hx Pacemaker - Immunizations Hx Diphtheria, Pertussis, Tetanus Vaccination: Yes Physical Exam - Vital signs Vitals: Temp Pulse Resp BP Pulse Ox 97.8 F 120 H 16 106/63 90 L 11/19/18 13:17 11/19/18 13:17 11/19/18 13:17 11/19/18 13:17 11/19/18 13:17 - General General appearance: Alert In distress: None Notes: 3-4+ edema to right lower extremity from knee distally, respirations unlabored, patient not tachycardic at this time heart rate in the 60s Course - Vital Signs Vital signs: Temp Pulse Resp BP Pulse Ox 97.8 F 120 H 16 106/63 90 L 11/19/18 13:17 11/19/18 13:17 11/19/18 13:17 11/19/18 13:17 11/19/18 13:17 Doctor's Discharge - Discharge Referrals: TEODORO HOROWITZ MD [Primary Care Provider] - Follow up as needed
--- NOTE | 2018-11-19 15:03 | RADIOLOGY REPORT (SQ) ---
EXAM DESCRIPTION: CHEST 2 VIEWS COMPLETED DATE/TIME: 11/19/2018 2:31 pm REASON FOR STUDY: marek, christopher COMPARISON: 10/24/2018 EXAM PARAMETERS: NUMBER OF VIEWS: two views TECHNIQUE: Digital Frontal and Lateral radiographic views of the chest acquired. RADIATION DOSE: NA LIMITATIONS: none FINDINGS: LUNGS AND PLEURA: No opacities, masses or pneumothorax. No pleural effusion. MEDIASTINUM AND HILAR STRUCTURES: No masses or contour abnormalities. HEART AND VASCULAR STRUCTURES: Cardiomegaly. No judy pulmonary edema. BONES: No acute findings. HARDWARE: None in the chest. OTHER: No other significant finding. IMPRESSION: Cardiomegaly without pulmonary edema. TECHNICAL DOCUMENTATION: JOB ID: [id number] [employer]- All Rights Reserved Reading location - IP/workstation name: [email or web address]
[2018-11-19 15:20] LABS: ABSOLUTE BASOPHILS # (AUTO) 0.1 10^3/uL (0.0-0.2); ABSOLUTE EOSINOPHILS # (AUTO) 0.1 10^3/uL (0.0-0.6); ABSOLUTE LYMPHOCYTES (AUTO) 1.8 10^3/uL (0.5-4.7); ABSOLUTE MONOCYTES (AUTO) 0.6 10^3/uL (0.1-1.4); ABSOLUTE NEUT (AUTO) 4.1 10^3/uL (1.7-8.2); BASOPHILS % (AUTO) 1.3 % (0-2); HEMATOCRIT 36.4 % (36.0-47.0); HEMOGLOBIN 11.9 g/dL (12.0-15.5); MEAN CORPUSCULAR HEMOGLOBIN 28.7 pg (27.0-33.4); MEAN CORPUSCULAR HGB CONC 32.7 g/dL (32.0-36.0); MEAN CORPUSCULAR VOLUME 88 fl (80-97); MONOCYTES % (AUTO) 9.4 % (3-13); PLATELET COUNT 117 10^3/uL (150-450); RED BLOOD COUNT 4.14 10^6/uL (3.72-5.28); RED CELL DISTRIBUTION WIDTH 15.7 % (11.5-14.0); SEGMENTED NEUTROPHILS % (AUTO) 60.3 % (42-78); TOTAL CELLS COUNTED % (AUTO) 100 %; WHITE BLOOD COUNT 6.8 10^3/uL (4.0-10.5)
[2018-11-19 15:39] LABS: ALKALINE PHOSPHATASE 103 U/L (38-126); ANION GAP 10 (5-19); ASPARTATE AMINO TRANSFERASE 18 U/L (14-36); BILIRUBIN,DIRECT 0.1 mg/dL (0.0-0.4); BILIRUBIN,TOTAL 0.5 mg/dL (0.2-1.3); BLOOD UREA NITROGEN 20 mg/dL (7-20); CALCIUM 9.8 mg/dL (8.4-10.2); CARBON DIOXIDE 25 mmol/L (22-30); CHLORIDE 106 mmol/L (98-107); GLUCOSE 116 mg/dL (75-110); POTASSIUM 3.9 mmol/L (3.6-5.0); TOTAL PROTEIN 8.1 g/dL (6.3-8.2)
[2018-11-19 16:08] LABS: TROPONIN I 0.057 ng/mL
--- NOTE | 2018-11-19 18:15 | EKG REPORT ---
SEVERITY:- ABNORMAL ECG - SINUS RHYTHM RBBB AND LAFB : Confirmed by: Som Jc MD 19-Nov-2018 18:06:35
--- NOTE | 2018-11-19 19:20 | ER Document Report ---
ED Extremity Problem, Lower - General Chief Complaint: Leg Swelling Stated Complaint: FOOT SWELLING Time Seen by Provider: 11/19/18 13:57 Primary Care Provider: TEODORO HOROWITZ MD [Primary Care Provider] - Follow up as needed Notes: Patient is a 63-year-old female with a history of coronary artery disease, hypertension, congestive heart failure, lupus who wears a cardiac LifeVest who presents to the emergency department with a chief complaint of right lower extremity swelling. Patient reports she developed swelling 3 days ago. Patient reports she is also noticed some redness to her foot. Patient reports she does have a history of blood clots. Patient reports she has had blood clots in her lungs and in her legs. Patient reports last time she had a known blood clot was 4 years ago. Patient reports she is on Eliquis. Patient states over the past 3 days she is also had intermittent chest pain and shortness of breath. Patient reports the chest pain is worse with movement. Patient reports she does have difficulty speaking as she did have a stroke 2 months ago. Patient denies any other deficit. Patient does have a left BKA. Patient denies fever. TRAVEL OUTSIDE OF THE [place] IN LAST 30 DAYS: No - Related Data Allergies/Adverse Reactions: No Known Allergies Allergy (Verified 06/22/18 14:53) Past Medical History - General Information source: Patient - Social History Smoking Status: Former Smoker Frequency of alcohol use: None Drug Abuse: None Lives with: Family Family History: Reviewed & Not Pertinent, Malignancy Patient has suicidal ideation: No Patient has homicidal ideation: No - Past Medical History Cardiac Medical History: Reports: Hx Atrial Fibrillation - Paroxysmal atrial fibrillation, Hx Congestive Heart Failure, Hx Coronary Artery Disease, Hx Heart Attack, Hx Hypercholesterolemia, Hx Hypertension, Hx Peripheral Vascular Disease Denies: Hx Heart Murmur Pulmonary Medical History: Reports: Hx Asthma, Hx Bronchitis, Hx COPD Denies: Hx Pneumonia, Hx Tuberculosis EENT Medical History: Reports: None Neurological Medical History: Reports: None. Denies: Hx Cerebrovascular Accident, Hx Seizures Endocrine Medical History: Reports: None Renal/ Medical History: Reports: None. Denies: Hx Peritoneal Dialysis Malignancy Medical History: Reports: Hx Breast Cancer GI Medical History: Reports: Hx Gastroesophageal Reflux Disease Musculoskeletal Medical History: Reports Hx Arthritis, Reports Hx Fibromyalgia Skin Medical History: Reports None Psychiatric Medical History: Reports: Hx Depression Traumatic Medical History: Reports: None Infectious Medical History: Reports: None Past Surgical History: Reports: Hx Cardiac Catheterization - 2002 Stent, 2005 Stent, Hx Coronary Stent - 2002([place]), 2005([facility]), Hx Mastectomy - LEFT, Hx Orthopedic Surgery - left BKA due to peripheral vascular disease/ischemia. Denies: Hx Pacemaker - Immunizations Hx Diphtheria, Pertussis, Tetanus Vaccination: Yes Review of Systems - Review of Systems Constitutional: No symptoms reported EENT: No symptoms reported Cardiovascular: See HPI Respiratory: See HPI Gastrointestinal: No symptoms reported Genitourinary: No symptoms reported Female Genitourinary: No symptoms reported Skin: No symptoms reported Hematologic/Lymphatic: No symptoms reported Neurological/Psychological: No symptoms reported Physical Exam - Vital signs Vitals: Temp Pulse Resp BP Pulse Ox 97.8 F 68 16 106/63 98 11/19/18 13:17 11/19/18 13:17 11/19/18 13:17 11/19/18 13:17 11/19/18 13:17 Interpretation: Normal - Notes Notes: GENERAL: Well-appearing, well-nourished and in no acute distress. HEAD: Atraumatic, normocephalic. EYES: Pupils equal round and reactive to light, extraocular movements intact, sclera anicteric, conjunctiva are normal. ENT: Nares patent, oropharynx clear without exudates. Moist mucous membranes. NECK: Normal range of motion, supple without lymphadenopathy or JVD. LUNGS: Breath sounds clear to auscultation bilaterally and equal. No wheezes rales or rhonchi. HEART: Regular rate and rhythm without murmurs, rubs or gallops. + cardiac life vest in place. ABDOMEN: Soft, obese, nontender, normoactive bowel sounds. No guarding, no rebound. No masses appreciated. BACK: No cervical, thoracic, lumbar midline tenderness. No saddle anesthesia, normal distal neurovascular exam. GENITOURINARY: Deferred. EXTREMITIES: Left BKA - patient has a prosthesis in place. RLE; + 3 pitting edema with minimal erythema to dorsal aspect of the right foot. No open wound. NEUROLOGICAL: Cranial nerves II through XII grossly intact. + dysphasia (reports hx. of stroke and present for two months) PSYCH: Normal mood, normal affect and. SKIN: Warm, Dry, normal turgor, no rashes or lesions noted. Course - Re-evaluation Re-evalutation: 11/19/18 19:19 Patient's right lower extremity Doppler was unofficially read as negative. 11/19/18 20:03 I did speak with Dr. Horowitz the patient primary care physician who will admit to the hospital. I have ordered a second troponin. - Vital Signs Vital signs: Temp Pulse Resp BP Pulse Ox 97.8 F 68 14 121/73 99 11/19/18 13:17 11/19/18 14:04 11/19/18 19:01 11/19/18 19:00 11/19/18 16:00 - Laboratory Result Diagrams: 11/19/18 15:02 11/19/18 15:02 Laboratory results interpreted by me: 11/19/18 11/19/18 11/19/18 15:02 15:02 15:02 Hgb 11.9 L RDW 15.7 H Plt Count 117 L Creatinine 1.76 H Est GFR ( Amer) 35 L Est GFR (MDRD) Non-Af 29 L Glucose 116 H NT-Pro-B Natriuret Pep 3020 H 11/19/18 20:04 Laboratory 11/19/18 11/19/18 11/19/18 15:02 15:02 15:02 WBC 6.8 RBC 4.14 Hgb 11.9 L Hct 36.4 MCV 88 MCH 28.7 MCHC 32.7 RDW 15.7 H Plt Count 117 L Lymph % (Auto) 27.0 [place] % (Auto) 9.4 Eos % (Auto) 2.0 Baso % (Auto) 1.3 Absolute Neuts (auto) 4.1 Absolute Lymphs (auto) 1.8 Absolute Monos (auto) 0.6 Absolute Eos (auto) 0.1 Absolute Basos (auto) 0.1 Seg Neutrophils % 60.3 Sodium 141.0 Potassium 3.9 Chloride 106 Carbon Dioxide 25 Anion Gap 10 BUN 20 Creatinine 1.76 H Est GFR ( Amer) 35 L Est GFR (MDRD) Non-Af 29 L Glucose 116 H Calcium 9.8 Magnesium 1.8 Total Bilirubin 0.5 Direct Bilirubin 0.1 Neonat Total Bilirubin Not Reportable Neonat Direct Bilirubin Not Reportable Neonat Indirect Bili Not Reportable AST 18 ALT 14 Alkaline Phosphatase 103 Troponin I 0.057 NT-Pro-B Natriuret Pep 3020 H Total Protein 8.1 Albumin 4.0 - Diagnostic Test Radiology reviewed: Reports reviewed Radiology results interpreted by me: 11/19/18 20:02 Chest X-Ray 11/19/18 13:58 IMPRESSION: Cardiomegaly without pulmonary edema. - EKG Interpretation by Me Additional EKG results interpreted by me: 11/19/18 19:20 Patient's EKG shows sinus rhythm with a heart rate of 64. Patient's OR interval 196, QT 40 and QTc is 496. Patient has a left axis deviation. Patient does have a right bundle branch block which is present on previous EKG which was obtained October 24, 2018. No ST segment changes in consecutive leads. Discharge - Discharge Clinical Impression: Chest pain Qualifiers: Chest pain type: unspecified Qualified Code(s): R07.9 - Chest pain, unspecified HTN (hypertension) Qualifiers: Hypertension type: unspecified Qualified Code(s): I10 - Essential (primary) hypertension Condition: Stable Disposition: ADMITTED INPATIENT Admitting Provider: [facility] Unit Admitted: [facility] Referrals: TEODORO HOROWITZ MD [Primary Care Provider] - Follow up as needed
[2018-11-19] MEDS ORDERED: METOLAZONE 2.5 MG TABLET PO SCH (21:15)
[2018-11-19] MEDS ORDERED: ASPIRIN 81 MG TABLET, CHEWABLE PO SCH (21:15)
[2018-11-19 22:00] LABS: PHOSPHORUS 3.8 mg/dL (2.5-4.5)
[2018-11-19] MEDS ORDERED: MONTELUKAST SODIUM 10 MG TABLET PO SCH (22:00)
[2018-11-19 22:17] LABS: FREE T4 (FREE THYROXINE) 0.77 ng/dL (0.78-2.19)
[2018-11-19 22:31] LABS: THYROID STIMULATING HORMONE 1.13 uIU/mL (0.47-4.68)
[2018-11-19 23:34] LABS: APPEARANCE,URINE SLIGHTLY-CLOUDY; BILIRUBIN,URINE NEGATIVE (NEGATIVE); COLOR,URINE YELLOW; GLUCOSE, URINE NEGATIVE (NEGATIVE); KETONES,URINE NEGATIVE (NEGATIVE); LEUKOCYTE ESTERASE,URINE SMALL (NEGATIVE); NITRITE,URINE POSITIVE (NEGATIVE); PROTEIN,URINE NEGATIVE (NEGATIVE); URINE SPECIFIC GRAVITY 1.017; UROBILINOGEN,URINE NEGATIVE mg/dL (<2.0)
[2018-11-20] MEDS: HYDROXYCHLOROQUINE SULFATE 200 MG TABLET PO SCH ×2 (00:33→09:50)
[2018-11-20] MEDS: METOPROLOL SUCCINATE 25 MG TAB.SR.24H PO SCH ×2 (00:33→09:50)
[2018-11-20] MEDS: APIXABAN 2.5 MG TABLET PO SCH ×3 (00:33→22:24)
[2018-11-20] MEDS: FUROSEMIDE 40 MG TABLET PO SCH ×3 (00:34→17:37)
[2018-11-20] MEDS: LOSARTAN POTASSIUM 25 MG TABLET PO SCH ×2 (00:34→09:50)
[2018-11-20 07:36] LABS: INTERNATIONAL RATION (INR) 1.28; PROTHROMBIN TIME 16.1 SEC (11.4-15.4)
[2018-11-20 07:37] LABS: PARTIAL THROMBOPLASTIN TIME 36.9 SEC (23.5-35.8)
[2018-11-20 07:41] LABS: ABSOLUTE BASOPHILS # (AUTO) 0.1 10^3/uL (0.0-0.2); ABSOLUTE EOSINOPHILS # (AUTO) 0.2 10^3/uL (0.0-0.6); ABSOLUTE LYMPHOCYTES (AUTO) 2.8 10^3/uL (0.5-4.7); ABSOLUTE MONOCYTES (AUTO) 0.9 10^3/uL (0.1-1.4); ABSOLUTE NEUT (AUTO) 4.5 10^3/uL (1.7-8.2); BASOPHILS % (AUTO) 1.2 % (0-2); EOSINOPHILS % (AUTO) 2.3 % (0-6); HEMATOCRIT 36.1 % (36.0-47.0); HEMOGLOBIN 11.9 g/dL (12.0-15.5); LYMPHOCYTES % (AUTO) 32.7 % (13-45); MEAN CORPUSCULAR HEMOGLOBIN 28.3 pg (27.0-33.4); MEAN CORPUSCULAR VOLUME 86 fl (80-97); MONOCYTES % (AUTO) 11.1 % (3-13); RED BLOOD COUNT 4.21 10^6/uL (3.72-5.28); RED CELL DISTRIBUTION WIDTH 15.5 % (11.5-14.0); SEGMENTED NEUTROPHILS % (AUTO) 52.7 % (42-78); TOTAL CELLS COUNTED % (AUTO) 100 %; WHITE BLOOD COUNT 8.4 10^3/uL (4.0-10.5)
[2018-11-20 07:58] LABS: PLATELET COUNT 96 10^3/uL (150-450)
[2018-11-20 09:36] LABS: ALKALINE PHOSPHATASE 100 U/L (38-126); ANION GAP 10 (5-19); ASPARTATE AMINO TRANSFERASE 19 U/L (14-36); BILIRUBIN,DIRECT 0.2 mg/dL (0.0-0.4); BILIRUBIN,TOTAL 0.9 mg/dL (0.2-1.3); BLOOD UREA NITROGEN 17 mg/dL (7-20); CALCIUM 9.9 mg/dL (8.4-10.2); CARBON DIOXIDE 24 mmol/L (22-30); CHLORIDE 107 mmol/L (98-107); CHOLESTEROL 215.74 mg/dL (0-200); GLUCOSE 92 mg/dL (75-110); TOTAL PROTEIN 7.8 g/dL (6.3-8.2); TRIGLYCERIDES 144 mg/dL (<150)
[2018-11-20 09:47] LABS: DIRECT LDL 133 mg/dL (<100)
[2018-11-20] MEDS: ATORVASTATIN CALCIUM 80 MG TABLET PO SCH (09:50)
--- NOTE | 2018-11-20 10:29 | XCELERA REPORT ---
[address] [place] [facility] [address] Lower Extremity Venous Evaluation Procedure: Color flow and duplex imaging of the veins of the right lower extremity as well as the left Common Femoral vein. Right Sided Venous Evaluation Normal vessel filling wall to wall, compression and augmentation as well as Colour flow down to the infrageniculate veins. Left Sided Venous Evaluation The left common femoral vein is fully compressible. Spontaneous and phasic flow is present in the left common femoral vein. Interpretation Summary No duplex evidence of DVT or obstruction in the right lower extremity nor in the left Common Femoral vein. Name: KEYONA TAYLOR Age: 63 yrs Gender: Female : 1955 Patient Status: Preadmit Patient Location: ER Study Date: 11/19/2018 04:08 PM Reason For Study: RLE pain, swelling Ordering Physician: CIRILO BADILLO Performed By: Kehinde Cramer : CIRILO BADILLO > Simon Vazquez
[2018-11-21 06:32] LABS: ABSOLUTE BASOPHILS # (AUTO) 0.1 10^3/uL (0.0-0.2); ABSOLUTE EOSINOPHILS # (AUTO) 0.2 10^3/uL (0.0-0.6); ABSOLUTE LYMPHOCYTES (AUTO) 2.4 10^3/uL (0.5-4.7); ABSOLUTE MONOCYTES (AUTO) 0.8 10^3/uL (0.1-1.4); ABSOLUTE NEUT (AUTO) 3.6 10^3/uL (1.7-8.2); BASOPHILS % (AUTO) 0.9 % (0-2); EOSINOPHILS % (AUTO) 2.3 % (0-6); HEMATOCRIT 34.1 % (36.0-47.0); HEMOGLOBIN 11.2 g/dL (12.0-15.5); LYMPHOCYTES % (AUTO) 33.8 % (13-45); MEAN CORPUSCULAR HEMOGLOBIN 28.4 pg (27.0-33.4); MEAN CORPUSCULAR HGB CONC 32.9 g/dL (32.0-36.0); MEAN CORPUSCULAR VOLUME 86 fl (80-97); RED BLOOD COUNT 3.95 10^6/uL (3.72-5.28); RED CELL DISTRIBUTION WIDTH 15.1 % (11.5-14.0); TOTAL CELLS COUNTED % (AUTO) 100 %
[2018-11-21 06:48] LABS: PLATELET COUNT 98 10^3/uL (150-450)
[2018-11-21] MEDS ORDERED: INFLUENZA QUAD (6MOS+) 2019-20 VAC 0.5 ML SYR IM ONE (08:00)
[2018-11-21] MEDS: FUROSEMIDE 40 MG TABLET PO SCH ×2 (09:05→18:13)
[2018-11-21] MEDS: ACETAMINOPHEN 325 MG TABLET PO PRN (09:05)
[2018-11-21] MEDS: HYDROXYCHLOROQUINE SULFATE 200 MG TABLET PO SCH (09:05)
[2018-11-21] MEDS: ATORVASTATIN CALCIUM 80 MG TABLET PO SCH (09:05)
[2018-11-21] MEDS: APIXABAN 2.5 MG TABLET PO SCH ×2 (09:05→21:15)
[2018-11-21] MEDS: LOSARTAN POTASSIUM 25 MG TABLET PO SCH (09:05)
[2018-11-21] MEDS: METOPROLOL SUCCINATE 25 MG TAB.SR.24H PO SCH (09:05)
--- NOTE | 2018-11-21 14:53 | PDOC H&P ---
History of Present Illness Admission Date/PCP: 11/19/18 20:08 TEODORO HOROWITZ MD History of Present Illness: KEYONA TAYLOR is a 63 year old female, She has a history of ischemic cardio myopathy, she came to the emergency room for evaluation of right leg swelling, she is status post left leg amputation, a stat venous Doppler was done, negative for deep vein thrombosis. She was just discharged recently from the hospital, she has a LifeVest in place, the ED provider want her admitted because of multiple risk factors and that she has symptoms of shortness of breath and also chest pain. Past Medical History Cardiac Medical History: Reports: Atrial Fibrillation - Paroxysmal atrial fibrillation, Congestive Heart Failure, Coronary Artery Disease, Myocardial Infarction, Hyperlipidema, Hypertension, Peripheral Vascular Disease Pulmonary Medical History: Reports: Asthma, Bronchitis, Chronic Obstructive Pulmonary Disease (COPD) EENT Medical History: Reports: None Neurological Medical History: Reports: None Endocrine Medical History: Reports: None Renal/ Medical History: Reports: None Malignancy Medical History: Reports: Breast Cancer GI Medical History: Reports: Gastroesophageal Reflux Disease Musculoskeltal Medical History: Reports: Arthritis, Fibromyalgia Skin Medical History: Reports: None Psychiatric Medical History: Reports: Depression Traumatic Medical History: Reports: None Infectious Medical History: Reports: None Past Surgical History Past Surgical History: Reports: Cardiac Catheterization - 2002 Stent, 2004 Stent, Coronary Stent - 2002([place]), 2004([facility]), Mastectomy - LEFT, Orthopedic Surgery - left BKA due to peripheral vascular disease/ischemia Social History Lives with: Family Smoking Status: Former Smoker Electronic Cigarette use?: No Last Time Smoked: 02/2016 Frequency of Alcohol Use: None Hx Recreational Drug Use: No Drugs: None Hx Prescription Drug Abuse: No Family History Family History: Reviewed & Not Pertinent, Malignancy Parental Family History Reviewed: Yes Children Family History Reviewed: Yes Sibling(s) Family History Reviewed.: Yes Medication/Allergy Home Medications: Albuterol Sulfate [Ventolin Hfa 8 gm Mdi (1 Mdi/ER Disp)] 2 puff IH Q4HP PRN 11/19/18 Apixaban [Eliquis 2.5 mg Tablet] 2.5 mg PO Q12 11/19/18 Atorvastatin Calcium [Lipitor 80 mg Tablet] 80 mg PO QHS 11/19/18 Doxepin HCl [Silenor] 6 mg PO QHS 11/19/18 Ergocalciferol (Vitamin D2) [Drisdol 50,000 unit (1.25MG) Capsule] 50,000 unit PO TH@1000 11/19/18 Furosemide [Lasix 40 mg Tablet] 40 mg PO BID 11/19/18 Hydroxychloroquine Sulfate [Plaquenil 200 mg Tablet] 200 mg PO BID 11/19/18 Linaclotide [Linzess] 72 mcg PO DAILY 11/19/18 Losartan Potassium [Cozaar 25 mg Tablet] 25 mg PO DAILY 11/19/18 Metoprolol Succinate [Toprol Xl 25 mg Tab.sr] 25 mg PO DAILY 11/19/18 Pantoprazole Sodium [Protonix [address] Tablet] 40 mg PO DAILY 11/19/18 Tiotropium [place] [Spiriva Handihaler 5 Cap/Kit (18 Mcg/Cap)] 1 puff IH DAILY 11/19/18 Topiramate [Topamax] 50 mg PO Q12 11/19/18 Allergies/Adverse Reactions: No Known Allergies Allergy (Verified 06/22/18 14:53) Review of Systems Constitutional: PRESENT: weakness Eyes: ABSENT: visual disturbances Ears: ABSENT: hearing changes Cardiovascular: PRESENT: chest pain, dyspnea on exertion, edema Respiratory: PRESENT: dyspnea Gastrointestinal: ABSENT: abdominal pain, constipation, diarrhea, hematemesis, hematochezia, nausea, vomiting Genitourinary: ABSENT: dysuria, hematuria Musculoskeletal: ABSENT: joint swelling Integumentary: ABSENT: rash, wounds Neurological: ABSENT: abnormal gait, abnormal speech, confusion, dizziness, focal weakness, syncope Psychiatric: ABSENT: anxiety, depression, homidical ideation, suicidal ideation Endocrine: ABSENT: cold intolerance, heat intolerance, menstrual abnormalities, polydipsia, polyuria Hematologic/Lymphatic: ABSENT: easy bleeding, easy bruising, lymphadenopathy Physical Exam Vital Signs: Temp Pulse Resp BP Pulse Ox 98.2 F 67 20 107/67 97 11/20/18 19:35 11/20/18 19:35 11/20/18 19:35 11/20/18 19:35 11/20/18 19:35 Intake & Output 11/19/18 11/20/18 11/21/18 06:59 06:59 06:59 Intake Total 1005 Output Total 500 575 Balance -500 430 Weight 105.4 kg General appearance: PRESENT: no acute distress, mild distress Head exam: PRESENT: atraumatic, normocephalic Eye exam: PRESENT: PERRLA Ear exam: PRESENT: normal external ear exam Mouth exam: PRESENT: moist, tongue midline Neck exam: PRESENT: full ROM Respiratory exam: PRESENT: clear to auscultation freida Cardiovascular exam: PRESENT: RRR, +S1, +S2 Vascular exam: PRESENT: normal capillary refill GI/Abdominal exam: PRESENT: normal bowel sounds, soft Rectal exam: PRESENT: deferred Extremities exam: PRESENT: left AKA Neurological exam: PRESENT: alert, CN II-XII grossly intact Psychiatric exam: PRESENT: appropriate affect, normal mood Skin exam: PRESENT: dry, intact, warm Results Laboratory Results: 11/20/18 07:06 11/20/18 08:35 11/19/18 11/19/18 11/19/18 15:02 15:02 20:27 WBC RBC Hgb Hct MCV MCH MCHC RDW Plt Count Seg Neutrophils % Sodium Potassium Chloride Carbon Dioxide Anion Gap BUN Creatinine Est GFR ( Amer) Glucose Calcium Phosphorus 3.8 Magnesium Cancelled 1.9 Total Bilirubin AST Alkaline Phosphatase Ammonia Total Protein Albumin Triglycerides Cholesterol LDL Cholesterol Direct VLDL Cholesterol HDL Cholesterol Amylase 51 Lipase 115.2 TSH 1.13 Free T4 0.77 L Urine Color Urine Appearance Urine pH Ur Specific [place] Urine Protein Urine Glucose (UA) Urine Ketones Urine Blood Urine Nitrite Ur Leukocyte Esterase Urine WBC (Auto) Urine RBC (Auto) 11/19/18 11/20/18 11/20/18 23:04 00:05 07:06 WBC 8.4 RBC 4.21 Hgb 11.9 L Hct 36.1 MCV 86 MCH 28.3 MCHC 33.0 RDW 15.5 H Plt Count 96 L Seg Neutrophils % 52.7 Sodium Potassium Chloride Carbon Dioxide Anion Gap BUN Creatinine Est GFR ( Amer) Glucose Calcium Phosphorus Magnesium Total Bilirubin AST Alkaline Phosphatase Ammonia < 8.7 L Total Protein Albumin Triglycerides Cholesterol LDL Cholesterol Direct VLDL Cholesterol HDL Cholesterol Amylase Lipase TSH Free T4 Urine Color YELLOW Urine Appearance SLIGHTLY-CLOUDY Urine pH 5.0 Ur Specific [place] 1.017 Urine Protein NEGATIVE Urine Glucose (UA) NEGATIVE Urine Ketones NEGATIVE Urine Blood NEGATIVE Urine Nitrite POSITIVE H Ur Leukocyte Esterase SMALL H Urine WBC (Auto) 39 Urine RBC (Auto) 2 11/20/18 08:35 WBC RBC Hgb Hct MCV MCH MCHC RDW Plt Count Seg Neutrophils % Sodium 141.0 Potassium 4.0 Chloride 107 Carbon Dioxide 24 Anion Gap 10 BUN 17 Creatinine 1.48 H Est GFR ( Amer) 43 L Glucose 92 Calcium 9.9 Phosphorus Magnesium Total Bilirubin 0.9 AST 19 Alkaline Phosphatase 100 Ammonia Total Protein 7.8 Albumin 4.0 Triglycerides 144 Cholesterol 215.74 H LDL Cholesterol Direct 133 H VLDL Cholesterol 29.0 HDL Cholesterol 43 Amylase Lipase TSH Free T4 Urine Color Urine Appearance Urine pH Ur Specific [place] Urine Protein Urine Glucose (UA) Urine Ketones Urine Blood Urine Nitrite Ur Leukocyte Esterase Urine WBC (Auto) Urine RBC (Auto) 11/19/18 11/19/18 11/19/18 15:02 20:27 20:27 Creatine Kinase Troponin I 0.057 0.049 NT-Pro-B Natriuret Pep 3020 H 3350 H 11/19/18 11/20/18 11/20/18 20:27 08:35 08:35 Creatine Kinase 61 60 Troponin I 0.053 NT-Pro-B Natriuret Pep 11/20/18 11/20/18 15:18 15:18 Creatine Kinase 62 Troponin I 0.044 NT-Pro-B Natriuret Pep Impressions: Chest X-Ray 11/19/18 13:58 IMPRESSION: Cardiomegaly without pulmonary edema. Assessment & Plan - Diagnosis (1) Acute combined systolic and diastolic ACC/AHA stage C congestive heart failure Is this a current diagnosis for this admission?: Yes Plan: Patient is admitted into the hospital for management (2) Chronic obstructive pulmonary disease Qualifiers: COPD type: unspecified COPD Qualified Code(s): J44.9 - Chronic obstructive pulmonary disease, unspecified Is this a current diagnosis for this admission?: Yes
--- NOTE | 2018-11-21 15:25 | PDOC PROGRESS REPORT ---
Subjective Progress Note for:: 11/21/18 Subjective:: Patient is having difficulty with mobility, loss of muscle strength with tendency to fall ,? CVA, get MRI of the brain, The MRI of the brain demonstrated new infarct in the caudate nucleus on the right side suggesting a new CVA Reason For Visit: CHF, CHEST PAIN Physical Exam Vital Signs: Temp Pulse Resp BP Pulse Ox 97.6 F 72 20 121/70 96 11/21/18 07:29 11/21/18 07:29 11/21/18 07:29 11/21/18 07:29 11/21/18 07:29 Intake & Output 11/20/18 11/21/18 11/22/18 06:59 06:59 06:59 Intake Total 1005 120 Output Total 500 2125 300 Balance -500 -1120 -180 Weight 105.4 kg 106.6 kg General appearance: PRESENT: no acute distress Respiratory exam: PRESENT: clear to auscultation [place] Cardiovascular exam: PRESENT: +S1, +S2 GI/Abdominal exam: PRESENT: soft Neurological exam: PRESENT: alert Results Laboratory Results: 11/21/18 06:09 11/20/18 08:35 11/21/18 06:09 WBC 7.0 RBC 3.95 Hgb 11.2 L Hct 34.1 L MCV 86 MCH 28.4 MCHC 32.9 RDW 15.1 H Plt Count 98 L Seg Neutrophils % 52.0 11/19/18 11/19/18 11/19/18 15:02 20:27 20:27 Creatine Kinase Troponin I 0.057 0.049 NT-Pro-B Natriuret Pep 3020 H 3350 H 11/19/18 11/20/18 11/20/18 20:27 08:35 08:35 Creatine Kinase 61 60 Troponin I 0.053 NT-Pro-B Natriuret Pep 11/20/18 11/20/18 15:18 15:18 Creatine Kinase 62 Troponin I 0.044 NT-Pro-B Natriuret Pep Impressions: Chest X-Ray 11/19/18 13:58 IMPRESSION: Cardiomegaly without pulmonary edema. Assessment & Plan - Diagnosis (1) Acute combined systolic and diastolic ACC/AHA stage C congestive heart failure Is this a current diagnosis for this admission?: Yes Plan: continue treatment (2) Chronic obstructive pulmonary disease Qualifiers: COPD type: unspecified COPD Qualified Code(s): J44.9 - Chronic obstructive pulmonary disease, unspecified Is this a current diagnosis for this admission?: Yes (3) Cerebrovascular accident Qualifiers: CVA mechanism: unspecified Qualified Code(s): I63.9 - Cerebral infarction, unspecified Is this a current diagnosis for this admission?: Yes Plan: Patient to be transitioned to inpatient care managed per protocol - Time Time Spent with patient: 35 or more minutes
--- NOTE | 2018-11-21 17:52 | RADIOLOGY REPORT (SQ) ---
EXAM DESCRIPTION: MRI HEAD WITHOUT COMPLETED DATE/TIME: 11/21/2018 5:35 pm REASON FOR STUDY: suspect CVA COMPARISON: 06/26/2018 TECHNIQUE: Multiplanar imaging includes non-contrasted T1, T2, FLAIR, and diffusion with ADC map seq uences. Images stored on PACS. LIMITATIONS: None. FINDINGS: ANATOMY: No anomalies. Normal vascular flow voids. Pituitary fossa normal. CSF SPACES: Normal in size and contour. No hemorrhage. CEREBRUM: Sulci and gyri normal in size and contour. Areas of increased white matter signal on FLAIR imaging. Old right frontal infarction. No evidence of hemorrhage, mass, or extraaxial fluid collec tion. POSTERIOR FOSSA: No signal alteration. No hemorrhage. No edema, masses or mass effect. Internal adam tory canals, cerebello-pontine angles, mastoids normal. DIFFUSION IMAGING: There is a focal area of abnormal diffusion in the head of the caudate nucleus on the right. There is a focal area of restricted diffusion in the right occipital lobe. ORBITS: No masses. Globes normal. PARANASAL SINUSES: No fluid levels. Mucosa normal. OTHER: No other significant finding. IMPRESSION: There appear to be 2 small focal infarctions on the right. 1 is in the head of the caud ate nucleus in the other in the occipital lobe. EVIDENCE OF ACUTE STROKE: NO. TECHNICAL DOCUMENTATION: JOB ID: [id number] [employer]- All Rights Reserved Reading location - IP/workstation name: [email or web address]
[2018-11-21] MEDS: NYSTATIN TOPICAL POWDER 15 GM TP SCH (18:43)
[2018-11-22 05:28] LABS: ABSOLUTE BASOPHILS # (AUTO) 0.1 10^3/uL (0.0-0.2); ABSOLUTE EOSINOPHILS # (AUTO) 0.2 10^3/uL (0.0-0.6); ABSOLUTE LYMPHOCYTES (AUTO) 2.8 10^3/uL (0.5-4.7); ABSOLUTE MONOCYTES (AUTO) 0.9 10^3/uL (0.1-1.4); BASOPHILS % (AUTO) 0.8 % (0-2); EOSINOPHILS % (AUTO) 2.6 % (0-6); HEMATOCRIT 35.3 % (36.0-47.0); HEMOGLOBIN 11.6 g/dL (12.0-15.5); LYMPHOCYTES % (AUTO) 35.4 % (13-45); MEAN CORPUSCULAR HEMOGLOBIN 28.3 pg (27.0-33.4); MEAN CORPUSCULAR HGB CONC 32.8 g/dL (32.0-36.0); MEAN CORPUSCULAR VOLUME 86 fl (80-97); MONOCYTES % (AUTO) 11.4 % (3-13); RED BLOOD COUNT 4.09 10^6/uL (3.72-5.28); RED CELL DISTRIBUTION WIDTH 15.5 % (11.5-14.0); SEGMENTED NEUTROPHILS % (AUTO) 49.8 % (42-78); TOTAL CELLS COUNTED % (AUTO) 100 %
[2018-11-22 05:41] LABS: PLATELET COUNT 89 10^3/uL (150-450)
[2018-11-22] MEDS: FUROSEMIDE 40 MG TABLET PO SCH ×2 (09:54→18:23)
[2018-11-22] MEDS: METOPROLOL SUCCINATE 25 MG TAB.SR.24H PO SCH (09:55)
[2018-11-22] MEDS: ATORVASTATIN CALCIUM 80 MG TABLET PO SCH (09:55)
[2018-11-22] MEDS: LOSARTAN POTASSIUM 25 MG TABLET PO SCH (09:55)
[2018-11-22] MEDS: APIXABAN 2.5 MG TABLET PO SCH ×2 (09:55→21:34)
[2018-11-22] MEDS: HYDROXYCHLOROQUINE SULFATE 200 MG TABLET PO SCH ×2 (09:55→18:23)
[2018-11-22] MEDS: NYSTATIN TOPICAL POWDER 15 GM TP SCH ×2 (09:56→18:23)
[2018-11-22] MEDS ORDERED: ALBUTEROL SULFATE HFA (90 MCG/PUFF) 8 GM MDI (1 MDI/ER DISP) IH PRN (13:20)
[2018-11-22] MEDS ORDERED: TIOTROPIUM BROMIDE DPI 5 CAP/KIT (18 MCG/CAP) IH SCH (13:30)
[2018-11-22] MEDS ORDERED: APIXABAN 2.5 MG TABLET PO SCH (13:30)
[2018-11-22] MEDS ORDERED: METOPROLOL SUCCINATE 25 MG TAB.SR.24H PO SCH (13:30)
[2018-11-22] MEDS ORDERED: FUROSEMIDE 40 MG TABLET PO SCH (13:30)
[2018-11-22] MEDS ORDERED: (PENDING PHARMACY ID) (Linaclotide [Linzess] 72 MCG) PO SCH (13:30)
[2018-11-22] MEDS ORDERED: ALBUTEROL SULFATE HFA (90 MCG/PUFF) 200 PUFF/8.5 GM MDI IH PRN (13:38)
--- NOTE | 2018-11-22 14:07 | Progress Note ---
Provider Note Provider Note: CARDIOLOGY PROGRESS NOTE by Dr. Mari Miles on 11/22/2018. SUBJECTIVE: The patient has no further chest pain. There is no PND orthopnea or shortness of breath. She complains of generalized fatigue and generalized weakness and inability to ambulate. Her MRI was unremarkable for any acute pathology. PHYSICAL EXAMINATION: The patient is moderately obese. At present no acute distress. Selected Entries 11/22/18 07:22 Temperature 97.4 F Temperature Oral Source Pulse Rate 70 Respiratory 17 Rate Blood Pressure 107/68 Blood Pressure 81 Mean BP Location Right Arm BP Position Supine O2 Sat by Pulse 94 Oximetry Oxygen Delivery Room Air Method Head: Is atraumatic normocephalic. EYES: Pupils equal round regular reactive to light and accommodation. Extraocular movements are normal there is no conjunctival pallor there is no specific scleral icterus. EARS: Tympanic membranes are intact. External auditory canals are clear. NOSE: There is no deviated nasal septum. There is no inflammation of these mucous membrane. MOUTH:. There is no bleeding from the gums. Mucous membranes of the mouth are moist. THROAT: There is no redness of the oropharynx. There is no exudates. SKIN: There is no skin lesions or skin rashes. There is no petechia or ecchymosis. NECK: Is supple. There is no JVD. Carotids equal there is faint bilateral carotid bruits present. There is no lymphadenopathy. There is no goiter. There is no accessory muscle respiration use. Trachea central. LUNGS: There is diminished air entry and prolonged expiration. Scattered rhonchi. There is no rhonchi or rales. There is an area of absent breath sounds in the left base. This is consistent with pleural effusion. On percussion there is hyperresonance except in the area of dullness mentioned about.. There is some chest wall tenderness on pressing on the left front of the chest. HEART: S1-S2 is heard. There is no S3 gallop. There is no S4 gallop. There is systolic murmur of MR and TR present. There is no rub. ABDOMEN: Soft. There is no hepatospleno megaly. Bowel sounds are well heard. There is no tender areas masses. EXTREMITIES: Femorals are diminished. There is faint bilateral femoral bruits. 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 There is trace pedal edema. There is no sinus or clubbing. There is no DVT or cellulitis. SERVICES TECH: There is the patient has dysarthria, and there is mild left residual hemiparesis paralysis. PSYCHIATRIC: The patient judgment and insight are intact her affect is normal. IMPRESSION/RECOMMENDATION: 1. Noncardiac chest pain, with no acute EKG changes, and with negative troponin I elevation. The patient has a IV Lexiscan Cardiolite stress test scheduled at my office on 12/03/2018. 2. Generalized fatigue and generalized weakness and ambulatory dysfunction. 3. Chronic renal failure. The patient's CKD stage III is stable 4. Coronary artery disease: History of old myocardial infarction. No clear-cut anginal symptoms. No evidence of acute coronary syndrome. Continue aspirin anti-CAD medication. 5. Cardiomyopathy: Combined ischemic and dilated. Note the patient had an echocardiogram on the which showed moderately reduced LV ejection fraction of 35% with multiple wall motion of normality. The patient's symptoms of palpitations and short syncopal episodes. Would recommend that the patient have a LifeVest until an ICD is placed. This has been discussed with the patient in detail. LifeVest awaited. 6.Hypertension: Blood pressure well controlled 7. History of CVA with residual left hemiparesis. 8. History of asthma/COPD. Stable Medications reviewed. Management plan discussed with the attending physician Dr. Vogt. Cardiac status is stable. Note medical decision making is of moderate complexity. Note 40 minutes spent on this patient more than 50% of time spent in direct patient care. Since cardiac status is stable will sign off and follow the patient in the office. Thank you
[2018-11-22] MEDS ORDERED: LOSARTAN POTASSIUM 25 MG TABLET PO SCH (14:30)
[2018-11-22] MEDS: PANTOPRAZOLE SODIUM 40 MG TABLET.DR PO SCH (16:10)
--- NOTE | 2018-11-22 21:04 | PDOC PROGRESS REPORT ---
Subjective Progress Note for:: 11/22/18 Subjective:: Patient is seen by the bedside, The MRI demonstrated evidence of stroke, she is very weak, presently on anticoagulant, she will require rehabilitation in a facility. Reason For Visit: CVA Physical Exam Vital Signs: Temp Pulse Resp BP Pulse Ox 97.7 F 76 20 121/67 100 11/22/18 19:57 11/22/18 19:57 11/22/18 19:57 11/22/18 19:57 11/22/18 19:57 Intake & Output 11/21/18 11/22/18 11/23/18 06:59 06:59 06:59 Intake Total 1005 585 580 Output Total 2125 1300 Balance -1120 -715 580 Weight 106.6 kg 102.6 kg General appearance: PRESENT: no acute distress Eye exam: PRESENT: PERRLA Respiratory exam: PRESENT: clear to auscultation [place] Cardiovascular exam: PRESENT: +S1, +S2 GI/Abdominal exam: PRESENT: soft Neurological exam: PRESENT: alert, CN II-XII grossly intact Results Laboratory Results: 11/22/18 05:12 11/20/18 08:35 11/22/18 05:12 WBC 8.0 RBC 4.09 Hgb 11.6 L Hct 35.3 L MCV 86 MCH 28.3 MCHC 32.8 RDW 15.5 H Plt Count 89 L Seg Neutrophils % 49.8 11/19/18 11/19/18 11/19/18 15:02 20:27 20:27 Creatine Kinase Troponin I 0.057 0.049 NT-Pro-B Natriuret Pep 3020 H 3350 H 11/19/18 11/20/18 11/20/18 20:27 08:35 08:35 Creatine Kinase 61 60 Troponin I 0.053 NT-Pro-B Natriuret Pep 11/20/18 11/20/18 15:18 15:18 Creatine Kinase 62 Troponin I 0.044 NT-Pro-B Natriuret Pep Impressions: Chest X-Ray 11/19/18 13:58 IMPRESSION: Cardiomegaly without pulmonary edema. Head MRI 11/21/18 00:00 IMPRESSION: There appear to be 2 small focal infarctions on the right. 1 is in the head of the caudate nucleus in the other in the occipital lobe. EVIDENCE OF ACUTE STROKE: NO. Assessment & Plan - Diagnosis (1) Acute combined systolic and diastolic ACC/AHA stage C congestive heart failure Is this a current diagnosis for this admission?: Yes (2) Chronic obstructive pulmonary disease Qualifiers: COPD type: unspecified COPD Qualified Code(s): J44.9 - Chronic obstructive pulmonary disease, unspecified Is this a current diagnosis for this admission?: Yes (3) Cerebrovascular accident Qualifiers: CVA mechanism: unspecified Qualified Code(s): I63.9 - Cerebral infarction, unspecified Is this a current diagnosis for this admission?: Yes Plan: Continue treatment for stroke (4) Coronary artery disease Qualifiers: Coronary Disease-Associated Artery/Lesion type: unspecified vessel or lesion type [place] vs. transplanted heart: [place] heart Associated angina: without angina Qualified Code(s): I25.10 - Atherosclerotic heart disease of [place] coronary artery without angina pectoris Is this a current diagnosis for this admission?: Yes (5) Paroxysmal atrial fibrillation Is this a current diagnosis for this admission?: Yes - Time Time Spent with patient: 35 or more minutes
[2018-11-22] MEDS: TOPIRAMATE 100 MG TABLET PO SCH (21:34)
[2018-11-22] MEDS ORDERED: (PENDING PHARMACY ID) (Doxepin Hcl [Silenor] 6 MG) PO SCH (22:00)
[2018-11-22] MEDS ORDERED: ATORVASTATIN CALCIUM 80 MG TABLET PO SCH (22:00)
[2018-11-23] MEDS: UMECLIDINIUM BROMIDE 62.5 MCG/DOSE IH SCH (09:57)
[2018-11-23] MEDS: TOPIRAMATE 100 MG TABLET PO SCH ×2 (09:58→22:06)
[2018-11-23] MEDS: ATORVASTATIN CALCIUM 80 MG TABLET PO SCH (09:59)
[2018-11-23] MEDS: METOPROLOL SUCCINATE 25 MG TAB.SR.24H PO SCH (10:00)
[2018-11-23] MEDS: FUROSEMIDE 40 MG TABLET PO SCH ×2 (10:00→17:22)
[2018-11-23] MEDS: PANTOPRAZOLE SODIUM 40 MG TABLET.DR PO SCH (10:00)
[2018-11-23] MEDS: LOSARTAN POTASSIUM 25 MG TABLET PO SCH (10:00)
[2018-11-23] MEDS: APIXABAN 2.5 MG TABLET PO SCH ×2 (10:02→22:05)
[2018-11-23] MEDS: HYDROXYCHLOROQUINE SULFATE 200 MG TABLET PO SCH ×2 (10:04→17:22)
[2018-11-23] MEDS: NYSTATIN TOPICAL POWDER 15 GM TP SCH ×2 (10:04→17:22)
[2018-11-23] MEDS: CEFTRIAXONE 1 GM/D5W RTU 1 GM/50 ML RTUPB IV SCH (17:21)
--- NOTE | 2018-11-23 20:32 | PDOC PROGRESS REPORT ---
Subjective Progress Note for:: 11/23/18 Subjective:: Patient is seen by the bedside, The MRI demonstrated evidence of stroke, she is very weak, presently on anticoagulant, she will require rehabilitation in a facility. Reason For Visit: CVA Physical Exam Vital Signs: Temp Pulse Resp BP Pulse Ox 97.9 F 65 16 93/58 L 96 11/23/18 18:21 11/23/18 19:41 11/23/18 19:41 11/23/18 19:41 11/23/18 19:41 Intake & Output 11/22/18 11/23/18 11/24/18 06:59 06:59 06:59 Intake Total 923 639 1096 Output Total 1300 1100 Balance -715 -123 1032 Weight 102.6 kg 101.1 kg General appearance: PRESENT: no acute distress Eye exam: PRESENT: PERRLA Respiratory exam: PRESENT: clear to auscultation [place] Cardiovascular exam: PRESENT: +S1, +S2 GI/Abdominal exam: PRESENT: soft Neurological exam: PRESENT: alert Results Laboratory Results: 11/22/18 05:12 11/20/18 08:35 11/19/18 23:04 Clean Catch Midstream Urine Culture - Final Escherichia Coli 11/19/18 11/19/18 11/19/18 15:02 20:27 20:27 Creatine Kinase Troponin I 0.057 0.049 NT-Pro-B Natriuret Pep 3020 H 3350 H 11/19/18 11/20/18 11/20/18 20:27 08:35 08:35 Creatine Kinase 61 60 Troponin I 0.053 NT-Pro-B Natriuret Pep 11/20/18 11/20/18 15:18 15:18 Creatine Kinase 62 Troponin I 0.044 NT-Pro-B Natriuret Pep Impressions: Chest X-Ray 11/19/18 13:58 IMPRESSION: Cardiomegaly without pulmonary edema. Head MRI 11/21/18 00:00 IMPRESSION: There appear to be 2 small focal infarctions on the right. 1 is in the head of the caudate nucleus in the other in the occipital lobe. EVIDENCE OF ACUTE STROKE: NO. Assessment & Plan - Diagnosis (1) Acute combined systolic and diastolic ACC/AHA stage C congestive heart failure Is this a current diagnosis for this admission?: Yes Plan: continue treatment (2) Chronic obstructive pulmonary disease Qualifiers: COPD type: unspecified COPD Qualified Code(s): J44.9 - Chronic obstructive pulmonary disease, unspecified Is this a current diagnosis for this admission?: Yes (3) Cerebrovascular accident Qualifiers: CVA mechanism: unspecified Qualified Code(s): I63.9 - Cerebral infarction, unspecified Is this a current diagnosis for this admission?: Yes (4) Coronary artery disease Qualifiers: Coronary Disease-Associated Artery/Lesion type: unspecified vessel or lesion type [place] vs. transplanted heart: [place] heart Associated angina: without angina Qualified Code(s): I25.10 - Atherosclerotic heart disease of [place] coronary artery without angina pectoris Is this a current diagnosis for this admission?: Yes (5) Paroxysmal atrial fibrillation Is this a current diagnosis for this admission?: Yes - Time Time Spent with patient: 35 or more minutes
[2018-11-23] MEDS: ACETAMINOPHEN 325 MG TABLET PO PRN (22:05)
[2018-11-24] MEDS ORDERED: NORMAL SALINE 1000 ML 1,000 ML IV ONE (01:30)
[2018-11-24] MEDS: METOPROLOL SUCCINATE 25 MG TAB.SR.24H PO SCH (09:28)
[2018-11-24] MEDS: LOSARTAN POTASSIUM 25 MG TABLET PO SCH (09:28)
[2018-11-24] MEDS: UMECLIDINIUM BROMIDE 62.5 MCG/DOSE IH SCH (09:47)
[2018-11-24] MEDS: PANTOPRAZOLE SODIUM 40 MG TABLET.DR PO SCH (09:48)
[2018-11-24] MEDS: TOPIRAMATE 100 MG TABLET PO SCH ×2 (09:48→22:13)
[2018-11-24] MEDS: FUROSEMIDE 40 MG TABLET PO SCH ×2 (09:48→17:36)
[2018-11-24] MEDS: APIXABAN 2.5 MG TABLET PO SCH ×2 (09:48→22:13)
[2018-11-24] MEDS: HYDROXYCHLOROQUINE SULFATE 200 MG TABLET PO SCH ×2 (09:48→17:36)
[2018-11-24] MEDS: NYSTATIN TOPICAL POWDER 15 GM TP SCH ×2 (09:48→17:36)
[2018-11-24] MEDS: ATORVASTATIN CALCIUM 80 MG TABLET PO SCH (09:48)
--- NOTE | 2018-11-24 13:41 | PDOC PROGRESS REPORT ---
Subjective Progress Note for:: 11/24/18 Subjective:: Patient seen by the bedside, the blood pressure has been on the low side Reason For Visit: CVA Physical Exam Vital Signs: Temp Pulse Resp BP Pulse Ox 97.6 F 62 16 92/54 L 97 11/24/18 08:36 11/24/18 08:36 11/24/18 08:36 11/24/18 08:36 11/24/18 08:36 Intake & Output 11/23/18 11/24/18 11/25/18 06:59 06:59 06:59 Intake Total 977 2082 Output Total 1100 200 Balance -123 1882 Weight 101.1 kg 102 kg 102 kg General appearance: PRESENT: no acute distress Eye exam: PRESENT: PERRLA Respiratory exam: PRESENT: clear to auscultation [place] Cardiovascular exam: PRESENT: +S1, +S2 GI/Abdominal exam: PRESENT: soft Results Laboratory Results: 11/22/18 05:12 11/20/18 08:35 11/19/18 23:04 Clean Catch Midstream Urine Culture - Final Escherichia Coli 11/19/18 11/19/18 11/19/18 15:02 20:27 20:27 Creatine Kinase Troponin I 0.057 0.049 NT-Pro-B Natriuret Pep 3020 H 3350 H 11/19/18 11/20/18 11/20/18 20:27 08:35 08:35 Creatine Kinase 61 60 Troponin I 0.053 NT-Pro-B Natriuret Pep 11/20/18 11/20/18 15:18 15:18 Creatine Kinase 62 Troponin I 0.044 NT-Pro-B Natriuret Pep Impressions: Chest X-Ray 11/19/18 13:58 IMPRESSION: Cardiomegaly without pulmonary edema. Head MRI 11/21/18 00:00 IMPRESSION: There appear to be 2 small focal infarctions on the right. 1 is in the head of the caudate nucleus in the other in the occipital lobe. EVIDENCE OF ACUTE STROKE: NO. Assessment & Plan - Diagnosis (1) Acute combined systolic and diastolic ACC/AHA stage C congestive heart failure Is this a current diagnosis for this admission?: Yes (2) Chronic obstructive pulmonary disease Qualifiers: COPD type: unspecified COPD Qualified Code(s): J44.9 - Chronic obstructive pulmonary disease, unspecified Is this a current diagnosis for this admission?: Yes (3) Cerebrovascular accident Qualifiers: CVA mechanism: unspecified Qualified Code(s): I63.9 - Cerebral infarction, unspecified Is this a current diagnosis for this admission?: Yes (4) Coronary artery disease Qualifiers: Coronary Disease-Associated Artery/Lesion type: unspecified vessel or lesion type [place] vs. transplanted heart: [place] heart Associated angina: without angina Qualified Code(s): I25.10 - Atherosclerotic heart disease of [place] coronary artery without angina pectoris Is this a current diagnosis for this admission?: Yes (5) Paroxysmal atrial fibrillation Is this a current diagnosis for this admission?: Yes - Time Time Spent with patient: 15-24 minutes
[2018-11-24] MEDS: CEFTRIAXONE 1 GM/D5W RTU 1 GM/50 ML RTUPB IV SCH (15:09)
[2018-11-25] MEDS: LOSARTAN POTASSIUM 25 MG TABLET PO SCH (09:23)
[2018-11-25] MEDS: METOPROLOL SUCCINATE 25 MG TAB.SR.24H PO SCH (09:23)
[2018-11-25] MEDS: ATORVASTATIN CALCIUM 80 MG TABLET PO SCH (10:22)
[2018-11-25] MEDS: FUROSEMIDE 40 MG TABLET PO SCH (10:22)
[2018-11-25] MEDS: TOPIRAMATE 100 MG TABLET PO SCH (10:22)
[2018-11-25] MEDS: APIXABAN 2.5 MG TABLET PO SCH (10:22)
[2018-11-25] MEDS: HYDROXYCHLOROQUINE SULFATE 200 MG TABLET PO SCH (10:23)
[2018-11-25] MEDS: UMECLIDINIUM BROMIDE 62.5 MCG/DOSE IH SCH (10:23)
[2018-11-25] MEDS: PANTOPRAZOLE SODIUM 40 MG TABLET.DR PO SCH (10:23)
[2018-11-25] MEDS: NYSTATIN TOPICAL POWDER 15 GM TP SCH (10:23)
--- NOTE | 2018-11-25 13:15 | PDOC DISCHARGE SUMMARY ---
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 Is this a current diagnosis for this admission?: Yes (2) Chronic obstructive pulmonary disease Is this a current diagnosis for this admission?: Yes (3) Cerebrovascular accident Is this a current diagnosis for this admission?: Yes (4) Coronary artery disease Is this a current diagnosis for this admission?: Yes (5) Paroxysmal atrial fibrillation Is this a current diagnosis for this admission?: Yes - Additional Information Discharge Diet: Cardiac, Diabetic Discharge Activity: Activity As Tolerated, Balance Activity w/Rest, Weigh Daily Referrals: TEODORO HOROWITZ MD [Primary Care Provider] - Follow up as needed Prescriptions: Ciprofloxacin HCl [Cipro 500 mg Tablet] 500 mg PO BID #10 tablet Home Medications: Albuterol Sulfate [Ventolin Hfa 8 gm Mdi (1 Mdi/ER Disp)] 2 puff IH Q4HP PRN 11/19/18 Apixaban [Eliquis 2.5 mg Tablet] 2.5 mg PO Q12 11/19/18 Atorvastatin Calcium [Lipitor 80 mg Tablet] 80 mg PO QHS 11/19/18 Doxepin HCl [Silenor] 6 mg PO QHS 11/19/18 Ergocalciferol (Vitamin D2) [Drisdol 50,000 unit (1.25MG) Capsule] 50,000 unit PO TH@1000 11/19/18 Furosemide [Lasix 40 mg Tablet] 40 mg PO BID 11/19/18 Hydroxychloroquine Sulfate [Plaquenil 200 mg Tablet] 200 mg PO BID 11/19/18 Linaclotide [Linzess] 72 mcg PO DAILY 11/19/18 Losartan Potassium [Cozaar 25 mg Tablet] 25 mg PO DAILY 11/19/18 Metoprolol Succinate [Toprol Xl 25 mg Tab.sr] 25 mg PO DAILY 11/19/18 Pantoprazole Sodium [Protonix [address] Tablet] 40 mg PO DAILY 11/19/18 Tiotropium Monarch [Spiriva Handihaler 5 Cap/Kit (18 Mcg/Cap)] 1 puff IH DAILY 11/19/18 Topiramate [Topamax] 50 mg PO Q12 11/19/18 Ciprofloxacin HCl [Cipro 500 mg Tablet] 500 mg PO BID #10 tablet 11/25/18 History of Present Illiness History of Present Illness: KEYONA TAYLOR is a 63 year old female, She has a history of ischemic cardiomyopathy, she came to the emergency room for evaluation of right leg swelling, she is status post left leg amputation, a stat venous Doppler was done, negative for deep vein thrombosis. She was just discharged recently from the hospital, she has a LifeVest in place, the ED provider want her admitted because of multiple risk factors and that she has symptoms of shortness of breath and also chest pain. Hospital Course Hospital Course: Patient was admitted for the management of acute on chronic combined systolic and diastolic heart failure, she was initially admitted for observation, she had muscle weakness with difficulty walking, stroke was suspected MRI of the head without contrast was obtained, it demonstrated 2 small focal infarctions on the right, in the aid of the caudate nucleus and also the occipital lobe. Patient was then transition from observation to inpatient, manage according to stroke protocol. The intent was to transfer out to longterm for rehabilitation but patient declined the option. Physical Exam Vital Signs: Temp Pulse Resp BP Pulse Ox 98.1 F 68 16 89/52 L 95 11/25/18 11:36 11/25/18 11:36 11/25/18 11:36 11/25/18 11:36 11/25/18 11:36 Intake & Output 11/24/18 11/25/18 11/26/18 06:59 06:59 06:59 Intake Total 2082 728 Output Total 200 1300 Balance 1882 -572 Weight 102 kg 100.7 kg General appearance: PRESENT: no acute distress Eye exam: PRESENT: PERRLA Respiratory exam: PRESENT: clear to auscultation freida Cardiovascular exam: PRESENT: +S1, +S2 GI/Abdominal exam: PRESENT: soft Neurological exam: PRESENT: alert Results Laboratory Results: WBC 8.0 10^3/uL (4.0-10.5) 11/22/18 05:12 RBC 4.09 10^6/uL (3.72-5.28) 11/22/18 05:12 Hgb 11.6 g/dL (12.0-15.5) L 11/22/18 05:12 Hct 35.3 % (36.0-47.0) L 11/22/18 05:12 MCV 86 fl (80-97) 11/22/18 05:12 MCH 28.3 pg (27.0-33.4) 11/22/18 05:12 MCHC 32.8 g/dL (32.0-36.0) 11/22/18 05:12 RDW 15.5 % (11.5-14.0) H 11/22/18 05:12 Plt Count 89 10^3/uL (150-450) L 11/22/18 05:12 Lymph % (Auto) 35.4 % (13-45) 11/22/18 05:12 [place] % (Auto) 11.4 % (3-13) 11/22/18 05:12 Eos % (Auto) 2.6 % (0-6) 11/22/18 05:12 Baso % (Auto) 0.8 % (0-2) 11/22/18 05:12 Absolute Neuts (auto) 4.0 10^3/uL (1.7-8.2) 11/22/18 05:12 Absolute Lymphs (auto) 2.8 10^3/uL (0.5-4.7) 11/22/18 05:12 Absolute Monos (auto) 0.9 10^3/uL (0.1-1.4) 11/22/18 05:12 Absolute Eos (auto) 0.2 10^3/uL (0.0-0.6) 11/22/18 05:12 Absolute Basos (auto) 0.1 10^3/uL (0.0-0.2) 11/22/18 05:12 Seg Neutrophils % 49.8 % (42-78) 11/22/18 05:12 PT 16.1 SEC (11.4-15.4) H 11/20/18 07:06 INR 1.28 11/20/18 07:06 APTT 36.9 SEC (23.5-35.8) H 11/20/18 07:06 Sodium 141.0 mmol/L (137-145) 11/20/18 08:35 Potassium 4.0 mmol/L (3.6-5.0) 11/20/18 08:35 Chloride 107 mmol/L (98-107) 11/20/18 08:35 Carbon Dioxide 24 mmol/L (22-30) 11/20/18 08:35 Anion Gap 10 (5-19) 11/20/18 08:35 BUN 17 mg/dL (7-20) 11/20/18 08:35 Creatinine 1.48 mg/dL (0.52-1.25) H 11/20/18 08:35 Est GFR ( Amer) 43 (>60) L 11/20/18 08:35 Est GFR (MDRD) Non-Af 36 (>60) L 11/20/18 08:35 Glucose 92 mg/dL (75-110) 11/20/18 08:35 Hemoglobin A1c % 6.2 % (4.7-6.0) H 11/20/18 08:35 Calcium 9.9 mg/dL (8.4-10.2) 11/20/18 08:35 Phosphorus 3.8 mg/dL (2.5-4.5) 11/19/18 15:02 Magnesium 1.9 mg/dL (1.6-2.3) 11/19/18 20:27 Total Bilirubin 0.9 mg/dL (0.2-1.3) 11/20/18 08:35 Direct Bilirubin 0.2 mg/dL (0.0-0.4) 11/20/18 08:35 Neonat Total Bilirubin Not Reportable 11/20/18 08:35 Neonat Direct Bilirubin Not Reportable 11/20/18 08:35 Neonat Indirect Bili Not Reportable 11/20/18 08:35 AST 19 U/L (14-36) 11/20/18 08:35 ALT 13 U/L (<35) 11/20/18 08:35 Alkaline Phosphatase 100 U/L (38-126) 11/20/18 08:35 Ammonia < 8.7 umol/L (9-33) L 11/20/18 00:05 Creatine Kinase 62 U/L (30-135) 11/20/18 15:18 Troponin I 0.044 ng/mL 11/20/18 15:18 NT-Pro-B Natriuret Pep 3350 pg/mL (5-900) H 11/19/18 20:27 Total Protein 7.8 g/dL (6.3-8.2) 11/20/18 08:35 Albumin 4.0 g/dL (3.5-5.0) 11/20/18 08:35 Triglycerides 144 mg/dL (<150) 11/20/18 08:35 Cholesterol 215.74 mg/dL (0-200) H 11/20/18 08:35 LDL Cholesterol Direct 133 mg/dL (<100) H 11/20/18 08:35 VLDL Cholesterol 29.0 mg/dL (10-31) 11/20/18 08:35 HDL Cholesterol 43 mg/dL (>40) 11/20/18 08:35 Amylase 51 U/L (30-110) 11/19/18 15:02 Lipase 115.2 U/L (23-300) 11/19/18 15:02 TSH 1.13 uIU/mL (0.47-4.68) 11/19/18 15:02 Free T4 0.77 ng/dL (0.78-2.19) L 11/19/18 15:02 Urine Color YELLOW 11/19/18 23:04 Urine Appearance SLIGHTLY-CLOUDY 11/19/18 23:04 Urine pH 5.0 (5.0-9.0) 11/19/18 23:04 Ur Specific Stout 1.017 11/19/18 23:04 Urine Protein NEGATIVE mg/dL (NEGATIVE) 11/19/18 23:04 Urine Glucose (UA) NEGATIVE mg/dL (NEGATIVE) 11/19/18 23:04 Urine Ketones NEGATIVE mg/dL (NEGATIVE) 11/19/18 23:04 Urine Blood NEGATIVE (NEGATIVE) 11/19/18 23:04 Urine Nitrite POSITIVE (NEGATIVE) H 11/19/18 23:04 Urine Bilirubin NEGATIVE (NEGATIVE) 11/19/18 23:04 Urine Urobilinogen NEGATIVE mg/dL (<2.0) 11/19/18 23:04 Ur Leukocyte Esterase SMALL (NEGATIVE) H 11/19/18 23:04 Urine WBC (Auto) 39 /HPF 11/19/18 23:04 Urine RBC (Auto) 2 /HPF 11/19/18 23:04 U Hyaline Cast (Auto) 1 /LPF 11/19/18 23:04 Urine Bacteria (Auto) 3+ /HPF 11/19/18 23:04 Squamous Epi Cells Auto 3 /HPF 11/19/18 23:04 Urine Mucus (Auto) OCC /LPF 11/19/18 23:04 Urine Ascorbic Acid NEGATIVE (NEGATIVE) 11/19/18 23:04 11/19/18 11/19/18 11/19/18 15:02 20:27 20:27 Troponin I 0.057 0.049 NT-Pro-B Natriuret Pep 3020 H 3350 H 11/20/18 11/20/18 08:35 15:18 Troponin I 0.053 0.044 NT-Pro-B Natriuret Pep Impressions: Chest X-Ray 11/19/18 13:58 IMPRESSION: Cardiomegaly without pulmonary edema. Head MRI 11/21/18 00:00 IMPRESSION: There appear to be 2 small focal infarctions on the right. 1 is in the head of the caudate nucleus in the other in the occipital lobe. EVIDENCE OF ACUTE STROKE: NO. Stroke Is this a Stroke Patient?: Yes Stroke Pt being discharged on Anti-thrombolytic therapy?: Yes Stroke Pt being discharged on Anti-coagulation therapy?: Yes Stroke Pt being discharged on Statins?: Yes Acute Heart Failure - Is this a Heart Failure Patient?: No
[2018-11-25 13:26] VITALS: BP 110/70
[2018-11-29] MEDS ORDERED: ERGOCALCIFEROL (VITAMIN D2) 50000 UNIT (1.25 MG) CAPSULE PO SCH (10:00)
== END 2018-11-25 14:00 | disposition home or self-care (01) | DRG 64 ==
LOC: ER 12:36 → EH 20:08 → INTOOBSV 20:08 → OBSVTOIN 21:47 → 3W 22:26
PROVIDERS: ADMIT Internal Medicine; ATTEND Internal Medicine
DX: I63.9 Cerebral infarction, unspecified (principal); I50.43 Acute on chronic combined systolic (congestive) and diastolic (congestive) heart failure; I42.0 Dilated cardiomyopathy; J44.9 Chronic obstructive pulmonary disease, unspecified; I25.10 Atherosclerotic heart disease of native coronary artery without angina pectoris; I48.0 Paroxysmal atrial fibrillation; I25.5 Ischemic cardiomyopathy; E78.5 Hyperlipidemia, unspecified; I11.0 Hypertensive heart disease with heart failure; K21.9 Gastro-esophageal reflux disease without esophagitis; F32.9 Major depressive disorder, single episode, unspecified; N18.3 Chronic kidney disease, stage 3 (moderate); E78.00 Pure hypercholesterolemia, unspecified; Z79.899 Other long term (current) drug therapy; I25.2 Old myocardial infarction; Z85.3 Personal history of malignant neoplasm of breast; Z95.5 Presence of coronary angioplasty implant and graft; Z89.512 Acquired absence of left leg below knee; Z90.12 Acquired absence of left breast and nipple; Z87.891 Personal history of nicotine dependence; Z79.01 Long term (current) use of anticoagulants
CPT/HCPCS: 36415; 70551; 71046; 80053; 80061; 81001; 82140; 82150; 82550; 83036; 83690; 83735; 83880; 84100; 84439; 84443; 84484; 85025; 85610; 85730; 87040; 87086; 87088; 87186; 93005; 93010; 93971; 99285; G0378; J0696; J3490; J7030

== ENCOUNTER 2019-02-09 16:31 | Inpatient (IN) | payer MEDICARE, MEDICAID ==
--- NOTE | 2019-02-09 18:20 | RADIOLOGY REPORT (SQ) ---
EXAM DESCRIPTION: CHEST SINGLE VIEW COMPLETED DATE/TIME: 02/09/2019 6:09 pm REASON FOR STUDY: shortness of breath COMPARISON: 11/19/2018 EXAM PARAMETERS: NUMBER OF VIEWS: One view. TECHNIQUE: Single frontal radiographic view of the chest acquired. RADIATION DOSE: NA LIMITATIONS: None. FINDINGS: LUNGS AND PLEURA: No opacities, masses or pneumothorax. No pleural effusion. MEDIASTINUM AND HILAR STRUCTURES: No masses. Contour normal. HEART AND VASCULAR STRUCTURES: Gross cardiomegaly. BONES: No acute findings. HARDWARE: None in the chest. OTHER: Surgical clips about the left axilla. IMPRESSION: Gross cardiomegaly without acute abnormality of the lungs in AP portable projection. TECHNICAL DOCUMENTATION: JOB ID: [id number] [employer]- All Rights Reserved Reading location - IP/workstation name: [email or web address]
--- NOTE | 2019-02-09 18:24 | ER Document Report ---
Entered by TC SCHMID SCRIBE 02/09/19 [id number] Acting as scribe for:ANTIONE VILLA IV, MD ED General - General Chief Complaint: Shortness Of Breath Stated Complaint: WEAKNESS/DIFFICULTY BREATHING Time Seen by Provider: 02/09/19 17:46 Primary Care Provider: TEODORO HOROWITZ MD [Primary Care Provider] - Follow up as needed Mode of Arrival: Medic Information source: Patient Notes: This 63 year old female patient brought in by EMS presents to the ED today with complaints of shortness of breath and weakness for the past x1 week. Patient states that when she got up to move around this morning, her symptoms worsened. Patient received the life vest x1 month ago by Dr. Ying due to possible need of pacemaker. Patient notes that she does not wear her life vest because " it keeps giving her problems." Patient reports a nonproductive cough. TRAVEL OUTSIDE OF THE [place] IN LAST 30 DAYS: No - Related Data Allergies/Adverse Reactions: No Known Allergies Allergy (Verified 06/22/18 14:53) Past Medical History - General Information source: Patient - Social History Smoking Status: Unknown if Ever Smoked Cigarette use (# per day): No Chew tobacco use (# tins/day): No Smoking Education Provided: No Frequency of alcohol use: None Drug Abuse: None Family History: Reviewed & Not Pertinent, Malignancy Patient has suicidal ideation: No Patient has homicidal ideation: No - Past Medical History Cardiac Medical History: Reports: Hx Atrial Fibrillation - Paroxysmal atrial fibrillation, Hx Congestive Heart Failure, Hx Coronary Artery Disease, Hx Heart Attack, Hx Hypercholesterolemia, Hx Hypertension, Hx Peripheral Vascular Disease Pulmonary Medical History: Reports: Hx Asthma, Hx Bronchitis, Hx COPD Malignancy Medical History: Reports: Hx Breast Cancer GI Medical History: Reports: Hx Gastroesophageal Reflux Disease Musculoskeletal Medical History: Reports Hx Arthritis, Reports Hx Fibromyalgia Psychiatric Medical History: Reports: Hx Depression Past Surgical History: Reports: Hx Cardiac Catheterization - 2002 Stent, 2004 Stent, Hx Coronary Stent - 2002([place]), 2004([place]), Hx Mastectomy - LEFT, Hx Orthopedic Surgery - left BKA due to peripheral vascular disease/ischemia - Immunizations Hx Diphtheria, Pertussis, Tetanus Vaccination: Yes Review of Systems - Review of Systems Constitutional: No symptoms reported EENT: No symptoms reported Cardiovascular: No symptoms reported Respiratory: See HPI, Cough, Short of breath Gastrointestinal: No symptoms reported Genitourinary: No symptoms reported Female Genitourinary: No symptoms reported Musculoskeletal: No symptoms reported Skin: No symptoms reported Hematologic/Lymphatic: No symptoms reported Neurological/Psychological: See HPI, Weakness -: Yes All other systems reviewed and negative Physical Exam - Vital signs Vitals: Resp Pulse Ox 22 H 97 02/09/19 16:41 02/09/19 16:41 - General General appearance: Alert - HEENT Head: Normocephalic, Atraumatic Eyes: Normal Pupils: PERRL - Respiratory Respiratory status: No respiratory distress Chest status: Nontender Breath sounds: Normal Chest palpation: Normal - Cardiovascular Rhythm: Regular Heart sounds: Normal auscultation Murmur: No - Abdominal Inspection: Normal Distension: No distension Bowel sounds: Normal Tenderness: Nontender - Abdomen soft Organomegaly: No organomegaly - Back Back: Normal, Nontender - Extremities General upper extremity: Normal inspection General lower extremity: Normal inspection - Neurological Neuro grossly intact: Yes - Psychological Associated symptoms: Normal affect, Normal mood - Skin Skin Temperature: Warm Skin Moisture: Dry Skin Color: Normal Course - Vital Signs Vital signs: Temp Pulse Resp BP Pulse Ox 97.7 F 11 L 117/79 97 02/09/19 19:27 02/09/19 20:00 02/09/19 20:00 02/09/19 20:00 - Laboratory Result Diagrams: 02/09/19 17:50 02/09/19 17:50 Laboratory results interpreted by me: 02/09/19 02/09/19 02/09/19 17:50 17:50 17:50 RBC 3.60 L Hgb 10.4 L Hct 31.6 L RDW 17.5 H Creatinine 1.76 H Est GFR ( Amer) 35 L Est GFR (MDRD) Non-Af 29 L Glucose 118 H Direct Bilirubin 0.5 H NT-Pro-B Natriuret Pep Urine Blood SMALL H Urine Urobilinogen 2.0 H 02/09/19 17:50 RBC Hgb Hct RDW Creatinine Est GFR ( Amer) Est GFR (MDRD) Non-Af Glucose Direct Bilirubin NT-Pro-B Natriuret Pep 65710 H Urine Blood Urine Urobilinogen - EKG Interpretation by Me Additional EKG results interpreted by me: 02/09/19 18:27 EKG performed on 02/09/2019 at 1758 hrs. was interpreted by this . Findings: Sinus rhythm, interventricular conduction delay is present, right bundle branch block also appears to be present, ST segments are nonspecific. - Consults luisa Time consulted: 20:39 Reason for consultation: 02/09/19 20:39 chf, dyspnea Consulted provider: will see as inpatient Discharge - Discharge Clinical Impression: Acute on chronic congestive heart failure Qualifiers: Heart failure type: unspecified Qualified Code(s): I50.9 - Heart failure, unspecified Condition: Good Disposition: ADMITTED INPATIENT Admitting Provider: [facility] Admitted: [facility] Referrals: TEODORO HOROWITZ MD [Primary Care Provider] - Follow up as needed I personally performed the services described in the documentation, reviewed and edited the documentation which was dictated to the scribe in my presence, and it accurately records my words and actions.
[2019-02-09 18:40] LABS: ABSOLUTE BASOPHILS # (AUTO) 0.1 10^3/uL (0.0-0.2); ABSOLUTE EOSINOPHILS # (AUTO) 0.1 10^3/uL (0.0-0.6); ABSOLUTE LYMPHOCYTES (AUTO) 1.6 10^3/uL (0.5-4.7); ABSOLUTE MONOCYTES (AUTO) 0.9 10^3/uL (0.1-1.4); ABSOLUTE NEUT (AUTO) 4.4 10^3/uL (1.7-8.2); EOSINOPHILS % (AUTO) 1.8 % (0-6); HEMATOCRIT 31.6 % (36.0-47.0); HEMOGLOBIN 10.4 g/dL (12.0-15.5); LYMPHOCYTES % (AUTO) 22.2 % (13-45); MEAN CORPUSCULAR VOLUME 88 fl (80-97); MONOCYTES % (AUTO) 12.5 % (3-13); PLATELET COUNT 204 10^3/uL (150-450); RED CELL DISTRIBUTION WIDTH 17.5 % (11.5-14.0); SEGMENTED NEUTROPHILS % (AUTO) 62.5 % (42-78); TOTAL CELLS COUNTED % (AUTO) 100 %
[2019-02-09 18:45] LABS: APPEARANCE,URINE CLEAR; BILIRUBIN,URINE NEGATIVE (NEGATIVE); COLOR,URINE YELLOW; GLUCOSE, URINE NEGATIVE (NEGATIVE); KETONES,URINE NEGATIVE (NEGATIVE); LEUKOCYTE ESTERASE,URINE NEGATIVE (NEGATIVE); NITRITE,URINE NEGATIVE (NEGATIVE); PROTEIN,URINE NEGATIVE (NEGATIVE); URINE SPECIFIC GRAVITY 1.011
[2019-02-09 18:54] LABS: ALBUMIN 3.7 g/dL (3.5-5.0); ALKALINE PHOSPHATASE 90 U/L (38-126); ANION GAP 12 (5-19); ASPARTATE AMINO TRANSFERASE 21 U/L (14-36); BILIRUBIN,DIRECT 0.5 mg/dL (0.0-0.4); BILIRUBIN,TOTAL 1.1 mg/dL (0.2-1.3); BLOOD UREA NITROGEN 19 mg/dL (7-20); CALCIUM 9.5 mg/dL (8.4-10.2); CARBON DIOXIDE 23 mmol/L (22-30); CHLORIDE 105 mmol/L (98-107); GLUCOSE 118 mg/dL (75-110); POTASSIUM 3.9 mmol/L (3.6-5.0); TOTAL PROTEIN 7.5 g/dL (6.3-8.2)
[2019-02-09 19:05] LABS: TROPONIN I 0.094 ng/mL
--- NOTE | 2019-02-09 22:51 | EKG REPORT ---
SEVERITY:- ABNORMAL ECG - SINUS RHYTHM IVCD, CONSIDER ATYPICAL RBBB ANTEROLATERAL INFARCT, AGE INDETERMINATE : Confirmed by: Mari Miles MD 09-Feb-2019 22:51:25
[2019-02-10] MEDS ORDERED: ACETAMINOPHEN 325 MG TABLET ONE (07:18)
[2019-02-10] MEDS ORDERED: ACETAMINOPHEN 325 MG TABLET PO SCH (12:00)
[2019-02-10] MEDS: PANTOPRAZOLE SODIUM 40 MG TABLET.DR PO SCH (13:03)
[2019-02-10] MEDS: FUROSEMIDE INJ/PF 40 MG/4 ML SDV IV SCH ×2 (13:03→21:28)
[2019-02-10] MEDS ORDERED: ALBUTEROL SULFATE HFA (90 MCG/PUFF) 8 GM MDI (1 MDI/ER DISP) IH PRN (19:28)
[2019-02-10] MEDS: HYDROCODONE/ACETAMINOPHEN 7.5-325 MG TABLET PO PRN (20:51)
[2019-02-10] MEDS: MONTELUKAST SODIUM 10 MG TABLET PO SCH (21:28)
[2019-02-10] MEDS: APIXABAN 2.5 MG TABLET PO SCH (21:28)
[2019-02-10] MEDS: ATORVASTATIN CALCIUM 80 MG TABLET PO SCH (21:28)
[2019-02-10] MEDS: TOPIRAMATE 100 MG TABLET PO SCH (21:32)
[2019-02-10] MEDS ORDERED: TOPIRAMATE 100 MG TABLET ONE (21:47)
[2019-02-10] MEDS ORDERED: (PENDING PHARMACY ID) (Doxepin Hcl [Silenor] 6 MG) PO SCH (22:00)
[2019-02-10] MEDS ORDERED: LIDOCAINE 2% INJ-PF (100 MG/5 ML) SYRINGE ONE (23:02)
[2019-02-10] MEDS ORDERED: LIDOCAINE 1% INJ-PF (10 MG/ML) 30 ML SDV ONE (23:03)
--- NOTE | 2019-02-10 23:23 | PDOC H&P ---
History of Present Illness Admission Date/PCP: 02/09/19 20:44 TEODORO HOROWITZ MD Patient complains of: Shortness of breath History of Present Illness: KEYONA TAYLOR is a 63 year old female patient of Dr. Horowitz who presented to the ED with worsening shortness of breath and generalized weakness. Patient was discharged form this facility couple of weeks ago following admission for acute combined systolic and diastolic congestive heart failure with instruction on using life vest monitoring for possible malignant arrhythmia that may justify placement if AICD. Patient reported that her assigned visiting nurse and PCS aid refused to assist her in putting on the life vest. Due to worsening generalized weakness and shortness of breath she alerted EMS and she was brought to the ED for further evaluation. Her initial ED evaluation revealed anemia, worsening renal indices, and elevated more than usual NT-Pro BNP level over 11,000. Her chest X ray revealed cardiomegaly without overt failure and EKG suggested sinus rhythm with possible RBBB and anterolateral HI, age indeterminate. She was advised hospitalization for acute on chronic combine CHF for further evaluation and management. Past Medical History Cardiac Medical History: Reports: Atrial Fibrillation - Paroxysmal atrial fibrillation, Congestive Heart Failure, Coronary Artery Disease, Myocardial Infarction, Hyperlipidema, Hypertension, Peripheral Vascular Disease Denies: Heart Murmur Pulmonary Medical History: Reports: Asthma, Bronchitis, Chronic Obstructive Pulmonary Disease (COPD) Denies: Pneumonia, Tuberculosis Neurological Medical History: Denies: Seizures Malignancy Medical History: Reports: Breast Cancer GI Medical History: Reports: Gastroesophageal Reflux Disease Musculoskeltal Medical History: Reports: Arthritis, Fibromyalgia Psychiatric Medical History: Reports: Depression Past Surgical History Past Surgical History: Reports: Cardiac Catheterization - 2002 Stent, 2005 Stent, Coronary Stent - 2002([place]), 2004([facility]), Mastectomy - LEFT, Orthopedic Surgery - left BKA due to peripheral vascular disease/ischemia Denies: Pacemaker Social History Smoking Status: Unknown if Ever Smoked Number of Years Smokin Last Time Smoked: 2017 Frequency of Alcohol Use: None Hx Recreational Drug Use: No Drugs: None Hx Prescription Drug Abuse: No - Advance Directive Resuscitation Status: Full Code Family History Family History: Reviewed & Not Pertinent, Malignancy Parental Family History Reviewed: Yes Children Family History Reviewed: Yes Sibling(s) Family History Reviewed.: Yes Medication/Allergy Home Medications: Albuterol Sulfate [Ventolin Hfa 8 gm Mdi (1 Mdi/ER Disp)] 2 puff IH Q4HP PRN 11/19/18 Apixaban [Eliquis 2.5 mg Tablet] 2.5 mg PO Q12 11/19/18 Atorvastatin Calcium [Lipitor 80 mg Tablet] 80 mg PO QHS 11/19/18 Doxepin HCl [Silenor] 6 mg PO QHS 11/19/18 Ergocalciferol (Vitamin D2) [Drisdol 50,000 unit (1.25MG) Capsule] 50,000 unit PO TH@1000 11/19/18 Furosemide [Lasix 40 mg Tablet] 40 mg PO BID 11/19/18 Hydroxychloroquine Sulfate [Plaquenil 200 mg Tablet] 200 mg PO BID 11/19/18 Linaclotide [Linzess] 72 mcg PO DAILY 11/19/18 Losartan Potassium [Cozaar 25 mg Tablet] 25 mg PO DAILY 11/19/18 Metoprolol Succinate [Toprol Xl 25 mg Tab.sr] 25 mg PO DAILY 11/19/18 Pantoprazole Sodium [Protonix [address] Tablet] 40 mg PO DAILY 11/19/18 Tiotropium [place] [Spiriva Handihaler 5 Cap/Kit (18 Mcg/Cap)] 1 puff IH DAILY 11/19/18 Topiramate [Topamax] 50 mg PO Q12 11/19/18 Hydrocodone/Acetaminophen [[place] 7.5-325 Tablet] 1 each PO Q6HP PRN 02/10/19 Montelukast Sodium [Singulair 10 mg Tablet] 10 mg PO QHS 02/10/19 Allergies/Adverse Reactions: No Known Allergies Allergy (Verified 06/22/18 14:53) Review of Systems Constitutional: PRESENT: fatigue, weakness Eyes: ABSENT: visual disturbances Ears: ABSENT: hearing changes Nose, Mouth, and Throat: ABSENT: headache(s), mouth pain, sore throat, vertigo Cardiovascular: PRESENT: dyspnea on exertion, edema Respiratory: PRESENT: cough, dyspnea Gastrointestinal: ABSENT: abdominal pain, constipation, diarrhea, hematemesis, hematochezia, nausea, vomiting Genitourinary: ABSENT: dysuria, hematuria Musculoskeletal: PRESENT: joint swelling - left leg, muscle weakness - generalized Integumentary: ABSENT: rash, wounds Neurological: PRESENT: memory loss, weakness - generalized. ABSENT: as per HPI, abnormal speech, confusion, convulsions, dizziness, focal weakness, frequent falls, lack of coordination, numbness, paresthesias, restless legs, syncope, tingling, tremor(s), vertigo Psychiatric: ABSENT: anxiety, depression, homidical ideation, suicidal ideation Endocrine: ABSENT: cold intolerance, heat intolerance, polydipsia, polyuria Hematologic/Lymphatic: ABSENT: easy bleeding, easy bruising, lymphadenopathy Allergic/Immunologic: ABSENT: seasonal rhinorrhea Physical Exam Vital Signs: Temp Pulse Resp BP Pulse Ox 98.2 F 72 18 113/68 100 02/10/19 07:52 02/10/19 07:52 02/10/19 07:52 02/10/19 07:52 02/10/19 07:52 Intake & Output 02/09/19 02/10/19 02/11/19 06:59 06:59 06:59 Weight 108.9 kg General appearance: PRESENT: no acute distress, obese Head exam: PRESENT: atraumatic, normocephalic Eye exam: PRESENT: conjunctiva pink, EOMI, PERRLA. ABSENT: scleral icterus Ear exam: PRESENT: TM's normal bilaterally Mouth exam: PRESENT: moist Neck exam: PRESENT: full ROM. ABSENT: carotid bruit, JVD, lymphadenopathy, thyromegaly Respiratory exam: PRESENT: clear to auscultation freida, decreased breath sounds - at lung bases Cardiovascular exam: PRESENT: RRR, +S1, +S2, systolic murmur. ABSENT: diastolic murmur, rubs Murmur grade: 3 Vascular exam: ABSENT: pallor GI/Abdominal exam: PRESENT: normal bowel sounds, soft. ABSENT: distended, guarding, mass, organolmegaly, rebound, tenderness Rectal exam: PRESENT: deferred Extremities exam: PRESENT: left BKA, pedal edema - 1+ Musculoskeletal exam: PRESENT: deformity - related to joint involvement with arthritis. Neurological exam: PRESENT: alert, awake, oriented to person, oriented to place, oriented to time, oriented to situation, CN II-XII grossly intact. ABSENT: motor sensory deficit Psychiatric exam: PRESENT: appropriate affect, normal mood. ABSENT: homicidal ideation, suicidal ideation Skin exam: PRESENT: dry, warm Results Laboratory Results: 02/09/19 17:50 02/09/19 17:50 02/09/19 02/09/19 02/09/19 17:50 17:50 17:50 WBC 7.0 RBC 3.60 L Hgb 10.4 L Hct 31.6 L MCV 88 MCH 29.0 MCHC 33.0 RDW 17.5 H Plt Count 204 Seg Neutrophils % 62.5 Sodium 140.2 Potassium 3.9 Chloride 105 Carbon Dioxide 23 Anion Gap 12 BUN 19 Creatinine 1.76 H Est GFR ( Amer) 35 L Glucose 118 H Calcium 9.5 Total Bilirubin 1.1 AST 21 Alkaline Phosphatase 90 Total Protein 7.5 Albumin 3.7 Urine Color YELLOW Urine Appearance CLEAR Urine pH 5.0 Ur Specific [place] 1.011 Urine Protein NEGATIVE Urine Glucose (UA) NEGATIVE Urine Ketones NEGATIVE Urine Blood SMALL H Urine Nitrite NEGATIVE Ur Leukocyte Esterase NEGATIVE Urine WBC (Auto) 1 Urine RBC (Auto) 9 02/09/19 17:50 Troponin I 0.094 NT-Pro-B Natriuret Pep 35181 H Impressions: Chest X-Ray 02/09/19 17:36 IMPRESSION: Gross cardiomegaly without acute abnormality of the lungs in AP portable projection. Assessment & Plan - Diagnosis (1) Acute on chronic congestive heart failure Qualifiers: Heart failure type: combined systolic and diastolic Qualified Code(s): I50.43 - Acute on chronic combined systolic (congestive) and diastolic (congestive) heart failure Is this a current diagnosis for this admission?: Yes Plan: See covering attending physician orders for details about care plan. (2) Paroxysmal atrial fibrillation Is this a current diagnosis for this admission?: Yes Plan: See covering attending physician orders for details about care plan. (3) HTN (hypertension) Qualifiers: Hypertension type: essential hypertension Qualified Code(s): I10 - Essential (primary) hypertension Is this a current diagnosis for this admission?: Yes Plan: See covering attending physician orders for details about care plan. (4) Coronary artery disease Qualifiers: Coronary Disease-Associated Artery/Lesion type: [place] artery [place] vs. transplanted heart: [place] heart Associated angina: with unstable angina Qualified Code(s): I25.110 - Atherosclerotic heart disease of [place] coronary artery with unstable angina pectoris Is this a current diagnosis for this admission?: Yes Plan: See covering attending physician orders for details about care plan. (5) CKD (chronic kidney disease), stage III Is this a current diagnosis for this admission?: Yes Plan: See covering attending physician orders for details about care plan. (6) Chronic obstructive pulmonary disease Qualifiers: COPD type: unspecified COPD Qualified Code(s): J44.9 - Chronic obstructive pulmonary disease, unspecified Is this a current diagnosis for this admission?: Yes Plan: See covering attending physician orders for details about care plan. (7) Peripheral vascular disease Is this a current diagnosis for this admission?: Yes Plan: See covering attending physician orders for details about care plan. - Time Time Spent: 50 to 70 Minutes Medications reviewed and adjusted accordingly: Yes Anticipated discharge: Home with Homehealth, SNF Within: Other - Inpatient Certification Based on my medical assessment, after consideration of the patient's comorbidities, presenting symptoms, or acuity I expect that the services needed warrant INPATIENT care.: Yes I certify that my determination is in accordance with my understanding of Medicare's requirements for reasonable and necessary INPATIENT services [42 CFR 412.3e].: Yes Medical Necessity: Significant Comorbidiites Make Outpatient Treatment Too Risky, Need Close Monitoring Due to Risk of Patient Decompensation, Need For Continuous Telemetry Monitoring, Risk of Complication if Not Cared For in [facility] [place], Risk of Diagnosis Which Will Require Inpatient Eval/Care/Monitoring Post Hospital Care: D/C [employer] Documentation, D/C or Transfer Summary - Plan Summary Plan Summary: See covering attending physician orders for details about care plan.
--- NOTE | 2019-02-10 23:47 | PDOC CONSULTATION ---
Consultation Consult Date: 02/10/19 Provider Consulted: LAURI VAUGHN Consult reason:: Need of IV access History of Present Illness Admission Date/PCP: 02/09/19 20:44 TEODORO HOROWITZ MD History of Present Illness: KEYONA TAYLOR is a 63 year old female, morbidly obese, with congestive heart failure in need of IV access for administration of medications or drugs Past Medical History Cardiac Medical History: Reports: Atrial Fibrillation - Paroxysmal atrial fibrillation, Congestive Heart Failure, Coronary Artery Disease, Myocardial Infarction, Hyperlipidema, Hypertension, Peripheral Vascular Disease Denies: Heart Murmur Pulmonary Medical History: Reports: Asthma, Bronchitis, Chronic Obstructive Pulmonary Disease (COPD) Denies: Pneumonia, Tuberculosis Neurological Medical History: Denies: Seizures Malignancy Medical History: Reports: Breast Cancer GI Medical History: Reports: Gastroesophageal Reflux Disease Musculoskeltal Medical History: Reports: Arthritis, Fibromyalgia Psychiatric Medical History: Reports: Depression Past Surgical History Past Surgical History: Reports: Cardiac Catheterization - 2002 Stent, 2004 Stent, Coronary Stent - 2002([place]), 2004([facility]y), Mastectomy - LEFT, Orthopedic Surgery - left BKA due to peripheral vascular disease/ischemia Denies: Pacemaker Social History Smoking Status: Unknown if Ever Smoked Number of Years Smokin Last Time Smoked: 2017 Frequency of Alcohol Use: None Hx Recreational Drug Use: No Drugs: None Hx Prescription Drug Abuse: No - Advance Directive Resuscitation Status: Full Code Family History Family History: Reviewed & Not Pertinent, Malignancy Parental Family History Reviewed: No Children Family History Reviewed: No Sibling(s) Family History Reviewed.: No Medication/Allergy Home Medications: Albuterol Sulfate [Ventolin Hfa 8 gm Mdi (1 Mdi/ER Disp)] 2 puff IH Q4HP PRN 11/19/18 Apixaban [Eliquis 2.5 mg Tablet] 2.5 mg PO Q12 11/19/18 Atorvastatin Calcium [Lipitor 80 mg Tablet] 80 mg PO QHS 11/19/18 Doxepin HCl [Silenor] 6 mg PO QHS 11/19/18 Ergocalciferol (Vitamin D2) [Drisdol 50,000 unit (1.25MG) Capsule] 50,000 unit PO TH@1000 11/19/18 Furosemide [Lasix 40 mg Tablet] 40 mg PO BID 11/19/18 Hydroxychloroquine Sulfate [Plaquenil 200 mg Tablet] 200 mg PO BID 11/19/18 Linaclotide [Linzess] 72 mcg PO DAILY 11/19/18 Losartan Potassium [Cozaar 25 mg Tablet] 25 mg PO DAILY 11/19/18 Metoprolol Succinate [Toprol Xl 25 mg Tab.sr] 25 mg PO DAILY 11/19/18 Pantoprazole Sodium [Protonix [address] Tablet] 40 mg PO DAILY 11/19/18 Tiotropium [place] [Spiriva Handihaler 5 Cap/Kit (18 Mcg/Cap)] 1 puff IH DAILY 11/19/18 Topiramate [Topamax] 50 mg PO Q12 11/19/18 Hydrocodone/Acetaminophen [[place] 7.5-325 Tablet] 1 each PO Q6HP PRN 02/10/19 Montelukast Sodium [Singulair 10 mg Tablet] 10 mg PO QHS 02/10/19 Allergies/Adverse Reactions: No Known Allergies Allergy (Verified 06/22/18 14:53) Physical Exam Vital Signs: Temp Pulse Resp BP Pulse Ox 97.6 F 71 22 H 104/65 99 02/10/19 19:29 02/10/19 19:29 02/10/19 19:29 02/10/19 19:29 02/10/19 19:29 Intake & Output 02/09/19 02/10/19 02/11/19 06:59 06:59 06:59 Intake Total 1255 Balance 1255 Weight 108.9 kg General appearance: PRESENT: no acute distress, obese Head exam: PRESENT: atraumatic Eye exam: PRESENT: EOMI Mouth exam: PRESENT: dry mucosa, neck supple Teeth exam: PRESENT: poor dentation Neck exam: PRESENT: full ROM Respiratory exam: PRESENT: clear to auscultation freida Cardiovascular exam: PRESENT: RRR GI/Abdominal exam: PRESENT: soft Extremities exam: PRESENT: full ROM Musculoskeletal exam: PRESENT: full ROM Neurological exam: PRESENT: alert, awake Skin exam: PRESENT: warm Results Laboratory Results: 02/09/19 17:50 02/09/19 17:50 02/09/19 17:50 Troponin I 0.094 NT-Pro-B Natriuret Pep 13451 H Impressions: Chest X-Ray 02/09/19 17:36 IMPRESSION: Gross cardiomegaly without acute abnormality of the lungs in AP portable projection. Assessment & Plan - Diagnosis (1) Need for intravenous access Is this a current diagnosis for this admission?: Yes - Plan Summary Plan Summary: Assessment: Need of IV access for administration of medications or drugs Plan: Placement of right femoral vein central venous line due to the use of Eliquis DM recommending to remove the right femoral vein line within 5 days
--- NOTE | 2019-02-10 23:51 | Operative Report ---
Operative Report DATE OF SURGERY: 02/10/19 PREOPERATIVE DIAGNOSIS: Need of IV access for administration of medications and or drugs POSTOPERATIVE DIAGNOSIS: Same OPERATION: Placement of right common femoral vein central venous triple-lumen catheter SURGEON: LAURI VAUGHN ANESTHESIA: Local - 15 mL 1% lidocaine TISSUE REMOVED OR ALTERED: Not applicable COMPLICATIONS: None ESTIMATED BLOOD LOSS: Less than 2 mL INTRAOPERATIVE FINDINGS: As above PROCEDURE: The procedure was done at bedside: The patient was placed in a supine position, the patient right groin was prepped and draped in the usual fashion. The midportion of the right groin below the inguinal ligament was infiltrated with lidocaine, a 16-gauge needle was then used to cannulate the right common femoral vein without difficulty with good blood return; a guidewire was inserted through the needle into the [subclavian/jugular] vein vein without difficulty the needle was removed. The insertion point of the guidewire was enlarged with a #11 blade and a tissue dilator which was then removed. A triple-lumen catheter was inserted without difficulty over the guidewire into the right/left subclavian/jugular vein without difficulty up to 20 cm, the guidewire was removed. Each port was aspirated and flushed with normal saline without difficulty. The catheter was secured to the skin with 3-0 nylon sutures and sterile dressing applied. The patient tolerated the procedure well.
[2019-02-11] MEDS: ACETAMINOPHEN 325 MG TABLET PO PRN ×2 (03:32→21:26)
[2019-02-11 06:30] LABS: ABSOLUTE BASOPHILS # (AUTO) 0.1 10^3/uL (0.0-0.2); ABSOLUTE EOSINOPHILS # (AUTO) 0.2 10^3/uL (0.0-0.6); ABSOLUTE LYMPHOCYTES (AUTO) 2.1 10^3/uL (0.5-4.7); ABSOLUTE MONOCYTES (AUTO) 0.9 10^3/uL (0.1-1.4); ABSOLUTE NEUT (AUTO) 4.2 10^3/uL (1.7-8.2); BASOPHILS % (AUTO) 0.9 % (0-2); EOSINOPHILS % (AUTO) 2.8 % (0-6); HEMATOCRIT 30.3 % (36.0-47.0); HEMOGLOBIN 10.1 g/dL (12.0-15.5); LYMPHOCYTES % (AUTO) 28.3 % (13-45); MEAN CORPUSCULAR HEMOGLOBIN 29.3 pg (27.0-33.4); MEAN CORPUSCULAR HGB CONC 33.4 g/dL (32.0-36.0); MEAN CORPUSCULAR VOLUME 88 fl (80-97); MONOCYTES % (AUTO) 11.9 % (3-13); PLATELET COUNT 193 10^3/uL (150-450); RED BLOOD COUNT 3.46 10^6/uL (3.72-5.28); RED CELL DISTRIBUTION WIDTH 17.2 % (11.5-14.0); SEGMENTED NEUTROPHILS % (AUTO) 56.1 % (42-78); TOTAL CELLS COUNTED % (AUTO) 100 %; WHITE BLOOD COUNT 7.5 10^3/uL (4.0-10.5)
[2019-02-11] MEDS: PANTOPRAZOLE SODIUM 40 MG TABLET.DR PO SCH (06:50)
[2019-02-11 06:58] LABS: ALBUMIN 2.3 g/dL (3.5-5.0); ALKALINE PHOSPHATASE 56 U/L (38-126); ANION GAP 7 (5-19); ASPARTATE AMINO TRANSFERASE 13 U/L (14-36); BILIRUBIN,DIRECT 0.2 mg/dL (0.0-0.4); BILIRUBIN,TOTAL 0.7 mg/dL (0.2-1.3); BLOOD UREA NITROGEN 17 mg/dL (7-20); CARBON DIOXIDE 21 mmol/L (22-30); CHLORIDE 117 mmol/L (98-107); GLUCOSE 73 mg/dL (75-110); TOTAL PROTEIN 5.1 g/dL (6.3-8.2)
[2019-02-11 07:19] LABS: CALCIUM 6.6 mg/dL (8.4-10.2)
[2019-02-11 07:20] LABS: POTASSIUM 2.6 mmol/L (3.6-5.0)
[2019-02-11] MEDS ORDERED: ALBUTEROL SULFATE HFA (90 MCG/PUFF) 200 PUFF/8.5 GM MDI IH PRN (08:35)
[2019-02-11] MEDS: UMECLIDINIUM BROMIDE 62.5 MCG/DOSE IH SCH (09:45)
[2019-02-11] MEDS: METOPROLOL SUCCINATE 25 MG TAB.SR.24H PO SCH (09:46)
[2019-02-11] MEDS: TOPIRAMATE 100 MG TABLET PO SCH ×2 (09:46→21:26)
[2019-02-11] MEDS: POTASSIUM CHLORIDE 20 MEQ PACKET PO SCH ×3 (09:47→17:38)
[2019-02-11] MEDS: FUROSEMIDE INJ/PF 40 MG/4 ML SDV IV SCH ×2 (09:47→15:16)
[2019-02-11] MEDS: APIXABAN 2.5 MG TABLET PO SCH ×2 (09:47→21:26)
[2019-02-11] MEDS: HYDROXYCHLOROQUINE SULFATE 200 MG TABLET PO SCH ×2 (09:47→17:38)
[2019-02-11] MEDS ORDERED: (PENDING PHARMACY ID) (Linaclotide [Linzess] 72 MCG) PO SCH (10:00)
[2019-02-11] MEDS ORDERED: LOSARTAN POTASSIUM 25 MG TABLET PO SCH (10:00)
--- NOTE | 2019-02-11 15:05 | PDOC PROGRESS REPORT ---
Subjective Progress Note for:: 02/11/19 Subjective:: Patient is well-known to me she has multiple comorbid conditions including, chronic combined systolic and diastolic heart failure, the last left ventricle ejection fraction was below 15% on the basis of the nuclear stress test that was done outpatient by Dr. Ying. She has other comorbidity including very severe COPD, PAD status post amputation of the left leg, history of multiple strokes, PE on current anticoagulant with Eliquis. She was admitted over the weekend for what seems to be acute on chronic CHF. She is supposed to be on LifeVest but apparently she has not been using it as prescribed/recommended. I saw her today by the bedside and main complaint today is cough. Medication was reviewed, chart was reviewed Reason For Visit: ACUTE ON CHRONIC COMBINED SYSTOLIC AND DIASTOLIC Physical Exam Vital Signs: Temp Pulse Resp BP Pulse Ox 97.7 F 67 17 99/61 L 99 02/11/19 11:37 02/11/19 11:37 02/11/19 11:37 02/11/19 11:37 02/11/19 11:37 Intake & Output 02/10/19 02/11/19 02/12/19 06:59 06:59 06:59 Intake Total 1255 360 Output Total 1175 300 Balance 80 60 Weight 108.9 kg 101.2 kg General appearance: PRESENT: no acute distress Head exam: PRESENT: atraumatic, normocephalic Eye exam: PRESENT: PERRLA Mouth exam: PRESENT: moist Neck exam: PRESENT: full ROM Respiratory exam: PRESENT: clear to auscultation freida Cardiovascular exam: PRESENT: RRR, +S1, +S2 Murmur grade: 3 Vascular exam: PRESENT: normal capillary refill GI/Abdominal exam: PRESENT: normal bowel sounds, soft Rectal exam: PRESENT: deferred Neurological exam: PRESENT: alert, CN II-XII grossly intact Psychiatric exam: PRESENT: appropriate affect, normal mood Skin exam: PRESENT: dry, intact, warm Results Laboratory Results: 02/11/19 06:08 02/11/19 06:08 02/11/19 02/11/19 02/11/19 06:08 06:08 06:08 WBC 7.5 RBC 3.46 L Hgb 10.1 L Hct 30.3 L MCV 88 MCH 29.3 MCHC 33.4 RDW 17.2 H Plt Count 193 Seg Neutrophils % 56.1 Sodium 145.0 Potassium 2.6 L* Chloride 117 H Carbon Dioxide 21 L Anion Gap 7 BUN 17 Creatinine 1.33 H Est GFR ( Amer) 49 L Glucose 73 L Calcium 6.6 L* Ionized Calcium Vania Magnesium 1.4 L Total Bilirubin 0.7 AST 13 L Alkaline Phosphatase 56 Total Protein 5.1 L Albumin 2.3 L 02/11/19 11:10 WBC RBC Hgb Hct MCV MCH MCHC RDW Plt Count Seg Neutrophils % Sodium Potassium Chloride Carbon Dioxide Anion Gap BUN Creatinine Est GFR ( Amer) Glucose Calcium Ionized Calcium [place]ia 1.17 Magnesium Total Bilirubin AST Alkaline Phosphatase Total Protein Albumin 02/09/19 17:50 Troponin I 0.094 NT-Pro-B Natriuret Pep 20713 H Impressions: Chest X-Ray 02/09/19 17:36 IMPRESSION: Gross cardiomegaly without acute abnormality of the lungs in AP portable projection. Assessment & Plan - Diagnosis (1) Acute on chronic congestive heart failure Qualifiers: Heart failure type: combined systolic and diastolic Qualified Code(s): I50.43 - Acute on chronic combined systolic (congestive) and diastolic (congestive) heart failure Is this a current diagnosis for this admission?: Yes Plan: She has chronic combined systolic and diastolic heart failure, she now seems to present with decompensated CHF, patient will be started on Entresto, discontinue losartan (2) alf (current) use of anticoagulants Is this a current diagnosis for this admission?: Yes (3) Cough Is this a current diagnosis for this admission?: Yes Plan: prescribe anti-tussin (4) Chronic obstructive pulmonary disease Qualifiers: COPD type: unspecified COPD Qualified Code(s): J44.9 - Chronic obstructive pulmonary disease, unspecified Is this a current diagnosis for this admission?: Yes - Time Time Spent with patient: 35 or more minutes Level of Care: [facility]
[2019-02-11 16:08] LABS: ALBUMIN 3.4 g/dL (3.5-5.0); ALKALINE PHOSPHATASE 75 U/L (38-126); ANION GAP 12 (5-19); ASPARTATE AMINO TRANSFERASE 17 U/L (14-36); BILIRUBIN,DIRECT 0.3 mg/dL (0.0-0.4); BILIRUBIN,TOTAL 0.8 mg/dL (0.2-1.3); BLOOD UREA NITROGEN 22 mg/dL (7-20); CALCIUM 9.2 mg/dL (8.4-10.2); CARBON DIOXIDE 26 mmol/L (22-30); CHLORIDE 103 mmol/L (98-107); GLUCOSE 122 mg/dL (75-110); TOTAL PROTEIN 7.1 g/dL (6.3-8.2)
[2019-02-11 16:17] LABS: POTASSIUM 3.8 mmol/L (3.6-5.0)
--- NOTE | 2019-02-11 16:33 | Progress Note ---
Provider Note Provider Note: CARDIOLOGY PROGRESS NOTE by Dr. Mari Miles on 02/11/2019. OBJECTIVE: The patient states that shortness of breath is improved. She has a cough but is not producing any sputum. There is no chest pain or discomfort. She has no PND. There is no leg edema. There is orthopnea present. There is no recurrence of TIA or CVA symptoms. There is no arrhythmia seen on the monitor. The patient has left the LifeVest at home. She states at home the LifeVest at her heart shocked her at any time. PHYSICAL EXAMINATION: The patient is moderately obese. In no acute distress. Selected Entries 02/11/19 15:51 Temperature 97.5 F Temperature Oral Source Pulse Rate 74 Respiratory 17 Rate Blood Pressure 103/73 Blood Pressure 83 Mean BP Location Right Arm BP Position Supine O2 Sat by Pulse 99 Oximetry Oxygen Flow 2.00 Rate Oxygen Delivery Nasal Cannula Method Head: Is atraumatic normocephalic. EYES: Pupils equal round regular reactive to light and accommodation. Extraocular movements are normal there is no conjunctival pallor there is no specific scleral icterus. EARS: Tympanic membranes are intact. External auditory canals are clear. NOSE: There is no deviated nasal septum. There is no inflammation of these mucous membrane. MOUTH:. There is no bleeding from the gums. Mucous membranes of the mouth are moist. THROAT: There is no redness of the oropharynx. There is no exudates. SKIN: There is no skin lesions or skin rashes. There is no petechia or ecchymosis. NECK: Is supple. There is no JVD. Carotids equal there is faint bilateral carotid bruits present. There is no lymphadenopathy. There is no goiter. There is no accessory muscle respiration use. Trachea central. LUNGS: There is diminished air entry and prolonged expiration. Scattered rhonchi. There is no rhonchi or rales. There is an area of absent breath sounds in the left base. This is consistent with pleural effusion. On percussion there is hyperresonance except in the area of dullness mentioned about.. There is some chest wall tenderness on pressing on the left front of the chest. HEART: S1-S2 is heard. There is no S3 gallop. There is no S4 gallop. There is systolic murmur of MR and TR present. There is no rub. ABDOMEN: Soft. There is no hep atospleno megaly. Bowel sounds are well heard. There is no tender areas masses. EXTREMITIES: Femorals are diminished. There is faint bilateral femoral bruits. 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 There is trace pedal edema. There is no sinus or clubbing. There is no DVT or cellulitis. 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 PSYCHIATRIC: The patient judgment and insight are intact her affect is normal. Labs- All tests 24 hr 02/11/19 02/11/19 02/11/19 06:08 06:08 06:08 WBC 7.5 RBC 3.46 L Hgb 10.1 L Hct 30.3 L MCV 88 MCH 29.3 MCHC 33.4 RDW 17.2 H Plt Count 193 Lymph % (Auto) 28.3 Branch % (Auto) 11.9 Eos % (Auto) 2.8 Baso % (Auto) 0.9 Absolute Neuts (auto) 4.2 Absolute Lymphs (auto) 2.1 Absolute Monos (auto) 0.9 Absolute Eos (auto) 0.2 Absolute Basos (auto) 0.1 Seg Neutrophils % 56.1 Sodium 145.0 Potassium 2.6 L* Chloride 117 H Carbon Dioxide 21 L Anion Gap 7 BUN 17 Creatinine 1.33 H Est GFR ( Amer) 49 L Est GFR (MDRD) Non-Af 40 L Glucose 73 L Calcium 6.6 L* Ionized Calcium Vania Magnesium 1.4 L Total Bilirubin 0.7 Direct Bilirubin 0.2 Neonat Total Bilirubin Not Reportable Neonat Direct Bilirubin Not Reportable Neonat Indirect Bili Not Reportable AST 13 L ALT 12 Alkaline Phosphatase 56 Total Protein 5.1 L Albumin 2.3 L 02/11/19 02/11/19 11:10 15:24 WBC RBC Hgb Hct MCV MCH MCHC RDW Plt Count Lymph % (Auto) Branch % (Auto) Eos % (Auto) Baso % (Auto) Absolute Neuts (auto) Absolute Lymphs (auto) Absolute Monos (auto) Absolute Eos (auto) Absolute Basos (auto) Seg Neutrophils % Sodium 140.8 Potassium 3.8 D Chloride 103 Carbon Dioxide 26 Anion Gap 12 BUN 22 H Creatinine 1.99 H Est GFR ( Amer) 31 L Est GFR (MDRD) Non-Af 25 L Glucose 122 H Calcium 9.2 Ionized Calcium Vania 1.17 Magnesium Total Bilirubin 0.8 Direct Bilirubin 0.3 Neonat Total Bilirubin Not Reportable Neonat Direct Bilirubin Not Reportable Neonat Indirect Bili Not Reportable AST 17 ALT 16 Alkaline Phosphatase 75 Total Protein 7.1 Albumin 3.4 L Chest X-Ray 02/09/19 17:36 IMPRESSION: Gross cardiomegaly without acute abnormality of the lungs in AP portable projection. IMPRESSION/RECOMMENDATION: 1. Acute on chronic systolic heart failure. Slow improvement. 2. Most likely patient has volume overload heart failure. 3. Acute on chronic renal failure. The patient's GFR is worsened to 33 from a baseline of 42. 4. Coronary artery disease: History of old myocardial infarction. No clear-cut anginal symptoms. No evidence of acute coronary syndrome. Continue aspirin anti-CAD medication. 5. Cardiomyopathy: Combined ischemic and dilated. Note the patient had an echocardiogram on the which showed moderately reduced LV ejection fraction of 35% with multiple wall motion of normality. 6.Hypertension: Blood pressure well controlled 7. History of CVA with residual left hemiparesis. 8. History of asthma/COPD. Most likely patient has an episode of acute exacerb ation of COPD which is getting better. Continue anti-COPD treatment. Consider antibiotics if clinically indicate 10. Asymptomatic gallstones.. Medications reviewed. Medical regimen and management plan discussed with attending physician. Medical decision making is of moderate complexity. The patient will want to wear a LifeVest at home. We will get an echocardiogram as an outpatient since the last echocardiogram was a little less than 3 months. Will follow.
[2019-02-11] MEDS: SACUBITRIL/VALSARTAN 49 MG/51 MG TABLET PO SCH ×2 (16:57→17:40)
[2019-02-11] MEDS: ATORVASTATIN CALCIUM 80 MG TABLET PO SCH (21:25)
[2019-02-11] MEDS: MONTELUKAST SODIUM 10 MG TABLET PO SCH (21:26)
[2019-02-12] MEDS: SACUBITRIL/VALSARTAN 49 MG/51 MG TABLET PO SCH ×2 (05:25→17:43)
[2019-02-12] MEDS: PANTOPRAZOLE SODIUM 40 MG TABLET.DR PO SCH (05:25)
[2019-02-12] MEDS: ACETAMINOPHEN 325 MG TABLET PO PRN (05:25)
[2019-02-12] MEDS: APIXABAN 2.5 MG TABLET PO SCH ×2 (09:48→22:32)
[2019-02-12] MEDS: FUROSEMIDE INJ/PF 40 MG/4 ML SDV IV SCH (09:48)
[2019-02-12] MEDS: HYDROXYCHLOROQUINE SULFATE 200 MG TABLET PO SCH ×2 (09:49→17:43)
[2019-02-12] MEDS: METOPROLOL SUCCINATE 25 MG TAB.SR.24H PO SCH (09:49)
[2019-02-12] MEDS: TOPIRAMATE 100 MG TABLET PO SCH ×2 (09:49→22:32)
[2019-02-12] MEDS: UMECLIDINIUM BROMIDE 62.5 MCG/DOSE IH SCH (09:49)
--- NOTE | 2019-02-12 12:29 | PDOC PROGRESS REPORT ---
Subjective Progress Note for:: 02/12/19 Subjective:: Patient is confused to time place and person Reason For Visit: ACUTE ON CHRONIC COMBINED SYSTOLIC AND DIASTOLIC Physical Exam Vital Signs: Temp Pulse Resp BP Pulse Ox 97.6 F 71 17 102/63 94 02/12/19 07:32 02/12/19 07:32 02/12/19 07:32 02/12/19 07:32 02/12/19 07:32 Intake & Output 02/11/19 02/12/19 02/13/19 06:59 06:59 06:59 Intake Total 1255 860 Output Total 1175 850 Balance 80 10 Weight 101.2 kg 101.8 kg General appearance: PRESENT: no acute distress Eye exam: PRESENT: PERRLA Respiratory exam: PRESENT: clear to auscultation freida Cardiovascular exam: PRESENT: +S1, +S2 Murmur grade: 3 GI/Abdominal exam: PRESENT: soft Neurological exam: PRESENT: alert Results Laboratory Results: 02/11/19 06:08 02/11/19 15:24 02/11/19 15:24 Sodium 140.8 Potassium 3.8 D Chloride 103 Carbon Dioxide 26 Anion Gap 12 BUN 22 H Creatinine 1.99 H Est GFR ( Amer) 31 L Glucose 122 H Calcium 9.2 Total Bilirubin 0.8 AST 17 Alkaline Phosphatase 75 Total Protein 7.1 Albumin 3.4 L 02/09/19 17:50 Troponin I 0.094 NT-Pro-B Natriuret Pep 28247 H Impressions: Chest X-Ray 02/09/19 17:36 IMPRESSION: Gross cardiomegaly without acute abnormality of the lungs in AP portable projection. Assessment & Plan - Diagnosis (1) Acute on chronic congestive heart failure Qualifiers: Heart failure type: combined systolic and diastolic Qualified Code(s): I50.43 - Acute on chronic combined systolic (congestive) and diastolic (congestive) heart failure Is this a current diagnosis for this admission?: Yes Plan: Continue present line of management (2) snf (current) use of anticoagulants Is this a current diagnosis for this admission?: Yes (3) Cough Is this a current diagnosis for this admission?: Yes (4) Chronic obstructive pulmonary disease Qualifiers: COPD type: unspecified COPD Qualified Code(s): J44.9 - Chronic obstructive pulmonary disease, unspecified Is this a current diagnosis for this admission?: Yes - Time Time Spent with patient: 25-34 minutes
[2019-02-12 14:58] LABS: ALBUMIN 3.4 g/dL (3.5-5.0); ALKALINE PHOSPHATASE 78 U/L (38-126); ANION GAP 10 (5-19); ASPARTATE AMINO TRANSFERASE 15 U/L (14-36); BILIRUBIN,DIRECT 0.3 mg/dL (0.0-0.4); BILIRUBIN,TOTAL 0.8 mg/dL (0.2-1.3); BLOOD UREA NITROGEN 21 mg/dL (7-20); CALCIUM 9.4 mg/dL (8.4-10.2); CARBON DIOXIDE 26 mmol/L (22-30); CHLORIDE 107 mmol/L (98-107); GLUCOSE 117 mg/dL (75-110); POTASSIUM 4.1 mmol/L (3.6-5.0); TOTAL PROTEIN 6.9 g/dL (6.3-8.2)
[2019-02-12] MEDS: ATORVASTATIN CALCIUM 80 MG TABLET PO SCH (22:32)
[2019-02-12] MEDS: MONTELUKAST SODIUM 10 MG TABLET PO SCH (22:32)
[2019-02-13] MEDS: SACUBITRIL/VALSARTAN 49 MG/51 MG TABLET PO SCH ×2 (05:19→17:23)
[2019-02-13] MEDS: PANTOPRAZOLE SODIUM 40 MG TABLET.DR PO SCH (05:22)
[2019-02-13] MEDS: UMECLIDINIUM BROMIDE 62.5 MCG/DOSE IH SCH (09:22)
[2019-02-13] MEDS: TOPIRAMATE 100 MG TABLET PO SCH ×2 (09:22→22:36)
[2019-02-13] MEDS: HYDROXYCHLOROQUINE SULFATE 200 MG TABLET PO SCH ×2 (09:23→17:23)
[2019-02-13] MEDS: APIXABAN 2.5 MG TABLET PO SCH ×2 (09:23→22:36)
[2019-02-13] MEDS: METOPROLOL SUCCINATE 25 MG TAB.SR.24H PO SCH (09:23)
[2019-02-13] MEDS: FUROSEMIDE INJ/PF 40 MG/4 ML SDV IV SCH (09:23)
--- NOTE | 2019-02-13 14:21 | PDOC PROGRESS REPORT ---
Subjective Progress Note for:: 02/13/19 Subjective:: She denied any chest pain or difficulty with breathing. No reported fever or chills. No nausea, vomiting or abdominal pain. Tolerating oral feeding. Reason For Visit: ACUTE ON CHRONIC COMBINED SYSTOLIC AND DIASTOLIC Physical Exam Vital Signs: Temp Pulse Resp BP Pulse Ox 98.1 F 69 18 97/61 L 100 02/13/19 11:53 02/13/19 11:53 02/13/19 11:53 02/13/19 11:53 02/13/19 11:53 Intake & Output 02/12/19 02/13/19 02/14/19 06:59 06:59 06:59 Intake Total 860 460 195 Output Total 850 2700 1000 Balance 10 -4840 -805 Weight 101.8 kg 98.3 kg General appearance: PRESENT: no acute distress, obese Eye exam: PRESENT: conjunctiva pink. ABSENT: scleral icterus Ear exam: PRESENT: normal external ear exam Mouth exam: PRESENT: moist Respiratory exam: PRESENT: clear to auscultation freida, decreased breath sounds - at lung bases Cardiovascular exam: PRESENT: RRR, +S1, +S2, systolic murmur. ABSENT: diastolic murmur, rubs Murmur grade: 3 Vascular exam: ABSENT: pallor GI/Abdominal exam: PRESENT: normal bowel sounds, soft. ABSENT: distended, guarding, mass, organolmegaly, rebound, tenderness Extremities exam: PRESENT: left BKA. ABSENT: pedal edema Neurological exam: PRESENT: alert, awake, oriented to person, oriented to place, oriented to time, oriented to situation, CN II-XII grossly intact. ABSENT: motor sensory deficit Psychiatric exam: PRESENT: appropriate affect, normal mood. ABSENT: homicidal ideation, suicidal ideation Skin exam: PRESENT: dry, warm Results Laboratory Results: 02/11/19 06:08 02/12/19 14:15 02/12/19 14:15 Sodium 143.4 Potassium 4.1 Chloride 107 Carbon Dioxide 26 Anion Gap 10 BUN 21 H Creatinine 1.92 H Est GFR ( Amer) 32 L Glucose 117 H Calcium 9.4 Magnesium 1.8 Total Bilirubin 0.8 AST 15 Alkaline Phosphatase 78 Total Protein 6.9 Albumin 3.4 L 02/09/19 17:50 Troponin I 0.094 NT-Pro-B Natriuret Pep 14651 H Impressions: Chest X-Ray 02/09/19 17:36 IMPRESSION: Gross cardiomegaly without acute abnormality of the lungs in AP portable projection. Assessment & Plan - Diagnosis (1) Acute on chronic congestive heart failure Qualifiers: Heart failure type: combined systolic and diastolic Qualified Code(s): I50.43 - Acute on chronic combined systolic (congestive) and diastolic (congestive) heart failure Is this a current diagnosis for this admission?: Yes (2) Paroxysmal atrial fibrillation Is this a current diagnosis for this admission?: Yes (3) HTN (hypertension) Qualifiers: Hypertension type: essential hypertension Qualified Code(s): I10 - [place] (primary) hypertension Is this a current diagnosis for this admission?: Yes (4) Coronary artery disease Qualifiers: Coronary Disease-Associated Artery/Lesion type: [place] artery [place] vs. transplanted heart: [place] heart Associated angina: with unstable angina Qualified Code(s): I25.110 - Atherosclerotic heart disease of [place] coronary artery with unstable angina pectoris Is this a current diagnosis for this admission?: Yes (5) CKD (chronic kidney disease), stage III Is this a current diagnosis for this admission?: Yes (6) Chronic obstructive pulmonary disease Qualifiers: COPD type: unspecified COPD Qualified Code(s): J44.9 - Chronic obstructive pulmonary disease, unspecified Is this a current diagnosis for this admission?: Yes (7) Peripheral vascular disease Is this a current diagnosis for this admission?: Yes - Time Time Spent with patient: 35 or more minutes Level of Care: IMCU Medications reviewed and adjusted accordingly: Yes Anticipated discharge: Home with Homehealth, SNF Within: Other - Inpatient Certification Based on my medical assessment, after consideration of the patient's comorbidities, presenting symptoms, or acuity I expect that the services needed warrant INPATIENT care.: Yes I certify that my determination is in accordance with my understanding of Medicare's requirements for reasonable and necessary INPATIENT services [42 CFR 412.3e].: Yes Medical Necessity: Significant Comorbidiites Make Outpatient Treatment Too Risky, Need Close Monitoring Due to Risk of Patient Decompensation, Need For Continuous Telemetry Monitoring, Risk of Complication if Not Cared For in Hospital, Risk of Diagnosis Which Will Require Inpatient Eval/Care/Monitoring Post Hospital Care: D/C Gyroscopic Instrument Tester Documentation, D/C or Transfer Summary - Plan Summary Plan Summary: D/C IV Lasix. Start on Lasix 20 mg po daily. Obtain CBC with diff, BMP, and NT- Pro BNP in am.
--- NOTE | 2019-02-13 18:37 | Progress Note ---
Provider Note Provider Note: CARDIOLOGY PROGRESS NOTE by Dr. Mari Miles on 02/13/2019. OBJECTIVE: The patient today is awake alert and appropriate and oriented x3 she is not confused anymore. She denies any shortness of breath. There is orthopnea but no PND. There is no chest pain or discomfort. There is no arrhythmia seen on the monitor. There is no TIA CVA symptoms. There is no leg edema. OBJECTIVE: The patient is moderately obese in no acute distress. Selected Entries 02/13/19 16:06 Temperature 97.6 F Temperature Axillary Source Pulse Rate 72 Respiratory 20 Rate Blood Pressure 100/65 Blood Pressure 76 Mean BP Location Right Arm BP Position Sitting O2 Sat by Pulse 100 Oximetry Oxygen Flow 3.00 Rate Oxygen Delivery Nasal Cannula Method Head: Is atraumatic normocephalic. EYES: Pupils equal round regular reactive to light and accommodation. Extraocular movements are normal there is no conjunctival pallor there is no specific scleral icterus. EARS: Tympanic membranes are intact. External auditory canals are clear. NOSE: There is no deviated nasal septum. There is no inflammation of these mucous membrane. MOUTH:. There is no bleeding from the gums. Mucous membranes of the mouth are moist. THROAT: There is no redness of the oropharynx. There is no exudates. SKIN: There is no skin lesions or skin rashes. There is no petechia or ecchymosis. NECK: Is supple. There is no JVD. Carotids equal there is faint bilateral carotid bruits present. There is no lymphadenopathy. There is no goiter. There is no accessory muscle respiration use. Trachea central. LUNGS: There is diminished air entry and prolonged expiration. Scattered rhonchi. The re is no rhonchi or rales. There is an area of absent breath sounds in the left base. This is consistent with pleural effusion. On percussion there is hyperresonance except in the area of dullness mentioned about.. There is some chest wall tenderness on pressing on the left front of the chest. HEART: S1-S2 is heard. There is no S3 gallop. There is no S4 gallop. There is systolic murmur of MR and TR present. There is no rub. ABDOMEN: Soft. There is no hepatospleno megaly. Bowel sounds are well heard. There is no tender areas masses. EXTREMITIES: Femorals are diminished. There is faint bilateral femoral bruits. 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 There is trace pedal edema. There is no sinus or clubbing. There is no DVT or cellulitis. 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 PSYCHIATRIC: The patient judgment and insight are intact her affect is normal. Chest X-Ray 02/09/19 17:36 IMPRESSION: Gross cardiomegaly without acute abnormality of the lungs in AP portable projection. IMPRESSION/RECOMMENDATION: 1. Acute on chronic systolic heart failure. Slow improvement. 2. Most likely patient has volume overload heart failure. 3. Acute on chronic renal failure. The patient's GFR is worsened to 33 from a baseline of 42. 4. Coronary artery disease: History of old myocardial infarction. No clear-cut anginal symptoms. No evidence of acute coronary syndrome. Continue aspirin anti-CAD medication. 5. Cardiomyopathy: Combined ischemic and dilated. Note the patient had an echocardiogram on the which showed moderately reduced LV ejection fraction of 35% with multiple wall motion of normality. 6.Hypertension: Blood pressure well controlled 7. History of CVA with residual left hemiparesis. 8. History of asthma/COPD. Most likely patient has an episode of acute exacerbation of COPD which is getting better. Continue anti-COPD treatment. Consider antibiotics if clinically indicate 10. Asymptomatic gallstones.. MEDICATIONS reviewed. Medical regimen and management plan discussed with the attending provider on the case. Medical decision making is of moderate complexity. Will check the patient's CBC SMA-7 and chest x-ray in the a.m. Will follow.
[2019-02-13] MEDS: ATORVASTATIN CALCIUM 80 MG TABLET PO SCH (22:36)
[2019-02-13] MEDS: MONTELUKAST SODIUM 10 MG TABLET PO SCH (22:36)
[2019-02-14] MEDS: PANTOPRAZOLE SODIUM 40 MG TABLET.DR PO SCH (05:08)
[2019-02-14] MEDS: SACUBITRIL/VALSARTAN 49 MG/51 MG TABLET PO SCH ×2 (05:09→17:43)
[2019-02-14 05:24] LABS: ABSOLUTE EOSINOPHILS # (AUTO) 0.2 10^3/uL (0.0-0.6); ABSOLUTE LYMPHOCYTES (AUTO) 1.9 10^3/uL (0.5-4.7); ABSOLUTE MONOCYTES (AUTO) 1.1 10^3/uL (0.1-1.4); ABSOLUTE NEUT (AUTO) 5.3 10^3/uL (1.7-8.2); BASOPHILS % (AUTO) 0.6 % (0-2); EOSINOPHILS % (AUTO) 2.7 % (0-6); HEMATOCRIT 35.1 % (36.0-47.0); HEMOGLOBIN 11.6 g/dL (12.0-15.5); LYMPHOCYTES % (AUTO) 22.3 % (13-45); MEAN CORPUSCULAR HEMOGLOBIN 28.9 pg (27.0-33.4); MEAN CORPUSCULAR HGB CONC 33.2 g/dL (32.0-36.0); MEAN CORPUSCULAR VOLUME 87 fl (80-97); MONOCYTES % (AUTO) 13.2 % (3-13); PLATELET COUNT 185 10^3/uL (150-450); RED BLOOD COUNT 4.02 10^6/uL (3.72-5.28); RED CELL DISTRIBUTION WIDTH 17.2 % (11.5-14.0); SEGMENTED NEUTROPHILS % (AUTO) 61.2 % (42-78); TOTAL CELLS COUNTED % (AUTO) 100 %; WHITE BLOOD COUNT 8.6 10^3/uL (4.0-10.5)
[2019-02-14 05:56] LABS: ANION GAP 11 (5-19); BLOOD UREA NITROGEN 23 mg/dL (7-20); CALCIUM 9.3 mg/dL (8.4-10.2); CARBON DIOXIDE 23 mmol/L (22-30); CHLORIDE 106 mmol/L (98-107); GLUCOSE 115 mg/dL (75-110); POTASSIUM 3.8 mmol/L (3.6-5.0)
--- NOTE | 2019-02-14 09:03 | RADIOLOGY REPORT (SQ) ---
EXAM DESCRIPTION: CHEST SINGLE VIEW COMPLETED DATE/TIME: 02/14/2019 8:29 am REASON FOR STUDY: CHF / PNEUMONIA COMPARISON: 02/09/2019 NUMBER OF VIEWS: One view. TECHNIQUE: Single frontal radiographic view of the chest acquired. LIMITATIONS: None. FINDINGS: LUNGS AND PLEURA: Chronic blunting of the left costophrenic angle. No infiltrate. MEDIASTINUM AND HILAR STRUCTURES: No masses or contour abnormality. HEART AND VASCULATURE: Cardiac enlargement. Vascular congestion. BONES: No acute findings. HARDWARE: None in the chest. OTHER: Left axillary clips. IMPRESSION: CARDIAC ENLARGEMENT. VASCULAR CONGESTION. TECHNICAL DOCUMENTATION: JOB ID: [id number] [employer]- All Rights Reserved Reading location - IP/workstation name: [email or web address]
[2019-02-14] MEDS: TOPIRAMATE 100 MG TABLET PO SCH ×2 (09:11→21:44)
[2019-02-14] MEDS: METOPROLOL SUCCINATE 25 MG TAB.SR.24H PO SCH (09:11)
[2019-02-14] MEDS: UMECLIDINIUM BROMIDE 62.5 MCG/DOSE IH SCH (09:12)
[2019-02-14] MEDS: APIXABAN 2.5 MG TABLET PO SCH ×2 (09:12→21:44)
[2019-02-14] MEDS: HYDROXYCHLOROQUINE SULFATE 200 MG TABLET PO SCH ×2 (09:12→17:43)
[2019-02-14] MEDS ORDERED: FUROSEMIDE 20 MG TABLET PO SCH (10:00)
[2019-02-14] MEDS ORDERED: ERGOCALCIFEROL (VITAMIN D2) 50000 UNIT (1.25 MG) CAPSULE PO SCH (10:00)
[2019-02-14] MEDS: ACETAMINOPHEN 325 MG TABLET PO PRN (13:36)
--- NOTE | 2019-02-14 19:14 | Progress Note ---
Provider Note Provider Note: CARDIOLOGY PROGRESS NOTE by Dr. Mari Miles on 02/14/2019. SUBJECTIVE: The patient denies any chest pain or discomfort. There is no shortness of breath. There is no arrhythmia seen on the monitor. The patient denies any PND orthopnea or leg edema. There is no recurrence of TIA symptoms or CVA symptoms recurrence. She denies any cough or sputum production. Today she is awake alert and oriented x3 with no new focal deficits. PHYSICAL EXAMINATION: The patient is moderately obese. In no acute distress. Selected Entries 02/14/19 15:50 Temperature 97.4 F Temperature Oral Source Pulse Rate 78 Respiratory 17 Rate Blood Pressure 107/52 L Blood Pressure 70 Mean BP Location Right Arm BP Position Supine O2 Sat by Pulse 100 Oximetry Oxygen Flow 2.00 Rate Oxygen Delivery Nasal Cannula Method Head: Is atraumatic normocephalic. EYES: Pupils equal round regular reactive to light and accommodation. Extraocular movements are normal there is no conjunctival pallor there is no specific scleral icterus. EARS: Tympanic membranes are intact. External auditory canals are clear. NOSE: There is no deviated nasal septum. There is no inflammation of these mucous membrane. MOUTH:. There is no bleeding from the gums. Mucous membranes of the mouth are moist. THROAT: There is no redness of the oropharynx. There is no exudates. SKIN: There is no skin lesions or skin rashes. There is no petechia or ecchymosis. NECK: Is supple. There is no JVD. Carotids equal there is faint bilateral carotid bruits present. There is no lymphadenopathy. There is no goiter. There is no accessory muscle respiration use. Trachea central. LUNGS: There is diminished air entry and prolonged expiration. Scattered rhonchi. There is no rhonchi or rales. There is an area of absent breath sounds in the left base. This is consistent with pleural effusion. On percussion there is hyperresonance except in the area of dullness mentioned about.. There is some chest wall tenderness on pressing on the left front of the chest. HEART: S1-S2 is heard. There is no S3 gallop. There is no S4 gallop. There is systolic murmur of MR and TR present. There is no rub. ABDOMEN: Soft. There is no hepatospleno megaly. Bowel sounds are well heard. There is no tender areas masses. EXTREMITIES: Femorals are diminished. There is faint bilateral femoral bruits. 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 There is trace pedal edema. There is no sinus or clubbing. There is no DVT or cellulitis. 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 PSYCHIATRIC: The patient judgment and insight are intact her affect is normal. The patient's recent stress test showed no significant reversible ischemia and evidence of scar. Hence will refer for AICD as an outpatient. The patient will continue LifeVest until AICD placed. Labs- All tests 24 hr 02/14/19 02/14/19 02/14/19 04:50 04:50 04:50 WBC 8.6 RBC 4.02 Hgb 11.6 L Hct 35.1 L MCV 87 MCH 28.9 MCHC 33.2 RDW 17.2 H Plt Count 185 Lymph % (Auto) 22.3 [place] % (Auto) 13.2 H Eos % (Auto) 2.7 Baso % (Auto) 0.6 Absolute Neuts (auto) 5.3 Absolute Lymphs (auto) 1.9 Absolute Monos (auto) 1.1 Absolute Eos (auto) 0.2 Absolute Basos (auto) 0.0 Seg Neutrophils % 61.2 Sodium 139.7 Potassium 3.8 Chloride 106 Carbon Dioxide 23 Anion Gap 11 BUN 23 H Creatinine 2.09 H Est GFR ( Amer) 29 L Est GFR (MDRD) Non-Af 24 L Glucose 115 H Calcium 9.3 NT-Pro-B Natriuret Pep 3200 H Chest X-Ray 02/09/19 17:36 IMPRESSION: Gross cardiomegaly without acute abnormality of the lungs in AP portable projection. Chest X-Ray 02/14/19 06:00 IMPRESSION: CARDIAC ENLARGEMENT. VASCULAR CONGESTION. Clinically the patient does not have any signs or symptoms CHF. IMPRESSION/RECOMMENDATION: 1. Acute on chronic systolic heart failure. Present the patient is in compensated chronic systolic heart failure. We will follow-up the patient in the office and referral for AICD placement. Will increase the patient's diuretics in view of the chest x-ray picture. 2. Most likely patient has volume overload heart failure. 3. Acute on chronic renal failure. The patient's GFR is worsened to 33 from a baseline of 42. 4. Coronary artery disease: History of old myocardial infarction. No clear-cut anginal symptoms. No evidence of acute coronary syndrome. Continue aspirin anti-CAD medication. 5. Cardiomyopathy: Combined ischemic and dilated. Note the patient had an echocardiogram on the 12th which showed moderately reduced LV ejection fraction of 35% with multiple wall motion of normality. 6.Hypertension: Blood pressure well controlled 7. History of CVA with residual left hemiparesis. 8. History of asthma/COPD. Most likely patient has an episode of acute exacerbation of COPD which is getting better. Continue anti-COPD treatment. Consider antibiotics if clinically indicate 10. Chronic kidney disease stage IIIIV 11. Asymptomatic gallstones.. Medications reviewed. Medications adjusted. Medical regimen and management plan discussed with attending physician. The patient has been encouraged to wear a LifeVest when she goes home. We will follow-up the patient in the office and hence will sign off. Medical decision making is of moderate complexity. 40 minutes spent on the patient with more than 50% of time spent in direct patient care..
--- NOTE | 2019-02-14 21:08 | PDOC PROGRESS REPORT ---
Subjective Progress Note for:: 02/14/19 Subjective:: Patient seen by the bedside, awaiting the LifeVest to be placed on patient Reason For Visit: ACUTE ON CHRONIC COMBINED SYSTOLIC AND DIASTOLIC Physical Exam Vital Signs: Temp Pulse Resp BP Pulse Ox 97.4 F 70 17 107/52 L 100 02/14/19 15:50 02/14/19 19:00 02/14/19 15:50 02/14/19 15:50 02/14/19 15:50 Intake & Output 02/13/19 02/14/19 02/15/19 06:59 06:59 06:59 Intake Total 460 655 420 Output Total 2700 2375 600 Balance -2240 -1720 -180 Weight 98.3 kg 98.3 kg General appearance: PRESENT: no acute distress Eye exam: PRESENT: PERRLA Respiratory exam: PRESENT: clear to auscultation freida Cardiovascular exam: PRESENT: +S1, +S2 Murmur grade: 3 GI/Abdominal exam: PRESENT: soft Neurological exam: PRESENT: alert, CN II-XII grossly intact Results Laboratory Results: 02/14/19 04:50 02/14/19 04:50 02/14/19 02/14/19 04:50 04:50 WBC 8.6 RBC 4.02 Hgb 11.6 L Hct 35.1 L MCV 87 MCH 28.9 MCHC 33.2 RDW 17.2 H Plt Count 185 Seg Neutrophils % 61.2 Sodium 139.7 Potassium 3.8 Chloride 106 Carbon Dioxide 23 Anion Gap 11 BUN 23 H Creatinine 2.09 H Est GFR ( Amer) 29 L Glucose 115 H Calcium 9.3 02/09/19 02/14/19 17:50 04:50 Troponin I 0.094 NT-Pro-B Natriuret Pep [id number] H 3200 H Impressions: Chest X-Ray 02/14/19 06:00 IMPRESSION: CARDIAC ENLARGEMENT. VASCULAR CONGESTION. 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
[2019-02-14] MEDS: MONTELUKAST SODIUM 10 MG TABLET PO SCH (21:43)
[2019-02-14] MEDS: ATORVASTATIN CALCIUM 80 MG TABLET PO SCH (21:43)
[2019-02-15] MEDS: SACUBITRIL/VALSARTAN 49 MG/51 MG TABLET PO SCH ×2 (06:06→17:57)
[2019-02-15] MEDS: PANTOPRAZOLE SODIUM 40 MG TABLET.DR PO SCH (06:06)
[2019-02-15] MEDS: METOPROLOL SUCCINATE 25 MG TAB.SR.24H PO SCH (09:57)
[2019-02-15] MEDS: FUROSEMIDE 20 MG TABLET PO SCH ×2 (09:57→17:57)
[2019-02-15] MEDS: HYDROXYCHLOROQUINE SULFATE 200 MG TABLET PO SCH ×2 (09:58→17:57)
[2019-02-15] MEDS: APIXABAN 2.5 MG TABLET PO SCH ×2 (09:58→21:29)
[2019-02-15] MEDS: TOPIRAMATE 100 MG TABLET PO SCH ×2 (10:01→21:30)
[2019-02-15] MEDS: UMECLIDINIUM BROMIDE 62.5 MCG/DOSE IH SCH (10:01)
[2019-02-15] MEDS: ACETAMINOPHEN 325 MG TABLET PO PRN (12:20)
[2019-02-15] MEDS: HYDROCODONE/ACETAMINOPHEN 7.5-325 MG TABLET PO PRN (21:29)
[2019-02-15] MEDS: MONTELUKAST SODIUM 10 MG TABLET PO SCH (21:29)
[2019-02-15] MEDS: ATORVASTATIN CALCIUM 80 MG TABLET PO SCH (21:30)
--- NOTE | 2019-02-15 23:03 | PDOC PROGRESS REPORT ---
Subjective Progress Note for:: 02/15/19 Subjective:: Patient seen by the bedside, disposition remains a challenge Reason For Visit: ACUTE ON CHRONIC COMBINED SYSTOLIC AND DIASTOLIC Physical Exam Vital Signs: Temp Pulse Resp BP Pulse Ox 98.0 F 71 20 96/60 L 100 02/15/19 19:28 02/15/19 19:28 02/15/19 19:28 02/15/19 19:28 02/15/19 19:28 Intake & Output 02/14/19 02/15/19 02/16/19 06:59 06:59 06:59 Intake Total 655 420 550 Output Total 2375 975 575 Balance -1720 -555 -25 Weight 98.3 kg 95.2 kg 95.2 kg General appearance: PRESENT: no acute distress Eye exam: PRESENT: PERRLA Respiratory exam: PRESENT: clear to auscultation freida Cardiovascular exam: PRESENT: +S1, +S2 Murmur grade: 3 GI/Abdominal exam: PRESENT: soft Neurological exam: PRESENT: alert Results Laboratory Results: 02/14/19 04:50 02/14/19 04:50 02/09/19 02/14/19 17:50 04:50 Troponin I 0.094 NT-Pro-B Natriuret Pep 56420 H 3200 H Impressions: Chest X-Ray 02/14/19 06:00 IMPRESSION: CARDIAC ENLARGEMENT. VASCULAR CONGESTION. Assessment & Plan - Diagnosis (1) Acute on chronic congestive heart failure Qualifiers: Heart failure type: combined systolic and diastolic Qualified Code(s): I50.43 - Acute on chronic combined systolic (congestive) and diastolic (congestive) heart failure Is this a current diagnosis for this admission?: Yes (2) [facility] (current) use of anticoagulants Is this a current diagnosis for this admission?: Yes (3) Cough Is this a current diagnosis for this admission?: Yes (4) Chronic obstructive pulmonary disease Qualifiers: COPD type: unspecified COPD Qualified Code(s): J44.9 - Chronic obstructive pulmonary disease, unspecified Is this a current diagnosis for this admission?: Yes - Time Time Spent with patient: 25-34 minutes
[2019-02-16] MEDS: SACUBITRIL/VALSARTAN 49 MG/51 MG TABLET PO SCH ×2 (05:06→17:24)
[2019-02-16] MEDS: PANTOPRAZOLE SODIUM 40 MG TABLET.DR PO SCH (05:08)
[2019-02-16] MEDS: HYDROCODONE/ACETAMINOPHEN 7.5-325 MG TABLET PO PRN ×2 (08:29→17:24)
[2019-02-16] MEDS: APIXABAN 2.5 MG TABLET PO SCH ×2 (10:20→21:49)
[2019-02-16] MEDS: FUROSEMIDE 20 MG TABLET PO SCH ×2 (10:20→17:24)
[2019-02-16] MEDS: METOPROLOL SUCCINATE 25 MG TAB.SR.24H PO SCH (10:21)
[2019-02-16] MEDS: TOPIRAMATE 100 MG TABLET PO SCH ×2 (10:21→21:49)
[2019-02-16] MEDS: UMECLIDINIUM BROMIDE 62.5 MCG/DOSE IH SCH (10:21)
[2019-02-16] MEDS: HYDROXYCHLOROQUINE SULFATE 200 MG TABLET PO SCH ×2 (10:21→17:24)
--- NOTE | 2019-02-16 10:58 | PDOC PROGRESS REPORT ---
Subjective Progress Note for:: 02/16/19 Subjective:: Patient is currently doing fair According to the nursing staff finally patient's family brought the LifeVest Patient's denied any chest pain no short of breath Patient usually walks with a walker with the prosthetic device due to the left leg amputations Reason For Visit: ACUTE ON CHRONIC COMBINED SYSTOLIC AND DIASTOLIC Physical Exam Vital Signs: Temp Pulse Resp BP Pulse Ox 97.8 F 69 20 111/61 100 02/16/19 08:56 02/16/19 08:56 02/16/19 08:56 02/16/19 08:56 02/16/19 08:56 Intake & Output 02/15/19 02/16/19 02/17/19 06:59 06:59 06:59 Intake Total 420 550 Output Total 975 1075 Balance -555 -525 Weight 95.2 kg 96.5 kg General appearance: PRESENT: no acute distress, well-developed, well-nourished Head exam: PRESENT: atraumatic, normocephalic Eye exam: PRESENT: conjunctiva pink, EOMI, PERRLA. ABSENT: scleral icterus Ear exam: PRESENT: normal external ear exam Mouth exam: PRESENT: moist, tongue midline Neck exam: PRESENT: full ROM. ABSENT: carotid bruit, JVD, lymphadenopathy, thyromegaly Respiratory exam: PRESENT: clear to auscultation freida Cardiovascular exam: PRESENT: RRR. ABSENT: diastolic murmur, rubs, systolic murmur Murmur grade: 3 Pulses: PRESENT: normal dorsalis pedis pul, +2 pedal pulses bilateral Vascular exam: PRESENT: normal capillary refill GI/Abdominal exam: PRESENT: normal bowel sounds, soft. ABSENT: distended, guarding, mass, organolmegaly, rebound, tenderness Rectal exam: PRESENT: deferred Extremities exam: PRESENT: left BKA Neurological exam: PRESENT: alert, awake, oriented to person, oriented to place, oriented to time, oriented to situation, CN II-XII grossly intact. ABSENT: motor sensory deficit Psychiatric exam: PRESENT: appropriate affect, normal mood. ABSENT: homicidal ideation, suicidal ideation Skin exam: PRESENT: dry, intact, warm. ABSENT: cyanosis, rash Results Laboratory Results: 02/14/19 04:50 02/14/19 04:50 02/09/19 02/14/19 17:50 04:50 Troponin I 0.094 NT-Pro-B Natriuret Pep [id number] H 3200 H Impressions: Chest X-Ray 02/14/19 06:00 IMPRESSION: CARDIAC ENLARGEMENT. VASCULAR CONGESTION. Assessment & Plan - Diagnosis (1) Acute on chronic congestive heart failure Qualifiers: Heart failure type: combined systolic and diastolic Qualified Code(s): I50.43 - Acute on chronic combined systolic (congestive) and diastolic (congestive) heart failure Is this a current diagnosis for this admission?: Yes Plan: follow-up with the Dr. 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 Is this a current diagnosis for this admission?: Yes Plan: Continues the Eliquis (3) CKD (chronic kidney disease), stage III Is this a current diagnosis for this admission?: Yes Plan: Currently all stable (4) Chronic obstructive pulmonary disease Qualifiers: COPD type: unspecified COPD Qualified Code(s): J44.9 - Chronic obstructive pulmonary disease, unspecified Is this a current diagnosis for this admission?: Yes - Time Time Spent with patient: 15-24 minutes Level of Care: IMCU Medications reviewed and adjusted accordingly: Yes Anticipated discharge: Other Within: Other - Plan Summary Plan Summary: Continues to current medications we will contact Dr. PADRON to evaluate the L Debby
[2019-02-16] MEDS: MONTELUKAST SODIUM 10 MG TABLET PO SCH (21:49)
[2019-02-16] MEDS: ATORVASTATIN CALCIUM 80 MG TABLET PO SCH (21:49)
[2019-02-17] MEDS: PANTOPRAZOLE SODIUM 40 MG TABLET.DR PO SCH (05:35)
[2019-02-17] MEDS: SACUBITRIL/VALSARTAN 49 MG/51 MG TABLET PO SCH ×2 (05:35→17:42)
[2019-02-17] MEDS: ACETAMINOPHEN 325 MG TABLET PO PRN ×2 (08:22→20:33)
[2019-02-17] MEDS: HYDROXYCHLOROQUINE SULFATE 200 MG TABLET PO SCH ×2 (09:58→18:03)
[2019-02-17] MEDS: APIXABAN 2.5 MG TABLET PO SCH ×2 (09:58→21:34)
[2019-02-17] MEDS: TOPIRAMATE 100 MG TABLET PO SCH ×2 (10:00→21:35)
[2019-02-17] MEDS: METOPROLOL SUCCINATE 25 MG TAB.SR.24H PO SCH (10:00)
[2019-02-17] MEDS: UMECLIDINIUM BROMIDE 62.5 MCG/DOSE IH SCH (10:01)
[2019-02-17] MEDS: FUROSEMIDE 20 MG TABLET PO SCH ×2 (10:01→17:42)
--- NOTE | 2019-02-17 10:34 | PDOC PROGRESS REPORT ---
Subjective Progress Note for:: 02/17/19 Subjective:: Patient is currently doing fair According to the nursing staff finally patient's family brought the LifeVest Patient's denied any chest pain no short of breath Patient usually walks with a walker with the prosthetic device due to the left leg amputations Reason For Visit: ACUTE ON CHRONIC COMBINED SYSTOLIC AND DIASTOLIC Physical Exam Vital Signs: Temp Pulse Resp BP Pulse Ox 98.4 F 74 17 100/60 100 02/17/19 07:37 02/17/19 07:37 02/17/19 07:37 02/17/19 07:37 02/17/19 07:37 Intake & Output 02/16/19 02/17/19 02/18/19 06:59 06:59 06:59 Intake Total 550 440 Output Total 1075 550 Balance -525 -110 Weight 96.5 kg 97.3 kg General appearance: PRESENT: no acute distress, well-developed, well-nourished Head exam: PRESENT: atraumatic, normocephalic Eye exam: PRESENT: conjunctiva pink, EOMI, PERRLA. ABSENT: scleral icterus Ear exam: PRESENT: normal external ear exam Mouth exam: PRESENT: moist, tongue midline Neck exam: PRESENT: full ROM. ABSENT: carotid bruit, JVD, lymphadenopathy, thyromegaly Respiratory exam: PRESENT: clear to auscultation freida Cardiovascular exam: PRESENT: RRR. ABSENT: diastolic murmur, rubs, systolic murmur Murmur grade: 3 Pulses: PRESENT: normal dorsalis pedis pul, +2 pedal pulses bilateral Vascular exam: PRESENT: normal capillary refill GI/Abdominal exam: PRESENT: normal bowel sounds, soft. ABSENT: distended, guarding, mass, organolmegaly, rebound, tenderness Rectal exam: PRESENT: deferred Neurological exam: PRESENT: alert, awake, oriented to person, oriented to place, oriented to time, oriented to situation, CN II-XII grossly intact. ABSENT: motor sensory deficit Psychiatric exam: PRESENT: appropriate affect, normal mood. ABSENT: homicidal ideation, suicidal ideation Skin exam: PRESENT: dry, intact, warm. ABSENT: cyanosis, rash Results Laboratory Results: 02/14/19 04:50 02/14/19 04:50 02/09/19 02/14/19 17:50 04:50 Troponin I 0.094 NT-Pro-B Natriuret Pep 25548 H 3200 H Impressions: Chest X-Ray 02/14/19 06:00 IMPRESSION: CARDIAC ENLARGEMENT. VASCULAR CONGESTION. Assessment & Plan - Diagnosis (1) Acute on chronic congestive heart failure Qualifiers: Heart failure type: combined systolic and diastolic Qualified Code(s): I50.43 - Acute on chronic combined systolic (congestive) and diastolic (congestive) heart failure Is this a current diagnosis for this admission?: Yes Plan: follow-up with the Dr. 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 Is this a current diagnosis for this admission?: Yes Plan: Continues the Eliquis (3) CKD (chronic kidney disease), stage III Is this a current diagnosis for this admission?: Yes Plan: Currently all stable (4) Chronic obstructive pulmonary disease Qualifiers: COPD type: unspecified COPD Qualified Code(s): J44.9 - Chronic obstructive pulmonary disease, unspecified Is this a current diagnosis for this admission?: Yes - Time Time Spent with patient: 15-24 minutes Level of Care: IMCU Medications reviewed and adjusted accordingly: Yes Anticipated discharge: Other Within: Other - Plan Summary Plan Summary: Continues to current medications
[2019-02-17] MEDS: ATORVASTATIN CALCIUM 80 MG TABLET PO SCH (21:34)
[2019-02-17] MEDS: MONTELUKAST SODIUM 10 MG TABLET PO SCH (21:34)
[2019-02-18] MEDS: SACUBITRIL/VALSARTAN 49 MG/51 MG TABLET PO SCH ×2 (05:24→20:31)
[2019-02-18] MEDS: PANTOPRAZOLE SODIUM 40 MG TABLET.DR PO SCH (05:24)
[2019-02-18] MEDS: ACETAMINOPHEN 325 MG TABLET PO PRN (05:31)
[2019-02-18] MEDS: APIXABAN 2.5 MG TABLET PO SCH ×2 (10:08→21:59)
[2019-02-18] MEDS: FUROSEMIDE 20 MG TABLET PO SCH (10:10)
[2019-02-18] MEDS: TOPIRAMATE 100 MG TABLET PO SCH ×2 (10:11→21:59)
[2019-02-18] MEDS: UMECLIDINIUM BROMIDE 62.5 MCG/DOSE IH SCH (10:12)
[2019-02-18] MEDS: HYDROXYCHLOROQUINE SULFATE 200 MG TABLET PO SCH ×2 (10:19→17:52)
[2019-02-18] MEDS: METOPROLOL SUCCINATE 25 MG TAB.SR.24H PO SCH (10:22)
--- NOTE | 2019-02-18 20:59 | PDOC DISCHARGE SUMMARY ---
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 Is this a current diagnosis for this admission?: Yes (3) Cough Is this a current diagnosis for this admission?: Yes (4) Chronic obstructive pulmonary disease Is this a current diagnosis for this admission?: Yes - Additional Information Resuscitation Status: Full Code Discharge Diet: Cardiac Discharge Activity: Activity As Tolerated, Balance Activity w/Rest, Keep Legs Elevated, Slowly Increase Activity Referrals: TEODORO HOROWITZ MD [Primary Care Provider] - 02/25/19 10:30 am Prescriptions: Sacubitril/Valsartan [Entresto 49 mg/51 mg Tablet] 1 tab PO Q12A #180 tablet Home Medications: Albuterol Sulfate [Ventolin Hfa 8 gm Mdi (1 Mdi/ER Disp)] 2 puff IH Q4HP PRN 11/19/18 Apixaban [Eliquis 2.5 mg Tablet] 2.5 mg PO Q12 11/19/18 Atorvastatin Calcium [Lipitor 80 mg Tablet] 80 mg PO QHS 11/19/18 Doxepin HCl [Silenor] 6 mg PO QHS 11/19/18 Ergocalciferol (Vitamin D2) [Drisdol 50,000 unit (1.25MG) Capsule] 50,000 unit PO TH@1000 11/19/18 Hydroxychloroquine Sulfate [Plaquenil 200 mg Tablet] 200 mg PO BID 11/19/18 Linaclotide [Linzess] 72 mcg PO DAILY 11/19/18 Metoprolol Succinate [Toprol Xl 25 mg Tab.sr] 25 mg PO DAILY 11/19/18 Pantoprazole Sodium [Protonix [address] Tablet] 40 mg PO DAILY 11/19/18 Tiotropium [place] [Spiriva Handihaler 5 Cap/Kit (18 Mcg/Cap)] 1 puff IH DAILY 11/19/18 Topiramate [Topamax] 50 mg PO Q12 11/19/18 Hydrocodone/Acetaminophen [[place] 7.5-325 Tablet] 1 each PO Q6HP PRN 02/10/19 Montelukast Sodium [Singulair 10 mg Tablet] 10 mg PO QHS 02/10/19 Acetaminophen [Tylenol 325 mg Tablet] 650 mg PO Q6HP PRN tablet 02/18/19 Sacubitril/Valsartan [Entresto 49 mg/51 mg Tablet] 1 tab PO Q12A #180 tablet 02/18/19 History of Present Illiness History of Present Illness: KEYONA TAYLOR is a 63 year old female she presented to the ED with worsening shortness of breath and generalized weakness. Patient was discharged form this facility couple of weeks ago following admission for acute combined systolic and diastolic congestive heart failure with instruction on using life vest monitoring for possible malignant arrhythmia that may justify placement if AICD. Patient reported that her assigned visiting nurse and PCS aid refused to assist her in putting on the life vest. Due to worsening generalized weakness and shortness of breath she alerted EMS and she was brought to the ED for further evaluation. Her initial ED evaluation revealed anemia, worsening renal indices, and elevated more than usual NT-Pro BNP level over 11,000. Her chest X ray revealed cardiomegaly without overt failure and EKG suggested sinus rhythm with possible RBBB and anterolateral [place], age indeterminate. She was advised hospitalization for acute on chronic combine CHF for further evaluation and management. Hospital Course Hospital Course: She was admitted for the management of decompensated chronic systolic heart failure, medication was adjusted, she was started on Entresto, she had low blood pressure, she did not tolerate high dose furosemide, she was treated with low- dose furosemide, despite the low dose blood pressure remains low. She was seen in consultation by Dr. Ying, cardiology, she is not compliant with LifeVest that was recommended because of cardiomyopathy, she will need ultimately AICD to prevent life-threatening arrhythmias,Patient is stable enough for discharge home Physical Exam Vital Signs: Temp Pulse Resp BP Pulse Ox 97.6 F 71 20 98/59 L 96 02/18/19 19:21 02/18/19 19:21 02/18/19 19:21 02/18/19 19:21 02/18/19 19:21 Intake & Output 02/17/19 02/18/19 02/19/19 06:59 06:59 06:59 Intake Total 440 600 358 Output Total 550 975 650 Balance -110 -375 -292 Weight 97.3 kg 97.4 kg General appearance: PRESENT: no acute distress Eye exam: PRESENT: PERRLA Respiratory exam: PRESENT: clear to auscultation freida Cardiovascular exam: PRESENT: +S1, +S2 GI/Abdominal exam: PRESENT: soft Neurological exam: PRESENT: alert Results Laboratory Results: WBC 8.6 10^3/uL (4.0-10.5) 02/14/19 04:50 RBC 4.02 10^6/uL (3.72-5.28) 02/14/19 04:50 Hgb 11.6 g/dL (12.0-15.5) L 02/14/19 04:50 Hct 35.1 % (36.0-47.0) L 02/14/19 04:50 MCV 87 fl (80-97) 02/14/19 04:50 MCH 28.9 pg (27.0-33.4) 02/14/19 04:50 MCHC 33.2 g/dL (32.0-36.0) 02/14/19 04:50 RDW 17.2 % (11.5-14.0) H 02/14/19 04:50 Plt Count 185 10^3/uL (150-450) 02/14/19 04:50 Lymph % (Auto) 22.3 % (13-45) 02/14/19 04:50 [place] % (Auto) 13.2 % (3-13) H 02/14/19 04:50 Eos % (Auto) 2.7 % (0-6) 02/14/19 04:50 Baso % (Auto) 0.6 % (0-2) 02/14/19 04:50 Absolute Neuts (auto) 5.3 10^3/uL (1.7-8.2) 02/14/19 04:50 Absolute Lymphs (auto) 1.9 10^3/uL (0.5-4.7) 02/14/19 04:50 Absolute Monos (auto) 1.1 10^3/uL (0.1-1.4) 02/14/19 04:50 Absolute Eos (auto) 0.2 10^3/uL (0.0-0.6) 02/14/19 04:50 Absolute Basos (auto) 0.0 10^3/uL (0.0-0.2) 02/14/19 04:50 Seg Neutrophils % 61.2 % (42-78) 02/14/19 04:50 Sodium 139.7 mmol/L (137-145) 02/14/19 04:50 Potassium 3.8 mmol/L (3.6-5.0) 02/14/19 04:50 Chloride 106 mmol/L (98-107) 02/14/19 04:50 Carbon Dioxide 23 mmol/L (22-30) 02/14/19 04:50 Anion Gap 11 (5-19) 02/14/19 04:50 BUN 23 mg/dL (7-20) H 02/14/19 04:50 Creatinine 2.09 mg/dL (0.52-1.25) H 02/14/19 04:50 Est GFR ( Amer) 29 (>60) L 02/14/19 04:50 Est GFR (MDRD) Non-Af 24 (>60) L 02/14/19 04:50 Glucose 115 mg/dL (75-110) H 02/14/19 04:50 Calcium 9.3 mg/dL (8.4-10.2) 02/14/19 04:50 Ionized Calcium Vania 1.17 mmol/L (1.14-1.30) 02/11/19 11:10 Magnesium 1.8 mg/dL (1.6-2.3) 02/12/19 14:15 Total Bilirubin 0.8 mg/dL (0.2-1.3) 02/12/19 14:15 Direct Bilirubin 0.3 mg/dL (0.0-0.4) 02/12/19 14:15 Neonat Total Bilirubin Not Reportable 02/12/19 14:15 Neonat Direct Bilirubin Not Reportable 02/12/19 14:15 Neonat Indirect Bili Not Reportable 02/12/19 14:15 AST 15 U/L (14-36) 02/12/19 14:15 ALT 14 U/L (<35) 02/12/19 14:15 Alkaline Phosphatase 78 U/L (38-126) 02/12/19 14:15 Troponin I 0.094 ng/mL 02/09/19 17:50 NT-Pro-B Natriuret Pep 3200 pg/mL (<125) H 02/14/19 04:50 Total Protein 6.9 g/dL (6.3-8.2) 02/12/19 14:15 Albumin 3.4 g/dL (3.5-5.0) L 02/12/19 14:15 Urine Color YELLOW 02/09/19 17:50 Urine Appearance CLEAR 02/09/19 17:50 Urine pH 5.0 (5.0-9.0) 02/09/19 17:50 Ur Specific [place] 1.011 02/09/19 17:50 Urine Protein NEGATIVE mg/dL (NEGATIVE) 02/09/19 17:50 Urine Glucose (UA) NEGATIVE mg/dL (NEGATIVE) 02/09/19 17:50 Urine Ketones NEGATIVE mg/dL (NEGATIVE) 02/09/19 17:50 Urine Blood SMALL (NEGATIVE) H 02/09/19 17:50 Urine Nitrite NEGATIVE (NEGATIVE) 02/09/19 17:50 Urine Bilirubin NEGATIVE (NEGATIVE) 02/09/19 17:50 Urine Urobilinogen 2.0 mg/dL (<2.0) H 02/09/19 17:50 Ur Leukocyte Esterase NEGATIVE (NEGATIVE) 02/09/19 17:50 Urine WBC (Auto) 1 /HPF 02/09/19 17:50 Urine RBC (Auto) 9 /HPF 02/09/19 17:50 U Hyaline Cast (Auto) 5 /LPF 02/09/19 17:50 Urine Bacteria (Auto) 1+ /HPF 02/09/19 17:50 Squamous Epi Cells Auto 1 /HPF 02/09/19 17:50 Urine Mucus (Auto) RARE /LPF 02/09/19 17:50 Urine Ascorbic Acid NEGATIVE (NEGATIVE) 02/09/19 17:50 02/09/19 02/14/19 17:50 04:50 Troponin I 0.094 NT-Pro-B Natriuret Pep [id number] H 3200 H Impressions: Chest X-Ray 02/09/19 17:36 IMPRESSION: Gross cardiomegaly without acute abnormality of the lungs in AP portable projection. Chest X-Ray 02/14/19 06:00 IMPRESSION: CARDIAC ENLARGEMENT. VASCULAR CONGESTION. Plan Goals: closed until Feb 14 Stroke Is this a Stroke Patient?: No Acute Heart Failure - Is this a Heart Failure Patient?: Yes Documentation of LVEF assessment?: Yes LVEF < 40%?: Yes-if yes answer questions a through e a) Discharged on ACEI?: Yes b) Discharges on ARB?: Yes c) Discharged on ARNI?: Yes d) Discharged on evidence-based Beta michelle(carvedilol, sustained release metoprolol succinate, or bisoprolol)?: Yes e) For LVEF <35%, discharged on Aldosterone antagonist?: N/A (LVEF > or = 35%) 3. Anticoagulant therapy for permanect/persistent/paraoxysmal Afib or Aflutter: Yes Follow-up Appointment scheduled within 7 days?: Yes
[2019-02-18] MEDS: ATORVASTATIN CALCIUM 80 MG TABLET PO SCH (21:59)
[2019-02-18] MEDS: MONTELUKAST SODIUM 10 MG TABLET PO SCH (21:59)
[2019-02-19] MEDS: ACETAMINOPHEN 325 MG TABLET PO PRN (02:04)
[2019-02-19] MEDS: PANTOPRAZOLE SODIUM 40 MG TABLET.DR PO SCH (05:27)
[2019-02-19] MEDS: SACUBITRIL/VALSARTAN 49 MG/51 MG TABLET PO SCH (05:27)
[2019-02-19 09:23] VITALS: BP 115/61
[2019-02-19] MEDS: TOPIRAMATE 100 MG TABLET PO SCH (09:26)
[2019-02-19] MEDS: UMECLIDINIUM BROMIDE 62.5 MCG/DOSE IH SCH (09:26)
[2019-02-19] MEDS: METOPROLOL SUCCINATE 25 MG TAB.SR.24H PO SCH (09:26)
[2019-02-19] MEDS: HYDROXYCHLOROQUINE SULFATE 200 MG TABLET PO SCH (09:26)
[2019-02-19] MEDS: APIXABAN 2.5 MG TABLET PO SCH (09:26)
== END 2019-02-19 13:20 | disposition home health service (06) | DRG 291 ==
LOC: ER 16:31 → EH 20:44 → 3W 22:18
PROVIDERS: ADMIT Internal Medicine; ATTEND Internal Medicine
PROC: 06HY33Z Insertion of Infusion Device into Lower Vein, Percutaneous Approach (ICD-10-PCS; principal; 2019-02-10)
DX: I13.0 Hypertensive heart and chronic kidney disease with heart failure and stage 1 through stage 4 chronic kidney disease, or unspecified chronic kidney disease (principal); I50.43 Acute on chronic combined systolic (congestive) and diastolic (congestive) heart failure; N17.9 Acute kidney failure, unspecified; N18.3 Chronic kidney disease, stage 3 (moderate); I95.9 Hypotension, unspecified; E86.0 Dehydration; I48.0 Paroxysmal atrial fibrillation; I25.10 Atherosclerotic heart disease of native coronary artery without angina pectoris; J44.9 Chronic obstructive pulmonary disease, unspecified; E78.00 Pure hypercholesterolemia, unspecified; I73.9 Peripheral vascular disease, unspecified; F03.90 Unspecified dementia, unspecified severity, without behavioral disturbance, psychotic disturbance, mood disturbance, and anxiety; I25.2 Old myocardial infarction; Z60.2 Problems related to living alone; Z89.512 Acquired absence of left leg below knee; Z95.1 Presence of aortocoronary bypass graft; Z95.5 Presence of coronary angioplasty implant and graft; Z79.01 Long term (current) use of anticoagulants; Z79.51 Long term (current) use of inhaled steroids; Z79.899 Other long term (current) drug therapy
CPT/HCPCS: 36415; 71045; 80048; 80053; 81001; 82330; 83735; 83880; 84484; 85025; 87070; 93005; 93010; 99285; C1751; J1642; J1940; J3490

== ENCOUNTER 2019-02-25 13:49 | Inpatient (IN) | payer MEDICARE, MEDICAID ==
--- NOTE | 2019-02-25 17:03 | ER Document Report ---
Entered by TC SCHMID SCRIBE 02/25/19 1619 Acting as scribe for:TR GARIBAY MD ED Fall - General Chief Complaint: Fall Stated Complaint: FALL Time Seen by Provider: 02/25/19 16:17 Mode of Arrival: Medic Information source: Patient, Emergency Med Personnel Notes: This 63 year old female patient with dementia brought in by EMS presents to the ED today with complaints of a fall that occurred sometime this morning. Patient states that she slipped out of her wheelchair on her right side. EMS reports that the son found her on the floor this afternoon and that he last saw her last night when he gave her dinner. Patient denies any pain, head injury, or loss of consciousness. The patient has some dementia, she lives alone, she has a left BKA. Patient was admitted here on 02/09/19 to 02/19/19 for acute on chronic congestive heart failure. The family was requesting that she be placed in a retirement, as she is no longer able to care for herself at home safely. TRAVEL OUTSIDE OF THE [place] IN LAST 30 DAYS: No - Related data Allergies/Adverse Reactions: No Known Allergies Allergy (Verified 06/22/18 14:53) Past Medical History - General Information source: [facility] Records - Social History Smoking Status: Unknown if Ever Smoked Cigarette use (# per day): No Chew tobacco use (# tins/day): No Smoking Education Provided: No Frequency of alcohol use: None Drug Abuse: None Lives with: Alone Family History: Reviewed & Not Pertinent, Malignancy Patient has suicidal ideation: No Patient has homicidal ideation: No - Past Medical History Cardiac Medical History: Reports: Hx Atrial Fibrillation - Paroxysmal atrial fibrillation, Hx Congestive Heart Failure, Hx Coronary Artery Disease, Hx Heart Attack, Hx Hypercholesterolemia, Hx Hypertension, Hx Peripheral Vascular Disease Pulmonary Medical History: Reports: Hx Asthma, Hx Bronchitis, Hx COPD Malignancy Medical History: Reports: Hx Breast Cancer GI Medical History: Reports: Hx Gastroesophageal Reflux Disease Musculoskeletal Medical History: Reports Hx Arthritis, Reports Hx Fibromyalgia Psychiatric Medical History: Reports: Hx Depression Past Surgical History: Reports: Hx Cardiac Catheterization - 2002 Stent, 2004 Stent, Hx Coronary Stent - 2002([place]), 2004([place]), Hx Mastectomy - LEFT, Hx Orthopedic Surgery - left BKA due to peripheral vascular disease/ischemia - Immunizations Hx Diphtheria, Pertussis, Tetanus Vaccination: Yes Review of Systems - Review of Systems Constitutional: No symptoms reported EENT: No symptoms reported Cardiovascular: No symptoms reported Respiratory: No symptoms reported Gastrointestinal: No symptoms reported Genitourinary: No symptoms reported Female Genitourinary: No symptoms reported Musculoskeletal: See HPI. denies: Muscle pain Skin: No symptoms reported Hematologic/Lymphatic: No symptoms reported Neurological/Psychological: See HPI, Dementia. denies: Lost consciousness -: Yes All other systems reviewed and negative Physical Exam - Vital signs Vitals: Temp Pulse Resp BP Pulse Ox 97.9 F 70 20 103/63 99 02/25/19 13:56 02/25/19 13:56 02/25/19 13:56 02/25/19 13:56 02/25/19 13:56 Interpretation: Normal - General General appearance: Lethargic, Other - Drowsy, but arousable. When aroused, patient is a little mented, but otherwise is demented. In distress: None - HEENT Head: Normocephalic, Atraumatic Eyes: Normal Pupils: PERRL - Respiratory Respiratory status: No respiratory distress Chest status: Nontender Breath sounds: Normal Chest palpation: Normal - Cardiovascular Rhythm: Regular Heart sounds: Normal auscultation Murmur: No - Abdominal Inspection: Normal Distension: No distension Bowel sounds: Normal Tenderness: Nontender Organomegaly: No organomegaly - Back Back: Normal, Nontender - Extremities General upper extremity: Other - Right hand and arm are a little cool to touch compared to left UE. Radial pulses are equal. General lower extremity: Edema - Right leg has 2-3+ pitting edema., Other - Left lower BKA. Stump looks normal. - Neurological Neuro grossly intact: Yes - Psychological Associated symptoms: Other - Lethargic - Skin Skin Temperature: Warm Skin Moisture: Dry Skin Color: Normal Course - Vital Signs Vital signs: Temp Pulse Resp BP Pulse Ox 98.3 F 72 17 102/64 97 02/26/19 07:33 02/26/19 07:33 02/26/19 07:33 02/26/19 07:33 02/26/19 07:33 - Laboratory Result Diagrams: 02/25/19 16:50 02/25/19 17:33 Laboratory results interpreted by me: 02/25/19 02/25/19 02/25/19 16:50 17:33 17:33 Hgb 11.7 L Hct 35.2 L RDW 16.5 H [place] % (Auto) 15.0 H Chloride 108 H Carbon Dioxide 18 L BUN 43 H Creatinine 1.74 H Est GFR ( Amer) 36 L Est GFR (MDRD) Non-Af 30 L Magnesium 2.4 H Direct Bilirubin 0.5 H AST 44 H Ammonia < 8.7 L Creatine Kinase 468 H CK-MB (CK-2) Total Protein 9.0 H Urine Urobilinogen 02/25/19 02/25/19 17:33 18:20 Hgb Hct RDW [place] % (Auto) Chloride Carbon Dioxide BUN Creatinine Est GFR ( Amer) Est GFR (MDRD) Non-Af Magnesium Direct Bilirubin AST Ammonia Creatine Kinase CK-MB (CK-2) 5.68 H Total Protein Urine Urobilinogen 2.0 H - Diagnostic Test Radiology reviewed: Image reviewed, Reports reviewed - Chest x-ray shows stable cardiomegaly. - EKG Interpretation by Me EKG shows normal: Sinus rhythm, [place], Intervals, QRS Complexes, ST-T Waves Rate: Normal - 65 Rhythm: NSR, PVC's [place]/QRS: RBBB, LAHB/LAFB When compared to previous EKG there are: No significant change - Consults Dr. Vogt Time consulted: 18:55 Consulted provider: will see as inpatient Discharge - Discharge Clinical Impression: Lethargy, Peripheral edema, Dehydration Fall from wheelchair Qualifiers: Encounter type: initial encounter Qualified Code(s): W05.0XXA - Fall from non- moving wheelchair, initial encounter Hypotension Qualifiers: Hypotension type: unspecified hypotension type Qualified Code(s): I95.9 - Hypotension, unspecified Condition: Stable Disposition: ADMITTED INPATIENT Admitting Provider: Sin Unit Admitted: IMCU Scribe Attestation: 02/25/19 18:15 I personally performed the services described in the documentation, reviewed and edited the documentation which was dictated to the scribe in my presence, and it accurately records my words and actions. I personally performed the services described in the documentation, reviewed and edited the documentation which was dictated to the scribe in my presence, and it accurately records my words and actions.
[2019-02-25 17:30] LABS: ABSOLUTE BASOPHILS # (AUTO) 0.1 10^3/uL (0.0-0.2); ABSOLUTE EOSINOPHILS # (AUTO) 0.1 10^3/uL (0.0-0.6); ABSOLUTE LYMPHOCYTES (AUTO) 2.1 10^3/uL (0.5-4.7); ABSOLUTE MONOCYTES (AUTO) 1.3 10^3/uL (0.1-1.4); ABSOLUTE NEUT (AUTO) 5.3 10^3/uL (1.7-8.2); BASOPHILS % (AUTO) 0.8 % (0-2); EOSINOPHILS % (AUTO) 1.1 % (0-6); HEMATOCRIT 35.2 % (36.0-47.0); HEMOGLOBIN 11.7 g/dL (12.0-15.5); LYMPHOCYTES % (AUTO) 23.2 % (13-45); MEAN CORPUSCULAR HEMOGLOBIN 28.6 pg (27.0-33.4); MEAN CORPUSCULAR HGB CONC 33.1 g/dL (32.0-36.0); MEAN CORPUSCULAR VOLUME 86 fl (80-97); PLATELET COUNT 177 10^3/uL (150-450); RED BLOOD COUNT 4.07 10^6/uL (3.72-5.28); RED CELL DISTRIBUTION WIDTH 16.5 % (11.5-14.0); SEGMENTED NEUTROPHILS % (AUTO) 59.9 % (42-78); TOTAL CELLS COUNTED % (AUTO) 100 %; WHITE BLOOD COUNT 8.9 10^3/uL (4.0-10.5)
--- NOTE | 2019-02-25 17:33 | RADIOLOGY REPORT (SQ) ---
EXAM DESCRIPTION: CHEST SINGLE VIEW COMPLETED DATE/TIME: 02/25/2019 5:22 pm REASON FOR STUDY: Lethargy COMPARISON: 02/14/2019. EXAM PARAMETERS: NUMBER OF VIEWS: One view. TECHNIQUE: Single frontal radiographic view of the chest acquired. RADIATION DOSE: NA LIMITATIONS: None. FINDINGS: LUNGS AND PLEURA: No opacities, masses or pneumothorax. No pleural effusion. MEDIASTINUM AND HILAR STRUCTURES: No masses. Contour normal. HEART AND VASCULAR STRUCTURES: Stable cardiac enlargement. BONES: No acute findings. HARDWARE: Surgical clips in the soft tissues on the left. OTHER: No other significant finding. IMPRESSION: STABLE CARDIOMEGALY. NO ACUTE RADIOGRAPHIC FINDING IN THE CHEST. TECHNICAL DOCUMENTATION: JOB ID: [id number] [employer]- All Rights Reserved Reading location - IP/workstation name: [email or web address]
[2019-02-25 18:18] LABS: ALBUMIN 4.4 g/dL (3.5-5.0); ALKALINE PHOSPHATASE 100 U/L (38-126); ANION GAP 14 (5-19); ASPARTATE AMINO TRANSFERASE 44 U/L (14-36); BILIRUBIN,DIRECT 0.5 mg/dL (0.0-0.4); BILIRUBIN,TOTAL 1.2 mg/dL (0.2-1.3); BLOOD UREA NITROGEN 43 mg/dL (7-20); CALCIUM 9.8 mg/dL (8.4-10.2); CARBON DIOXIDE 18 mmol/L (22-30); CHLORIDE 108 mmol/L (98-107); CREATINE KINASE 468 U/L (30-135); GLUCOSE 83 mg/dL (75-110); POTASSIUM 4.9 mmol/L (3.6-5.0)
[2019-02-25 18:28] LABS: CREATINE KINASE MB 5.68 ng/mL (<4.55); TROPONIN I 0.033 ng/mL
[2019-02-25 18:47] LABS: APPEARANCE,URINE CLEAR; BILIRUBIN,URINE NEGATIVE (NEGATIVE); COLOR,URINE YELLOW; GLUCOSE, URINE NEGATIVE (NEGATIVE); KETONES,URINE NEGATIVE (NEGATIVE); LEUKOCYTE ESTERASE,URINE NEGATIVE (NEGATIVE); NITRITE,URINE NEGATIVE (NEGATIVE); PROTEIN,URINE NEGATIVE (NEGATIVE)
[2019-02-25 20:20] LABS: VENOUS BLOOD BASE EXCESS -6.2 mmol/L; VENOUS BLOOD HCO3 20.1 mmol/L (20-32); VENOUS BLOOD PCO2 42.4 mmHg (35-63); VENOUS BLOOD PH 7.29 (7.30-7.42)
[2019-02-25] MEDS ORDERED: ALBUTEROL SULFATE HFA (90 MCG/PUFF) 200 PUFF/8.5 GM MDI IH PRN (20:57)
[2019-02-25] MEDS ORDERED: (PENDING PHARMACY ID) (Linaclotide [Linzess] 72 MCG) PO SCH (21:00)
[2019-02-25] MEDS ORDERED: (PENDING PHARMACY ID) (Tiotropium Bromide [Spiriva Handihaler 5 Cap/Kit (18 Mcg/Cap)] 1 PU IH SCH (21:00)
[2019-02-25 21:40] LABS: UR PRO/CREAT RATIO RESULT 0.1 mg/mg (0.0-0.2); URINE CREATININE 187.9 mg/dL (15-278); URINE PROTEIN 9.6 mg/dL (<12)
[2019-02-25] MEDS ORDERED: (PENDING PHARMACY ID) (Doxepin Hcl [Silenor] 6 MG) PO SCH (22:00)
[2019-02-25] MEDS: ATORVASTATIN CALCIUM 80 MG TABLET PO SCH (23:09)
[2019-02-25] MEDS: MONTELUKAST SODIUM 10 MG TABLET PO SCH (23:10)
[2019-02-25] MEDS: APIXABAN 2.5 MG TABLET PO SCH (23:10)
[2019-02-25] MEDS: TOPIRAMATE 25 MG TABLET PO SCH (23:10)
[2019-02-25] MEDS: HYDROXYCHLOROQUINE SULFATE 200 MG TABLET PO SCH (23:15)
[2019-02-25] MEDS: METOPROLOL SUCCINATE 25 MG TAB.SR.24H PO SCH (23:15)
[2019-02-25] MEDS: PANTOPRAZOLE SODIUM 40 MG TABLET.DR PO SCH (23:15)
[2019-02-26] MEDS: SACUBITRIL/VALSARTAN 24 MG/26 MG TABLET PO SCH ×3 (02:04→17:25)
[2019-02-26] MEDS: HYDROCODONE/ACETAMINOPHEN 7.5-325 MG TABLET PO PRN ×2 (08:01→17:24)
[2019-02-26] MEDS: APIXABAN 2.5 MG TABLET PO SCH ×2 (09:32→22:40)
[2019-02-26] MEDS: HYDROXYCHLOROQUINE SULFATE 200 MG TABLET PO SCH ×2 (09:32→17:25)
[2019-02-26] MEDS: AMPICILLIN SODIUM 500 MG in NORMAL SALINE 25 ML IV SCH ×4 (09:32→22:40)
[2019-02-26] MEDS: METOPROLOL SUCCINATE 25 MG TAB.SR.24H PO SCH (09:32)
[2019-02-26] MEDS: PANTOPRAZOLE SODIUM 40 MG TABLET.DR PO SCH (09:32)
[2019-02-26] MEDS: UMECLIDINIUM BROMIDE 62.5 MCG/DOSE IH SCH (09:34)
[2019-02-26] MEDS: TOPIRAMATE 25 MG TABLET PO SCH ×2 (09:45→22:40)
--- NOTE | 2019-02-26 11:21 | EKG REPORT ---
SEVERITY:- ABNORMAL ECG - SINUS RHYTHM VENTRICULAR PREMATURE COMPLEX RBBB AND LAFB : Confirmed by: Mari Miles MD 26-Feb-2019 11:20:01
--- NOTE | 2019-02-26 21:09 | PDOC H&P ---
History of Present Illness Admission Date/PCP: 02/25/19 19:46 TEODORO HOROWITZ MD History of Present Illness: KEYONA TAYLOR is a 63 year old female, She [facility], she has multiple comorbid conditions including left BKA, multiple CVA, chronic systolic and diastolic heart failure, COPD she apparently fell of the chair to the floor, she was found on the floor by her son he called 911, patient lives by self, family does not want patient to live alone anymore, they want her placed in the shelter Past Medical History Cardiac Medical History: Reports: Atrial Fibrillation - Paroxysmal atrial fibrillation, Congestive Heart Failure, Coronary Artery Disease, Myocardial Infarction, Hyperlipidema, Hypertension, Peripheral Vascular Disease Pulmonary Medical History: Reports: Asthma, Bronchitis, Chronic Obstructive Pulmonary Disease (COPD) Malignancy Medical History: Reports: Breast Cancer GI Medical History: Reports: Gastroesophageal Reflux Disease Musculoskeltal Medical History: Reports: Arthritis, Fibromyalgia Psychiatric Medical History: Reports: Depression Past Surgical History Past Surgical History: Reports: Cardiac Catheterization - 2002 Stent, 2004 Stent, Coronary Stent - 2002([place]), 2004([place]), Mastectomy - LEFT, Orthopedic Surgery - left BKA due to peripheral vascular disease/ischemia Denies: Pacemaker Social History Lives with: Alone Smoking Status: Unknown if Ever Smoked Cigarettes Packs Per Day: 1 Electronic Cigarette use?: No Last Time Smoked: 2016 Frequency of Alcohol Use: None Hx Recreational Drug Use: No Drugs: None Hx Prescription Drug Abuse: No Family History Family History: Reviewed & Not Pertinent, Malignancy Parental Family History Reviewed: Yes Children Family History Reviewed: Yes Sibling(s) Family History Reviewed.: Yes Medication/Allergy Home Medications: Albuterol Sulfate [Proair HFA Inhalation Aerosol 8.5 gm MDI] 2 puff IH Q4HP PRN 02/25/19 Apixaban [Eliquis 2.5 mg Tablet] 2.5 mg PO Q12 02/25/19 Atorvastatin Calcium [Lipitor 80 mg Tablet] 80 mg PO QHS 02/25/19 Ergocalciferol (Vitamin D2) [Drisdol 50,000 unit (1.25MG) Capsule] 50,000 unit PO TH@1000 02/25/19 Furosemide [Lasix 40 mg Tablet] 40 mg PO BID 02/25/19 Hydrocodone/Acetaminophen [Jones 7.5-325 mg Tablet] 1 tab PO Q6HP PRN 02/25/19 Hydroxychloroquine Sulfate [Plaquenil 200 mg Tablet] 200 mg PO BID 02/25/19 Linaclotide [Linzess] 72 mcg PO DAILY 02/25/19 Losartan Potassium [Cozaar 25 mg Tablet] 25 mg PO DAILY 02/25/19 Metoprolol Succinate [Toprol Xl 25 mg Tab.sr] 25 mg PO DAILY 02/25/19 Montelukast Sodium [Singulair 10 mg Tablet] 10 mg PO QHS 02/25/19 Pantoprazole Sodium [Protonix [address] Tablet] 40 mg PO DAILY 02/25/19 RX: Doxepin HCl [Silenor] 6 mg PO QHS 02/25/19 Tiotropium [place] [Spiriva Handihaler 5 Cap/Kit (18 Mcg/Cap)] 1 puff IH DAILY 02/25/19 Topiramate [Topamax] 50 mg PO Q12 02/25/19 Allergies/Adverse Reactions: No Known Allergies Allergy (Verified 06/22/18 14:53) Review of Systems Constitutional: ABSENT: chills, fever(s), headache(s), weight gain, weight loss Eyes: ABSENT: visual disturbances Ears: ABSENT: hearing changes Cardiovascular: ABSENT: chest pain, dyspnea on exertion, edema, orthropnea, palpitations Respiratory: ABSENT: cough, hemoptysis Gastrointestinal: ABSENT: abdominal pain, constipation, diarrhea, hematemesis, hematochezia, nausea, vomiting Genitourinary: ABSENT: dysuria, hematuria Musculoskeletal: ABSENT: joint swelling Integumentary: ABSENT: rash, wounds Neurological: ABSENT: abnormal gait, abnormal speech, confusion, dizziness, focal weakness, syncope Psychiatric: ABSENT: anxiety, depression, homidical ideation, suicidal ideation Endocrine: ABSENT: cold intolerance, heat intolerance, menstrual abnormalities, polydipsia, polyuria Hematologic/Lymphatic: ABSENT: easy bleeding, easy bruising, lymphadenopathy Physical Exam Vital Signs: Temp Pulse Resp BP Pulse Ox 98.0 F 63 17 94/57 L 90 L 02/26/19 15:38 02/26/19 15:38 02/26/19 15:38 02/26/19 15:38 02/26/19 15:38 Intake & Output 02/25/19 02/26/19 02/27/19 06:59 06:59 06:59 Intake Total 460 650 Output Total 0 400 Balance 460 250 Weight 92.5 kg General appearance: PRESENT: no acute distress Head exam: PRESENT: atraumatic, normocephalic Eye exam: PRESENT: conjunctiva pink, EOMI, PERRLA Ear exam: PRESENT: normal external ear exam Mouth exam: PRESENT: moist, tongue midline Neck exam: PRESENT: full ROM Respiratory exam: PRESENT: clear to auscultation freida Cardiovascular exam: PRESENT: RRR, +S1, +S2 Vascular exam: PRESENT: normal capillary refill GI/Abdominal exam: PRESENT: normal bowel sounds, soft Rectal exam: PRESENT: deferred Extremities exam: PRESENT: left BKA Neurological exam: PRESENT: alert, CN II-XII grossly intact Skin exam: PRESENT: dry, intact, warm Results Laboratory Results: 02/25/19 16:50 02/25/19 17:33 02/25/19 02/25/19 18:20 22:48 Total Protein Cancelled Albumin Cancelled Fluid Total Protein Cancelled 02/25/19 16:50 Blood Blood Culture (PCR) - Final Enterococcus Species 02/25/19 17:33 Blood Blood Culture (PCR) - Final Enterococcus Species 02/25/19 02/25/19 17:33 17:33 Creatine Kinase 468 H CK-MB (CK-2) 5.68 H Troponin I 0.033 Impressions: Chest X-Ray 02/25/19 16:23 IMPRESSION: STABLE CARDIOMEGALY. NO ACUTE RADIOGRAPHIC FINDING IN THE CHEST. Assessment & Plan - Diagnosis (1) Chronic combined systolic and diastolic CHF (congestive heart failure) Is this a current diagnosis for this admission?: Yes Plan: She has chronic systolic and the surgical failure (2) Fall from wheelchair Qualifiers: Encounter type: initial encounter Qualified Code(s): W05.0XXA - Fall from non-moving wheelchair, initial encounter Is this a current diagnosis for this admission?: Yes Plan: The precipitating factor is not known, there is no loss of consciousness,There was no chest pain, this could be from balance problem
--- NOTE | 2019-02-26 21:13 | PDOC PROGRESS REPORT ---
Subjective Progress Note for:: 02/26/19 Subjective:: Patient was admitted yesterday, she had blood culture drawn, the blood culture from the PCR testing was positive for enterococcus species. Reason For Visit: SEPSIS Physical Exam Vital Signs: Temp Pulse Resp BP Pulse Ox 98.0 F 63 17 94/57 L 90 L 02/26/19 15:38 02/26/19 15:38 02/26/19 15:38 02/26/19 15:38 02/26/19 15:38 Intake & Output 02/25/19 02/26/19 02/27/19 06:59 06:59 06:59 Intake Total 460 650 Output Total 0 400 Balance 460 250 Weight 92.5 kg General appearance: PRESENT: no acute distress Eye exam: PRESENT: PERRLA Respiratory exam: PRESENT: clear to auscultation freida Cardiovascular exam: PRESENT: +S1, +S2 Neurological exam: PRESENT: alert Results Laboratory Results: 02/25/19 16:50 02/25/19 17:33 02/25/19 02/25/19 18:20 22:48 Total Protein Cancelled Albumin Cancelled Fluid Total Protein Cancelled 02/25/19 16:50 Blood Blood Culture (PCR) - Final Enterococcus Species 02/25/19 17:33 Blood Blood Culture (PCR) - Final Enterococcus Species 02/25/19 02/25/19 17:33 17:33 Creatine Kinase 468 H CK-MB (CK-2) 5.68 H Troponin I 0.033 Impressions: Chest X-Ray 02/25/19 16:23 IMPRESSION: STABLE CARDIOMEGALY. NO ACUTE RADIOGRAPHIC FINDING IN THE CHEST. Assessment & Plan - Diagnosis (1) Chronic combined systolic and diastolic CHF (congestive heart failure) Is this a current diagnosis for this admission?: Yes (2) Fall from wheelchair Qualifiers: Encounter type: initial encounter Qualified Code(s): W05.0XXA - Fall from non-moving wheelchair, initial encounter Is this a current diagnosis for this admission?: Yes (3) Enterococcal bacteremia Is this a current diagnosis for this admission?: Yes Plan: The source of the enterococcal bacteremia is not known, start IV ampicillin - Time Time Spent with patient: 15-24 minutes
[2019-02-26] MEDS: ATORVASTATIN CALCIUM 80 MG TABLET PO SCH (22:40)
[2019-02-26] MEDS: MONTELUKAST SODIUM 10 MG TABLET PO SCH (22:40)
[2019-02-27] MEDS: HYDROCODONE/ACETAMINOPHEN 7.5-325 MG TABLET PO PRN ×4 (00:13→23:11)
[2019-02-27] MEDS: AMPICILLIN SODIUM 500 MG in NORMAL SALINE 25 ML IV SCH ×4 (02:10→23:10)
[2019-02-27] MEDS: HYDROXYCHLOROQUINE SULFATE 200 MG TABLET PO SCH ×2 (09:26→17:30)
[2019-02-27] MEDS: APIXABAN 2.5 MG TABLET PO SCH ×2 (09:26→23:11)
[2019-02-27] MEDS: PANTOPRAZOLE SODIUM 40 MG TABLET.DR PO SCH (09:26)
[2019-02-27] MEDS: UMECLIDINIUM BROMIDE 62.5 MCG/DOSE IH SCH (09:27)
[2019-02-27] MEDS: SACUBITRIL/VALSARTAN 24 MG/26 MG TABLET PO SCH ×2 (09:27→17:30)
[2019-02-27] MEDS: TOPIRAMATE 25 MG TABLET PO SCH ×2 (09:27→23:11)
[2019-02-27] MEDS: METOPROLOL SUCCINATE 25 MG TAB.SR.24H PO SCH (09:29)
--- NOTE | 2019-02-27 18:28 | PDOC PROGRESS REPORT ---
Subjective Progress Note for:: 02/27/19 Subjective:: Patient seen by the bedside she has enterococcus bacteremia on IV ampicillin, IV access is a challenge, the nursing staff is making efforts to get IV restarted Reason For Visit: SEPSIS Physical Exam Vital Signs: Temp Pulse Resp BP Pulse Ox 97.9 F 73 16 91/52 L 98 02/27/19 15:16 02/27/19 15:16 02/27/19 15:16 02/27/19 15:16 02/27/19 15:16 Intake & Output 02/26/19 02/27/19 02/28/19 06:59 06:59 06:59 Intake Total 460 820 530 Output Total 0 400 Balance 460 420 530 Weight 92.5 kg 98.5 kg General appearance: PRESENT: no acute distress Eye exam: PRESENT: PERRLA Respiratory exam: PRESENT: clear to auscultation freida Cardiovascular exam: PRESENT: +S1, +S2 GI/Abdominal exam: PRESENT: soft Neurological exam: PRESENT: alert Results Laboratory Results: 02/25/19 16:50 02/25/19 17:33 02/25/19 17:33 Blood Blood Culture (PCR) - Final Enterococcus Species 02/25/19 16:50 Blood Blood Culture (PCR) - Final Enterococcus Species 02/25/19 02/25/19 17:33 17:33 Creatine Kinase 468 H CK-MB (CK-2) 5.68 H Troponin I 0.033 Impressions: Chest X-Ray 02/25/19 16:23 IMPRESSION: STABLE CARDIOMEGALY. NO ACUTE RADIOGRAPHIC FINDING IN THE CHEST. Assessment & Plan - Diagnosis (1) Chronic combined systolic and diastolic CHF (congestive heart failure) Is this a current diagnosis for this admission?: Yes (2) Fall from wheelchair Qualifiers: Encounter type: initial encounter Qualified Code(s): W05.0XXA - Fall from non-moving wheelchair, initial encounter Is this a current diagnosis for this admission?: Yes (3) Enterococcal bacteremia Is this a current diagnosis for this admission?: Yes Plan: Continue IV antibiotic - Time Time Spent with patient: 15-24 minutes
[2019-02-27 18:54] LABS: ABSOLUTE BASOPHILS # (AUTO) 0.1 10^3/uL (0.0-0.2); ABSOLUTE EOSINOPHILS # (AUTO) 0.2 10^3/uL (0.0-0.6); ABSOLUTE LYMPHOCYTES (AUTO) 2.3 10^3/uL (0.5-4.7); BASOPHILS % (AUTO) 0.9 % (0-2); HEMATOCRIT 34.9 % (36.0-47.0); HEMOGLOBIN 11.5 g/dL (12.0-15.5); LYMPHOCYTES % (AUTO) 30.6 % (13-45); MEAN CORPUSCULAR HEMOGLOBIN 28.7 pg (27.0-33.4); MEAN CORPUSCULAR HGB CONC 32.9 g/dL (32.0-36.0); MEAN CORPUSCULAR VOLUME 87 fl (80-97); PLATELET COUNT 153 10^3/uL (150-450); RED CELL DISTRIBUTION WIDTH 16.4 % (11.5-14.0); SEGMENTED NEUTROPHILS % (AUTO) 52.5 % (42-78); TOTAL CELLS COUNTED % (AUTO) 100 %; WHITE BLOOD COUNT 7.6 10^3/uL (4.0-10.5)
[2019-02-27 19:17] LABS: ALBUMIN 3.2 g/dL (3.5-5.0); ALKALINE PHOSPHATASE 78 U/L (38-126); ANION GAP 12 (5-19); ASPARTATE AMINO TRANSFERASE 25 U/L (14-36); BILIRUBIN,DIRECT 0.3 mg/dL (0.0-0.4); BILIRUBIN,TOTAL 0.6 mg/dL (0.2-1.3); BLOOD UREA NITROGEN 29 mg/dL (7-20); CARBON DIOXIDE 18 mmol/L (22-30); CHLORIDE 108 mmol/L (98-107); GLUCOSE 90 mg/dL (75-110); POTASSIUM 3.9 mmol/L (3.6-5.0); TOTAL PROTEIN 7.2 g/dL (6.3-8.2)
[2019-02-27] MEDS: ATORVASTATIN CALCIUM 80 MG TABLET PO SCH (23:11)
[2019-02-27] MEDS: MONTELUKAST SODIUM 10 MG TABLET PO SCH (23:11)
[2019-02-28] MEDS: AMPICILLIN SODIUM 500 MG in NORMAL SALINE 25 ML IV SCH ×2 (02:06→09:27)
[2019-02-28] MEDS: METOPROLOL SUCCINATE 25 MG TAB.SR.24H PO SCH (09:27)
[2019-02-28] MEDS: HYDROXYCHLOROQUINE SULFATE 200 MG TABLET PO SCH ×2 (09:27→17:52)
[2019-02-28] MEDS: PANTOPRAZOLE SODIUM 40 MG TABLET.DR PO SCH (09:27)
[2019-02-28] MEDS: TOPIRAMATE 25 MG TABLET PO SCH ×2 (09:27→21:31)
[2019-02-28] MEDS: APIXABAN 2.5 MG TABLET PO SCH ×2 (09:27→21:31)
[2019-02-28] MEDS: ERGOCALCIFEROL (VITAMIN D2) 50000 UNIT (1.25 MG) CAPSULE PO SCH (09:27)
[2019-02-28] MEDS: UMECLIDINIUM BROMIDE 62.5 MCG/DOSE IH SCH (09:28)
[2019-02-28] MEDS: SACUBITRIL/VALSARTAN 24 MG/26 MG TABLET PO SCH ×2 (09:28→17:52)
[2019-02-28] MEDS: HYDROCODONE/ACETAMINOPHEN 7.5-325 MG TABLET PO PRN ×2 (09:32→23:35)
--- NOTE | 2019-02-28 14:56 | Progress Note ---
Provider Note Provider Note: ID Telephone Consult Note Asked to review patient's chart by Pharmacy. Pt not seen or examined. Pt is a 63-year-old obese woman with PMH including COPD, CHF, AF on anticoagulation, CAD, CVA, CKD and L BKA due to PVD who was brought to the ED and admitted on 02/25/19 after she fell out of her wheelchair onto the floor at home and was found by a family member who was concerned pt can no longer care for herself safely. She was recently admitted earlier this month with acute on chronic CHF exacerbation. She does not have a PPM/AICD presently. On presentation to the ED on 02/25/19 she was noted to be afebrile, lethargic but arousable, with no murmur, clear lungs, 2 to 3+ pitting edema involving RLE. Blood cultures on admission yielded Enterococcus faecalis in all bottles of both sets from two sites an hour apart. U/A had no pyuria. A urine culture obtained the next day on 02/26/19 grew CoNS. IV ampicillin was started on 02/26/19. Last TTE in Oct 2018 noted mild/moderate MR, aortic sclerosis with mild AR, mild/moderate TR. Impression/Recommendations Enterococcus faecalis bacteremia - Continue ampicillin IV dose adjusted for renal dysfunction, currently 2 g q6h - Portals of entry or sources for the enterococcal bacteremia are unclear presently. Typically would think of GI and tract; wound infection or line associated bacteremia also possible but no indications based on chart review of these having been present. Does not appear to be secondary to UTI with lack of pyuria on U/A. - Consider CT abdomen and pelvis to evaluate for occult abscess, such as from a perforated diverticulum, for example - Would get repeat blood cultures to look for any evidence of a sustained or continuous bacteremia - Also suggest TTE. If source of E faecalis bacteremia remains unknown and surface echo is of limited quality, DAVID may need to be pursued Kishor Johnson MD [facility] Infectious Diseases pager [phone]
[2019-02-28 17:36] LABS: ALPHA-1-GLOBULIN URINE 3.1 % (.); ALPHA-2-GLOBULIN URINE 6.9 % (.); GAMMA GLOBULIN URINE 28.5 % (.); M-SPIKE % UR Not Observed % (Not Observ); PROTEIN TOTAL URINE 9.1 mg/dL (Not Estab.)
[2019-02-28] MEDS: AMPICILLIN SODIUM 2 GM in NORMAL SALINE 100 ML IV SCH ×3 (17:49→23:35)
--- NOTE | 2019-02-28 19:51 | PDOC PROGRESS REPORT ---
Subjective Progress Note for:: 02/28/19 Subjective:: Patient seen by the bedside, she has enterococcus bacteremia of unknown source. The blood pressure is chronically low, she is not able to continually use evidence-based medication for the CHF, because of the low blood pressure she is unable to use Entresto, beta-michelle Toprol consistently. This portends a poor prognosis. I had a long discussion with her today about CODE STATUS, she wants to be a DNR, she does not want to be on life support, she does not want chest compression, the discussion was made in the presence of the RNOlesya Reason For Visit: SEPSIS Physical Exam Vital Signs: Temp Pulse Resp BP Pulse Ox 97.7 F 65 17 87/49 L 100 02/28/19 15:42 02/28/19 17:52 02/28/19 15:42 02/28/19 17:52 02/28/19 15:42 Intake & Output 02/27/19 02/28/19 03/01/19 06:59 06:59 06:59 Intake Total 820 1120 865 Output Total 400 0 Balance 420 1120 865 Weight 98.5 kg 95.1 kg General appearance: PRESENT: no acute distress Eye exam: PRESENT: PERRLA Respiratory exam: PRESENT: clear to auscultation freida Cardiovascular exam: PRESENT: +S1, +S2 GI/Abdominal exam: PRESENT: soft Neurological exam: PRESENT: alert Results Laboratory Results: 02/27/19 18:40 02/27/19 18:40 02/25/19 17:33 Blood Blood Culture (PCR) - Final Enterococcus Species 02/25/19 17:33 Blood Blood Culture - Final Enterococcus Faecalis(Group D) 02/25/19 16:50 Blood Blood Culture (PCR) - Final Enterococcus Species 02/25/19 16:50 Blood Blood Culture - Final Enterococcus Faecalis(Group D) 02/26/19 09:00 Clean Catch Midstream Urine Culture - Final Staph Coagulase Negative 02/25/19 02/25/19 17:33 17:33 Creatine Kinase 468 H CK-MB (CK-2) 5.68 H Troponin I 0.033 Impressions: Chest X-Ray 02/25/19 16:23 IMPRESSION: STABLE CARDIOMEGALY. NO ACUTE RADIOGRAPHIC FINDING IN THE CHEST. Assessment & Plan - Diagnosis (1) Chronic combined systolic and diastolic CHF (congestive heart failure) Is this a current diagnosis for this admission?: Yes (2) Fall from wheelchair Qualifiers: Encounter type: initial encounter Qualified Code(s): W05.0XXA - Fall from non-moving wheelchair, initial encounter Is this a current diagnosis for this admission?: Yes (3) Enterococcal bacteremia Is this a current diagnosis for this admission?: Yes Plan: Continue IV ampicillin (4) Hypotension Qualifiers: Hypotension type: unspecified hypotension type Qualified Code(s): I95.9 - Hypotension, unspecified Is this a current diagnosis for this admission?: Yes - Time Time Spent with patient: 25-34 minutes - Plan Summary Plan Summary: Continue IV antibiotic, ampicillin
--- NOTE | 2019-02-28 19:52 | ADVANCED CARE ---
- Diagnosis (1) Chronic combined systolic and diastolic CHF (congestive heart failure) Diagnosis Current: Yes (2) Fall from wheelchair Diagnosis Current: Yes (3) Enterococcal bacteremia Diagnosis Current: Yes (4) Hypotension Diagnosis Current: Yes Resuscitation Status: Do Not Resuscitate Discussion: Discussed with patient about CODE STATUS, she wants to be DNR Time Spent: 30 minutes
[2019-02-28] MEDS: ATORVASTATIN CALCIUM 80 MG TABLET PO SCH (21:30)
[2019-02-28] MEDS: MONTELUKAST SODIUM 10 MG TABLET PO SCH (21:31)
[2019-03-01] MEDS: AMPICILLIN SODIUM 2 GM in NORMAL SALINE 100 ML IV SCH ×4 (05:27→23:48)
[2019-03-01 07:11] LABS: APPEARANCE,URINE CLEAR; BILIRUBIN,URINE NEGATIVE (NEGATIVE); COLOR,URINE YELLOW; GLUCOSE, URINE NEGATIVE (NEGATIVE); KETONES,URINE NEGATIVE (NEGATIVE); PROTEIN,URINE NEGATIVE (NEGATIVE); URINE SPECIFIC GRAVITY 1.015
[2019-03-01] MEDS: APIXABAN 2.5 MG TABLET PO SCH ×2 (10:49→22:39)
[2019-03-01] MEDS: UMECLIDINIUM BROMIDE 62.5 MCG/DOSE IH SCH (10:49)
[2019-03-01] MEDS: SACUBITRIL/VALSARTAN 24 MG/26 MG TABLET PO SCH ×2 (10:49→17:52)
[2019-03-01] MEDS: HYDROXYCHLOROQUINE SULFATE 200 MG TABLET PO SCH ×2 (10:50→17:52)
[2019-03-01] MEDS: PANTOPRAZOLE SODIUM 40 MG TABLET.DR PO SCH (10:51)
[2019-03-01] MEDS: TOPIRAMATE 25 MG TABLET PO SCH ×2 (10:51→22:39)
[2019-03-01] MEDS: HYDROCODONE/ACETAMINOPHEN 7.5-325 MG TABLET PO PRN (10:53)
[2019-03-01] MEDS: METOPROLOL SUCCINATE 25 MG TAB.SR.24H PO SCH (10:53)
--- NOTE | 2019-03-01 19:33 | PDOC PROGRESS REPORT ---
Subjective Progress Note for:: 03/01/19 Subjective:: Patient seen by the bedside, she has enterococcus bacteremia presently on IV ampicillin, she has multiple comorbid conditions Reason For Visit: SEPSIS Physical Exam Vital Signs: Temp Pulse Resp BP Pulse Ox 97.3 F 72 16 86/68 L 98 03/01/19 11:19 03/01/19 14:00 03/01/19 11:19 03/01/19 11:19 03/01/19 11:19 Intake & Output 02/28/19 03/01/19 03/02/19 06:59 06:59 06:59 Intake Total 1120 1415 840 Output Total 0 0 Balance 1120 1415 840 Weight 95.1 kg 95.5 kg General appearance: PRESENT: no acute distress Eye exam: PRESENT: PERRLA Respiratory exam: PRESENT: clear to auscultation freida Cardiovascular exam: PRESENT: +S1, +S2 GI/Abdominal exam: PRESENT: soft Neurological exam: PRESENT: alert Results Laboratory Results: 02/27/19 18:40 02/27/19 18:40 02/25/19 02/25/19 03/01/19 18:20 22:48 06:41 Total Protein Cancelled Urine Color YELLOW Urine Appearance CLEAR Urine pH 6.0 Ur Specific [place] 1.015 Urine Protein NEGATIVE Urine Glucose (UA) NEGATIVE Urine Ketones NEGATIVE Urine Blood NEGATIVE Urine RBC (Auto) 0 Fluid Total Protein Cancelled 02/25/19 02/25/19 17:33 17:33 Creatine Kinase 468 H CK-MB (CK-2) 5.68 H Troponin I 0.033 Impressions: Chest X-Ray 02/25/19 16:23 IMPRESSION: STABLE CARDIOMEGALY. NO ACUTE RADIOGRAPHIC FINDING IN THE CHEST. Assessment & Plan - Diagnosis (1) Chronic combined systolic and diastolic CHF (congestive heart failure) Is this a current diagnosis for this admission?: Yes (2) Fall from wheelchair Qualifiers: Encounter type: initial encounter Qualified Code(s): W05.0XXA - Fall from non-moving wheelchair, initial encounter Is this a current diagnosis for this admission?: Yes (3) Enterococcal bacteremia Is this a current diagnosis for this admission?: Yes Plan: Patient to continue IV antibiotic (4) Hypotension Qualifiers: Hypotension type: unspecified hypotension type Qualified Code(s): I95.9 - Hypotension, unspecified Is this a current diagnosis for this admission?: Yes Plan: Blood pressure continues to be low this makes it extremely difficult to use evidence-based anti-CHF medication including Entresto, beta-michelle, this pattern of blood pressure portend a poor prognosis. It predates the occurrence of enterococcus bacteremia - Time Time Spent with patient: 25-34 minutes Level of Care: IMCU
[2019-03-01 20:31] LABS: ABSOLUTE BASOPHILS # (AUTO) 0.1 10^3/uL (0.0-0.2); ABSOLUTE EOSINOPHILS # (AUTO) 0.3 10^3/uL (0.0-0.6); ABSOLUTE LYMPHOCYTES (AUTO) 2.1 10^3/uL (0.5-4.7); ABSOLUTE NEUT (AUTO) 4.6 10^3/uL (1.7-8.2); EOSINOPHILS % (AUTO) 3.1 % (0-6); HEMATOCRIT 35.3 % (36.0-47.0); HEMOGLOBIN 11.7 g/dL (12.0-15.5); LYMPHOCYTES % (AUTO) 26.3 % (13-45); MEAN CORPUSCULAR HEMOGLOBIN 28.4 pg (27.0-33.4); MEAN CORPUSCULAR HGB CONC 33.1 g/dL (32.0-36.0); MEAN CORPUSCULAR VOLUME 86 fl (80-97); MONOCYTES % (AUTO) 12.6 % (3-13); PLATELET COUNT 182 10^3/uL (150-450); RED BLOOD COUNT 4.11 10^6/uL (3.72-5.28); RED CELL DISTRIBUTION WIDTH 16.6 % (11.5-14.0); TOTAL CELLS COUNTED % (AUTO) 100 %; WHITE BLOOD COUNT 8.1 10^3/uL (4.0-10.5)
[2019-03-01 20:53] LABS: ALBUMIN 3.3 g/dL (3.5-5.0); ALKALINE PHOSPHATASE 88 U/L (38-126); ANION GAP 11 (5-19); ASPARTATE AMINO TRANSFERASE 23 U/L (14-36); BILIRUBIN,DIRECT 0.2 mg/dL (0.0-0.4); BILIRUBIN,TOTAL 0.4 mg/dL (0.2-1.3); BLOOD UREA NITROGEN 22 mg/dL (7-20); CALCIUM 9.5 mg/dL (8.4-10.2); CARBON DIOXIDE 18 mmol/L (22-30); CHLORIDE 110 mmol/L (98-107); GLUCOSE 95 mg/dL (75-110); POTASSIUM 4.6 mmol/L (3.6-5.0); TOTAL PROTEIN 7.1 g/dL (6.3-8.2)
[2019-03-01] MEDS: MONTELUKAST SODIUM 10 MG TABLET PO SCH (22:39)
[2019-03-01] MEDS: ATORVASTATIN CALCIUM 80 MG TABLET PO SCH (22:39)
[2019-03-02] MEDS: AMPICILLIN SODIUM 2 GM in NORMAL SALINE 100 ML IV SCH ×3 (05:06→17:23)
[2019-03-02] MEDS: METOPROLOL SUCCINATE 25 MG TAB.SR.24H PO SCH (12:38)
[2019-03-02] MEDS: SACUBITRIL/VALSARTAN 24 MG/26 MG TABLET PO SCH ×2 (12:38→17:23)
[2019-03-02] MEDS: HYDROXYCHLOROQUINE SULFATE 200 MG TABLET PO SCH ×2 (12:38→17:23)
[2019-03-02] MEDS: PANTOPRAZOLE SODIUM 40 MG TABLET.DR PO SCH (12:38)
[2019-03-02] MEDS: TOPIRAMATE 25 MG TABLET PO SCH ×2 (12:38→21:05)
[2019-03-02] MEDS: APIXABAN 2.5 MG TABLET PO SCH ×2 (12:38→21:05)
[2019-03-02] MEDS: UMECLIDINIUM BROMIDE 62.5 MCG/DOSE IH SCH (12:39)
[2019-03-02] MEDS: HYDROCODONE/ACETAMINOPHEN 7.5-325 MG TABLET PO PRN (21:04)
[2019-03-02] MEDS: ATORVASTATIN CALCIUM 80 MG TABLET PO SCH (21:05)
[2019-03-02] MEDS: MONTELUKAST SODIUM 10 MG TABLET PO SCH (21:05)
--- NOTE | 2019-03-02 21:45 | PDOC PROGRESS REPORT ---
Subjective Progress Note for:: 03/02/19 Subjective:: Patient denied any chest pain or difficulty with breathing. Tolerating oral feeding. No fever or chills. Reason For Visit: SEPSIS Physical Exam Vital Signs: Temp Pulse Resp BP Pulse Ox 97.6 F 70 18 105/67 96 03/02/19 16:00 03/02/19 16:00 03/02/19 16:00 03/02/19 16:00 03/02/19 16:00 Intake & Output 03/01/19 03/02/19 03/03/19 06:59 06:59 06:59 Intake Total 1415 1215 300 Output Total 0 0 Balance 1415 1215 300 Weight 95.5 kg 95.3 kg General appearance: PRESENT: no acute distress, obese Head exam: PRESENT: atraumatic, normocephalic Eye exam: PRESENT: conjunctiva pink. ABSENT: scleral icterus Ear exam: PRESENT: normal external ear exam Mouth exam: PRESENT: moist Respiratory exam: PRESENT: clear to auscultation freida Cardiovascular exam: PRESENT: irregular rhythm, +S1, +S2. ABSENT: diastolic murmur, rubs, systolic murmur Vascular exam: ABSENT: pallor GI/Abdominal exam: PRESENT: normal bowel sounds, soft. ABSENT: distended, guarding, mass, organolmegaly, rebound, tenderness Extremities exam: PRESENT: left BKA. ABSENT: pedal edema Neurological exam: PRESENT: alert, awake, oriented to person, oriented to place, oriented to time, oriented to situation, CN II-XII grossly intact. ABSENT: motor sensory deficit Psychiatric exam: PRESENT: appropriate affect, normal mood. ABSENT: homicidal ideation, suicidal ideation Skin exam: PRESENT: dry, warm Results Laboratory Results: 03/01/19 20:11 03/01/19 20:11 03/01/19 03/01/19 20:11 20:11 WBC 8.1 RBC 4.11 Hgb 11.7 L Hct 35.3 L MCV 86 MCH 28.4 MCHC 33.1 RDW 16.6 H Plt Count 182 Seg Neutrophils % 57.0 Sodium 138.5 Potassium 4.6 Chloride 110 H Carbon Dioxide 18 L Anion Gap 11 BUN 22 H Creatinine 2.01 H Est GFR ( Amer) 30 L Glucose 95 Calcium 9.5 Total Bilirubin 0.4 AST 23 Alkaline Phosphatase 88 Total Protein 7.1 Albumin 3.3 L 01/13/20 01/13/20 17:33 17:33 Creatine Kinase 468 H CK-MB (CK-2) 5.68 H Troponin I 0.033 Impressions: Chest X-Ray 02/25/19 16:23 IMPRESSION: STABLE CARDIOMEGALY. NO ACUTE RADIOGRAPHIC FINDING IN THE CHEST. Assessment & Plan - Diagnosis (1) Chronic combined systolic and diastolic CHF (congestive heart failure) Is this a current diagnosis for this admission?: Yes Plan: Her continued hypotension limit use of appropriate ant CHI medication. Overall prognosis remain poor. (2) Hypotension Qualifiers: Hypotension type: unspecified hypotension type Qualified Code(s): I95.9 - Hypotension, unspecified Is this a current diagnosis for this admission?: Yes Plan: As noted this predate her enterococcus bacteremia. We paddy request for her morning cortisol level for possible adrenal insufficiency contribution to her hypotension. (3) Enterococcal bacteremia Is this a current diagnosis for this admission?: Yes Plan: Continue IV Ampicillin coverage. (4) Fall from wheelchair Qualifiers: Encounter type: initial encounter Qualified Code(s): W05.0XXA - Fall from non-moving wheelchair, initial encounter Is this a current diagnosis for this admission?: Yes Plan: We will request for PT evaluation and rehabilitation with transfer ability assessment. (5) Paroxysmal atrial fibrillation Is this a current diagnosis for this admission?: Yes Plan: Continue anticoagulation management. Monitor CBC indices. (6) Coronary artery disease Qualifiers: Coronary Disease-Associated Artery/Lesion type: [place] artery [place] vs. transplanted heart: [place] heart Associated angina: with unstable angina Qualified Code(s): I25.110 - Atherosclerotic heart disease of [place] coronary artery with unstable angina pectoris Is this a current diagnosis for this admission?: Yes Plan: Continue current medication management. (7) CKD (chronic kidney disease), stage III Is this a current diagnosis for this admission?: Yes Plan: Obtain PTH, Phosphorus and [place]-25 Vitamin D level. Maintain on other current medication management. - Time Time Spent with patient: 25-34 minutes Level of Care: IMCU Medications reviewed and adjusted accordingly: Yes Anticipated discharge: SNF Within: Other - Inpatient Certification Based on my medical assessment, after consideration of the patient's comorbidit ies, presenting symptoms, or acuity I expect that the services needed warrant INPATIENT care.: Yes I certify that my determination is in accordance with my understanding of Me micky's requirements for reasonable and necessary INPATIENT services [42 CFR 412.3e].: Yes Medical Necessity: Significant Comorbidiites Make Outpatient Treatment Too Risky, Need Close Monitoring Due to Risk of Patient Decompensation, Need For IV Fluids, Need For Continuous Telemetry Monitoring, Need for IV Antibiotics, Risk of Complication if Not Cared For in Hospital, Risk of Diagnosis Which Will Require Inpatient Eval/Care/Monitoring Post Hospital Care: D/C or Transfer Summary - Plan Summary Plan Summary: Continue current medication management. Obtain CBC with diff and BMP in am.
[2019-03-03] MEDS: AMPICILLIN SODIUM 2 GM in NORMAL SALINE 100 ML IV SCH ×4 (00:23→17:30)
[2019-03-03 08:06] LABS: ABSOLUTE BASOPHILS # (AUTO) 0.1 10^3/uL (0.0-0.2); ABSOLUTE EOSINOPHILS # (AUTO) 0.3 10^3/uL (0.0-0.6); ABSOLUTE MONOCYTES (AUTO) 1.1 10^3/uL (0.1-1.4); ABSOLUTE NEUT (AUTO) 6.1 10^3/uL (1.7-8.2); EOSINOPHILS % (AUTO) 2.7 % (0-6); HEMATOCRIT 34.8 % (36.0-47.0); HEMOGLOBIN 11.6 g/dL (12.0-15.5); LYMPHOCYTES % (AUTO) 20.6 % (13-45); MEAN CORPUSCULAR HEMOGLOBIN 28.7 pg (27.0-33.4); MEAN CORPUSCULAR HGB CONC 33.3 g/dL (32.0-36.0); MEAN CORPUSCULAR VOLUME 86 fl (80-97); PLATELET COUNT 165 10^3/uL (150-450); RED BLOOD COUNT 4.04 10^6/uL (3.72-5.28); RED CELL DISTRIBUTION WIDTH 15.9 % (11.5-14.0); SEGMENTED NEUTROPHILS % (AUTO) 63.7 % (42-78); TOTAL CELLS COUNTED % (AUTO) 100 %; WHITE BLOOD COUNT 9.6 10^3/uL (4.0-10.5)
[2019-03-03 08:49] LABS: ALBUMIN 3.3 g/dL (3.5-5.0); ALKALINE PHOSPHATASE 92 U/L (38-126); ANION GAP 13 (5-19); ASPARTATE AMINO TRANSFERASE 28 U/L (14-36); BILIRUBIN,DIRECT 0.8 mg/dL (0.0-0.4); BILIRUBIN,TOTAL 1.1 mg/dL (0.2-1.3); BLOOD UREA NITROGEN 34 mg/dL (7-20); CALCIUM 9.1 mg/dL (8.4-10.2); CARBON DIOXIDE 18 mmol/L (22-30); CHLORIDE 108 mmol/L (98-107); GLUCOSE 95 mg/dL (75-110); PHOSPHORUS 4.5 mg/dL (2.5-4.5); POTASSIUM 4.5 mmol/L (3.6-5.0); TOTAL PROTEIN 7.4 g/dL (6.3-8.2)
[2019-03-03] MEDS: UMECLIDINIUM BROMIDE 62.5 MCG/DOSE IH SCH (09:11)
[2019-03-03] MEDS: TOPIRAMATE 25 MG TABLET PO SCH ×2 (09:11→23:19)
[2019-03-03] MEDS: HYDROXYCHLOROQUINE SULFATE 200 MG TABLET PO SCH ×2 (09:11→17:30)
[2019-03-03] MEDS: APIXABAN 2.5 MG TABLET PO SCH ×2 (09:11→23:19)
[2019-03-03] MEDS: METOPROLOL SUCCINATE 25 MG TAB.SR.24H PO SCH (09:11)
[2019-03-03] MEDS: PANTOPRAZOLE SODIUM 40 MG TABLET.DR PO SCH (09:11)
[2019-03-03] MEDS: SACUBITRIL/VALSARTAN 24 MG/26 MG TABLET PO SCH ×2 (09:11→23:23)
--- NOTE | 2019-03-03 14:13 | PDOC PROGRESS REPORT ---
Subjective Progress Note for:: 03/03/19 Subjective:: Patient reported persistent nausea but no vomiting. no abdominal pain, constipation or diarrhea. No chest pain or difficulty with breathing. No documented measured urine output x 3 days. Reason For Visit: SEPSIS Physical Exam Vital Signs: Temp Pulse Resp BP Pulse Ox 97.6 F 68 17 110/59 L 100 03/03/19 11:01 03/03/19 11:01 03/03/19 11:01 03/03/19 11:01 03/03/19 11:01 Intake & Output 03/02/19 03/03/19 03/04/19 06:59 06:59 06:59 Intake Total 1215 880 580 Output Total 0 0 Balance 1215 880 580 Weight 95.3 kg 95.4 kg Results Laboratory Results: 03/03/19 07:30 03/03/19 07:30 03/03/19 03/03/19 03/03/19 07:30 07:30 07:30 WBC 9.6 RBC 4.04 Hgb 11.6 L Hct 34.8 L MCV 86 MCH 28.7 MCHC 33.3 RDW 15.9 H Plt Count 165 Seg Neutrophils % 63.7 Sodium 139.1 Potassium 4.5 Chloride 108 H Carbon Dioxide 18 L Anion Gap 13 BUN 34 H Creatinine 4.75 H Est GFR ( Amer) 11 L Glucose 95 Calcium 9.1 Phosphorus 4.5 Total Bilirubin 1.1 AST 28 Alkaline Phosphatase 92 Total Protein 7.4 Albumin 3.3 L PTH Intact 136.6 H 02/25/19 02/25/19 17:33 17:33 Creatine Kinase 468 H CK-MB (CK-2) 5.68 H Troponin I 0.033 Impressions: Chest X-Ray 02/25/19 16:23 IMPRESSION: STABLE CARDIOMEGALY. NO ACUTE RADIOGRAPHIC FINDING IN THE CHEST. Assessment & Plan - Diagnosis (1) Chronic combined systolic and diastolic CHF (congestive heart failure) Is this a current diagnosis for this admission?: Yes (2) Hypotension Qualifiers: Hypotension type: unspecified hypotension type Qualified Code(s): I95.9 - Hypotension, unspecified Is this a current diagnosis for this admission?: Yes (3) Enterococcal bacteremia Is this a current diagnosis for this admission?: Yes (4) Fall from wheelchair Qualifiers: Encounter type: initial encounter Qualified Code(s): W05.0XXA - Fall from non-moving wheelchair, initial encounter Is this a current diagnosis for this admission?: Yes (5) Paroxysmal atrial fibrillation Is this a current diagnosis for this admission?: Yes (6) Coronary artery disease Qualifiers: Coronary Disease-Associated Artery/Lesion type: [place] artery [place] vs. transplanted heart: [place] heart Associated angina: with unstable angina Qualified Code(s): I25.110 - Atherosclerotic heart disease of [place] coronary artery with unstable angina pectoris Is this a current diagnosis for this admission?: Yes (7) CKD (chronic kidney disease), stage III Is this a current diagnosis for this admission?: Yes - Time Time Spent with patient: 35 or more minutes Level of Care: IMCU Medications reviewed and adjusted accordingly: Yes Anticipated discharge: Home with Homehealth, SNF Within: Other - Inpatient Certification Based on my medical assessment, after consideration of the patient's comorbidities, presenting symptoms, or acuity I expect that the services needed warrant INPATIENT care.: Yes I certify that my determination is in accordance with my understanding of Medicare's requirements for reasonable and necessary INPATIENT services [42 CFR 412.3e].: Yes Medical Necessity: Significant Comorbidiites Make Outpatient Treatment Too Risky, Need Close Monitoring Due to Risk of Patient Decompensation, Need For Continuous Telemetry Monitoring, Risk of Complication if Not Cared For in Hospital, Risk of Diagnosis Which Will Require Inpatient Eval/Care/Monitoring Post Hospital Care: D/C Lead Pastor Documentation, D/C or Transfer Summary - Plan Summary Plan Summary: Start on IV N/S at 75 ml/hour. Obtain BMP in am. Continue other current m edication management.
[2019-03-03] MEDS: NORMAL SALINE 1000 ML 1,000 ML IV PRN (14:31)
[2019-03-03] MEDS: ATORVASTATIN CALCIUM 80 MG TABLET PO SCH (23:19)
[2019-03-03] MEDS: MONTELUKAST SODIUM 10 MG TABLET PO SCH (23:19)
[2019-03-03] MEDS: HYDROCODONE/ACETAMINOPHEN 7.5-325 MG TABLET PO PRN (23:59)
[2019-03-04] MEDS: AMPICILLIN SODIUM 2 GM in NORMAL SALINE 100 ML IV SCH ×2 (00:15→06:44)
[2019-03-04 06:12] LABS: ANION GAP 15 (5-19); BLOOD UREA NITROGEN 40 mg/dL (7-20); CARBON DIOXIDE 16 mmol/L (22-30); CHLORIDE 110 mmol/L (98-107); GLUCOSE 86 mg/dL (75-110); POTASSIUM 4.8 mmol/L (3.6-5.0)
[2019-03-04] MEDS: METOPROLOL SUCCINATE 25 MG TAB.SR.24H PO SCH (09:05)
[2019-03-04] MEDS: SACUBITRIL/VALSARTAN 24 MG/26 MG TABLET PO SCH ×2 (09:05→22:02)
[2019-03-04] MEDS: PANTOPRAZOLE SODIUM 40 MG TABLET.DR PO SCH (09:10)
[2019-03-04] MEDS: HYDROXYCHLOROQUINE SULFATE 200 MG TABLET PO SCH ×2 (09:10→17:31)
[2019-03-04] MEDS: APIXABAN 2.5 MG TABLET PO SCH ×2 (09:10→22:02)
[2019-03-04] MEDS: TOPIRAMATE 25 MG TABLET PO SCH ×2 (09:10→22:01)
[2019-03-04] MEDS: UMECLIDINIUM BROMIDE 62.5 MCG/DOSE IH SCH (09:10)
[2019-03-04 11:07] LABS: APPEARANCE,URINE CLOUDY; BILIRUBIN,URINE NEGATIVE (NEGATIVE); COLOR,URINE YELLOW; GLUCOSE, URINE 50 mg/dL (NEGATIVE); KETONES,URINE NEGATIVE (NEGATIVE); PROTEIN,URINE 100 mg/dL (NEGATIVE); URINE SPECIFIC GRAVITY 1.018; UROBILINOGEN,URINE NEGATIVE mg/dL (<2.0)
[2019-03-04 11:23] LABS: URINE CREATININE 123.8 mg/dL (15-278)
[2019-03-04] MEDS: SODIUM BICARBONATE 650 MG TABLET PO SCH ×2 (11:57→22:02)
[2019-03-04] MEDS: NORMAL SALINE 1000 ML 1,000 ML IV PRN (11:57)
[2019-03-04 13:46] LABS: EOSINOPHIL SMEAR NO EOSINOPHILS SEEN; SPECIMEN TYPE URINE
--- NOTE | 2019-03-04 14:01 | RADIOLOGY REPORT (SQ) ---
EXAM DESCRIPTION: U/S RETROPERITON LTD COMPLETED DATE/TIME: 03/04/2019 11:50 am REASON FOR STUDY: LAMAR COMPARISON: Ultrasound from 10/26/2018. TECHNIQUE: Dynamic and static grayscale images acquired of the kidneys and bladder and recorded on P ACS. Additional selected color Doppler and spectral images recorded. LIMITATIONS: None. FINDINGS: RIGHT KIDNEY: The right kidney measures 9.3 cm in length. The echogenicity of the renal parenchyma is increased. The corticomedullary differentiation is preserved. There is a hypoechoic 2 x 1.1 x 2 cm structure in the upper pole of the kidney that could represent a cyst. There is no hydr onephrosis or calcification. LEFT KIDNEY: The the left kidney measures 9.7 cm in length. The echogenicity of the renal parenchym a is increased. The corticomedullary differentiation is preserved. There is no hydronephrosis, mass or calcification. BLADDER: No masses. OTHER FINDINGS: Sludge in the gallbladder lumen. IMPRESSION: 1. Probable cyst in the upper pole the right kidney that measures 2 x 1.1 x 2 cm. 2. Increased echogenicity of the renal parenchyma suggestive of chronic medical renal disease. TECHNICAL DOCUMENTATION: JOB ID: [id number] [employer]- All Rights Reserved Reading location - IP/workstation name: [email or web address]
--- NOTE | 2019-03-04 14:49 | PDOC CONSULTATION ---
Consultation Consult Date: 03/04/19 Provider Consulted: LINO HICKMAN Consult reason:: I was asked to see the patient because of acute worsening of kidney function. History of Present Illness Admission Date/PCP: 02/25/19 19:46 TEODORO HOROWITZ MD History of Present Illness: KEYONA TAYLOR is a 63 year old female with history of chronic kidney disease stage III, chronic combined systolic and diastolic heart failure, COPD, multiple CVAs, paroxysmal atrial fibrillation, and left BKA who was admitted on February 25, 2019 after falling off the chair to the floor at home. Patient was also rec ently been discharged from the hospital on February 19, 2019 and was sent home. Patient is being arranged for shelter placement. During this hospitalization patient was also found to have hypotension, Enterococcus faecalis bacteremia of unknown etiology and most recently acute worsening of kidney function. Patient has been running low blood pressure throughout this hospitalization with the lowest around 84/85 in the last 48 hours has been running 96-117 over 80s. She has Enterococcus faecalis bacteremia for which she was started on ampicillin intravenously since last week. During this admission she does not appear to be on CHF exacerbation with initial chest x-ray showing only cardiomegaly. She is being maintained on metoprolol and Entresto. In terms of the patient's kidney function she came in with a BUN of 43, creatinine of 1.74. Her baseline creatinine ranges anywhere between 1.5-2.0 with EGFR around 30s to 40s. Her initial urinalysis was negative for protein, negative for blood with urine protein to creatinine ratio of only 0.1. A urine protein electrophoresis was negative for any monoclonal spike as well. Her kidney function appears to start to significantly worsened since last March 01 and her BUN is 22, creatinine of 2.01 with EGFR of 30. On Monday, 03/03 she had a BUN of 34, creatinine of 4.75 with EGFR of 11 and finally today she has a BUN of 40, creatinine of 6.94 with EGFR 7. Her urine output is unfortunately not quantified. She has had no contrast. She was not given any diuretics years during this admission. She was not given any NSAIDs either. Currently the patient states that she still feels short of breath but she is actually on room air. She said she has a slight nausea. She denies any chest pains, vomiting or diarrhea. She reports urinary frequency but no dysuria. She states that she has had leg swelling but is now better. Past Medical History Cardiac Medical History: Reports: Atrial Fibrillation - Paroxysmal atrial fibrillation, CHF-Diastolic, CHF-Systolic, Coronary Artery Disease, Hyperlipidemia, Myocardial Infarction, Peripheral Vascular Disease Pulmonary Medical History: Reports: Asthma, Bronchitis, Chronic Obstructive Pulmonary Disease (COPD) Renal/ Medical History: Reports: Chronic Kidney Disease Stage III Malignancy Medical History: Reports: Breast Cancer GI Medical History: Reports: Gastroesophageal Reflux Disease Musculoskeltal Medical History: Reports: Arthritis, Fibromyalgia Psychiatric Medical History: Reports: Depression Past Surgical History Past Surgical History: Reports: Cardiac Catheterization - 2002 Stent, 2005 Stent, Coronary Stent - 2002([place]), 2005([facility]), Mastectomy - LEFT, Orthopedic Surgery - left BKA due to peripheral vascular disease/ischemia Social History Information Source: Patient, [facility] Records Lives with: Alone Smoking Status: Unknown if Ever Smoked Cigarettes Packs Per Day: 1 Electronic Cigarette use?: No Last Time Smoked: 2016 Frequency of Alcohol Use: None Hx Recreational Drug Use: No Drugs: None Hx Prescription Drug Abuse: No - Advance Directive Resuscitation Status: Do Not Resuscitate Family History Family History: Reviewed & Not Pertinent Family History: Denies history of kidney disease in the family. Parental Family History Reviewed: Yes Children Family History Reviewed: Yes Sibling(s) Family History Reviewed.: Yes Medication/Allergy Home Medications: Albuterol Sulfate [Proair HFA Inhalation Aerosol 8.5 gm MDI] 2 puff IH Q4HP PRN 02/25/19 Apixaban [Eliquis 2.5 mg Tablet] 2.5 mg PO Q12 02/25/19 Atorvastatin Calcium [Lipitor 80 mg Tablet] 80 mg PO QHS 02/25/19 Doxepin HCl [Silenor] 6 mg PO QHS 02/25/19 Ergocalciferol (Vitamin D2) [Drisdol 50,000 unit (1.25MG) Capsule] 50,000 unit PO TH@1000 02/25/19 Furosemide [Lasix 40 mg Tablet] 40 mg PO BID 02/25/19 Hydrocodone/Acetaminophen [[place] 7.5-325 mg Tablet] 1 tab PO Q6HP PRN 02/25/19 Hydroxychloroquine Sulfate [Plaquenil 200 mg Tablet] 200 mg PO BID 02/25/19 Linaclotide [Linzess] 72 mcg PO DAILY 02/25/19 Losartan Potassium [Cozaar 25 mg Tablet] 25 mg PO DAILY 02/25/19 Metoprolol Succinate [Toprol Xl 25 mg Tab.sr] 25 mg PO DAILY 02/25/19 Montelukast Sodium [Singulair 10 mg Tablet] 10 mg PO QHS 02/25/19 Pantoprazole Sodium [Protonix [address] Tablet] 40 mg PO DAILY 02/25/19 Tiotropium [place] [Spiriva [place] 5 Cap/Kit (18 Mcg/Cap)] 1 puff IH DAILY 02/25/19 Topiramate [Topamax] 50 mg PO Q12 02/25/19 Allergies/Adverse Reactions: No Known Allergies Allergy (Verified 06/22/18 14:53) Review of Systems All systems: reviewed and no additional remarkable complaints except as stated Review of Systems: Constitutional: ABSENT: chills, fatigue, fever(s), headache(s), weight gain, weight loss Eyes: ABSENT: visual disturbances Ears: ABSENT: hearing changes Cardiovascular: ABSENT: chest pain, edema, orthropnea, palpitations; admits shortness of breath Respiratory: ABSENT: cough, dyspnea, hemoptysis Gastrointestinal: ABSENT: abdominal pain, constipation, diarrhea, hematemesis, hematochezia, vomiting; admits nausea Genitourinary: ABSENT: dysuria, hematuria Musculoskeletal: ABSENT: joint swelling Integumentary: ABSENT: rash, wounds Neurological: ABSENT: abnormal gait, abnormal speech, confusion, dizziness, focal weakness, numbness, syncope Psychiatric: ABSENT: anxiety, depression Endocrine: ABSENT: cold intolerance, heat intolerance, polydipsia, polyuria Hematologic/Lymphatic: ABSENT: easy bleeding, easy bruising, lymphadenopathy Physical Exam Vital Signs: Temp Pulse Resp BP Pulse Ox 98.1 F 76 16 96/54 L 95 03/04/19 07:19 03/04/19 07:19 03/04/19 07:19 03/04/19 07:19 03/04/19 07:19 Intake & Output 03/03/19 03/04/19 03/05/19 06:59 06:59 06:59 Intake Total 880 1469 Output Total 0 Balance 880 1469 Weight 95.4 kg 97.3 kg Exam: General appearance: No acute distress, cooperative, well-developed, well-no urished Head exam: PRESENT: atraumatic, normocephalic Eye exam: PRESENT: Conjunctiva [place], EOMI, PERRLA. ABSENT: conjunctival injection, scleral icterus Mouth exam: PRESENT: moist, neck supple, tongue midline Neck exam: PRESENT: full ROM. ABSENT: carotid bruit, JVD, lymphadenopathy, thyromegaly Respiratory exam: PRESENT: Diminished to auscultation bilaterally. ABSENT: rales, rhonchi, stridor, wheezes Cardiovascular exam: PRESENT: RRR, soft +S1, +S2. ABSENT: systolic murmur Pulses: PRESENT: normal radial pulses, normal dorsalis pedis pulses GI/Abdominal exam: PRESENT: normal bowel sounds, soft. ABSENT: guarding, mass, tenderness Rectal exam: Deferred Extremities exam: PRESENT: full ROM. Left BKA ABSENT: calf tenderness, pedal edema Musculoskeletal: PRESENT: full ROM. ABSENT: deformity Neurological exam: PRESENT: alert, Awake, Oriented to person, Oriented to place, Oriented to time, reflexes normal, CN II-XII grossly intact. ABSENT: motor sensory deficit Psychiatric exam: PRESENT: appropriate affect, normal mood. ABSENT: homicidal ideation, suicidal ideation Skin exam: PRESENT: intact, dry, warm. ABSENT: rash Results Laboratory Results: 03/03/19 07:30 03/04/19 05:04 03/04/19 05:04 Sodium 140.9 Potassium 4.8 Chloride 110 H Carbon Dioxide 16 L Anion Gap 15 BUN 40 H Creatinine 6.94 H Est GFR ( Amer) 7 L Glucose 86 Calcium 9.0 02/25/19 02/25/19 17:33 17:33 Creatine Kinase 468 H CK-MB (CK-2) 5.68 H Troponin I 0.033 Impressions: Chest X-Ray 02/25/19 16:23 IMPRESSION: STABLE CARDIOMEGALY. NO ACUTE RADIOGRAPHIC FINDING IN THE CHEST. Assessment & Plan - Diagnosis (1) Acute kidney injury superimposed on chronic kidney disease Is this a current diagnosis for this admission?: Yes Plan: There is a rapid worsening of the patient's kidney function for the last 48 to 72 hours. Her urine output is not being quantified. Her fractional excretion of sodium is 1.5%. Her urine eosinophils which I ordered today is negative she has no microhematuria and her urinalysis today showed mild proteinuria but p reviously negative. Her kidney function which I ordered today showed relatively small bilateral kidneys with increased echogenicity and no hydronephrosis. She has persistent hypotension since admission. Differential diagnosis includes acute interstitial nephritis secondary to ampicillin versus acute tubular necrosis secondary to persistent hypotension and enterococcus bacteremia. Agree with discontinuation of ampicillin. Steroid can be an option for acute interstitial nephritis. Avoid further hypotension with systolic blood pressure less than 90. Avoid any other nephrotoxic medications. Adjust medications according to kidney function. Monitor kidney function and electrolytes daily. We will monitor strict intake and output so I ordered a [place] catheter insertion. I spoke to the patient regarding the possibility of renal replacement therapy in the form of hemodialysis if her kidney function continues to get worse. She indicated that she understands what dialysis is. She indicated to me today that she does not want any hemodialysis treatment at any point. Explained to her that sometimes the kidney function gets worse to the point that it might be fatal but she still maintains her decision not to have dialysis at any time. At this point there is no indication yet of her requiring an urgent renal replacement therapy. We will continue medical management and respect her w ishes. If it comes to the point that she really would need renal replacement therapy I will try to discuss this again with her just in case she changes her mind. (2) Metabolic acidosis Is this a current diagnosis for this admission?: Yes Plan: Secondary to LAMAR. We will start sodium bicarbonate orally at 650 mg twice daily. (3) Enterococcal bacteremia Is this a current diagnosis for this admission?: Yes Plan: Etiology uncertain. Patient was treated with ampicillin from February 26 and was just now discontinued. 1 option for continuation of treatment for this is daptomycin at 6 mg/kg IV every 48 hours. (4) Hypotension Qualifiers: Hypotension type: unspecified hypotension type Qualified Code(s): I95.9 - Hypotension, unspecified Is this a current diagnosis for this admission?: Yes (5) CKD (chronic kidney disease), stage III Is this a current diagnosis for this admission?: Yes Plan: Patient does not appear to have baseline proteinuria nor microhematuria. This is most likely secondary to underlying microvascular disease and possibly cardiorenal syndrome. (6) Chronic combined systolic and diastolic CHF (congestive heart failure) Is this a current diagnosis for this admission?: Yes Plan: Currently appears to be clinically compensated. Echocardiogram on 10/25/2018 showed an left ventricular ejection fraction of 35%, left ventricle with moderate dilation and grade 1/4 mild diastolic dysfunction. (7) Fall from wheelchair Qualifiers: Encounter type: initial encounter Qualified Code(s): W05.0XXA - Fall from non-moving wheelchair, initial encounter Is this a current diagnosis for this admission?: Yes - Notes Notes: Thank you very much for this consultation. Assessment and recommendations discussed with Dr. Horowitz. - Time Time Spent: Greater than 70 Minutes
--- NOTE | 2019-03-04 19:54 | PDOC PROGRESS REPORT ---
Subjective Progress Note for:: 03/04/19 Subjective:: Patient seen by the bedside, she developed acute Oliguric kidney injury on a superimposed chronic kidney disease, she has been on ampicillin for Enterococcus faecalis septicemia, the source of the E faecalis is not clear. The intravenous ampicillin was started on02/28/2019.Consultation requested from nephrology patient does not want renal replacement therapy, acute dialysis I spoke to her about this option Reason For Visit: SEPSIS Physical Exam Vital Signs: Temp Pulse Resp BP Pulse Ox 98.1 F 75 18 107/76 96 03/04/19 16:45 03/04/19 13:50 03/04/19 16:45 03/04/19 16:45 03/04/19 11:03 Intake & Output 03/03/19 03/04/19 03/05/19 06:59 06:59 06:59 Intake Total 880 1469 120 Output Total 0 200 Balance 880 1469 -80 Weight 95.4 kg 97.3 kg General appearance: PRESENT: no acute distress Eye exam: PRESENT: PERRLA Respiratory exam: PRESENT: clear to auscultation freida Cardiovascular exam: PRESENT: +S1, +S2 GI/Abdominal exam: PRESENT: soft Neurological exam: PRESENT: alert Results Laboratory Results: 03/03/19 07:30 03/04/19 05:04 03/04/19 03/04/19 05:04 10:38 Sodium 140.9 Potassium 4.8 Chloride 110 H Carbon Dioxide 16 L Anion Gap 15 BUN 40 H Creatinine 6.94 H Est GFR ( Amer) 7 L Glucose 86 Calcium 9.0 Urine Color YELLOW Urine Appearance CLOUDY Urine pH 5.0 Ur Specific [place] 1.018 Urine Protein 100 H Urine Glucose (UA) 50 H Urine Ketones NEGATIVE Urine Blood NEGATIVE Urine Nitrite Cancelled Ur Leukocyte Esterase Cancelled Urine WBC (Auto) Cancelled Urine RBC (Auto) 3 02/25/19 02/25/19 17:33 17:33 Creatine Kinase 468 H CK-MB (CK-2) 5.68 H Troponin I 0.033 Impressions: Chest X-Ray 02/25/19 16:23 IMPRESSION: STABLE CARDIOMEGALY. NO ACUTE RADIOGRAPHIC FINDING IN THE CHEST. Renal Ultrasound 03/04/19 10:15 IMPRESSION: 1. Probable cyst in the upper pole the right kidney that measures 2 x 1.1 x 2 cm. 2. Increased echogenicity of the renal parenchyma suggestive of chronic medical renal disease. Assessment & Plan - Diagnosis (1) Chronic combined systolic and diastolic CHF (congestive heart failure) Is this a current diagnosis for this admission?: Yes (2) Fall from wheelchair Qualifiers: Encounter type: initial encounter Qualified Code(s): W05.0XXA - Fall from non-moving wheelchair, initial encounter Is this a current diagnosis for this admission?: Yes (3) Enterococcal bacteremia Is this a current diagnosis for this admission?: Yes Plan: The ampicillin is discontinued, patient to be started on daptomycin (4) Hypotension Qualifiers: Hypotension type: unspecified hypotension type Qualified Code(s): I95.9 - Hypotension, unspecified Is this a current diagnosis for this admission?: Yes Plan: She has chronic hypotension, with a background of chronic systolic and diastolic heart failure, fluid therapy has to be very judiciously cautious because of increased risk of fluid overload (5) Acute kidney injury superimposed on chronic kidney disease Is this a current diagnosis for this admission?: Yes Plan: She has acute kidney injury this is most likely from acute interstitial nephritis due to ampicillin, ATN is also a likely diagnosis, she has chronically low blood pressure which predate the septicemia, the urinary output is very minimal, there is no immediate need for hemodialysis at this point - Time Time Spent with patient: 35 or more minutes
[2019-03-04] MEDS: MONTELUKAST SODIUM 10 MG TABLET PO SCH (22:01)
[2019-03-04] MEDS: DAPTOMYCIN 500 MG in NORMAL SALINE 50 ML IV SCH (22:01)
[2019-03-04] MEDS: ONDANSETRON HCL INJ/PF 4 MG/2 ML SDV IV PRN (23:22)
[2019-03-05] MEDS: NORMAL SALINE 1000 ML 1,000 ML IV PRN ×2 (03:50→21:38)
[2019-03-05 05:34] LABS: ANION GAP 16 (5-19); BLOOD UREA NITROGEN 47 mg/dL (7-20); CALCIUM 8.8 mg/dL (8.4-10.2); CARBON DIOXIDE 13 mmol/L (22-30); CHLORIDE 111 mmol/L (98-107); GLUCOSE 78 mg/dL (75-110); POTASSIUM 5.6 mmol/L (3.6-5.0)
[2019-03-05] MEDS ORDERED: HEPARIN SOD (PORCINE) 1,000 UNIT/ML 10 ML VIAL IV PRN (09:14)
[2019-03-05] MEDS ORDERED: TUBERCULIN,PURIF.PROT.DERIV. 5 TU/0.1 ML TEST 1 ML VIAL ID ONE ×2 (09:14→11:00)
[2019-03-05] MEDS ORDERED: NORMAL SALINE 1000 ML 1,000 ML IV PRN (09:14)
--- NOTE | 2019-03-05 09:42 | PDOC PROGRESS REPORT ---
Subjective Progress Note for:: 03/05/19 Subjective:: 9:10 AM. The patient does not appear to have any clinical improvement. She admits that she still does not have much appetite and she still feels tired as usual before. She denies any chest pains no shortness of breath. She is slightly nauseated but no vomiting yet. She has not made much urine with urine output of only 300 mL since we placed the catheter yesterday morning. Her potassium is elevated today at 5.6 and she is more acidotic with bicarbonate of 13. Her kidney function is worse today. Given all this, I think the patient needs an urgent acute renal replacement therapy in the form of hemodialysis. Yesterday she indicated that she does not want any dialysis treatment. So today I talked to her again regarding the urgency of needing dialysis treatment and the consequences which would include arrhythmia, cardiac arrest and . I explained to the patient in detail how the procedure is Including requiring a catheter placement. Complications of the whole procedure include bleeding, infection, arrhythmia and rarely cardiac arrest during dialysis treatment. Patient finally tearfully agreed to do dialysis treatment today. She asked us t o call her son which we did at bedside but her son Jake did not sheepskin pickler the phone so we will try again later. Meanwhile we are going to prepare the patient to do dialysis treatment urgently today. I have called and spoken to Dr. Orozco asked to place a temporary dialysis catheter for urgent dialysis today and he agreed to place it. 11:[address] Ortiz is a successfully inserted a right femoral trialysis catheter. I am seeing the patient on her first dialysis treatment. She is lyin g comfortable and seems to be tolerating dialysis well. I gave her midodrine prior to dialysis and her blood pressure is quite acceptable at this time. Patient is actually feeling better, not as anxious as earlier and she is so far tolerating dialysis well. She will be monitored throughout dialysis treatment. Reason For Visit: SEPSIS Physical Exam Vital Signs: Temp Pulse Resp BP Pulse Ox 97.9 F 78 16 92/54 L 100 03/05/19 08:28 03/05/19 08:28 03/05/19 08:28 03/05/19 08:28 03/05/19 08:28 Intake & Output 03/04/19 03/05/19 03/06/19 06:59 06:59 06:59 Intake Total 1469 1320 Output Total 0 300 Balance 1469 1020 Weight 97.3 kg 96.8 kg Vitals during dialysis: Blood pressure 123/64, heart rate of 75, blood flow rate of 250 mL/min and dialysate flow rate of 500 mL/min using a newly placed right femoral dialysis catheter. Exam: General appearance: PRESENT: no acute distress, cooperative, well-developed, well-nourished Head exam: PRESENT: atraumatic, normocephalic Eye exam: PRESENT: conjunctiva slightly pale, PERRLA. ABSENT: scleral icterus Neck exam: ABSENT: JVD Respiratory exam: PRESENT: Coarse breath sounds. ABSENT: crackles, rales, rhonchi, unlabored, wheezes Cardiovascular exam: PRESENT: Regular rate rhythm -+S1, +S2. ABSENT: diastolic murmur, systolic murmur GI/Abdominal exam: PRESENT: normal bowel sounds, soft. ABSENT: guarding, mass, tenderness Extremities exam: ABSENT: No edema, left BKA Neurological exam: PRESENT: alert, awake, oriented to person, place but not to time. Skin exam: PRESENT: dry, warm, Results Laboratory Results: 03/03/19 07:30 03/05/19 04:51 03/04/19 03/05/19 10:38 04:51 Sodium 140.3 Potassium 5.6 H Chloride 111 H Carbon Dioxide 13 L Anion Gap 16 BUN 47 H Creatinine 8.61 H Est GFR ( Amer) 6 L Glucose 78 Calcium 8.8 Urine Color YELLOW Urine Appearance CLOUDY Urine pH 5.0 Ur Specific [place] 1.018 Urine Protein 100 H Urine Glucose (UA) 50 H Urine Ketones NEGATIVE Urine Blood NEGATIVE Urine Nitrite Cancelled Ur Leukocyte Esterase Cancelled Urine WBC (Auto) Cancelled Urine RBC (Auto) 3 02/25/19 02/25/19 17:33 17:33 Creatine Kinase 468 H CK-MB (CK-2) 5.68 H Troponin I 0.033 Impressions: Chest X-Ray 02/25/19 16:23 IMPRESSION: STABLE CARDIOMEGALY. NO ACUTE RADIOGRAPHIC FINDING IN THE CHEST. Renal Ultrasound 03/04/19 10:15 IMPRESSION: 1. Probable cyst in the upper pole the right kidney that measures 2 x 1.1 x 2 cm. 2. Increased echogenicity of the renal parenchyma suggestive of chronic medical renal disease. Assessment & Plan - Diagnosis (1) Acute kidney injury superimposed on chronic kidney disease Is this a current diagnosis for this admission?: Yes Plan: Likely secondary to acute interstitial nephritis due to ampicillin versus acute tubular necrosis due to chronic hypotension and enterococcal bacteremia. Patient is currently oliguric, hyperkalemic, severely acidotic with continuous worsening of the kidney function. Patient agreed to undergo acute urgent hemodialysis treatment. Consult Dr. Orozco is for temporary dialysis catheter. Once catheter is placed we will do hemodialysis treatment today. We will do dialysis today for 2 hours, using the patient's trialysis, with 2 potassium bath, blood flow rate of 250 mL per minute, dialysate flow rate of 500 mL per minute, ultrafiltration none, no heparin and no Procrit. Discussed dialysis plan with her dialysis nurse. Patient will be monitored throughout dialysis treatment. Plan is to do another dialysis treatment tomorrow. (2) Metabolic acidosis Is this a current diagnosis for this admission?: Yes Plan: Due to LAMAR. Worsening and severe despite oral sodium Bicarbonate. Will do dialysis today. (3) Enterococcal bacteremia Is this a current diagnosis for this admission?: Yes Plan: Etiology unknown. Agree with discontinuation of Ampicillin and starting Daptomycin. (4) Hypotension Qualifiers: Hypotension type: unspecified hypotension type Qualified Code(s): I95.9 - Hypotension, unspecified Is this a current diagnosis for this admission?: Yes Plan: Chronic and persistent which is likely contributing to the patient's acute kidney injury. I will start the patient on midodrine 5 mg p.o. twice daily, first dose to be given prior to dialysis today. (5) Hyperkalemia Is this a current diagnosis for this admission?: Yes Plan: We will do dialysis today. (6) Secondary hyperparathyroidism Is this a current diagnosis for this admission?: Yes Plan: Start calcitriol 0.25 mcg 3 times a week. (7) CKD (chronic kidney disease), stage III Is this a current diagnosis for this admission?: Yes Plan: Due to microvascular disease and cardiorenal syndrome. (8) Chronic combined systolic and diastolic CHF (congestive heart failure) Is this a current diagnosis for this admission?: Yes Plan: Clinically appears to be compensated at this time. (9) Fall from wheelchair Qualifiers: Encounter type: initial encounter Qualified Code(s): W05.0XXA - Fall from non-moving wheelchair, initial encounter Is this a current diagnosis for this admission?: Yes - Time Critical Time spent with patient: Greater than 35 minutes
[2019-03-05] MEDS ORDERED: LIDOCAINE 1% INJ-PF (10 MG/ML) 30 ML SDV ONE (09:58)
[2019-03-05] MEDS: SACUBITRIL/VALSARTAN 24 MG/26 MG TABLET PO SCH ×2 (10:22→21:35)
[2019-03-05] MEDS: SODIUM BICARBONATE 650 MG TABLET PO SCH ×2 (10:29→21:35)
[2019-03-05] MEDS: MIDODRINE HCL 5 MG TABLET PO SCH ×2 (10:29→17:21)
--- NOTE | 2019-03-05 10:55 | Operative Report ---
Operative Report DATE OF SURGERY: 03/05/19 PREOPERATIVE DIAGNOSIS: 1. Acute renal injury. 2. Diabetes mellitus POSTOPERATIVE DIAGNOSIS: Same OPERATION: 1. Ultrasound directed insertion of trialysis catheter right groin SURGEON: MARIPOSA LUONG ANESTHESIA: Local TISSUE REMOVED OR ALTERED: None COMPLICATIONS: None ESTIMATED BLOOD LOSS: 20 cc INTRAOPERATIVE FINDINGS: See below PROCEDURE: Patient was evaluated in the room 316, furniture removed from the environment, right groin exposed, panniculus elevated and taped, the right groin skin with the variable frequency linear transducer findings were significant for a patent right common femoral vein and saphenous vein in the usual location. The right groin was prepped with chlorhexidine, then draped. Surgical plan and surgical timeout were conducted. The skin was anesthetized adjacent to the transducer with 1% plain lidocaine. T here was a significant amount of scar tissue. We did gain access to the common femoral vein with a micro needle and wire, however I was unable to successfully thread the micro introducer sheath over the wire. Therefore the micro wire and introducer were aborted and the conventional 16gauge access catheter was inserted into the common femoral vein under ultrasound guidance. The conventional 0.030 guidewire was inserted, then the dilators small and large were threaded over the guidewire without resistance. The patient tolerated this well. We then threaded the triple-lumen dialysis catheter over the guidewire, proceeding uneventfully. There is no significant bleeding. All lumens were aspirated and flushed with saline. Catheter secured to the skin multiple sites with 2-0 Ethilon suture and Biopatch sterile dressing applied. Patient tolerated the procedure well. Catheter is suitable for use. Surgery will sign off at this point. Reconsult if necessary.
[2019-03-05 14:37] LABS: A/G RATIO. 0.8 (0.7-1.7); ALBUMIN 3 2.8 g/dL (2.9-4.4); ALPHA-1-GLOBULIN 0.3 g/dL (0.0-0.4); GAMMA GLOBULINS 1.7 g/dL (0.4-1.8); IMMUNOGLOBULIN A 493 mg/dL (87-352); IMMUNOGLOBULIN G 1804 mg/dL (700-1600); IMMUNOGLOBULIN M 84 mg/dL (26-217); MONOCLONAL-SPIKE Not Observed g/dL (Not Observ); PROTEIN TOTAL SERUM 6.7 g/dL (6.0-8.5)
[2019-03-05] MEDS: PANTOPRAZOLE SODIUM 40 MG TABLET.DR PO SCH (14:44)
[2019-03-05] MEDS: UMECLIDINIUM BROMIDE 62.5 MCG/DOSE IH SCH (14:44)
[2019-03-05] MEDS: APIXABAN 2.5 MG TABLET PO SCH ×2 (14:44→21:35)
[2019-03-05] MEDS: METOPROLOL SUCCINATE 25 MG TAB.SR.24H PO SCH (14:45)
[2019-03-05] MEDS: TOPIRAMATE 25 MG TABLET PO SCH ×2 (14:45→21:35)
[2019-03-05] MEDS: CALCITRIOL 0.25 MCG CAPSULE PO SCH (14:50)
[2019-03-05] MEDS: HYDROXYCHLOROQUINE SULFATE 200 MG TABLET PO SCH ×2 (17:19→17:21)
[2019-03-05] MEDS ORDERED: HYDROCODONE/ACETAMINOPHEN 7.5-325 MG TABLET ONE (20:25)
--- NOTE | 2019-03-05 20:38 | PDOC PROGRESS REPORT ---
Subjective Progress Note for:: 03/05/19 Subjective:: Patient kidney function deteriorated today, she was seen by Dr. Daugherty, nephrology requiring emergency hemodialysis Reason For Visit: SEPSIS Physical Exam Vital Signs: Temp Pulse Resp BP Pulse Ox 97.4 F 78 16 101/59 L 100 03/05/19 16:45 03/05/19 19:00 03/05/19 16:45 03/05/19 16:45 03/05/19 16:45 Intake & Output 03/04/19 03/05/19 03/06/19 06:59 06:59 06:59 Intake Total 1469 1320 80 Output Total 0 300 40 Balance 1469 1020 40 Weight 97.3 kg 96.8 kg General appearance: PRESENT: no acute distress Eye exam: PRESENT: PERRLA Respiratory exam: PRESENT: clear to auscultation freida Cardiovascular exam: PRESENT: +S1, +S2 GI/Abdominal exam: PRESENT: soft Neurological exam: PRESENT: alert Results Laboratory Results: 03/03/19 07:30 03/05/19 04:51 03/05/19 04:51 Sodium 140.3 Potassium 5.6 H Chloride 111 H Carbon Dioxide 13 L Anion Gap 16 BUN 47 H Creatinine 8.61 H Est GFR ( Amer) 6 L Glucose 78 Calcium 8.8 02/25/19 02/25/19 17:33 17:33 Creatine Kinase 468 H CK-MB (CK-2) 5.68 H Troponin I 0.033 Impressions: Chest X-Ray 02/25/19 16:23 IMPRESSION: STABLE CARDIOMEGALY. NO ACUTE RADIOGRAPHIC FINDING IN THE CHEST. Renal Ultrasound 03/04/19 10:15 IMPRESSION: 1. Probable cyst in the upper pole the right kidney that measures 2 x 1.1 x 2 cm. 2. Increased echogenicity of the renal parenchyma suggestive of chronic medical renal disease. Assessment & Plan - Diagnosis (1) Chronic combined systolic and diastolic CHF (congestive heart failure) Is this a current diagnosis for this admission?: Yes (2) Fall from wheelchair Qualifiers: Encounter type: initial encounter Qualified Code(s): W05.0XXA - Fall from non-moving wheelchair, initial encounter Is this a current diagnosis for this admission?: Yes (3) Enterococcal bacteremia Is this a current diagnosis for this admission?: Yes Plan: continue daptomycin (4) Hypotension Qualifiers: Hypotension type: unspecified hypotension type Qualified Code(s): I95.9 - Hypotension, unspecified Is this a current diagnosis for this admission?: Yes (5) Acute kidney injury superimposed on chronic kidney disease Is this a current diagnosis for this admission?: Yes Plan: She was started on hemodialysis today ,she has LAMAR due to interstitial nephritis versus ATN (6) Hyperkalemia Is this a current diagnosis for this admission?: Yes (7) Hypotension Qualifiers: Hypotension type: unspecified hypotension type Qualified Code(s): I95.9 - Hypotension, unspecified Is this a current diagnosis for this admission?: Yes (8) Metabolic acidosis Is this a current diagnosis for this admission?: Yes (9) Secondary hyperparathyroidism Is this a current diagnosis for this admission?: Yes - Time Time Spent with patient: 25-34 minutes Level of Care: IMCU
[2019-03-05] MEDS: MONTELUKAST SODIUM 10 MG TABLET PO SCH (21:35)
[2019-03-06] MEDS ORDERED: HEPARIN SOD (PORCINE) 1,000 UNIT/ML 10 ML VIAL IV PRN (05:00)
[2019-03-06] MEDS ORDERED: NORMAL SALINE 1000 ML 1,000 ML IV PRN (05:00)
[2019-03-06 05:43] LABS: ABSOLUTE BASOPHILS # (AUTO) 0.1 10^3/uL (0.0-0.2); ABSOLUTE EOSINOPHILS # (AUTO) 0.2 10^3/uL (0.0-0.6); ABSOLUTE LYMPHOCYTES (AUTO) 2.1 10^3/uL (0.5-4.7); ABSOLUTE MONOCYTES (AUTO) 0.8 10^3/uL (0.1-1.4); ABSOLUTE NEUT (AUTO) 3.7 10^3/uL (1.7-8.2); BASOPHILS % (AUTO) 1.1 % (0-2); HEMATOCRIT 26.5 % (36.0-47.0); LYMPHOCYTES % (AUTO) 30.4 % (13-45); MEAN CORPUSCULAR HEMOGLOBIN 28.8 pg (27.0-33.4); MEAN CORPUSCULAR HGB CONC 33.8 g/dL (32.0-36.0); MEAN CORPUSCULAR VOLUME 85 fl (80-97); MONOCYTES % (AUTO) 11.5 % (3-13); PLATELET COUNT 102 10^3/uL (150-450); RED BLOOD COUNT 3.11 10^6/uL (3.72-5.28); RED CELL DISTRIBUTION WIDTH 16.1 % (11.5-14.0); TOTAL CELLS COUNTED % (AUTO) 100 %; WHITE BLOOD COUNT 6.9 10^3/uL (4.0-10.5)
[2019-03-06 05:59] LABS: ANION GAP 8 (5-19); BLOOD UREA NITROGEN 37 mg/dL (7-20); CALCIUM 8.2 mg/dL (8.4-10.2); CARBON DIOXIDE 22 mmol/L (22-30); CHLORIDE 108 mmol/L (98-107); GLUCOSE 81 mg/dL (75-110); POTASSIUM 4.7 mmol/L (3.6-5.0)
[2019-03-06] MEDS: ONDANSETRON HCL INJ/PF 4 MG/2 ML SDV IV PRN (07:11)
--- NOTE | 2019-03-06 09:24 | PDOC PROGRESS REPORT ---
Subjective Progress Note for:: 03/06/19 Subjective:: I am seeing the patient during dialysis. According to our dialysis nurse she was a little bit anxious at the start of dialysis with her oxygen saturation falling down below 90 so she was put on nasal cannula with oxygen 2 to 3 L. Her oxygen saturation is okay now. She is also a little bit more comfortable. She is actually tolerating dialysis currently with good blood pressure. She had a little bit of nausea after starting dialysis but has now resolved. She only made about 340 mL of urine output yesterday. Reason For Visit: SEPSIS Physical Exam Vital Signs: Temp Pulse Resp BP Pulse Ox 97.7 F 77 16 103/60 96 03/06/19 03:17 03/06/19 07:00 03/06/19 03:17 03/06/19 03:17 03/06/19 03:17 Intake & Output 03/05/19 03/06/19 03/07/19 06:59 06:59 06:59 Intake Total 1320 1310 Output Total 300 340 Balance 1020 970 Weight 96.8 kg 99.3 kg Vitals during dialysis: Blood pressure 136/72, heart rate of 75, blood flow rate of 250 mL/min and dialysate flow rate of 500 mL/min. Her oxygen saturation now is 99% with oxygen at 3 L via nasal cannula. Exam: General appearance: PRESENT: no acute distress, cooperative, well-developed, well-nourished Head exam: PRESENT: atraumatic, normocephalic Eye exam: PRESENT: conjunctiva slightly pale, PERRLA. ABSENT: scleral icterus Neck exam: ABSENT: JVD Respiratory exam: PRESENT: Diminished breath sounds. ABSENT: crackles, rales, rhonchi, unlabored, wheezes Cardiovascular exam: PRESENT: Regular rate rhythm -+S1, +S2. ABSENT: diastolic murmur, systolic murmur GI/Abdominal exam: PRESENT: normal bowel sounds, soft. ABSENT: guarding, mass, tenderness Extremities exam: ABSENT: No edema, left BKA Neurological exam: PRESENT: alert, awake, oriented to person, place and time. Skin exam: PRESENT: dry, warm, Results Laboratory Results: 03/06/19 05:18 03/06/19 05:18 03/01/19 03/06/19 03/06/19 00:14 05:18 05:18 WBC 6.9 RBC 3.11 L Hgb 9.0 L D Hct 26.5 L MCV 85 MCH 28.8 MCHC 33.8 RDW 16.1 H Plt Count 102 L Seg Neutrophils % 54.0 Sodium 138.4 Potassium 4.7 Chloride 108 H Carbon Dioxide 22 Anion Gap 8 BUN 37 H Creatinine 6.32 H Est GFR ( Amer) 8 L Glucose 81 Calcium 8.2 L Total Protein 6.7 02/25/19 02/25/19 17:33 17:33 Creatine Kinase 468 H CK-MB (CK-2) 5.68 H Troponin I 0.033 Impressions: Chest X-Ray 02/25/19 16:23 IMPRESSION: STABLE CARDIOMEGALY. NO ACUTE RADIOGRAPHIC FINDING IN THE CHEST. Renal Ultrasound 03/04/19 10:15 IMPRESSION: 1. Probable cyst in the upper pole the right kidney that measures 2 x 1.1 x 2 cm. 2. Increased echogenicity of the renal parenchyma suggestive of chronic medical renal disease. Assessment & Plan - Diagnosis (1) Acute kidney injury superimposed on chronic kidney disease Is this a current diagnosis for this admission?: Yes Plan: Likely secondary to acute interstitial nephritis due to ampicillin versus acute tubular necrosis due to chronic hypotension and enterococcal bacteremia. Patient remains to be oliguric. She tolerated her first dialysis treatment yesterday. I tried to call her son again today but got a busy tone twice. We will do dialysis today for 2.5 hours, using the patient's trialysis catheter, with 2 potassium bath, blood flow rate of 250 mL per minute, dialysate flow rate of 500 mL per minute, ultrafiltration 0 to 500 mL as tolerated, no heparin and no Procrit. Patient will be monitored throughout dialysis treatment and adjust prescription as necessary. We will reevaluate on Monday if she needs further dialysis treatment. (2) Metabolic acidosis Is this a current diagnosis for this admission?: Yes Plan: Resolved with dialysis treatment. (3) Enterococcal bacteremia Is this a current diagnosis for this admission?: Yes Plan: Etiology unknown. Agree with discontinuation of Ampicillin and starting Daptomycin. Repeat blood culture on March 04 was negative. (4) Hypotension Qualifiers: Hypotension type: unspecified hypotension type Qualified Code(s): I95.9 - Hypotension, unspecified Is this a current diagnosis for this admission?: Yes Plan: Chronic and persistent which is likely contributing to the patient's acute kidney injury. Continue Midodrine 5 mg p.o. twice daily. (5) Hyperkalemia Is this a current diagnosis for this admission?: Yes Plan: Resolved with dialysis. (6) Secondary hyperparathyroidism Is this a current diagnosis for this admission?: Yes Plan: Started calcitriol 0.25 mcg 3 times a week. (7) Anemia Is this a current diagnosis for this admission?: Yes Plan: There is a sudden drop of her hemoglobin from 11 to 9 today. Patient has a little bit of oozing in her catheter site. No other source of bleeding. Will check stool for occult blood. Monitor hemoglobin. (8) CKD (chronic kidney disease), stage III Is this a current diagnosis for this admission?: Yes Plan: Due to microvascular disease and cardiorenal syndrome. (9) Chronic combined systolic and diastolic CHF (congestive heart failure) Is this a current diagnosis for this admission?: Yes Plan: Clinically appears to be compensated at this time. (10) Fall from wheelchair Qualifiers: Encounter type: initial encounter Qualified Code(s): W05.0XXA - Fall from non-moving wheelchair, initial encounter Is this a current diagnosis for this admission?: Yes - Time Time with patient: 15-25 minutes
[2019-03-06] MEDS: METOPROLOL SUCCINATE 25 MG TAB.SR.24H PO SCH (11:03)
[2019-03-06] MEDS: UMECLIDINIUM BROMIDE 62.5 MCG/DOSE IH SCH (11:03)
[2019-03-06] MEDS: APIXABAN 2.5 MG TABLET PO SCH ×2 (11:03→21:10)
[2019-03-06] MEDS: SACUBITRIL/VALSARTAN 24 MG/26 MG TABLET PO SCH ×2 (11:03→21:11)
[2019-03-06] MEDS: SODIUM BICARBONATE 650 MG TABLET PO SCH ×2 (11:04→21:10)
[2019-03-06] MEDS: MIDODRINE HCL 5 MG TABLET PO SCH ×2 (11:04→18:12)
[2019-03-06] MEDS: HYDROCODONE/ACETAMINOPHEN 7.5-325 MG TABLET PO PRN ×2 (11:04→18:12)
[2019-03-06] MEDS: PANTOPRAZOLE SODIUM 40 MG TABLET.DR PO SCH (11:04)
[2019-03-06] MEDS: HYDROXYCHLOROQUINE SULFATE 200 MG TABLET PO SCH ×2 (11:04→18:12)
[2019-03-06] MEDS: TOPIRAMATE 25 MG TABLET PO SCH ×2 (11:08→21:11)
[2019-03-06 13:14] LABS: HEPATITS B SURFACE ANTIGEN Negative (Negative)
[2019-03-06] MEDS: NORMAL SALINE 1000 ML 1,000 ML IV PRN (14:30)
--- NOTE | 2019-03-06 17:50 | PDOC PROGRESS REPORT ---
Subjective Progress Note for:: 03/06/19 Subjective:: Patient seen by the bedside, I had a long discussion with the patient's son regarding the condition of his mother I explained to him that she developed acute kidney injury most likely secondary to acute interstitial nephritis from the use of IV ampicillin for the treatment of Enterococcus faecalis septicemia. Patient looks better today compared to the the last few days, she is making some urine hopefully the kidney function will return and this would not be a long time dialysis treatment. Reason For Visit: SEPSIS Physical Exam Vital Signs: Temp Pulse Resp BP Pulse Ox 98.0 F 70 16 109/73 100 03/06/19 10:59 03/06/19 14:00 03/06/19 10:59 03/06/19 10:59 03/06/19 10:59 Intake & Output 03/05/19 03/06/19 03/07/19 06:59 06:59 06:59 Intake Total 1320 1310 1000 Output Total 300 340 700 Balance 1020 970 300 Weight 96.8 kg 99.3 kg General appearance: PRESENT: no acute distress Eye exam: PRESENT: PERRLA Respiratory exam: PRESENT: clear to auscultation freida Cardiovascular exam: PRESENT: +S1, +S2 GI/Abdominal exam: PRESENT: soft Neurological exam: PRESENT: alert, CN II-XII grossly intact Results Laboratory Results: 03/06/19 05:18 03/06/19 05:18 03/01/19 03/06/19 03/06/19 00:14 05:18 05:18 WBC 6.9 RBC 3.11 L Hgb 9.0 L D Hct 26.5 L MCV 85 MCH 28.8 MCHC 33.8 RDW 16.1 H Plt Count 102 L Seg Neutrophils % 54.0 Sodium 138.4 Potassium 4.7 Chloride 108 H Carbon Dioxide 22 Anion Gap 8 BUN 37 H Creatinine 6.32 H Est GFR ( Amer) 8 L Glucose 81 Calcium 8.2 L Total Protein 6.7 02/25/19 02/25/19 17:33 17:33 Creatine Kinase 468 H CK-MB (CK-2) 5.68 H Troponin I 0.033 Impressions: Chest X-Ray 02/25/19 16:23 IMPRESSION: STABLE CARDIOMEGALY. NO ACUTE RADIOGRAPHIC FINDING IN THE CHEST. Renal Ultrasound 03/04/19 10:15 IMPRESSION: 1. Probable cyst in the upper pole the right kidney that measures 2 x 1.1 x 2 cm. 2. Increased echogenicity of the renal parenchyma suggestive of chronic medical renal disease. Assessment & Plan - Diagnosis (1) Chronic combined systolic and diastolic CHF (congestive heart failure) Is this a current diagnosis for this admission?: Yes Plan: Well compensated CHF, continue treatment (2) Fall from wheelchair Qualifiers: Encounter type: initial encounter Qualified Code(s): W05.0XXA - Fall from non-moving wheelchair, initial encounter Is this a current diagnosis for this admission?: Yes (3) Enterococcal bacteremia Is this a current diagnosis for this admission?: Yes (4) Hypotension Qualifiers: Hypotension type: unspecified hypotension type Qualified Code(s): I95.9 - Hypotension, unspecified Is this a current diagnosis for this admission?: Yes (5) Acute kidney injury superimposed on chronic kidney disease Is this a current diagnosis for this admission?: Yes (6) Hyperkalemia Is this a current diagnosis for this admission?: Yes (7) Hypotension Qualifiers: Hypotension type: unspecified hypotension type Qualified Code(s): I95.9 - Hypotension, unspecified Is this a current diagnosis for this admission?: Yes Plan: Improved (8) Metabolic acidosis Is this a current diagnosis for this admission?: Yes Plan: Improved with dialysis (9) Secondary hyperparathyroidism Is this a current diagnosis for this admission?: Yes (10) Acute interstitial nephritis Is this a current diagnosis for this admission?: Yes - Time Time Spent with patient: 25-34 minutes Level of Care: [facility]
[2019-03-06] MEDS: MONTELUKAST SODIUM 10 MG TABLET PO SCH (21:10)
[2019-03-06] MEDS: DAPTOMYCIN 500 MG in NORMAL SALINE 50 ML IV SCH (21:10)
[2019-03-07] MEDS: ONDANSETRON HCL INJ/PF 4 MG/2 ML SDV IV PRN ×4 (00:52→17:45)
[2019-03-07 05:09] LABS: ABSOLUTE BASOPHILS # (AUTO) 0.1 10^3/uL (0.0-0.2); ABSOLUTE EOSINOPHILS # (AUTO) 0.1 10^3/uL (0.0-0.6); ABSOLUTE LYMPHOCYTES (AUTO) 1.4 10^3/uL (0.5-4.7); ABSOLUTE MONOCYTES (AUTO) 0.8 10^3/uL (0.1-1.4); ABSOLUTE NEUT (AUTO) 5.2 10^3/uL (1.7-8.2); BASOPHILS % (AUTO) 0.9 % (0-2); EOSINOPHILS % (AUTO) 0.7 % (0-6); HEMATOCRIT 30.2 % (36.0-47.0); LYMPHOCYTES % (AUTO) 18.9 % (13-45); MEAN CORPUSCULAR HEMOGLOBIN 28.3 pg (27.0-33.4); MEAN CORPUSCULAR VOLUME 86 fl (80-97); MONOCYTES % (AUTO) 10.3 % (3-13); PLATELET COUNT 115 10^3/uL (150-450); RED BLOOD COUNT 3.53 10^6/uL (3.72-5.28); RED CELL DISTRIBUTION WIDTH 16.2 % (11.5-14.0); SEGMENTED NEUTROPHILS % (AUTO) 69.2 % (42-78); TOTAL CELLS COUNTED % (AUTO) 100 %; WHITE BLOOD COUNT 7.5 10^3/uL (4.0-10.5)
[2019-03-07] MEDS: NORMAL SALINE 1000 ML 1,000 ML IV PRN (05:18)
[2019-03-07 05:44] LABS: ANION GAP 12 (5-19); BLOOD UREA NITROGEN 24 mg/dL (7-20); CALCIUM 8.8 mg/dL (8.4-10.2); CARBON DIOXIDE 24 mmol/L (22-30); CHLORIDE 104 mmol/L (98-107); GLUCOSE 113 mg/dL (75-110); POTASSIUM 4.2 mmol/L (3.6-5.0)
[2019-03-07] MEDS: MIDODRINE HCL 5 MG TABLET PO SCH ×2 (09:39→17:11)
[2019-03-07] MEDS: METOPROLOL SUCCINATE 25 MG TAB.SR.24H PO SCH (09:39)
[2019-03-07] MEDS: PANTOPRAZOLE SODIUM 40 MG TABLET.DR PO SCH (09:39)
[2019-03-07] MEDS: ERGOCALCIFEROL (VITAMIN D2) 50000 UNIT (1.25 MG) CAPSULE PO SCH (09:39)
[2019-03-07] MEDS: SODIUM BICARBONATE 650 MG TABLET PO SCH ×2 (09:40→21:57)
[2019-03-07] MEDS: UMECLIDINIUM BROMIDE 62.5 MCG/DOSE IH SCH (09:40)
[2019-03-07] MEDS: APIXABAN 2.5 MG TABLET PO SCH ×2 (09:40→21:58)
[2019-03-07] MEDS: SACUBITRIL/VALSARTAN 24 MG/26 MG TABLET PO SCH ×2 (09:40→21:57)
[2019-03-07] MEDS: TOPIRAMATE 25 MG TABLET PO SCH ×2 (09:40→21:58)
[2019-03-07] MEDS: HYDROXYCHLOROQUINE SULFATE 200 MG TABLET PO SCH ×2 (09:40→17:12)
[2019-03-07] MEDS: CALCITRIOL 0.25 MCG CAPSULE PO SCH (09:41)
[2019-03-07 10:37] LABS: HEPATITIS C QUANTITATION HCV Not Detected IU/mL (.)
--- NOTE | 2019-03-07 12:50 | PDOC PROGRESS REPORT ---
Subjective Progress Note for:: 03/07/19 Subjective:: Patient looks, bit brighter today and was actually smiling when I entered the room. However she tells me that she does not really feel good today. She complains of some abdominal discomfort, vomiting of 2 episodes this morning and constipation. She admits she still has no appetite. She has had 2 dialysis treatments which she tolerated well for the last 2 days. She seems to be making a little bit more urine output with 505 mL of urine output for the past 24 hours. Her blood pressure seems to be slightly better as well with the midodrine. Reason For Visit: SEPSIS Physical Exam Vital Signs: Temp Pulse Resp BP Pulse Ox 98.7 F 76 18 110/64 94 03/07/19 07:21 03/07/19 07:21 03/07/19 07:21 03/07/19 07:21 03/07/19 07:21 Intake & Output 03/06/19 03/07/19 03/08/19 06:59 06:59 06:59 Intake Total 1310 2508 Output Total 340 1205 Balance 970 1303 Weight 99.3 kg 99.9 kg Exam: General appearance: PRESENT: no acute distress, cooperative, well-developed, well-nourished Head exam: PRESENT: atraumatic, normocephalic Eye exam: PRESENT: conjunctiva slightly pale, PERRLA. ABSENT: scleral icterus Neck exam: ABSENT: JVD Respiratory exam: PRESENT: Diminished breath sounds. ABSENT: crackles, rales, rhonchi, unlabored, wheezes Cardiovascular exam: PRESENT: Regular rate rhythm -+S1, +S2. ABSENT: diastolic murmur, systolic murmur GI/Abdominal exam: PRESENT: normal bowel sounds, soft. ABSENT: guarding, mass, tenderness Extremities exam: ABSENT: No edema; left BKA Neurological exam: PRESENT: alert, awake, oriented to person, place and time. Skin exam: PRESENT: dry, warm, Results Laboratory Results: 03/07/19 04:48 03/07/19 04:48 03/07/19 03/07/19 04:48 04:48 WBC 7.5 RBC 3.53 L Hgb 10.0 L Hct 30.2 L MCV 86 MCH 28.3 MCHC 33.0 RDW 16.2 H Plt Count 115 L Seg Neutrophils % 69.2 Sodium 139.9 Potassium 4.2 Chloride 104 Carbon Dioxide 24 Anion Gap 12 BUN 24 H Creatinine 4.78 H Est GFR ( Amer) 11 L Glucose 113 H Calcium 8.8 02/25/19 02/25/19 17:33 17:33 Creatine Kinase 468 H CK-MB (CK-2) 5.68 H Troponin I 0.033 Impressions: Chest X-Ray 02/25/19 16:23 IMPRESSION: STABLE CARDIOMEGALY. NO ACUTE RADIOGRAPHIC FINDING IN THE CHEST. Renal Ultrasound 03/04/19 10:15 IMPRESSION: 1. Probable cyst in the upper pole the right kidney that measures 2 x 1.1 x 2 cm. 2. Increased echogenicity of the renal parenchyma suggestive of chronic medical renal disease. Assessment & Plan - Diagnosis (1) Acute kidney injury superimposed on chronic kidney disease Is this a current diagnosis for this admission?: Yes Plan: Likely secondary to acute interstitial nephritis due to ampicillin versus acute tubular necrosis due to chronic hypotension and enterococcal bacteremia. Patient had to dialysis treatment on 03/05 and 03/06. She remains to be nonoliguric and urine output seems to be slightly increased. Her chemistries are better as usual dialysis treatments. Will reevaluate tomorrow for further need of hemodialysis. Discontinue IV fluids as I do not think she needs it. (2) Metabolic acidosis Is this a current diagnosis for this admission?: Yes Plan: Resolved with dialysis treatment. (3) Enterococcal bacteremia Is this a current diagnosis for this admission?: Yes Plan: Etiology unknown. Agree with discontinuation of Ampicillin and starting Daptomycin. Repeat blood culture on March 04 was negative. (4) Hypotension Qualifiers: Hypotension type: unspecified hypotension type Qualified Code(s): I95.9 - Hypotension, unspecified Is this a current diagnosis for this admission?: Yes Plan: Chronic and persistent which is likely contributing to the patient's acute kidney injury. Blood pressure seems to be improving. Continue Midodrine 5 mg p.o. twice daily. (5) Hyperkalemia Is this a current diagnosis for this admission?: Yes Plan: Resolved with dialysis. (6) Secondary hyperparathyroidism Is this a current diagnosis for this admission?: Yes Plan: Started calcitriol 0.25 mcg 3 times a week. (7) Anemia Is this a current diagnosis for this admission?: Yes Plan: Hemoglobin better at 10.0. His stool for occult blood ordered but still on collected at this time. Patient has been constipated. (8) CKD (chronic kidney disease), stage III Is this a current diagnosis for this admission?: Yes Plan: Due to microvascular disease and cardiorenal syndrome. Urine protein electrophoresis is negative for monoclonal spike. Urine protein to creatinine ratio is only 0.1. (9) Constipation Qualifiers: Constipation type: unspecified constipation type Qualified Code(s): K59.00 - Constipation, unspecified Is this a current diagnosis for this admission?: Yes Plan: Defer to primary care provider. (10) Chronic combined systolic and diastolic CHF (congestive heart failure) Is this a current diagnosis for this admission?: Yes Plan: Clinically appears to be compensated at this time. (11) Fall from wheelchair Qualifiers: Encounter type: initial encounter Qualified Code(s): W05.0XXA - Fall from non-moving wheelchair, initial encounter Is this a current diagnosis for this admission?: Yes - Time Time with patient: 15-25 minutes
[2019-03-07] MEDS ORDERED: BISACODYL 5 MG TABEC PO ONE (17:45)
--- NOTE | 2019-03-07 19:34 | PDOC PROGRESS REPORT ---
Subjective Progress Note for:: 03/07/19 Subjective:: Patient seen by the bedside, she feels unwell, she complained of constipation Reason For Visit: SEPSIS Physical Exam Vital Signs: Temp Pulse Resp BP Pulse Ox 97.4 F 77 17 114/86 H 97 03/07/19 15:14 03/07/19 15:14 03/07/19 15:14 03/07/19 15:14 03/07/19 15:14 Intake & Output 03/06/19 03/07/19 03/08/19 06:59 06:59 06:59 Intake Total 1310 2508 120 Output Total 340 1205 300 Balance 970 1303 -180 Weight 99.3 kg 99.9 kg General appearance: PRESENT: no acute distress Eye exam: PRESENT: PERRLA Respiratory exam: PRESENT: clear to auscultation freida Cardiovascular exam: PRESENT: +S1, +S2 GI/Abdominal exam: PRESENT: soft Neurological exam: PRESENT: alert Results Laboratory Results: 03/07/19 04:48 03/07/19 04:48 03/07/19 03/07/19 04:48 04:48 WBC 7.5 RBC 3.53 L Hgb 10.0 L Hct 30.2 L MCV 86 MCH 28.3 MCHC 33.0 RDW 16.2 H Plt Count 115 L Seg Neutrophils % 69.2 Sodium 139.9 Potassium 4.2 Chloride 104 Carbon Dioxide 24 Anion Gap 12 BUN 24 H Creatinine 4.78 H Est GFR ( Amer) 11 L Glucose 113 H Calcium 8.8 02/25/19 02/25/19 17:33 17:33 Creatine Kinase 468 H CK-MB (CK-2) 5.68 H Troponin I 0.033 Impressions: Chest X-Ray 02/25/19 16:23 IMPRESSION: STABLE CARDIOMEGALY. NO ACUTE RADIOGRAPHIC FINDING IN THE CHEST. Renal Ultrasound 03/04/19 10:15 IMPRESSION: 1. Probable cyst in the upper pole the right kidney that measures 2 x 1.1 x 2 cm. 2. Increased echogenicity of the renal parenchyma suggestive of chronic medical renal disease. Assessment & Plan - Diagnosis (1) Chronic combined systolic and diastolic CHF (congestive heart failure) Is this a current diagnosis for this admission?: Yes (2) Fall from wheelchair Qualifiers: Encounter type: initial encounter Qualified Code(s): W05.0XXA - Fall from non-moving wheelchair, initial encounter Is this a current diagnosis for this admission?: Yes (3) Enterococcal bacteremia Is this a current diagnosis for this admission?: Yes (4) Hypotension Qualifiers: Hypotension type: unspecified hypotension type Qualified Code(s): I95.9 - Hypotension, unspecified Is this a current diagnosis for this admission?: Yes (5) Acute kidney injury superimposed on chronic kidney disease Is this a current diagnosis for this admission?: Yes (6) Hyperkalemia Is this a current diagnosis for this admission?: Yes (7) Hypotension Qualifiers: Hypotension type: unspecified hypotension type Qualified Code(s): I95.9 - Hypotension, unspecified Is this a current diagnosis for this admission?: Yes (8) Metabolic acidosis Is this a current diagnosis for this admission?: Yes (9) Secondary hyperparathyroidism Is this a current diagnosis for this admission?: Yes (10) Acute interstitial nephritis Is this a current diagnosis for this admission?: Yes (11) Constipation Qualifiers: Constipation type: unspecified constipation type Qualified Code(s): K59.00 - Constipation, unspecified Is this a current diagnosis for this admission?: Yes Plan: Give Dulcolax 20 mg - Time Time Spent with patient: 15-24 minutes
[2019-03-07] MEDS: MONTELUKAST SODIUM 10 MG TABLET PO SCH (21:58)
[2019-03-08] MEDS: ONDANSETRON HCL INJ/PF 4 MG/2 ML SDV IV PRN ×3 (05:04→23:12)
[2019-03-08 05:46] LABS: ABSOLUTE MONOCYTES (AUTO) 1.2 10^3/uL (0.1-1.4); ABSOLUTE NEUT (AUTO) 7.1 10^3/uL (1.7-8.2); BASOPHILS % (AUTO) 0.2 % (0-2); HEMATOCRIT 29.5 % (36.0-47.0); HEMOGLOBIN 9.7 g/dL (12.0-15.5); LYMPHOCYTES % (AUTO) 11.1 % (13-45); MEAN CORPUSCULAR HEMOGLOBIN 28.4 pg (27.0-33.4); MEAN CORPUSCULAR VOLUME 86 fl (80-97); PLATELET COUNT 112 10^3/uL (150-450); RED BLOOD COUNT 3.43 10^6/uL (3.72-5.28); SEGMENTED NEUTROPHILS % (AUTO) 75.7 % (42-78); TOTAL CELLS COUNTED % (AUTO) 100 %; WHITE BLOOD COUNT 9.4 10^3/uL (4.0-10.5)
[2019-03-08 06:07] LABS: ANION GAP 15 (5-19); BLOOD UREA NITROGEN 32 mg/dL (7-20); CALCIUM 8.9 mg/dL (8.4-10.2); CARBON DIOXIDE 20 mmol/L (22-30); CHLORIDE 105 mmol/L (98-107); GLUCOSE 119 mg/dL (75-110); POTASSIUM 4.9 mmol/L (3.6-5.0)
[2019-03-08] MEDS ORDERED: HEPARIN SOD (PORCINE) 1,000 UNIT/ML 10 ML VIAL IV PRN (08:57)
[2019-03-08] MEDS ORDERED: NORMAL SALINE 1000 ML 1,000 ML IV PRN (08:57)
[2019-03-08] MEDS: MIDODRINE HCL 5 MG TABLET PO SCH ×3 (09:56→18:07)
[2019-03-08] MEDS: UMECLIDINIUM BROMIDE 62.5 MCG/DOSE IH SCH (09:56)
[2019-03-08] MEDS: METOPROLOL SUCCINATE 25 MG TAB.SR.24H PO SCH (10:07)
[2019-03-08] MEDS: SACUBITRIL/VALSARTAN 24 MG/26 MG TABLET PO SCH ×2 (10:07→23:00)
[2019-03-08] MEDS ORDERED: EPOETIN ALFA-EPBX 3,000 UNIT/ML VIAL (RENAL) IV ONE (14:30)
[2019-03-08] MEDS ORDERED: EPOETIN ALFA-EPBX 5,000 UNITS (ESRD) in SYRINGE IV ONE ×3 (14:45)
--- NOTE | 2019-03-08 15:22 | PDOC PROGRESS REPORT ---
Subjective Progress Note for:: 03/08/19 Subjective:: I saw the patient earlier this morning and she told me that she is not feeling so good today. She complains of slight nausea but no vomiting. Later on in the morning she had some good soft bowel movement according to her nurse. Patient is still not making any good urine output producing only 345 mL of urine output for the last 24 hours. Her blood pressure is again relatively low. This afternoon I am seeing the patient during dialysis. She continues to not fe el very well. Her blood pressure is still a little bit low. We may not be able to get any ultrafiltration but even give the patient some fluids to keep up with her blood pressure. Reason For Visit: SEPSIS Physical Exam Vital Signs: Temp Pulse Resp BP Pulse Ox 97.4 F 79 15 74/39 L 100 03/08/19 11:25 03/08/19 11:25 03/08/19 11:25 03/08/19 11:25 03/08/19 11:25 Intake & Output 03/07/19 03/08/19 03/09/19 06:59 06:59 06:59 Intake Total 2508 1120 Output Total 1205 345 Balance 1303 775 Weight 99.9 kg 99.5 kg Vitals currently during dialysis: Blood pressure 98/68, heart rate of 75, blood flow rate of 250 mL/min and dialysate flow rate of 500 mL/min. Exam: General appearance: PRESENT: no acute distress, cooperative, well-developed, well-nourished Head exam: PRESENT: atraumatic, normocephalic Eye exam: PRESENT: conjunctiva slightly pale, PERRLA. ABSENT: scleral icterus Neck exam: ABSENT: JVD Respiratory exam: PRESENT: Diminished breath sounds. ABSENT: crackles, rales, rhonchi, unlabored, wheezes Cardiovascular exam: PRESENT: Regular rate rhythm -+S1, +S2. ABSENT: diastolic murmur, systolic murmur GI/Abdominal exam: PRESENT: normal bowel sounds, soft. ABSENT: guarding, mass, tenderness Extremities exam: ABSENT: No edema; left BKA Neurological exam: PRESENT: alert, awake, oriented to person, place and time. Skin exam: PRESENT: dry, warm, Results Laboratory Results: 03/08/19 04:50 03/08/19 04:50 03/08/19 03/08/19 04:50 04:50 WBC 9.4 RBC 3.43 L Hgb 9.7 L Hct 29.5 L MCV 86 MCH 28.4 MCHC 33.0 RDW 16.0 H Plt Count 112 L Seg Neutrophils % 75.7 Sodium 140.0 Potassium 4.9 Chloride 105 Carbon Dioxide 20 L Anion Gap 15 BUN 32 H Creatinine 5.39 H Est GFR ( Amer) 10 L Glucose 119 H Calcium 8.9 02/25/19 02/25/19 17:33 17:33 Creatine Kinase 468 H CK-MB (CK-2) 5.68 H Troponin I 0.033 Impressions: Chest X-Ray 02/25/19 16:23 IMPRESSION: STABLE CARDIOMEGALY. NO ACUTE RADIOGRAPHIC FINDING IN THE CHEST. Renal Ultrasound 03/04/19 10:15 IMPRESSION: 1. Probable cyst in the upper pole the right kidney that measures 2 x 1.1 x 2 cm. 2. Increased echogenicity of the renal parenchyma suggestive of chronic medical renal disease. Assessment & Plan - Diagnosis (1) Acute kidney injury superimposed on chronic kidney disease Is this a current diagnosis for this admission?: Yes Plan: Likely secondary to acute interstitial nephritis due to ampicillin versus acute tubular necrosis due to chronic hypotension and enterococcal bacteremia. Patient had to dialysis treatment on 03/05 and 03/06. She remains to be oliguric unfortunately. She still needs renal replacement therapy at this time. We will do dialysis today for 3 hours, using the patient's temporary dialysis catheter, with 2 potassium bath, blood flow rate of 250 mL per minute, dialysate flow rate of 500 mL per minute, no ultrafiltration , no heparin and Procrit with 5000 units during dialysis intravenously. You have been giving the patient 500 mL positive fluids during dialysis to keep her blood pressure acceptable. She will also be given an extra dose of midodrine during dialysis. She will be monitored throughout dialysis treatment and adjust accordingly. Patient will be reevaluated on Monday for further need for renal replacement therapy. (2) Metabolic acidosis Is this a current diagnosis for this admission?: Yes Plan: Mild today. She is for dialysis. (3) Enterococcal bacteremia Is this a current diagnosis for this admission?: Yes Plan: Etiology unknown. Agree with discontinuation of Ampicillin and starting Daptomycin. Repeat blood culture on March 04 was negative. (4) Hypotension Qualifiers: Hypotension type: unspecified hypotension type Qualified Code(s): I95.9 - Hypotension, unspecified Is this a current diagnosis for this admission?: Yes Plan: Chronic and persistent which is likely contributing to the patient's acute kidney injury. Increase midodrine 5 mg p.o. 3 times a day. (5) Hyperkalemia Is this a current diagnosis for this admission?: Yes Plan: Resolved with dialysis. (6) Secondary hyperparathyroidism Is this a current diagnosis for this admission?: Yes Plan: Started calcitriol 0.25 mcg 3 times a week. (7) Anemia Is this a current diagnosis for this admission?: Yes Plan: We will give the patient Retacrit during dialysis. (8) CKD (chronic kidney disease), stage III Is this a current diagnosis for this admission?: Yes Plan: Due to microvascular disease and cardiorenal syndrome. Urine protein electrophoresis is negative for monoclonal spike. Urine protein to creatinine ratio is only 0.1. (9) Constipation Qualifiers: Constipation type: unspecified constipation type Qualified Code(s): K59.00 - Constipation, unspecified Is this a current diagnosis for this admission?: Yes Plan: Resolved. (10) Nausea Is this a current diagnosis for this admission?: Yes Plan: Could be related to her current infection and acute kidney injury however we may need to rule out any GI process going on including gastritis and ulcer. Defer to Dr. Vogt. (11) Chronic combined systolic and diastolic CHF (congestive heart failure) Is this a current diagnosis for this admission?: Yes Plan: Clinically appears to be compensated at this time. (12) Fall from wheelchair Qualifiers: Encounter type: initial encounter Qualified Code(s): W05.0XXA - Fall from non-moving wheelchair, initial encounter Is this a current diagnosis for this admission?: Yes - Time Time with patient: 15-25 minutes
[2019-03-08] MEDS: APIXABAN 2.5 MG TABLET PO SCH ×2 (18:06→23:01)
[2019-03-08] MEDS: SODIUM BICARBONATE 650 MG TABLET PO SCH ×2 (18:07→23:02)
[2019-03-08] MEDS: HYDROXYCHLOROQUINE SULFATE 200 MG TABLET PO SCH (18:07)
[2019-03-08] MEDS: PANTOPRAZOLE SODIUM 40 MG TABLET.DR PO SCH (18:07)
[2019-03-08] MEDS: TOPIRAMATE 25 MG TABLET PO SCH ×2 (18:07→22:59)
--- NOTE | 2019-03-08 20:45 | PDOC PROGRESS REPORT ---
Subjective Progress Note for:: 03/08/19 Subjective:: Patient condition is poor, she feels nauseous blood pressure is low despite midodrine patient is refusing further invasive intervention, prognosis is very poor Reason For Visit: SEPSIS Physical Exam Vital Signs: Temp Pulse Resp BP Pulse Ox 97.7 F 74 24 H 86/53 L 100 03/08/19 19:41 03/08/19 19:41 03/08/19 19:41 03/08/19 19:41 03/08/19 19:41 Intake & Output 03/07/19 03/08/19 03/09/19 06:59 06:59 06:59 Intake Total 2508 1120 600 Output Total 1205 345 0 Balance 1303 775 600 Weight 99.9 kg 99.5 kg General appearance: PRESENT: no acute distress Eye exam: PRESENT: PERRLA Respiratory exam: PRESENT: rhonchi Cardiovascular exam: PRESENT: +S1, +S2 GI/Abdominal exam: PRESENT: soft Results Laboratory Results: 03/08/19 04:50 03/08/19 04:50 03/08/19 03/08/19 04:50 04:50 WBC 9.4 RBC 3.43 L Hgb 9.7 L Hct 29.5 L MCV 86 MCH 28.4 MCHC 33.0 RDW 16.0 H Plt Count 112 L Seg Neutrophils % 75.7 Sodium 140.0 Potassium 4.9 Chloride 105 Carbon Dioxide 20 L Anion Gap 15 BUN 32 H Creatinine 5.39 H Est GFR ( Amer) 10 L Glucose 119 H Calcium 8.9 02/25/19 02/25/19 17:33 17:33 Creatine Kinase 468 H CK-MB (CK-2) 5.68 H Troponin I 0.033 Impressions: Chest X-Ray 02/25/19 16:23 IMPRESSION: STABLE CARDIOMEGALY. NO ACUTE RADIOGRAPHIC FINDING IN THE CHEST. Renal Ultrasound 03/04/19 10:15 IMPRESSION: 1. Probable cyst in the upper pole the right kidney that measures 2 x 1.1 x 2 cm. 2. Increased echogenicity of the renal parenchyma suggestive of chronic medical renal disease. Assessment & Plan - Diagnosis (1) Chronic combined systolic and diastolic CHF (congestive heart failure) Is this a current diagnosis for this admission?: Yes (2) Fall from wheelchair Qualifiers: Encounter type: initial encounter Qualified Code(s): W05.0XXA - Fall from non-moving wheelchair, initial encounter Is this a current diagnosis for this admission?: Yes (3) Enterococcal bacteremia Is this a current diagnosis for this admission?: Yes (4) Hypotension Qualifiers: Hypotension type: unspecified hypotension type Qualified Code(s): I95.9 - Hypotension, unspecified Is this a current diagnosis for this admission?: Yes (5) Acute kidney injury superimposed on chronic kidney disease Is this a current diagnosis for this admission?: Yes (6) Hyperkalemia Is this a current diagnosis for this admission?: Yes (7) Hypotension Qualifiers: Hypotension type: unspecified hypotension type Qualified Code(s): I95.9 - Hypotension, unspecified Is this a current diagnosis for this admission?: Yes (8) Metabolic acidosis Is this a current diagnosis for this admission?: Yes (9) Secondary hyperparathyroidism Is this a current diagnosis for this admission?: Yes (10) Acute interstitial nephritis Is this a current diagnosis for this admission?: Yes (11) Constipation Qualifiers: Constipation type: unspecified constipation type Qualified Code(s): K59.00 - Constipation, unspecified Is this a current diagnosis for this admission?: Yes (12) Sepsis Qualifiers: Sepsis type: sepsis due to unspecified organism Sepsis acute organ dysfunction status: with acute organ dysfunction Severe sepsis acute organ dysfunction type: acute renal failure Acute renal failure type: with acute tubular necrosis Severe sepsis shock status: with septic shock Qualified Code(s): A41.9 - Sepsis, unspecified organism; R65.21 - Severe sepsis with septic shock; N17.0 - Acute kidney failure with tubular necrosis Is this a current diagnosis for this admission?: Yes - Time Time Spent with patient: 35 or more minutes Level of Care: IMCU
[2019-03-08] MEDS ORDERED: DOPAMINE HCL/DEXTROSE 5%-WATER 800 MG/250 ML RTUINJ IV PRN (21:57)
[2019-03-08] MEDS: MONTELUKAST SODIUM 10 MG TABLET PO SCH (23:02)
[2019-03-08] MEDS: DAPTOMYCIN 500 MG in NORMAL SALINE 50 ML IV SCH (23:17)
[2019-03-09] MEDS: ONDANSETRON HCL INJ/PF 4 MG/2 ML SDV IV PRN (06:15)
--- NOTE | 2019-03-09 10:31 | EKG REPORT ---
SEVERITY:- ABNORMAL ECG - SINUS RHYTHM PROBABLE LEFT ATRIAL ABNORMALITY IVCD, CONSIDER ATYPICAL RBBB PROBABLE ANTEROLATERAL INFARCT, OLD BORDERLINE R WAVE PROGRESSION, ANTERIOR LEADS : Confirmed by: Som Jc MD 09-Mar-2019 10:30:54
[2019-03-09] MEDS ORDERED: DEXTROSE 5%-WATER 500 ML with AMIODARONE HCL 900 MG IV PRN ×2 (12:00)
[2019-03-09 12:20] VITALS: BP 98/80
--- NOTE | 2019-03-09 13:53 | Death Summary ---
Summary Date : 03/09/19 Time of :: 11:35 Autopsy: No Resuscitation Status: Do Not Resuscitate - Final Diagnosis (1) Sepsis Is this a current diagnosis for this admission?: Yes (2) Enterococcal bacteremia Is this a current diagnosis for this admission?: Yes (3) Chronic combined systolic and diastolic CHF (congestive heart failure) Is this a current diagnosis for this admission?: Yes (4) Fall from wheelchair Is this a current diagnosis for this admission?: Yes (5) Hypotension Is this a current diagnosis for this admission?: Yes (6) Acute kidney injury superimposed on chronic kidney disease Is this a current diagnosis for this admission?: Yes (7) Hyperkalemia Is this a current diagnosis for this admission?: Yes (8) Hypotension Is this a current diagnosis for this admission?: Yes (9) Metabolic acidosis Is this a current diagnosis for this admission?: Yes (10) Secondary hyperparathyroidism Is this a current diagnosis for this admission?: Yes (11) Acute interstitial nephritis Is this a current diagnosis for this admission?: Yes (12) Constipation Is this a current diagnosis for this admission?: Yes Hospital Course:: Patient well-known to me she has multiple comorbid conditions including combined chronic systolic and diastolic heart failure, COPD, PAD status post amputation of the left leg, history of myocardial infarction, history of multiple stroke, SLE multiple hospitalization, she presented to the hospital about 10 days ago after recently just discharged from the hospital, she presented for evaluation of altered mental status, she was found to have Enterococcus faecalis septicemia, treated with intravenous ampicillin complicated with acute kidney injury felt to be due to ATN versus acute interstitial nephritis. She was seen in consultation by nephrology she underwent hemodialysis on this admission acutely, she had chronic hypotension which was worsened on this admission felt to be due to sepsis. She was given midodrine to support blood pressure, she had two sessions of dialysis acutely in the hospital. Consultation was also requested from cardiology, she was seen this morning by Dr. Ying but patient refused any further intervention, she wants to be left alone, she this morning at 1136-hour
[2019-03-09] MEDS: MIDODRINE HCL 5 MG TABLET PO SCH (14:03)
[2019-03-09] MEDS: PANTOPRAZOLE SODIUM 40 MG TABLET.DR PO SCH (14:03)
[2019-03-09] MEDS: SACUBITRIL/VALSARTAN 24 MG/26 MG TABLET PO SCH (14:03)
[2019-03-09] MEDS: APIXABAN 2.5 MG TABLET PO SCH (14:03)
[2019-03-09] MEDS: CALCITRIOL 0.25 MCG CAPSULE PO SCH (14:03)
[2019-03-09] MEDS: HYDROXYCHLOROQUINE SULFATE 200 MG TABLET PO SCH (14:03)
[2019-03-09] MEDS: UMECLIDINIUM BROMIDE 62.5 MCG/DOSE IH SCH (14:03)
[2019-03-09] MEDS: TOPIRAMATE 25 MG TABLET PO SCH (14:04)
[2019-03-09] MEDS: METOPROLOL SUCCINATE 25 MG TAB.SR.24H PO SCH (14:04)
[2019-03-09] MEDS: SODIUM BICARBONATE 650 MG TABLET PO SCH (14:04)
== END 2019-03-09 15:55 | DRG 871 ==
LOC: ER 13:49 → EH 19:46 → 3W 22:11
PROVIDERS: ADMIT Internal Medicine; ATTEND Internal Medicine
PROC: 5A1D70Z Performance of Urinary Filtration, Intermittent, Less than 6 Hours Per Day (ICD-10-PCS; principal; 2019-03-05)
DX: A41.81 Sepsis due to Enterococcus (principal); N17.0 Acute kidney failure with tubular necrosis; R65.21 Severe sepsis with septic shock; I50.42 Chronic combined systolic (congestive) and diastolic (congestive) heart failure; E87.2 Acidosis; N25.81 Secondary hyperparathyroidism of renal origin; I13.0 Hypertensive heart and chronic kidney disease with heart failure and stage 1 through stage 4 chronic kidney disease, or unspecified chronic kidney disease; I25.110 Atherosclerotic heart disease of native coronary artery with unstable angina pectoris; W05.0XXA Fall from non-moving wheelchair, initial encounter; I95.9 Hypotension, unspecified; E87.5 Hyperkalemia; K59.00 Constipation, unspecified; J44.9 Chronic obstructive pulmonary disease, unspecified; N18.3 Chronic kidney disease, stage 3 (moderate); I48.0 Paroxysmal atrial fibrillation; E78.5 Hyperlipidemia, unspecified; I73.9 Peripheral vascular disease, unspecified; K21.9 Gastro-esophageal reflux disease without esophagitis; F32.9 Major depressive disorder, single episode, unspecified; M32.19 Other organ or system involvement in systemic lupus erythematosus; Y92.009 Unspecified place in unspecified non-institutional (private) residence as the place of occurrence of the external cause; D63.1 Anemia in chronic kidney disease; I25.2 Old myocardial infarction; Z60.2 Problems related to living alone; Z66 Do not resuscitate; Z86.73 Personal history of transient ischemic attack (TIA), and cerebral infarction without residual deficits; Z89.512 Acquired absence of left leg below knee; Z85.3 Personal history of malignant neoplasm of breast; Z95.5 Presence of coronary angioplasty implant and graft; Z90.12 Acquired absence of left breast and nipple; Z79.899 Other long term (current) drug therapy; Z79.01 Long term (current) use of anticoagulants; Z99.2 Dependence on renal dialysis
CPT/HCPCS: 36415; 36556; 51701; 71045; 76775; 76937; 80048; 80053; 81001; 82140; 82533; 82550; 82553; 82570; 82803; 83735; 83970; 84100; 84156; 84157; 84165; 84166; 84300; 84484; 85025; 86317; 86320; 86704; 87040; 87077; 87086; 87150; 87186; 87340; 87522; 89190; 93005; 93010; 99285; C1752; J0290; J0878; J1265; J1644; J2405; J3490; J7030; J7050; Q5105